=== PATIENT | female | born 1975 | race Caucasian/White ===

== ENCOUNTER → 2017-11-18 16:54 | Outpatient (CLI) | payer OTHER, SELFPAY | PROVIDERS: Family Provider Student in an Organized Health Care Education/Training Program; PCP Student in an Organized Health Care Education/Training Program; Visit Provider Otolaryngology | DX: J01.90 Acute sinusitis, unspecified (principal) | CPT/HCPCS: 87070; 87205 ==

== ENCOUNTER → 2018-05-23 11:23 | Outpatient (CLI) | payer OTHER, SELFPAY ==
[2018-05-23 13:05] LABS: Vitamin D,25 Hydroxy 46.4 ng/mL (29.95-100.01)
[2018-05-23 13:12] LABS: ALB/GLOB Ratio 0.9 RATIO (0.9-2.4); AST(SGOT) 30 U/L (15-37); Alanine Aminotransfer ALT/SGPT 43 U/L (13-56); Albumin, Serum 3.9 g/dL (3.2-5.0); Alkaline Phosphatase 69 U/L (45-117); Anion Gap 11 (5-15); BUN 13 mg/dL (7-18); Chloride 104 mmol/L (98-107); Creatinine, Serum 0.72 mg/dL (0.55-1.02); EST Glomerular Filtration Rate 93 mL/min (>60); Est Glom Filt Rate - Afr Amer 113 mL/min (>60); Globulin 4.3 g/dL (2.2-4.2); Glucose 85 mg/dL (74-106); Potassium 3.9 mmol/L (3.5-5.1); Protein, Total 8.2 g/dL (6.4-8.2); Sodium Level 140 mmol/L (136-145); Thyroid Stim Hormone (TSH) 1.05 uIU/mL (0.358-3.74)
== END ==
PROVIDERS: Family Provider Student in an Organized Health Care Education/Training Program; PCP Student in an Organized Health Care Education/Training Program; Visit Provider Internal Medicine Endocrinology, Diabetes & Metabolism
DX: E04.0 Nontoxic diffuse goiter (principal); E55.9 Vitamin D deficiency, unspecified
CPT/HCPCS: 36415; 80053; 82306; 84443

== ENCOUNTER → 2018-12-27 11:23 | Outpatient (CLI) | payer OTHER, SELFPAY ==
--- NOTE | 2018-12-27 11:28 | VDLE_ITS ---
Reason For Study: LEG PAIN RIGHT LEFT CFV is compressible, spontaneous, phasic, GSV is normal. competent and demonstrates normal CFV is compressible, spontaneous, phasic, augmentation. competent, and demonstrates normal Procedure augmentation. Exam performed in department. FV is compressible, spontaneous, phasic, A preliminary report was called and/or faxed competent and demonstrates normal to Carmen Moya. augmentation. POP V is compressible, spontaneous, phasic, competent and demonstrates normal augmentation. T/P Trunk is compressible. PTV is compressible. LT PerV is compressible. Interpretation Summary Deep veins of the left lower extremity are patent and compressible segmentally. There is no evidence of left lower extremity deep vein thrombosis. Valvular competence appears intact within the proximal deep venous system on the left . The left greater saphenous vein appears patent and compressible segmentally. Ordering Physician: Michelle Moya Referring Physician: Michelle Moya Performed By: Tomasa Patel RVT
== END ==
PROVIDERS: Family Provider Internal Medicine; PCP Internal Medicine; Referring Provider Nurse Practitioner Adult Health; Visit Provider Nurse Practitioner Adult Health
DX: M79.605 Pain in left leg (principal)
CPT/HCPCS: 93971

== ENCOUNTER → 2019-01-26 09:53 | Outpatient (CLI) | payer OTHER, SELFPAY ==
[2019-01-26 10:44] LABS: Erythrocyte Sedimentation Rate 10 mm/hr (0-20)
[2019-01-26 10:45] LABS: Hemoglobin 12.7 g/dl (12.0-15.0); Mean Corp Hgb Conc 33.4 g/gl (32-36); Mean Corpuscular Hgb 28.7 pg (27.0-32.0); Mean Corpuscular Volume 85.8 fL (81-99); Platelet Count 321 K/mm3 (150-450); RBC Distribution Width CV 13.2 % (11.6-14.6); RBC Distribution Width SD 41.8 fl (35.1-43.9); Red Blood Count 4.43 M/mm3 (4.2-5.4); White Blood Count 8.2 K/mm3 (4.4-11.0)
[2019-01-26 10:47] LABS: Scan Indicated on CBC? Y/N NO
[2019-01-26 11:11] LABS: Vitamin D,25 Hydroxy 38.6 ng/mL (29.95-100.01)
[2019-01-26 11:17] LABS: ALB/GLOB Ratio 0.9 RATIO (0.9-2.4); AST(SGOT) 23 U/L (15-37); Alanine Aminotransfer ALT/SGPT 39 U/L (13-56); Albumin, Serum 3.7 g/dL (3.2-5.0); Alkaline Phosphatase 67 U/L (45-117); Anion Gap 8 (5-15); BUN 14 mg/dL (7-18); BUN/Creat Ratio 19.3 RATIO (10-20); CRP < 2.90 mg/L (0.0-3.0); Calcium,Total 8.5 mg/dL (8.5-10.1); Chloride 106 mmol/L (98-107); Cholesterol 247 mg/dL (200); Creatinine, Serum 0.73 mg/dL (0.55-1.02); EST Glomerular Filtration Rate 92 mL/min (>60); Est Glom Filt Rate - Afr Amer 112 mL/min (>60); Globulin 3.9 g/dL (2.2-4.2); Glucose 96 mg/dL (74-106); High Density Lipoprotein 41 mg/dL; Potassium 4.3 mmol/L (3.5-5.1); Protein, Total 7.6 g/dL (6.4-8.2); Sodium Level 138 mmol/L (136-145); Triglycerides 261 mg/dL; Very Low Density Lipoprotein 52 mg/dL (5-40)
== END ==
PROVIDERS: Family Provider Student in an Organized Health Care Education/Training Program; PCP Student in an Organized Health Care Education/Training Program; Referring Provider Internal Medicine Endocrinology, Diabetes & Metabolism; Visit Provider Internal Medicine Endocrinology, Diabetes & Metabolism
DX: Z00.00 Encounter for general adult medical examination without abnormal findings (principal); E04.0 Nontoxic diffuse goiter; E55.9 Vitamin D deficiency, unspecified; Z79.899 Other long term (current) drug therapy
CPT/HCPCS: 36415; 80053; 80061; 82306; 84443; 85027; 85652; 86140

== ENCOUNTER → 2019-08-22 07:20 | Outpatient (CLI) | payer OTHER, SELFPAY ==
[2019-08-22 09:08] LABS: Vitamin D,25 Hydroxy 68.7 ng/mL (29.95-100.01)
[2019-08-22 09:12] LABS: ALB/GLOB Ratio 0.9 RATIO (0.9-2.4); AST(SGOT) 19 U/L (15-37); Alanine Aminotransfer ALT/SGPT 34 U/L (13-56); Albumin, Serum 3.5 g/dL (3.2-5.0); Alkaline Phosphatase 65 U/L (45-117); Anion Gap 6 (5-15); BUN 19 mg/dL (7-18); BUN/Creat Ratio 28.6 RATIO (10-20); Calcium,Total 8.5 mg/dL (8.5-10.1); Chloride 108 mmol/L (98-107); Cholesterol 242 mg/dL (200); Creatinine, Serum 0.66 mg/dL (0.55-1.02); EST Glomerular Filtration Rate 102 mL/min (>60); Est Glom Filt Rate - Afr Amer 123 mL/min (>60); Globulin 3.8 g/dL (2.2-4.2); Glucose 95 mg/dL (74-106); High Density Lipoprotein 36 mg/dL; Potassium 4.1 mmol/L (3.5-5.1); Protein, Total 7.3 g/dL (6.4-8.2); Sodium Level 141 mmol/L (136-145); Thyroid Stim Hormone (TSH) 1.89 uIU/mL (0.358-3.74); Triglycerides 222 mg/dL; Very Low Density Lipoprotein 44 mg/dL (5-40)
== END ==
PROVIDERS: Family Provider Student in an Organized Health Care Education/Training Program; PCP Student in an Organized Health Care Education/Training Program; Referring Provider Internal Medicine Endocrinology, Diabetes & Metabolism; Visit Provider Internal Medicine Endocrinology, Diabetes & Metabolism
DX: E04.0 Nontoxic diffuse goiter (principal); E78.2 Mixed hyperlipidemia; E55.9 Vitamin D deficiency, unspecified
CPT/HCPCS: 36415; 80053; 80061; 82306; 84443

== ENCOUNTER → 2020-05-21 07:59 | Outpatient (CLI) | payer OTHER, SELFPAY ==
[2020-05-21 10:15] LABS: ALB/GLOB Ratio 0.9 RATIO (0.9-2.4); AST(SGOT) 29 U/L (15-37); Alanine Aminotransfer ALT/SGPT 52 U/L (13-56); Albumin, Serum 3.6 g/dL (3.2-5.0); Alkaline Phosphatase 64 U/L (45-117); Anion Gap 7 (5-15); BUN 12 mg/dL (7-18); BUN/Creat Ratio 17.6 RATIO (10-20); Calcium,Total 8.4 mg/dL (8.5-10.1); Chloride 104 mmol/L (98-107); Cholesterol 240 mg/dL (200); Creatinine, Serum 0.68 mg/dL (0.55-1.02); EST Glomerular Filtration Rate 99 mL/min (>60); Est Glom Filt Rate - Afr Amer 119 mL/min (>60); Globulin 3.9 g/dL (2.2-4.2); Glucose 90 mg/dL (74-106); High Density Lipoprotein 34 mg/dL; Potassium 3.6 mmol/L (3.5-5.1); Protein, Total 7.5 g/dL (6.4-8.2); Sodium Level 138 mmol/L (136-145); Thyroid Stim Hormone (TSH) 2.09 uIU/mL (0.358-3.74); Triglycerides 313 mg/dL; Very Low Density Lipoprotein 63 mg/dL (5-40)
[2020-05-21 11:10] LABS: Vitamin D,25 Hydroxy 75.1 ng/mL
== END ==
PROVIDERS: PCP Student in an Organized Health Care Education/Training Program; Referring Provider Internal Medicine Endocrinology, Diabetes & Metabolism; Visit Provider Internal Medicine Endocrinology, Diabetes & Metabolism
DX: E04.0 Nontoxic diffuse goiter (principal); E55.9 Vitamin D deficiency, unspecified; E78.2 Mixed hyperlipidemia
CPT/HCPCS: 36415; 80053; 80061; 82306; 84443

== ENCOUNTER → 2020-08-17 08:59 | Outpatient (CLI) | payer OTHER, SELFPAY ==
[2020-08-17 10:12] LABS: ALB/GLOB Ratio 0.9 RATIO (0.9-2.4); AST(SGOT) 24 U/L (15-37); Alanine Aminotransfer ALT/SGPT 42 U/L (13-56); Albumin, Serum 3.6 g/dL (3.2-5.0); Alkaline Phosphatase 73 U/L (45-117); Anion Gap 4 (5-15); BUN 12 mg/dL (7-18); CPK Total, Creatine Kinase 123 U/L (26-192); Chloride 110 mmol/L (98-107); Cholesterol 189 mg/dL (200); Creatinine, Serum 0.75 mg/dL (0.55-1.02); EST Glomerular Filtration Rate 88 mL/min (>60); Est Glom Filt Rate - Afr Amer 107 mL/min (>60); Globulin 3.9 g/dL (2.2-4.2); Glucose 97 mg/dL (74-106); High Density Lipoprotein 47 mg/dL; Protein, Total 7.5 g/dL (6.4-8.2); Sodium Level 144 mmol/L (136-145); Triglycerides 154 mg/dL; Very Low Density Lipoprotein 31 mg/dL (5-40)
== END ==
PROVIDERS: PCP Student in an Organized Health Care Education/Training Program; Referring Provider Internal Medicine Endocrinology, Diabetes & Metabolism; Visit Provider Internal Medicine Endocrinology, Diabetes & Metabolism
DX: E04.0 Nontoxic diffuse goiter (principal); E78.2 Mixed hyperlipidemia
CPT/HCPCS: 36415; 80053; 80061; 82550

== ENCOUNTER → 2021-04-02 09:23 | Outpatient (CLI) | payer OTHER, SELFPAY ==
[2021-04-02 11:07] LABS: Vitamin D,25 Hydroxy 73.4 ng/mL
[2021-04-02 11:11] LABS: AST(SGOT) 25 U/L (15-37); Alanine Aminotransfer ALT/SGPT 43 U/L (13-56); Albumin, Serum 3.8 g/dL (3.2-5.0); Alkaline Phosphatase 73 U/L (45-117); Anion Gap 5 (5-15); BUN 9 mg/dL (7-18); BUN/Creat Ratio 14.5 RATIO (10-20); Chloride 106 mmol/L (98-107); Cholesterol 194 mg/dL (200); Creatinine, Serum 0.62 mg/dL (0.55-1.02); EST Glomerular Filtration Rate 110 mL/min (>60); Est Glom Filt Rate - Afr Amer 133 mL/min (>60); Glucose 91 mg/dL (74-106); High Density Lipoprotein 40 mg/dL; Potassium 4.1 mmol/L (3.5-5.1); Protein, Total 7.8 g/dL (6.4-8.2); Sodium Level 139 mmol/L (136-145); Thyroid Stim Hormone (TSH) 1.05 uIU/mL (0.358-3.74); Triglycerides 188 mg/dL; Very Low Density Lipoprotein 38 mg/dL (5-40)
== END ==
PROVIDERS: PCP Student in an Organized Health Care Education/Training Program; Referring Provider Internal Medicine Endocrinology, Diabetes & Metabolism; Visit Provider Internal Medicine Endocrinology, Diabetes & Metabolism
DX: E78.2 Mixed hyperlipidemia (principal); E04.0 Nontoxic diffuse goiter; E55.9 Vitamin D deficiency, unspecified
CPT/HCPCS: 36415; 80053; 80061; 82306; 84443

== ENCOUNTER → 2022-03-12 | Outpatient (CLI) | payer OTHER, SELFPAY ==
[2022-03-12 10:56] LABS: ALB/GLOB Ratio 0.9 RATIO (0.9-2.4); AST(SGOT) 17 U/L (15-37); Alanine Aminotransfer ALT/SGPT 34 U/L (13-56); Albumin, Serum 3.5 g/dL (3.2-5.0); Alkaline Phosphatase 70 U/L (45-117); Anion Gap 7 (5-15); BUN 10 mg/dL (7-18); BUN/Creat Ratio 16.8 RATIO (10-20); Calcium,Total 8.5 mg/dL (8.5-10.1); Chloride 106 mmol/L (98-107); Cholesterol 169 mg/dL (200); EST Glomerular Filtration Rate 114 mL/min (>60); Est Glom Filt Rate - Afr Amer 138 mL/min (>60); Globulin 3.8 g/dL (2.2-4.2); Glucose 98 mg/dL (74-106); High Density Lipoprotein 39 mg/dL; Potassium 3.8 mmol/L (3.5-5.1); Protein, Total 7.3 g/dL (6.4-8.2); Sodium Level 137 mmol/L (136-145); Thyroid Stim Hormone (TSH) 1.41 uIU/mL (0.358-3.74); Triglycerides 196 mg/dL; Very Low Density Lipoprotein 39 mg/dL (5-40)
== END | disposition home or self-care (01) ==
LOC: LAB 08:09
PROVIDERS: PCP Student in an Organized Health Care Education/Training Program; Referring Provider Internal Medicine Endocrinology, Diabetes & Metabolism; Visit Provider Internal Medicine Endocrinology, Diabetes & Metabolism
DX: E78.2 Mixed hyperlipidemia (principal)
CPT/HCPCS: 36415; 80053; 80061; 84443

== ENCOUNTER → 2022-09-21 | Outpatient (CLI) | payer OTHER, SELFPAY | END | disposition home or self-care (01) | LOC: LABSPEC 16:27 | PROVIDERS: PCP Student in an Organized Health Care Education/Training Program; Visit Provider Otolaryngology | DX: J02.9 Acute pharyngitis, unspecified (principal) | CPT/HCPCS: 87070 ==

== ENCOUNTER → 2022-11-02 | Outpatient (CLI) | payer OTHER, SELFPAY ==
[2022-11-02 07:41] LABS: AST(SGOT) 16 U/L (15-37); Alanine Aminotransfer ALT/SGPT 31 U/L (13-56); Albumin, Serum 3.7 g/dL (3.2-5.0); Alkaline Phosphatase 64 U/L (45-117); Anion Gap 6 (5-15); BUN 10 mg/dL (7-18); BUN/Creat Ratio 14.8 RATIO (10-20); Calcium,Total 8.6 mg/dL (8.5-10.1); Chloride 108 mmol/L (98-107); Cholesterol 159 mg/dL (200); Creatinine, Serum 0.68 mg/dL (0.55-1.02); EST Glomerular Filtration Rate 99 mL/min (>60); Est Glom Filt Rate - Afr Amer 119 mL/min (>60); Globulin 3.7 g/dL (2.2-4.2); Glucose 108 mg/dL (74-106); High Density Lipoprotein 39 mg/dL; Potassium 4.1 mmol/L (3.5-5.1); Protein, Total 7.4 g/dL (6.4-8.2); Sodium Level 140 mmol/L (136-145); Thyroid Stim Hormone (TSH) 1.51 uIU/mL (0.358-3.74); Triglycerides 162 mg/dL; Very Low Density Lipoprotein 32 mg/dL (5-40)
[2022-11-02 08:38] LABS: Vitamin D,25 Hydroxy 35.3 ng/mL
== END | disposition home or self-care (01) ==
PROVIDERS: PCP Student in an Organized Health Care Education/Training Program; Referring Provider Internal Medicine Endocrinology, Diabetes & Metabolism; Visit Provider Internal Medicine Endocrinology, Diabetes & Metabolism
DX: E04.0 Nontoxic diffuse goiter (principal); E78.2 Mixed hyperlipidemia; E55.9 Vitamin D deficiency, unspecified
CPT/HCPCS: 36415; 80053; 80061; 82306; 84443

== ENCOUNTER → 2022-12-22 | Outpatient (CLI) | payer OTHER, SELFPAY ==
[2022-12-22 07:25] LABS: Hematocrit 40.4 % (37-47); Hemoglobin 13.3 g/dL (12.0-15.0); Mean Corp Hgb Conc 32.9 g/dL (32-36); Mean Corpuscular Hgb 29.2 pg (27.0-32.0); Mean Corpuscular Volume 88.6 fL (81-99); Mean Platelet Vol. 10.2 fl (6.2-12.0); Platelet Count 315 K/mm3 (150-450); RBC Distribution Width CV 12.8 % (11.6-14.6); RBC Distribution Width SD 41.3 fl (35.1-43.9); Red Blood Count 4.56 M/mm3 (4.2-5.4)
[2022-12-22 08:02] LABS: AST(SGOT) 17 U/L (15-37); Alanine Aminotransfer ALT/SGPT 28 U/L (13-56); Albumin, Serum 3.7 g/dL (3.2-5.0); Alkaline Phosphatase 58 U/L (45-117); Anion Gap 7 (5-15); BUN 15 mg/dL (7-18); BUN/Creat Ratio 23.3 RATIO (10-20); Calcium,Total 8.9 mg/dL (8.5-10.1); Chloride 106 mmol/L (98-107); Cholesterol 183 mg/dL (200); Creatinine, Serum 0.64 mg/dL (0.55-1.02); EST Glomerular Filtration Rate 105 mL/min (>60); Est Glom Filt Rate - Afr Amer 126 mL/min (>60); Globulin 3.7 g/dL (2.2-4.2); Glucose 103 mg/dL (74-106); High Density Lipoprotein 37 mg/dL; Protein, Total 7.4 g/dL (6.4-8.2); Sodium Level 140 mmol/L (136-145); Triglycerides 144 mg/dL; Very Low Density Lipoprotein 29 mg/dL (5-40)
[2022-12-22 08:30] LABS: Hemoglobin A1c 5.5 % (3.8-5.6)
== END | disposition home or self-care (01) ==
PROVIDERS: PCP Student in an Organized Health Care Education/Training Program; Referring Provider Nurse Practitioner Family; Visit Provider Nurse Practitioner Family
DX: I10 Essential (primary) hypertension (principal); E78.2 Mixed hyperlipidemia; R73.01 Impaired fasting glucose
CPT/HCPCS: 36415; 80053; 80061; 83036; 85027

== ENCOUNTER → 2023-02-11 | Outpatient (CLI) | payer OTHER, SELFPAY | END | disposition home or self-care (01) | LOC: LAB 06:40 → LABSPEC 06:41 | PROVIDERS: PCP Student in an Organized Health Care Education/Training Program; Referring Provider Internal Medicine Endocrinology, Diabetes & Metabolism; Visit Provider Internal Medicine Endocrinology, Diabetes & Metabolism | DX: E78.2 Mixed hyperlipidemia (principal); N95.1 Menopausal and female climacteric states; M85.89 Other specified disorders of bone density and structure, multiple sites; N20.0 Calculus of kidney | CPT/HCPCS: 81050 ==

== ENCOUNTER → 2023-02-18 | Outpatient (CLI) | payer OTHER, SELFPAY ==
[2023-02-18 07:36] LABS: ALB/GLOB Ratio 0.9 RATIO (0.9-2.4); AST(SGOT) 24 U/L (15-37); Alanine Aminotransfer ALT/SGPT 33 U/L (13-56); Albumin, Serum 3.7 g/dL (3.2-5.0); Alkaline Phosphatase 77 U/L (45-117); Anion Gap 6 (5-15); BUN 15 mg/dL (7-18); BUN/Creat Ratio 21.7 RATIO (10-20); Calcium,Total 8.7 mg/dL (8.5-10.1); Chloride 105 mmol/L (98-107); Cholesterol 197 mg/dL (200); Creatinine, Serum 0.69 mg/dL (0.55-1.02); EST Glomerular Filtration Rate 96 mL/min (>60); Est Glom Filt Rate - Afr Amer 116 mL/min (>60); Follicle Stimulating Hormone 10.3 mIU/mL; Globulin 4.1 g/dL (2.2-4.2); Glucose 109 mg/dL (74-106); High Density Lipoprotein 42 mg/dL; Potassium 4.2 mmol/L (3.5-5.1); Protein, Total 7.8 g/dL (6.4-8.2); Sodium Level 139 mmol/L (136-145); Thyroid Stim Hormone (TSH) 2.06 uIU/mL (0.358-3.74); Triglycerides 179 mg/dL; Very Low Density Lipoprotein 36 mg/dL (5-40)
[2023-02-18 08:51] LABS: PTHIN 49.7 pg/mL (18.4-80.1)
[2023-02-18 08:53] LABS: Vitamin D,25 Hydroxy 71.1 ng/mL
== END | disposition home or self-care (01) ==
LOC: LAB 06:20
PROVIDERS: PCP Student in an Organized Health Care Education/Training Program; Referring Provider Internal Medicine Endocrinology, Diabetes & Metabolism; Visit Provider Internal Medicine Endocrinology, Diabetes & Metabolism
DX: E78.2 Mixed hyperlipidemia (principal); N95.1 Menopausal and female climacteric states; N20.0 Calculus of kidney; M85.89 Other specified disorders of bone density and structure, multiple sites
CPT/HCPCS: 36415; 80053; 80061; 82306; 83001; 83970; 84443

== ENCOUNTER → 2023-06-28 | Outpatient (CLI) | payer OTHER, SELFPAY ==
[2023-06-28 08:01] LABS: ALB/GLOB Ratio 0.9 RATIO (0.9-2.4); AST(SGOT) 16 U/L (15-37); Alanine Aminotransfer ALT/SGPT 28 U/L (13-56); Albumin, Serum 3.7 g/dL (3.2-5.0); Alkaline Phosphatase 60 U/L (45-117); Anion Gap 4 (5-15); BUN 15 mg/dL (7-18); BUN/Creat Ratio 23.2 RATIO (10-20); Chloride 109 mmol/L (98-107); Cholesterol 173 mg/dL (200); Creatinine, Serum 0.65 mg/dL (0.55-1.02); EST Glomerular Filtration Rate 104 mL/min (>60); Est Glom Filt Rate - Afr Amer 126 mL/min (>60); Globulin 3.9 g/dL (2.2-4.2); Glucose 101 mg/dL (74-106); High Density Lipoprotein 37 mg/dL; Potassium 3.9 mmol/L (3.5-5.1); Protein, Total 7.6 g/dL (6.4-8.2); Sodium Level 140 mmol/L (136-145); Triglycerides 176 mg/dL; Very Low Density Lipoprotein 35 mg/dL (5-40)
== END | disposition home or self-care (01) ==
PROVIDERS: PCP Student in an Organized Health Care Education/Training Program; Referring Provider Internal Medicine Endocrinology, Diabetes & Metabolism; Visit Provider Internal Medicine Endocrinology, Diabetes & Metabolism
DX: E78.2 Mixed hyperlipidemia (principal)
CPT/HCPCS: 36415; 80053; 80061

== ENCOUNTER 2023-11-26 19:09 | Emergency (ER) | payer OTHER, SELFPAY ==
[2023-11-26 19:09] VITALS: BP 196/109; PULSE 118; RESP 20; TEMP 36.4; O2SAT 97; BMI 29.2
--- NOTE | 2023-11-26 20:03 | EDS_ITS ---
HPI History of Present Illness Chief Complaint: Hypertension Informant: patient Onset/Context/Timing Onset: Weeks (1) Context: Gradual Onset Timing: Waxes and wanes Quality: Aching, sharp at times Location: Left flank Worsened by: Nothing Relieved by: Nothing Narrative Narrative: Patient presents with elevated blood pressure that was noticed last week. Patient states she went to urgent care for pain in her left flank and back. Patient states that they did a urinalysis which showed some mild hematuria. Patient states that they noted her blood pressure to be elevated at that time. Patient states that she was still having some intermittent pain in her back. Patient checked her blood pressure again tonight and it was elevated. Patient denies any fevers or chills. Patient denies any shortness of breath. Patient admits to some slight pain in her left upper chest. [facility] Medical History (Updated 11/27/23 @ 00:[address] Lakhwinder Headley, ) Hypercholesterolemia Hypertension Home Medications indomethacin 25 mg capsule 50 mg (2 x 25 mg) PO TIDCM ##30 07/01/14 [Rx Last Taken Unknown] oxycodone-acetaminophen 5 mg-325 mg tablet 1 tab PO Q4H PRN PRN Pain ##14 07/01/14 [Rx Last Taken Unknown] pitavastatin calcium 4 mg tablet (Livalo) 4 mg PO DAILY 07/01/14 [History Last Taken Unknown] tamsulosin 0.4 mg capsule 0.4 mg PO DAILY ##7 07/01/14 [Rx Last Taken Unknown] valsartan 160 mg-hydrochlorothiazide 12.5 mg tablet (Diovan HCT) 1 tab PO DAILY 07/01/14 [History Last Taken Unknown] hydrocodone-acetaminophen 5-325mg 5mg-325mg 1 tab PO Q6H PRN PRN Pain 3 days #10 TABLETS 11/27/23 [Rx Last Taken Unknown] Allergy/AdvReac Type Severity Reaction Status Date / Time Sulfa (Sulfonamide Allergy Rash Verified 07/01/14 13:11 Antibiotics) amoxicillin trihydrate AdvReac Vomiting Verified 07/01/14 13:11 [From Augmentin] potassium clavulanate AdvReac Vomiting Verified 07/01/14 13:11 [From Augmentin] Surgical History H/O section Social History Smoking Status: Never smoker ROS ROS ED Constitutional Constitutional ED: Denies chills or fever(s) Eyes Eyes: Denies blurry vision or change in vision ENT ENT ED: Denies rhinorrhea or sore throat Cardiovascular Cardiovascular: Reports chest pain; Denies palpitations Respiratory/Chest Respiratory/Chest: Denies cough or dyspnea Gastrointestinal Gastrointestinal: Denies nausea or vomiting Genitourinary Genitourinary ED: Reports urinary frequency; Denies dysuria or hematuria Musculoskeletal Musculoskeletal: Reports back pain; Denies neck pain Integumentary Denies abscess or rash Neurologic Neurologic: Denies headache(s) or weakness Allergic/Immunologic Allergic/Immunologic ED: Denies mouth swelling or urticaria EXAM Physical Exam Const Vital Signs: 11/26/23 19:09 11/26/23 20:33 11/26/23 20:33 Temperature 97.6 F L Temperature Source Temporal Pulse Rate 118 H 120 H Respiratory Rate 20 H 28 H Respiratory Effort Normal Non-Labored Respiratory Pattern Normal Blood Pressure 196/109 H 215/129 H Blood Pressure Mean 138 157 Pulse Ox 97 98 Oxygen Delivery Method Room Air Room Air 11/26/23 21:30 11/26/23 22:26 Temperature Temperature Source Pulse Rate 83 Respiratory Rate Respiratory Effort Respiratory Pattern Blood Pressure 199/110 H 196/101 H Blood Pressure Mean 139 132 Pulse Ox Oxygen Delivery Method Positive well nourished and well developed General Appearance ED: well developed and NAD HEENT Reports moist mucous membranes Neck supple and no JVD Resp normal respiratory effort and clear to auscultation bilaterally Cardio regular rate and regular rhythm GI non-tender and non-distended Palpation: soft Back/Spine no CVA tenderness Extremity normal to inspection Neuro oriented x3, CN's II-XII intact bilaterally and no sensory deficits noted Sensorium / Orientation: alert Motor Exam: strength 5/5 throughout Psych mental status grossly normal MDM MDM MDM Narrative Medical decision making narrative: Differential diagnosis includes hypertensive urgency, hypertensive emergency, uncontrolled hypertension, cardiac dysrhythmia, cardiac ischemia, electrolyte abnormality, ureteral calculus, pyelonephritis, and urinary tract infection. EKG will be obtained to assess for cardiac dysrhythmia and cardiac ischemia. Chest x-ray will be obtained to assess for cardiomegaly, congestive heart failure, and pneumonia. CT scan of the abdomen and pelvis will be obtained to assess for ureteral calculus. CBC will be obtained to assess for leukocytosis and anemia. Basic metabolic profile will be obtained to assess for electrolyte abnormality and renal function. High-sensitivity troponin will be obtained to assess for cardiac ischemia. D-dimer will be obtained to assess for pulmonary embolism. Urinalysis will be obtained to assess for urinary tract infection. Lab Data Attestation: I reviewed the patient's lab results. Lab results narrative: CBC was reviewed and was within normal limits. Basic metabolic profile was reviewed and was within normal limits. D-dimer was reviewed and was normal at 0.41. High-sensitivity troponin was reviewed and was normal at 6. Urinalysis was reviewed. There is no evidence of urinary tract infection or hematuria. Labs: Laboratory Results - last 24 hr 11/26/23 11/26/23 20:30 20:50 WBC 10.7 RBC 4.64 Hgb 13.4 Hct 39.8 MCV 85.8 MCH 28.9 MCHC 33.7 RDW Std Deviation 39.1 RDW Coeff of [place] 12.8 Plt Count 344 MPV 10.4 Immature Gran % (Auto) 0.500 Neut % (Auto) 66.1 Lymph % (Auto) 24.5 [place] % (Auto) 7.9 Eos % (Auto) 0.3 Baso % (Auto) 0.7 Absolute Neuts (auto) 7.1 Absolute Lymphs (auto) 2.62 Nucleated RBC % 0 D-Dimer Quant (PE/DVT) 0.41 Sodium 140 Potassium 3.5 Chloride 106 Carbon Dioxide 27.0 Anion Gap 7 BUN 12 Creatinine 0.72 Estim Creat Clear Calc 98.65 Est GFR (MDRD) Af Amer 111 Est GFR (MDRD) Non-Af 92 BUN/Creatinine Ratio 16.7 Glucose 150 H Calcium 9.8 Troponin I High Sens 6 Urine Color Yellow Urine Clarity Clear Urine pH 7.0 Ur Specific [place] 1.010 Urine Protein Negative Urine Glucose (UA) Normal Urine Ketones Negative Urine Occult Blood 50 H Urine Nitrite Negative Urine Bilirubin Negative Urine Urobilinogen Normal Ur Leukocyte Esterase Negative Urine RBC 0-5 SEEN Urine WBC 0-5 SEEN Ur Squamous Epith Cells 0-5 SEEN Urine Bacteria RARE Urine Mucus 0 SEEN Radiography Chest X-Ray - ED: 2 View, Read by ED Physician and No Acute Disease Diagnostic Testing: Clinical Impression(s) from Imaging Studies Abdomen/Pelvis CT 11/26/23 20:16 IMPRESSION: Mild left renal obstruction secondary to proximal ureteral calculus measuring approximately 4 mm. Nonobstructing right renal calculus. Electronically Signed: Leon Butterfield MD at 21:41 EST , CT scan of the abdomen pelvis was obtained. There is a 4 mm proximal ureteral calculus on the left. There is mild hydronephrosis. There is a nonobstructing right renal calculus. This was interpreted by the radiologist was also independently reviewed by myself. PA and lateral chest x-ray was obtained. There are 2 views. On my independent interpretation, lung chase are clear. There is normal cardiac silhouette. Bony thorax is normal. There is no acute process noted. EKG Initial EKG: Attestation: I personally reviewed and interpreted this EKG as follows: Interpretation: Sinus Rhythm (93) and No Acute Injury Pattern Comments: EKG was obtained. On my independent interpretation, shows a sinus rhythm with first-degree AV block with rate of 93. SC interval is slightly prolonged at 206 ms. QRS interval was normal at 86 ms. QTc interval is normal at 467 ms. [place] was normal. There are no acute ST or T wave changes noted. Prior EKG tracings: not available for review Prior: No Prior Treatment and Re-Evaluation :: Patient was given a dose of labetalol initially. Patient had minimal improvement with this. Patient was given a dose of clonidine. Patient's blood pressure improved to 179/80 after this. Patient was advised of her findings. Patient was advised that the flank pain may be causing her blood pressure to go up. Patient was given a dose of morphine here. Patient was given a prescription for a short course of [place]. Patient was instructed to continue her Diovan hydrochlorothiazide as previously prescribed. Patient was instructed to follow-up with her primary care physician in 3 to 5 days. Patient was also given referral for urology. Patient was instructed return if worse in any way. Patient understood and was agreeable with the plan. All questions were answered. Discharge Plan Triage Chief Complaint: Hypertension ED Provider: Lakhwinder Headley Dx/Rx/DC Orders Clinical Impression: Calculus of proximal left ureter, Hypertension Instructions: ED Hypertension, Established, ED Kidney Stone with Pain Prescriptions: New hydrocodone-acetaminophen [hydrocodone-acetaminophen] 5-325 mg tablet 1 tab PO Q6H PRN PRN (Reason: Pain) 3 Days Qty: 10 0RF No Action valsartan-hydrochlorothiazide [Diovan HCT] 160-12.5 mg tablet 1 tab PO DAILY Patient Comments: by mouth pitavastatin calcium [Livalo] 4 MG tablet 4 mg PO DAILY Patient Comments: oxycodone-acetaminophen 1 TABLET tablet 1 tab PO Q4H PRN PRN (Reason: Pain) Qty: 14 0RF tamsulosin 0.4 MG capsule 0.4 mg PO DAILY Qty: 7 0RF indomethacin 25 MG capsule 50 mg PO TIDCM Qty: 30 0RF Primary Care Provider: Shon Ronquillo Referrals: Shon Ronquillo DO [Primary Care Provider] - 3-5 Days Bruce Soto MD [Med Staff - Active Staff] - 3-5 Days Disposition Disposition: Home, Self Care
--- NOTE | 2023-11-26 20:16 | CT_ITS ---
STUDY: CT ABDOMEN AND PELVIS WITHOUT CONTRAST REASON FOR EXAM: Female, 48 years old. Left flank pain RADIATION DOSAGE (If Supplied By Facility): CTDIvol = ( 10.56 ) mGy, DLP = ( 546.21 ) mGycm TECHNIQUE: Transaxial images were obtained from the dome of the diaphragm to the symphysis pubis without oral contrast, and without intravenous contrast. Sagittal and coronal images were reconstructed. Individualized dose optimization techniques were used for this CT. COMPARISON: CT of the abdomen and pelvis July 01, 2014 FINDINGS: The visualized lung bases are unremarkable. The visualized portions of the heart are within normal limits. Normal liver. Normal gallbladder and extrahepatic biliary system. Normal spleen. Normal pancreas. Normal bilateral adrenal glands. There is a small nonobstructing calculus in the right kidney. No evidence for renal obstruction or mass. There is mild left hydronephrosis secondary to calculus in the proximal ureter measuring approximately 4 mm no left renal mass. Mildly distended stomach with retained secretions of indeterminate significance. No evidence for small bowel obstruction. . Normal colon. No evidence for acute appendicitis. Minor atherosclerotic changes of the aorta without evidence for aneurysm.. Normal inferior vena cava. Normal retroperitoneum. Normal urinary bladder. IUD noted within the uterus in satisfactory position. Small right ovarian cyst measuring approximately 1.5 cm Incompletely distended mildly thick walled bladder likely of no significance.. Lumbar spine demonstrates mild spondylosis. CT/Abdomen/Pelvis without Cont IMPRESSION: Mild left renal obstruction secondary to proximal ureteral calculus measuring approximately 4 mm. Nonobstructing right renal calculus. Electronically Signed: Leon Butterfield MD at 21:41 EST ,
--- NOTE | 2023-11-26 20:16 | EKG12_ITS ---
Test Reason : DYSRHYTHMIA Blood Pressure : / mmHG Vent. Rate : 093 BPM Atrial Rate : 093 BPM P-R Int : 206 ms QRS Dur : 086 ms QT Int : 376 ms P-R-T Axes : 066 033 039 degrees QTc Int : 467 ms Normal sinus rhythm with sinus arrhythmia Possible Left atrial enlargement Borderline ECG Confirmed by DANISH BEAN, ELAN ([id number]), index editor JONI SEXTON ([id number]) on 11/30/2023 6:30:47 AM Referred By: Confirmed By:ELAN PENG MD
--- OUTSIDE RECORDS SUMMARY | 2023-11-26 20:31 | XMS RPT_ITS | CCD ---
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 Name Role Phone Shon Martinez DO Primary Care Provider [phone] SHON MARTINEZ Primary Care Unavailable JAQUELINE WOODARD Attending Unavail able SHON MARTINEZ Primary Care Unavailable SHON MARTINEZ Referring Unavailable SHON MARTINEZ Attending Unavailable SHON MARTINEZ Primary Care Unavailable SHON MARTINEZ Primary Care Unavailable LUDIVINA CANTU Attending Unavailable SHON MARTINEZ Primary Care Unavailable SHON MARTINEZ Primary Care Unavailable SHON MARTINEZ Primary Care Unavailable SHON MARTINEZ Referring Unavailable SHON MARTINEZ Primary Care Unavailable SHON MARTINEZ Referring Unavailable SHON MARTINEZ Primary Care Unavailable SHON MARTINEZ Referring Unavailable Shon Martinez DO Primary Care Provider [phone] Allergies Allergy Classification Reported Allergen(s) Allergy Type Date of Onset Reaction(s) Facility (15 sources) Amoxicillin / Clavulanate; Translations: [AMOXICILLIN-POT CLAVULANATE] Drug Allergy 2 Vomiting [facility] Work Phone: (15 sources) Sulfonamides (Antibiotic); Translations: [SULFA (SULFONAMIDE ANTIBIOTICS)] Propensity to adverse reactions 6 Rash [facility] Work Phone: Medications Current Medications Medication Drug Class(es) Dates Sig (Normalized) Sig (Original) levonorgestrel 0.042722 mg/hr intrauterine system (14 sources) Progestin, Progestin-containi ng Intrauterine Device Start: 02-12-2021 End: 02-11-2026 levonorgestrel (MIRENA) 20 mcg/24 hours (5-6 yrs) 52 mg IUD 1 Each by INTRAUTERINE route as directed. 1 Each 0 02/12/2021 02/11/2026 Active Completed/Discontinued Medications Medication Drug Class(es) Dates Sig (Normalized) Sig (Original) ERGOCALCIFEROL, VITAMIN D2, (VITAMIN D ORAL) (14 sources) take 2 capsules by mouth once daily ERGOCALCIFEROL, VITAMIN D2, (VITAMIN D ORAL) Take 2 capsules by mouth once daily. 0 Active Problems Active Problems Problem Classification Problem Date Documented Da te Episodic/Chronic Abdominal pain (1 source) Flank pain; Translations: [Unspecified abdominal pain] 11-26-2023 Episodic Disorders of lipid metabolism (17 sources) Mixed hyperlipidemia; Translations: [Mixed hyperlipidemia] Onset: 10-06-2021 10-06-2021 Chronic Essential hypertension (20 sources) Essential hypertension; Translations: [Essential (primary) hypertension] Onset: 10-06-2021 10-06-2021 Chronic Genitourinary symptoms and ill-defined conditions (2 sources) Increased frequency of urination; Translations: [Frequency of micturition] 11-26-2023 Episodic Headache; including migraine (15 sources) Refractory migraine without aura; Translations: [Migraine without aura, intractable, without status migrainosus] Onset: 01-13-2022 01-13-2022 Chronic Menstrual disorders (20 sources) Excessive and frequent menstruation; Translations: [Excessive and frequent menstruation with regular cycle] Onset: 03-23-2012 03-23-2012 Chronic Other endocrine disorders (14 sources) Disorder of parathyroid gland; Translations: [Disorder of parathyroid gland, unspecified] Onset: 03-25-2016 03-25-2016 Chronic Other eye disorders (1 source) Disorder of eye; Translations: [Other specified disorders of eye and adnexa] 09-16-2023 Episodic Other female genital disorders (14 sources) Premenstrual tension syndrome; Translations: [Premenstrual tension syndrome] Onset: 03-23-2012 03-23-2012 Chronic Other nutritional; endocrine; and metabolic disorders (14 sources) Obese class I; Translations: [Obesity, unspecified] Onset: 01-13-2022 01-13-2022 Chronic Other nutritional; endocrine; and metabolic disorders (5 sources) Hyperbilirubinemia; Translations: [Other disorders of bilirubin metabolism] Onset: 03-01-2023 03-01-2023 Chronic Other nutritional; endocrine; and metabolic disorders (1 source) Other disorders of bilirubin metabolism; Translations: [Hyperbilirubinemia ] Onset: 03-01-2023 Chronic Past or Other Problems Problem Classification Problem Date Documented Da te Episodic/Chronic Diabetes mellitus without complication (7 sources) Impaired fasting glycemia; Translations: [Impaired fasting glucose] Onset: 03-01-2023 Episodic Hemorrhoids (14 sources) External hemorrhoids; Translations: [Residual hemorrhoidal skin tags] Onset: 07-12-2020 07-12-2020 Episodic Malaise and fatigue (14 sources) Malaise and fatigue; Translations: [Other malaise] Onset: 03-23-2012 03-23-2012 Episodic Other connective tissue disease (14 sources) Muscle spasm of cervical muscle of neck; Translations: [Other muscle spasm] Onset: 07-12-2020 07-12-2020 Episodic Other lower respiratory disease (5 sources) Chest pain on breathing; Translations: [Chest pain on breathing] Onset: 03-01-2023 03-01-2023 Episodic Other lower respiratory disease (1 source) Chest pain on breathing; Translations: [Chest pain on breathing] Onset: 03-01-2023 Episodic Other screening for suspected conditions (not mental disorders or infectious disease) (4 sources) Patient encounter status; Translations: [Encounter for screening mammogram for malignant neoplasm of breast] Onset: 05-14-2023 05-11-2023 Episodic Results Test Name Value Interpretation Reference Range Facil ity Vital Signs Date Time Vital Sign Value Performing Clinician Carlos Eduardo berrios 11-26-2023 10:58-0500 Diastolic blood pressure 90 mm[Hg] Danish FLORES Work Phone: [facility] 11-26-2023 10:58-0500 Systolic blood pressure 172 mm[Hg] Danish FLORES Work Phone: [facility] 11-26-2023 10:42-0500 Body temperature 97.59 [degF] Danish FLORES Work Phone: [facility] 11-26-2023 10:42-0500 Body weight 78.93 kg Krislyn Aberegg PA Work Phone: [facility] 11-26-2023 10:42-0500 Heart rate 64 /min Krislyn Aberegg PA Work Phone: [facility] 11-26-2023 10:42-0500 Respiratory rate 18 /min Krislyn Aberegg PA Work Phone: [facility] 11-26-2023 10:42-0500 SaO2% (BldA) [Mass fraction] 100 % Krislyn Aberegg PA Work Phone: [facility] 09-16-2023 16:56-0500 Body temperature 98.01 [degF] Krislyn Aberegg PA Work Phone: [facility] 09-16-2023 16:56-0500 Body weight 81.19 kg Krislyn Aberegg PA Work Phone: [facility] 09-16-2023 16:56-0500 Diastolic blood pressure 92 mm[Hg] Krislyn Aberegg PA Work Phone: [facility] 09-16-2023 16:56-0500 Heart rate 91 /min Krislyn Aberegg PA Work Phone: [facility] 09-16-2023 16:56-0500 Respiratory rate 18 /min Krislyn Aberegg PA Work Phone: [facility] 09-16-2023 16:56-0500 SaO2% (BldA) [Mass fraction] 98 % Krislyn Aberegg PA Work Phone: [facility] 09-16-2023 16:56-0500 Systolic blood pressure 156 mm[Hg] Krislyn Aberegg PA Work Phone: [facility] Encounters Encounter Date Encounter Type Care Provider Facility Start: 11-26-2023 End: 11-26-2023 Patient encounter procedure Krbrittanin P Aberegg PA Work Phone: [facility] Procedures Date Procedure Procedure Detail Performing Clinician Start: 11-26-2023 Urnls dip stick/tabl et rgnt auto w/o microscopy Danish FLORES Work Phone: Start: 05-14-2023 Screening digital br [facility] bi Bulk Order Provider Start: 02-12-2022 Mammography Mammograph y Coordinator Start: 10-25-2021 Lipid 1996 panel - S nidia or Plasma Screen Wstr Start: 10-22-2021 Adult depression scr eening assessment Shon Martinez DO Work Phone: Start: 01-22-2021 Mammography Shon cho DO Work Phone: Plan of Treatment Date Care Activity Detail Author Start: 10-25-2026 Lipid 1996 panel - S nidia or Plasma Lipid Screening [facility] Start: 10-25-2026 Lipid panel Lipid Screening [facility] Start: 10-25-2026 LIPID SCREEN LIPID SCREEN [facility] Start: 03-01-2026 DIABETES SCREEN DIABETES SCREEN [facility] Start: 03-01-2026 Diabetes Screening Diabetes Screenin g [facility] Start: 01-08-2026 HPV TESTING HPV TESTING [facility] Start: 01-08-2026 PAP TESTING PAP TESTING [facility] Start: 01-08-2026 Screening for malign ant neoplasm of cervix [facility] Start: 10-25-2024 DIABETES SCREEN DIABETES SCREEN [facility] Start: 05-14-2024 Mammography Mammogram Screening [facility] Start: 05-14-2024 Screening for malign ant neoplasm of breast Mammogram Screening [facility] Start: 03-01-2024 ANNUAL PCP TEAM BENDING FRAME OPERATOR YUMIKO DISEASE VISIT ANNUAL PCP TEAM CHRONIC DISEASE VISIT [facility] Start: 03-01-2024 BP CONTROLLED (<130/80) BP CON TROLLED (<130/80) [facility] Start: 12-26-2023 ANNUAL PCP TEAM BENDING FRAME OPERATOR YUMIKO DISEASE VISIT ANNUAL PCP TEAM CHRONIC DISEASE VISIT [facility] Start: 10-11-2023 Depression Assessment Depression Ass essment [facility] Start: 06-11-2023 Covid-19 Vaccine () Covid-19 Vaccine () [facility] Start: 06-11-2023 Influenza vaccination [facility] Start: 02-12-2023 Mammography MAMMOGRAM [facility] Start: 01-13-2023 ANNUAL PCP TEAM BENDING FRAME OPERATOR YUMIKO DISEASE VISIT ANNUAL PCP TEAM CHRONIC DISEASE VISIT [facility] Start: 12-09-2022 End: 02-08-2023 CBC panel - Blood by Automated count CBC Lab Routine Hypertension, essential Expected: 12/09/2022, Expires: 02/08/2023 [facility] Work Phone: Immunizations Immunization Date Immunization Notes Care Provider Fa cility 08-11-2021 COVID-19 vaccine, ag e 12+ yr (Golimi-AutoAlert - PURPLE TOP) Shon Martinez DO Work Phone: [facility] Work Phone: 07-08-2018 influenza virus vaccine, unspecified formulation Screen Wstr [facility] Payers Date Payer Category Payer Unknown MMO MMO [employer] [id number] 2019-Present [phone] [address] [place] [address] PPO [id number] 2019 Unknown [id number] 2019 Unknown [id number] Social History Date Type Detail Facility Start: 03-23-2012 Tobacco smoking status NHIS Never smoked tobacco [facility] Work Phone: Start: 10-22-2021 End: 11-26-2023 Alcohol intake Current non-drinker of alcohol (finding) [facility] Start: 1975 Sex Assigned At Female [facility] Start: 02-02-2022 End: 02-12-2022 Exposure to SARS-CoV-2 (event) Not sure [facility] Start: 03-23-2012 Tobacco use and exposure Smokeless tobacco non-user [facility] Work Phone: Start: 12-21-2022 End: 12-25-2022 History SDOH Alcohol Frequency 1 [facility] Start: 12-21-2022 End: 12-25-2022 History SDOH Alcohol Std Drinks 0 [facility] Start: 12-21-2022 End: 12-25-2022 History SDOH Social Connections Phone 5 [facility] Start: 12-21-2022 End: 12-25-2022 History SDOH Social Connections [facility] 3 [facility] Start: 12-21-2022 End: 12-25-2022 History SDOH Physical Activity MPS 2 [facility] Start: 12-21-2022 End: 12-25-2022 History SDOH Stress 4 [facility] Start: 12-25-2022 End: 03-01-2023 History of Social function [facility] Start: 12-25-2022 End: 03-01-2023 Social connection and isolation panel [facility] Do you belong to any clubs or organizations such as yazidi groups, unions, fraternal or athletic groups, or school groups? Yes [facility] Are you now , , , , never or living with a partner? [facility] How often to you hav e a drink containing alcohol? Never [facility] How many standard dr inks containing alcohol do you have on a typical day? Patient does not drink [facility] Do you feel stress - tense, restless, nervous, or anxious, or unable to sleep at night because your mind is troubled all the time - these days [OSQ] Rather much [facility] (I/We) worried wheth er (my/our) food would run out before (I/we) got money to buy more. Never true [facility] In the past 12 month s, was there a time when you were not able to pay the mortgage or rent on time? No [facility] Start: 02-11-2021 Gender identity Identifies as female gender (finding) [facility] Start: 02-11-2021 Sexual orientation Heterosexual (finding) [facility] Clinical Notes 01-13-2022 to 11-26-2023 Danish Osborne PA - 11/26/2023 10:51 AM Danish Shields PA - 11/26/2023 10:49 AM Danish Shields PA - 09/16/2023 5:04 PM Clotilde Tamayo RT(Ania) - 05/14/2023 10:10 AM EDT Note Date & Type Note Facility 11-26-2023 History of Present illness Narrative José Manuel This note was created using [employer]. Subjective Jose R Watt is a 48 year old female. HPI 48-year-old female presents for urinary frequency and left-sided flank pain. Patient states she has been having left-sided flank pain for about a week now. Pain comes and goes. She states taking Tylenol and laying on a heating pad helps. She did not fall or injure herself. She states movement does not make it worse. She states that she has history of kidney stones and this feels similar. She has not seen any blood in her urine. No pain with urination. She has had a little bit of urinary frequency. Denies any abdominal pain, nausea, vomiting. Patient also complaining of some left ear pain which she thinks may be from drainage. No other complaint. PAST MEDICAL HISTORY Diagnosis Date Dysmenorrhea Excessive or frequent menstruation Heavy periods Resolved Malaise and fatigue Mixed hyperlipidemia Parathyroid tumor 2014 benign, Dr. Hernandez [employer] Editor Sob[place]ki Premenstrual tension syndromes Thyroid nodule 2014 Dr. Hernandez [employer] Editor Donnie Unspecified essential hypertension 2007 Vitamin D deficiency secondary to parathyroidectomy PAST SURGICAL HISTORY Procedure Laterality Date DELIVERY ONLY X 2 PARATHYROID 01/2015 tumor removed ALLERGIES Augmentin [Amoxicillin-Pot Clavulanate] and Sulfa (Sulfonamide Antibiotics) MEDICATIONS fluticasone (FLONASE) 50 mcg/actuation nasal spray^Use 2 Sprays in each nostril once daily. Rinse mouth after use.^Disp: 11.1 mL^Rfl: 0 omega 6-vbb-gca-fish oil (FISH OIL) 100-160-1,000 mg cap^Take by mouth.^Disp: ^Rfl: valsartan (DIOVAN) 160 mg tablet^Take 1 tablet by mouth once daily.^Disp: 90 tablet^Rfl: 3 SUMAtriptan (IMITREX) 100 mg tablet^Take 1 tablet by mouth as needed for migraine headache (see administration instructions).^Disp: 12 tablet^Rfl: 5 levonorgestrel (MIRENA) 20 mcg/24 hours (5-6 yrs) 52 mg IUD^1 Each by INTRAUTERINE route as directed.^Disp: 1 Each^Rfl: 0 ERGOCALCIFEROL, VITAMIN D2, (VITAMIN D ORAL)^Take 2 capsules by mouth once daily. ^Disp: ^Rfl: rosuvastatin (CRESTOR) 10 mg tablet^Take 1 tablet by mouth once daily.^Disp: 90 tablet^Rfl: 3 FAMILY HISTORY Problem Relation Age of Onset Thyroid Mother Hypertension Father Diabetes Paternal Aunt Thyroid Other paternal side Social History Tobacco Use Smoking status: Never Smokeless tobacco: Never Vaping Use Vaping Use: Never used Substance Use Topics Alcohol use: No Drug use: No Review of Systems Constitutional: Negative for chills and fever. HENT: Positive for ear pain. Negative for congestion and sore throat. Respiratory: Negative for cough and shortness of breath. Cardiovascular: Negative for chest pain. Gastrointestinal: Negative for diarrhea and vomiting. Genitourinary: Positive for flank pain and frequency. Negative for dysuria, hematuria and urgency. Objective BP 186/101 Pulse 64 Temp 36.4 C (97.6 F) Resp 18 Wt 78.9 kg (174 lb) LMP 10/19/2023 (Approximate) SpO2 100% BMI 34.39 kg/m Physical Exam Vitals and nursing note reviewed. Constitutional: General: She is not in acute distress. Appearance: Normal appearance. She is not toxic-appearing. HENT: Right Ear: Tympanic membrane and ear canal normal. Left Ear: Tympanic membrane and ear canal normal. Nose: Nose normal. Mouth/Throat: Mouth: Mucous membranes are moist. Pharynx: No oropharyngeal exudate or posterior oropharyngeal erythema. Eyes: Conjunctiva/sclera: Conjunctivae normal. Cardiovascular: Rate and Rhythm: Normal rate and regular rhythm. Pulmonary: Effort: Pulmonary effort is normal. Breath sounds: Normal breath sounds. Abdominal: General: Abdomen is flat. Palpations: Abdomen is soft. Tenderness: There is no abdominal tenderness. There is no right CVA tenderness or left CVA tenderness. Neurological: Mental Status: She is alert. Assessment and Plan ASSESSMENT/PLAN: 1. Urination frequency - ICD9: 788.41, ICD10: R35.0 (primary diagnosis) acute - UA positive for hematuria - Send urine for culture - Patient education for prevention given - UA DIP, URINE (POC) - URINE CULTURE 2. Hypertension, essential - ICD9: 401.9, ICD10: I10 -Blood pressure elevated upon arrival. I did recheck it manually and it came down to 172/90. -Patient asymptomatic. No headache, dizziness, chest pain or shortness of breath. She is on blood pressure medication and took them today. -Patient states she drank coffee just prior to coming in and she does not typically drink caffeine. -Advised patient to keep a log of blood pressure at home and follow-up closely with PCP. If she develops any headache, dizziness, chest pain or shortness of breath, go to ER. - Uncontrolled - Continue current medications - Recommend home blood pressure monitoring, to bring results to next visit 3. Microscopic hematuria - ICD9: 599.72, ICD10: R31.29 -See above. Concern for possible kidney stone? -Recommended evaluation in the ER for flank pain and hematuria. 4. Flank pain - ICD9: 789.09, ICD10: R10.9 Differential Diagnosis includes Kidney stones/colic, musculoskeletal pain -Advised patient I am unable to rule out kidney stone with limited diagnostic capabilities of [facility]. Since she does have hematuria and left-sided flank pain, I did recommend evaluation in the emergency room. Urine does not appear infected. -Patient states she will try to get into her PCP and if unable, will go to ER. Diagnosis and treatment plan were discussed and questions were answered to the patient's satisfaction. Pt acknowledged understanding of concepts and follow up plan. Specific signs and symptoms that would indicate the need for higher level of care were discussed in detail warranting prompt ER evaluation. MARK Chapa documented in this encounter [facility] 11-04-2023 Note HNO ID: [id number] Author: SANDRA ANTHONY APRN.JONO Service: ? Author Type: Nurse Practitioner Type: Progress Notes Filed: 11/04/2023 17:15 Note Text: This note was created using [employer]. Subjective Jose R Watt is a 48 year old female. 48 year old female with PMH of hypertension and hyperlipidemia presents today with acute onset head congestion for 3 weeks. Pertinent positives include rhinorrhea with clear drainage, dry cough, sinus pain, and sinus congestion. Pertinent negatives include fever, fatigue, body aches, GI upset, and sore throat. Does have a history of sinus infection, no recent antibiotics. The history is provided by the patient. Sinus Problem This is a new problem. The current episode started 1 to 4 weeks ago. The problem occurs constantly. The problem has been gradually worsening. Associated symptoms include congestion, coughing and headaches. Pertinent negatives include no abdominal pain, anorexia, arthralgias, chills, diaphoresis, fatigue, fever, myalgias, nausea, sore throat or vomiting. Nothing aggravates the symptoms. She has tried NSAIDs and acetaminophen for the symptoms. The treatment provided mild relief. PAST MEDICAL HISTORY Diagnosis Date Dysmenorrhea Excessive or frequent menstruation Heavy periods Resolved Malaise and fatigue Mixed hyperlipidemia Parathyroid tumor 2014 benign, Dr. Hernandez [employer] Editor Donnie Premenstrual tension syndromes Thyroid nodule 2014 Dr. Hernandez [employer] Editor Donnie Unspecified essential hypertension 2007 Vitamin D deficiency secondary to parathyroidectomy PAST SURGICAL HISTORY Procedure Laterality Date DELIVERY ONLY X 2 PARATHYROID 01/2015 tumor removed ALLERGIES Augmentin [Amoxicillin-Pot Clavulanate] and Sulfa (Sulfonamide Antibiotics) MEDICATIONS omega 6-djt-mim-fish oil (FISH OIL) 100-160-1,000 mg capTake by mouth.Disp: Rfl: valsartan (DIOVAN) 160 mg tabletTake 1 tablet by mouth once daily.Disp: 90 tabletRfl: 3 rosuvastatin (CRESTOR) 10 mg tabletTake 1 tablet by mouth once daily.Disp: 90 tabletRfl: 3 SUMAtriptan (IMITREX) 100 mg tabletTake 1 tablet by mouth as needed for migraine headache (see administration instructions).Disp: 12 tabletRfl: 5 levonorgestrel (MIRENA) 20 mcg/24 hours (5-6 yrs) 52 mg IUD1 Each by INTRAUTERINE route as directed.Disp: 1 EachRfl: 0 ERGOCALCIFEROL, VITAMIN D2, (VITAMIN D ORAL)Take 2 capsules by mouth once daily. Disp: Rfl: doxycycline (VIBRA-TABS) 100 mg tabletTake 1 tablet by mouth two times a day for 7 days.Disp: 14 tabletRfl: 0 fluticasone (FLONASE) 50 mcg/actuation nasal sprayUse 2 Sprays in each nostril once daily. Rinse mouth after use.Disp: 11.1 mLRfl: 0 FAMILY HISTORY Problem Relation Age of Onset Thyroid Mother Hypertension Father Diabetes Paternal Aunt Thyroid Other paternal side Social History Tobacco Use Smoking status: Never Smokeless tobacco: Never Vaping Use Vaping Use: Never used Substance Use Topics Alcohol use: No Drug use: No Review of Systems Constitutional: Negative for appetite change, chills, diaphoresis, fatigue and fever. HENT: Positive for congestion, rhinorrhea, sinus pressure and sinus pain. Negative for ear discharge, ear pain and sore throat. Eyes: Negative for discharge and redness. Respiratory: Positive for cough. Negative for chest tightness, shortness of breath and wheezing. Gastrointestinal: Negative for abdominal pain, anorexia, diarrhea, nausea and vomiting. Musculoskeletal: Negative for arthralgias and myalgias. Neurological: Positive for headaches. Negative for dizziness. Objective BP 142/92 Pulse 75 Temp 37.6 ?C (99.6 ?F) Resp 20 Wt 81.6 kg (180 lb) LMP 10/19/2023 (Approximate) SpO2 98% BMI 35.57 kg/m? Physical Exam Constitutional: General: She is awake. She is not in acute distress. Appearance: Normal appearance. She is normal weight. She is not ill-appearing, toxic-appearing or diaphoretic. HENT: Head: Normocephalic. Right Ear: Hearing, ear canal and external ear normal. No decreased hearing noted. No laceration, drainage, swelling or tenderness. A middle ear effusion is present. There is no impacted cerumen. No foreign body. No mastoid tenderness. No PE tube. No hemotympanum. Tympanic membrane is not injected, scarred, perforated, erythematous, retracted or bulging. Tympanic membrane has normal mobility. Left Ear: Hearing, tympanic membrane, ear canal and external ear normal. No decreased hearing noted. No laceration, drainage, swelling or tenderness. No middle ear effusion. There is no impacted cerumen. No foreign body. No mastoid tenderness. No PE tube. No hemotympanum. Tympanic membrane is not injected, scarred, perforated, erythematous, retracted or bulging. Tympanic membrane has normal mobility. Nose: Congestion and rhinorrhea present. No nasal deformity, septal deviation or nasal tenderness. Rhinorrhea is clear. (more content not included)... [facility] 09-16-2023 Note HNO ID: [id number] Author: Danish Osborne PA Service: ? Author Type: Physician [employer] Superintendent Type: Progress Notes Filed: 09/16/2023 5:07 PM Note Text: This note was created using [employer]. Subjective Jose R Watt is a 48 year old female. HPI 48-year-old female presents for bilateral eye irritation and some crusting this morning. 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 She states that this morning she had a little bit of crusting/drainage from both eyes. She states that they are not pink, but do feel irritated and puffy . She denies any eye pain, vision changes, photophobia. She does wear glasses. No contacts. No cough, congestion or URI symptoms. PAST MEDICAL HISTORY Diagnosis Date Dysmenorrhea Excessive or frequent menstruation Heavy periods Resolved Malaise and fatigue Mixed hyperlipidemia Parathyroid tumor 2015 benign, Dr. Hernandez [employer] Editor Sobieski Premenstrual tension syndromes Thyroid nodule 2014 Dr. Hernandez Scientific Publications Editor Sobieski Unspecified essential hypertension 2007 Vitamin D deficiency secondary to parathyroidectomy PAST SURGICAL HISTORY Procedure Laterality Date DELIVERY ONLY X 2 PARATHYROID 01/2015 tumor removed ALLERGIES Augmentin [Amoxicillin-Pot Clavulanate] and Sulfa (Sulfonamide Antibiotics) MEDICATIONS omega 6-oqt-rpf-fish oil (FISH OIL) 100-160-1,000 mg capTake by mouth.Disp: Rfl: valsartan (DIOVAN) 160 mg tabletTake 1 tablet by mouth once daily.Disp: 90 tabletRfl: 3 rosuvastatin (CRESTOR) 10 mg tabletTake 1 tablet by mouth once daily.Disp: 90 tabletRfl: 3 SUMAtriptan (IMITREX) 100 mg tabletTake 1 tablet by mouth as needed for migraine headache (see administration instructions).Disp: 12 tabletRfl: 5 levonorgestrel (MIRENA) 20 mcg/24 hours (5-6 yrs) 52 mg IUD1 Each by INTRAUTERINE route as directed.Disp: 1 EachRfl: 0 ERGOCALCIFEROL, VITAMIN D2, (VITAMIN D ORAL)Take 2 capsules by mouth once daily. Disp: Rfl: trimethoprim-polymyxin (POLYTRIM) 10,000 unit- 1 mg/mL ophthalmic solutionUse 1 Drop in both eyes every 4 hours for 7 days.Disp: 10 mLRfl: 0 FAMILY HISTORY Problem Relation Age of Onset Thyroid Mother Hypertension Father Diabetes Paternal Aunt Thyroid Other paternal side Social History Tobacco Use Smoking status: Never Smokeless tobacco: Never Vaping Use Vaping Use: Never used Substance Use Topics Alcohol use: No Drug use: No Review of Systems Constitutional: Negative for chills and fever. HENT: Negative for congestion, ear pain and sore throat. Eyes: Positive for discharge, redness and itching. Negative for photophobia, pain and visual disturbance. Respiratory: Negative for cough and shortness of breath. Cardiovascular: Negative for chest pain. Gastrointestinal: Negative for diarrhea and vomiting. Objective BP 156/92 Pulse 91 Temp 36.7 ?C (98 ?F) Resp 18 Wt 81.2 kg (179 lb) LMP 08/24/2023 (Approximate) SpO2 98% BMI 35.37 kg/m? Physical Exam Vitals and nursing note reviewed. Constitutional: General: She is not in acute distress. Appearance: Normal appearance. She is not toxic-appearing. HENT: Right Ear: Tympanic membrane and ear canal normal. Left Ear: Tympanic membrane and ear canal normal. Nose: Nose normal. Mouth/Throat: Mouth: Mucous membranes are moist. Pharynx: No oropharyngeal exudate or posterior oropharyngeal erythema. Eyes: General: Vision grossly intact. Extraocular Movements: Extraocular movements intact. Conjunctiva/sclera: Conjunctivae normal. Comments: No pain with eye movement. No drainage seen from eyes on exam. No injection. Cardiovascular: Rate and Rhythm: Normal rate and regular rhythm. Pulmonary: Effort: Pulmonary effort is normal. Breath sounds: Normal breath sounds. Neurological: Mental Status: She is alert. Assessment and Plan ASSESSMENT/PLAN: 1. Eye irritation - ICD9: 379.99, ICD10: H57.89 -Patient reports exposure to pinkeye and had some crusting this morning. No redness or drainage seen on exam. -Rx for Polytrim given. Advised patient if her eyes do get red or continue to have drainage, she may start the drops. 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 Diagnosis and treatment plan were discussed and questions were answered to the patient's satisfaction. Pt acknowledged understanding of concepts and follow up plan. Specific signs and symptoms that would indicate the need for higher level of care were discussed in detail warranting prompt ER evaluation. MARK Chapa [facility] 09-16-2023 History of Present illness Narrative This note was created using [employer]. Subjective Jose R Watt is a 48 year old female. HPI 48-year-old female presents for bilateral eye irritation and some crusting this morning. 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 She states that this morning she had a little bit of crusting/drainage from both eyes. She states that they are not pink, but do feel irritated and puffy . She denies any eye pain, vision changes, photophobia. She does wear glasses. No contacts. No cough, congestion or URI symptoms. PAST MEDICAL HISTORY Diagnosis Date Dysmenorrhea Excessive or frequent menstruation Heavy periods Resolved Malaise and fatigue Mixed hyperlipidemia Parathyroid tumor 2015 benign, Dr. Hernandez [employer] Publications Editor Sobieski Premenstrual tension syndromes Thyroid nodule 2014 Dr. Hernandez [employer] Publications Editor Sobieski Unspecified essential hypertension 2007 Vitamin D deficiency secondary to parathyroidectomy PAST SURGICAL HISTORY Procedure Laterality Date DELIVERY ONLY X 2 PARATHYROID 01/2015 tumor removed ALLERGIES Augmentin [Amoxicillin-Pot Clavulanate] and Sulfa (Sulfonamide Antibiotics) MEDICATIONS omega 5-lwg-mdw-fish oil (FISH OIL) 100-160-1,000 mg cap^Take by mouth.^Disp: ^Rfl: valsartan (DIOVAN) 160 mg tablet^Take 1 tablet by mouth once daily.^Disp: 90 tablet^Rfl: 3 rosuvastatin (CRESTOR) 10 mg tablet^Take 1 tablet by mouth once daily.^Disp: 90 tablet^Rfl: 3 SUMAtriptan (IMITREX) 100 mg tablet^Take 1 tablet by mouth as needed for migraine headache (see administration instructions).^Disp: 12 tablet^Rfl: 5 levonorgestrel (MIRENA) 20 mcg/24 hours (5-6 yrs) 52 mg IUD^1 Each by INTRAUTERINE route as directed.^Disp: 1 Each^Rfl: 0 ERGOCALCIFEROL, VITAMIN D2, (VITAMIN D ORAL)^Take 2 capsules by mouth once daily. ^Disp: ^Rfl: trimethoprim-polymyxin (POLYTRIM) 10,000 unit- 1 mg/mL ophthalmic solution^Use 1 Drop in both eyes every 4 hours for 7 days.^Disp: 10 mL^Rfl: 0 FAMILY HISTORY Problem Relation Age of Onset Thyroid Mother Hypertension Father Diabetes Paternal Aunt Thyroid Other paternal side Social History Tobacco Use Smoking status: Never Smokeless tobacco: Never Vaping Use Vaping Use: Never used Substance Use Topics Alcohol use: No Drug use: No Review of Systems Constitutional: Negative for chills and fever. HENT: Negative for congestion, ear pain and sore throat. Eyes: Positive for discharge, redness and itching. Negative for photophobia, pain and visual disturbance. Respiratory: Negative for cough and shortness of breath. Cardiovascular: Negative for chest pain. Gastrointestinal: Negative for diarrhea and vomiting. Objective BP 156/92 Pulse 91 Temp 36.7 C (98 F) Resp 18 Wt 81.2 kg (179 lb) LMP 08/24/2023 (Approximate) SpO2 98% BMI 35.37 kg/m Physical Exam Vitals and nursing note reviewed. Constitutional: General: She is not in acute distress. Appearance: Normal appearance. She is not toxic-appearing. HENT: Right Ear: Tympanic membrane and ear canal normal. Left Ear: Tympanic membrane and ear canal normal. Nose: Nose normal. Mouth/Throat: Mouth: Mucous membranes are moist. Pharynx: No oropharyngeal exudate or posterior oropharyngeal erythema. Eyes: General: Vision grossly intact. Extraocular Movements: Extraocular movements intact. Conjunctiva/sclera: Conjunctivae normal. Comments: No pain with eye movement. No drainage seen from eyes on exam. No injection. Cardiovascular: Rate and Rhythm: Normal rate and regular rhythm. Pulmonary: Effort: Pulmonary effort is normal. Breath sounds: Normal breath sounds. Neurological: Mental Status: She is alert. Assessment and Plan ASSESSMENT/PLAN: 1. Eye irritation - ICD9: 379.99, ICD10: H57.89 -Patient reports exposure to pinkeye and had some crusting this morning. No redness or drainage seen on exam. -Rx for Polytrim given. Advised patient if her eyes do get red or continue to have drainage, she may start the drops. 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 Diagnosis and treatment plan were discussed and questions were answered to the patient's satisfaction. Pt acknowledged understanding of concepts and follow up plan. Specific signs and symptoms that would indicate the need for higher level of care were discussed in detail warranting prompt ER evaluation. MARK Chapa documented in this encounter [facility] 05-14-2023 Note HNO ID: [id number] Author: Clotilde Crenshaw RT(R) Service: Radiology Author Type: Spa Experience Coordinator Type: Progress Notes Filed: 05/14/2023 10:11 AM Note Text: Radiology Service Progress Note PATIENT NAME: Jose R Watt DATE OF SERVICE: May 14, 2023 TIME: 10:11 AM PATIENT IDENTITY VERIFICATION COMPLETED USING TWO (2) IDENTIFIERS: Name and Date of confirmed by patient verbally. FALL SCREENING: Has the patient had 2 falls in the last year or 1 fall with injury or currently using an Ambulatory Assistive Device (Walker, Cane, Wheelchair, Crutches, etc.)? No PATIENT GENDER DATA: Female. status: : No status: NO. PATIENT RELEVANT IMPLANT DATA REVIEWED: Yes RADIOLOGY DEPARTMENT: Mammography PERIPHERAL IV DATA: Not applicable SIGNED BY: RT Bhargavi(R) May 14, 2023 10:11 AM [facility] 05-14-2023 History of Present illness Narrative Radiology Service Progress Note PATIENT NAME: Jose R Watt DATE OF SERVICE: May 14, 2023 TIME: 10:11 AM PATIENT IDENTITY VERIFICATION COMPLETED USING TWO (2) IDENTIFIERS: Name and Date of confirmed by patient verbally. FALL SCREENING: Has the patient had 2 falls in the last year or 1 fall with injury or currently using an Ambulatory Assistive Device (Walker, Cane, Wheelchair, Crutches, etc.)? No PATIENT GENDER DATA: Female. status: : No status: NO. PATIENT RELEVANT IMPLANT DATA REVIEWED: Yes RADIOLOGY DEPARTMENT: Mammography PERIPHERAL IV DATA: Not applicable SIGNED BY: RT Bhargavi(R) May 14, 2023 10:11 AM documented in this encounter [facility] 05-14-2023 Miscellaneous Notes Patient notified via [employer] documented in this encounter [facility] 05-11-2023 Note HNO ID: [id number] Author: Jaqueline Woodard MD Service: ? Author Type: Physician Type: Progress Notes Filed: 05/11/2023 9:03 AM Note Text: Superintendent Circus offered: Patient declines. Resendiz is a 47 year old who presents for an annual gynecologic exam without complaints. Went to [facility] Menses: no menses - Mirena IUD. Occasional spotting Contraception: IUD and vasectomy HPV vaccine: No Last Pap: 01/13/2021 normal HPV: 01/10/2021 negative History of abnormal pap: No Last mammogram: 2021normal Sexually active: Yes History of STDS: None Patient concerns for STD exposure: No. Pain with intercourse: No Postcoital bleeding: No Hot flashes: No Night sweats: No Exercise: active Diet: balanced OB History T2 L2 SAB0 IAB0 Ectopic0 Multiple0 Live Births0 [employer] History LMP: 01/20/2021, IUD Age at Menarche: Age at First : Age at Menopause: [employer] History Comments: Sexual Activity: Yes; Male; vasectomy Contraception: Surgical PAST MEDICAL HISTORY Diagnosis Date Dysmenorrhea Excessive or frequent menstruation Heavy periods Resolved Malaise and fatigue Mixed hyperlipidemia Parathyroid tumor 2015 benign, Dr. Hernandez Scientific Publications Editor Donnie Premenstrual tension syndromes Thyroid nodule 2014 Dr. Hernandez [employer] Publications Editor Donnie Unspecified essential hypertension 2007 Vitamin D deficiency secondary to parathyroidectomy PAST SURGICAL HISTORY Procedure Laterality Date DELIVERY ONLY X 2 PARATHYROID 01/2015 tumor removed FAMILY HISTORY Problem Relation Age of Onset Thyroid Mother Hypertension Father Diabetes Paternal Aunt Thyroid Other paternal side SOCIAL HISTORY Social History Tobacco Use Smoking status: Never Smokeless tobacco: Never Vaping Use Vaping Use: Never used Substance Use Topics Alcohol use: No Drug use: No REVIEW OF SYSTEMS Abdomen: No abdominal pain, nausea, vomiting, diarrhea, or constipation. No bloating, early satiety, indigestion, or increased flatulence. Bladder: No dysuria, gross hematuria, urinary frequency, urinary urgency, or incontinence. Breast: No breast lumps, nipple d/c, overlying skin changes, redness or skin retraction. Allergies and current medication updated:Yes EXAM: LMP 01/20/2021 GENERAL: pleasant, female in no apparent distress HEENT: Normocephalic, atraumatic, mucus membranes moist, and no lesions NECK: Supple, full range of motion, no adenopathy, and thyroid normal DERMATOLOGY: Normal, without lesions, non-icteric, and non-hirsute BREAST: soft, non-tender, symmetric, no dominant mass, normal nipple-areolar complex, no lymphadenopathy, and no nipple discharge ABDOMEN: soft, non-tender, and no masses PELVIC: external genitalia normal, normal Bartholin's glands, urethra, Worland's glands, no vulvar lesions, no cervical lesions, good vaginal support, physiologic discharge present, normal appearing perineal body and perianal region. IUD strings seen BIMANUAL: uterus normal size, shape and consistency, no adnexal masses, and non-tender RECTOVAGINAL: deferred. NEURO: alert and oriented x3,exam grossly non-focal EXTREMITIES: normal ASSESSMENT/PLAN: 1) Health maintenance: Pap/HPV up to date. Mammogram ordered. Nutrition, exercise and routine health maintenance exams reviewed. 2) Contraception: IUD and vasectomy. Contraceptive options reviewed and information provided. 3) STD screening: Declined STD check. 4) Follow up one year or sooner as needed 5) colonoscopy Jaqueline Little MD [facility] 05-11-2023 Instructions Jaqueline Woodard MD - 05/11/2023 8:56 AM EDT Images from the original note were not included. Miralax/Dulcolax Bowel Prep For this bowel preparation, you will need to purchase the following medications at any pharmacy: Over the counter Miralax (generic name is polyethylene glycol) 8.3 oz or 238 grams Four (4) Dulcolax (generic name is Bisacodyl) tablets 3 days prior to your procedure, you need to be on a low fiber diet (Such as popcorn, beans, seeds, nuts, salad and raw vegetables, corn, fresh and dried fruit and multi-grain bread) YOU MUST BE ON CLEAR LIQUIDS FOR 2 FULL DAYS PRIOR TO YOUR COLONOSCOPY Day one which would be two days before your colonoscopy, you will need to be on clear liquids all day. You may have coffee or tea-black only (no cream), clear broths (beef, chicken or vegetable), apple juice, white grape juice, pop, Gatorade, Powerade, lemonade, Jello, popsicles, Arthur-aid, and water-But nothing red or dark purple in color and no dairy products, tomato or orange juices. Day two which would be the day before your colonoscopy continue clear liquids all day as above. And follow the instructions below: 8:00 AM - Mix the Miralax with 64 oz of Gatorade or another clear liquid of choice and place in refrigerator. Most people say the drink is better cold. 4:00 PM - Take 2 of the Dulcolax tablets with 8 oz of water. 6:00 PM - Start to drink the Miralax mixture. You must finish it by midnight. 8:00 PM - Take the other 2 Dulcolax tablets with 8 oz of water. You may continue to drink clear liquids while you are taking your prep and after you finish it as long as it is before midnight. Drink lots of fluids so you don t become dehydrated. Nothing to drink after midnight the night before the procedure unless you are instructed differently by the physician or nurses. Please remember to take your normal medications the morning of the procedure with a small sip of water especially your blood pressure medications. If you are diabetic, you need to contact your physician about how to take your diabetic medications and/or insulin during the prepping period and the day of your procedure. Any questions please call: Dr. Majano or Dr. Hernandez [phone] Zoila Ravi [phone] Dr. Gonzalez [phone] [facility] nurses [phone] documented in this encounter [facility] 05-11-2023 History of Present illness Narrative Superintendent Circus offered: Patient declinesAnnemarie Resendiz is a 47 year old who presents for an annual gynecologic exam without complaints. Went to [facility] Menses: no menses - Mirena IUD. Occasional spotting Contraception: IUD and vasectomy HPV vaccine: No Last Pap: 01/13/2021 normal HPV: 01/10/2021 negative History of abnormal pap: No Last mammogram: 2021normal Sexually active: Yes History of STDS: None Patient concerns for STD exposure: No. Pain with intercourse: No Postcoital bleeding: No Hot flashes: No Night sweats: No Exercise: active Diet: balanced OB History T2 L2 SAB0 IAB0 Ectopic0 Multiple0 Live Births0 [employer] History LMP: 01/20/2021, IUD Age at Menarche: Age at First : Age at Menopause: [employer] History Comments: Sexual Activity: Yes; Male; vasectomy Contraception: Surgical PAST MEDICAL HISTORY Diagnosis Date Dysmenorrhea Excessive or frequent menstruation Heavy periods Resolved Malaise and fatigue Mixed hyperlipidemia Parathyroid tumor 2015 benign, Dr. Hernandez [employer] Publications Editor Donnie Premenstrual tension syndromes Thyroid nodule 2015 Dr. Hernandez [employer] Editor Donnie Unspecified essential hypertension 2007 Vitamin D deficiency secondary to parathyroidectomy PAST SURGICAL HISTORY Procedure Laterality Date DELIVERY ONLY X 2 PARATHYROID 01/2015 tumor removed FAMILY HISTORY Problem Relation Age of Onset Thyroid Mother Hypertension Father Diabetes Paternal Aunt Thyroid Other paternal side SOCIAL HISTORY Social History Tobacco Use Smoking status: Never Smokeless tobacco: Never Vaping Use Vaping Use: Never used Substance Use Topics Alcohol use: No Drug use: No REVIEW OF SYSTEMS Abdomen: No abdominal pain, nausea, vomiting, diarrhea, or constipation. No bloating, early satiety, indigestion, or increased flatulence. Bladder: No dysuria, gross hematuria, urinary frequency, urinary urgency, or incontinence. Breast: No breast lumps, nipple d/c, overlying skin changes, redness or skin retraction. Allergies and current medication updated:Yes EXAM: LMP 01/20/2021 GENERAL: pleasant, female in no apparent distress HEENT: Normocephalic, atraumatic, mucus membranes moist, and no lesions NECK: Supple, full range of motion, no adenopathy, and thyroid normal DERMATOLOGY: Normal, without lesions, non-icteric, and non-hirsute BREAST: soft, non-tender, symmetric, no dominant mass, normal nipple-areolar complex, no lymphadenopathy, and no nipple discharge ABDOMEN: soft, non-tender, and no masses PELVIC: external genitalia normal, normal Bartholin's glands, urethra, Worland's glands, no vulvar lesions, no cervical lesions, good vaginal support, physiologic discharge present, normal appearing perineal body and perianal region. IUD strings seen BIMANUAL: uterus normal size, shape and consistency, no adnexal masses, and non-tender RECTOVAGINAL: deferred. NEURO: alert and oriented x3,exam grossly non-focal EXTREMITIES: normal ASSESSMENT/PLAN: 1) Health maintenance: Pap/HPV up to date. Mammogram ordered. Nutrition, exercise and routine health maintenance exams reviewed. 2) Contraception: IUD and vasectomy. Contraceptive options reviewed and information provided. 3) STD screening: Declined STD check. 4) Follow up one year or sooner as needed 5) colonoscopy Jaqueline Little MD documented in this encounter [facility] 04-28-2023 Note Patient Outreach (IN [facility]) JOSE R WATT ([id number]) 1975 F Date Time Provider Department 04/28/23 SHON MARTINEZ During your visit today, we recorded the following information about you: Allergies As of Date: 04/28/2023 Noted Allergy Reaction AUGMENTIN (AMOXICILLIN-POT CLAVUL*03/23/2012 11 - Vomiting SULFA (SULFONAMIDE ANTIBIOTICS) 11/27/2005 2 - Rash Date Reviewed: 03/01/2023 Reviewed by: Mckenna Dotson LPN - Fully Assessed Visit Diagnosis:Encounter for screening mammogram for breast cancer [Z12.31] Order(s):[facility] SCREENING Jose Martin CHAVEZ [[id number]] Order #: [id number] FUTURE Prescriptions as of 05/03/2023 - valsartan (DIOVAN) 160 mg tablet Take 1 tablet by mouth once daily. - rosuvastatin (CRESTOR) 10 mg tablet Take 1 tablet by mouth once daily. - SUMAtriptan (IMITREX) 100 mg tablet Take 1 tablet by mouth as needed for migraine headache (see administration instructions). - levonorgestrel (MIRENA) 20 mcg/24 hours (5-6 yrs) 52 mg IUD 1 Each by INTRAUTERINE route as directed. - ERGOCALCIFEROL, VITAMIN D2, (VITAMIN D ORAL) Take 2 capsules by mouth once daily. Facility-Administered Medications as of 05/03/2023 - perflutren lipid microspheres 1.3 mL in NaCl (PF) 0.9% 10 mL injection (DEFINITY) - sodium chloride 0.9 % (flush) 10 mL (BD POSIFLUSH) Meds Comments as of 09/23/2016: Calcium supplement- Citrical Methimazole 5 - 1/2 tablet every other day (4 days a week)- Dr. Hernandez Scientific Publications Editor Problem List As Of Date 04/28/2023 Noted Resolved Excessive or frequent menstruation [N92.0] 03/23/2012 Dysmenorrhea [N94.6] 03/23/2012 Other malaise and fatigue [R53.81, R53.83] 03/23/2012 Premenstrual tension syndromes [N94.3] 03/23/2012 Mixed hyperlipidemia [E78.2] Hypertension, essential [I10] Disorder of parathyroid gland (HCC) [E21.5] 03/25/2016 External hemorrhoid [K64.4] 07/12/2020 Trapezius muscle spasm [M62.838] 07/12/2020 Obesity, Class I, BMI 30-34.9 [E66.9] 01/13/2022 Migraine without aura, intractable, without sta*01/13/2022 Hyperglycemia [R73.9] 03/01/2023 Well adult exam [Z00.00] 03/01/2023 Chest pain on breathing [R07.1] 03/01/2023 Hyperbilirubinemia [E80.6] 03/01/2023 Encounter Status:Closed by JOHNIE WOODARDUSEAnia on 05/03/23 [facility] 03-15-2023 Miscellaneous Notes Pt calling was seen on the 01 of March and Valsartan was refilled. Pt states went to incorrect pharmacy. Needs to go to [facility] in [place]. [place]--03/01/23 Nov--nothing scheduled Last refill--03/01/23 but went to incorrect pharmacy. Last labs--03/01/23 documented in this encounter [facility] 03-01-2023 Note HNO ID: [id number] Author: Shon Martinez, DO Service: ? Author Type: Physician Type: Progress Notes Filed: 03/01/2023 5:12 PM Note Text: Depression screening tool completed and reviewed. Based on score and interview, patient is not at risk for depression. Screening tool discussed with patient, and I recommended no further intervention at this time. CC: Jose R Watt is a 47 year old female who presents to the office for physical HPI: HTN, taking Diovan as prescribed. Does get some shortness of breath and chest pain at times. Is concerned since her mother just recently had a heart attack, no syncope symptoms. Hasn't had recent cardiac testing. Hx of parathyroid tumor, hx of thyroid nodule. Recently had thyroid labs and parathyroid labs which were normal with Dr. De La Fuente Scientific Publications Editor at [facility]. Did have elevated total bilirubin levels at 1.30. asymptomatic. No jaundice or abdominal pain HPL, taking Crestor medication, just had lipids checked and LDL at 116 and HDL 42. No SE with medication PAST MEDICAL HISTORY Diagnosis Date Dysmenorrhea Excessive or frequent menstruation Heavy periods Resolved Malaise and fatigue Mixed hyperlipidemia Parathyroid tumor 2014 benign, Dr. Hernandez [employer] Publications Editor Donnie Premenstrual tension syndromes Thyroid nodule 2014 Dr. Hernandez [employer] Editor Donnie Unspecified essential hypertension 2007 Vitamin D deficiency secondary to parathyroidectomy PAST SURGICAL HISTORY Procedure Laterality Date DELIVERY ONLY X 2 PARATHYROID 01/2015 tumor removed Social History: Social History Tobacco Use Smoking status: Never Smokeless tobacco: Never Vaping Use Vaping Use: Never used Substance Use Topics Alcohol use: No Drug use: No FAMILY HISTORY Problem Relation Age of Onset Thyroid Mother Hypertension Father Diabetes Paternal Aunt Thyroid Other paternal side Current Outpatient prescriptions: valsartan (DIOVAN) 160 mg tabletTake 1 tablet by mouth once daily.Disp: 90 tabletRfl: 3 rosuvastatin (CRESTOR) 10 mg tabletTake 1 tablet by mouth once daily.Disp: 90 tabletRfl: 3 SUMAtriptan (IMITREX) 100 mg tabletTake 1 tablet by mouth as needed for migraine headache (see administration instructions).Disp: 12 tabletRfl: 5 levonorgestrel (MIRENA) 20 mcg/24 hours (5-6 yrs) 52 mg IUD1 Each by INTRAUTERINE route as directed.Disp: 1 EachRfl: 0 ERGOCALCIFEROL, VITAMIN D2, (VITAMIN D ORAL)Take 2 capsules by mouth once daily. Disp: Rfl: Allergies: ALLERGIES Allergen Reactions Augmentin [Amoxicil* Vomiting Sulfa (Sulfonamide * Rash ROS: See HPI PE: 03/01/23 1430 BP: 134/88 Pulse: 80 Resp: 16 Temp: 36.1 ?C (97 ?F) TempSrc: Right Tympanic Weight: 80.3 kg (177 lb) Height: 151.5 cm (4' 11.65 ) Gen: AANDO, NAD, non-toxic appearing, Pleasant, cooperative HEENT: NT/AC, PERRLA, EOMs intact b/l, nares clear and patent b/l, pharynx without erythema, exudate or lesions. MMM, Uvula midline. EACs without erythema or debris. TMs pearly lopez with intact landmarks b/l. Neck: supple, No cervical LAD, no thyromegaly, no carotid bruits CV: RRR, normal S1 and S2, no murmurs, no gallops, no rubs, Pulses 2+ and symmetric in UE and LE b/l Lungs: normal respiratory effort, CTA b/l, no wheezing or rhonchi or rales Abd: soft, NT, ND, +BS, no hepatosplenomegaly MS: FROM all 4 extremities Neuro: CN II-XII intact b/l, strength 5/5 b/l UE and LE, DTRs 2/4 UE and LE, sensation intact. Skin: warm, dry, intact, No rashes or lesions on exposed skin. No edema, normal pulses ASSESSMENT/PLAN: 1. Well adult exam - ICD9: V70.0, ICD10: Z00.00 (primary diagnosis) - Counseled on healthy diet and regular exercise - Calcium intake with supplements or by diet of 1000 mg/day for under 50, 7065-8206 mg/day for 50+ - Discussed need and benefit for weight loss. BMI 34.98 kg/(m2) - HGB A1C - INSULIN ASSAY BLOOD - COMP METABOLIC PANEL 2. Hypertension, essential - ICD9: 401.9, ICD10: I10 - suboptimal control - Continue current medication(s) - Encouraged dietary sodium restriction/DASH diet - Recommended regular aerobic exercise. - Recommend home blood pressure monitoring, to bring results in on next visit - Discussed need and benefit for weight loss. - Reviewed risks of HTN and principles of treatment - Goal of BP <130/80 - VALSARTAN 160 MG TABLET - COMP METABOLIC PANEL - ECHO - PERFLUTREN LIPID MICROSPHERES 1.1 MG/ML INJECTION IN NS 10 ML - SODIUM CHLORIDE 0.9 % (FLUSH) INJECTION SYRINGE - EXERCISE STRESS ECG (WITHOUT IMAGING) 3. Mixed hyperlipidemia - ICD9: 272.2, ICD10: E78.2 - good control - Continue current medication. - Encouraged following a low fat, low cholesterol diet. - Discussed the benefits of regular aerobic exercise and weight loss. - Check fasting lipid panel and ALT in 12 months. - ROSUVASTATIN 10 MG TABLET - COMP METABOLIC PANEL - ECHO - PERFLUTREN LIPID MICROSPHERES (more content not included)... [facility] 12-25-2022 Note HNO ID: [id number] Author: Ludivina Cantu APRN.WELLNESS CONSULTANT Service: ? Author Type: Nurse Practitioner Type: Progress Notes Filed: 12/25/2022 8:36 AM Note Text: VIRTUAL VISIT PROGRESS NOTE This is a virtual visit using [employer] video visit. It required patient-provider interaction for the medical decision making as documented below. I have communicated my name and active licensure. The patient's identity and physical location were verified at the time of this visit. Either the patient or their legal insurance claim representative has been informed of the risks and benefits of -- and alternatives to -- treatment through a remote evaluation and consents to proceed with the evaluation remotely. Jose R Watt is a 47 year old female seen for medication follow up. Today: Would like to review her recent lab results that were completed at [facility]. Has strong family hx of elevated cholesterol and some heart problems. She was off her Crestor for about a month and has been very concerned about these levels. Also requesting refills on her valsartan and Imitrex. Does have in office appointment with Dr. Martinez in February for further follow up. HISTORY REVIEWED (electronic chart updated): PAST MEDICAL HISTORY Diagnosis Date Dysmenorrhea Excessive or frequent menstruation Heavy periods Resolved Malaise and fatigue Mixed hyperlipidemia Parathyroid tumor 2014 benign, Dr. Hernandez [employer] Editor Donnie Premenstrual tension syndromes Thyroid nodule 2014 Dr. Hernandez [employer] Editor Donnie Unspecified essential hypertension 2007 Vitamin D deficiency secondary to parathyroidectomy PAST SURGICAL HISTORY Procedure Laterality Date DELIVERY ONLY X 2 PARATHYROID 01/2015 tumor removed FAMILY HISTORY Problem Relation Age of Onset Thyroid Mother Hypertension Father Diabetes Paternal Aunt Thyroid Other paternal side Social History Tobacco Use Smoking status: Never Smokeless tobacco: Never Vaping Use Vaping Use: Never used Substance Use Topics Alcohol use: No Drug use: No Current Outpatient Medications Medication Sig rosuvastatin (CRESTOR) 10 mg tablet Take 1 tablet by mouth once daily. valsartan (DIOVAN) 160 mg tablet Take 1 tablet by mouth once daily. SUMAtriptan (IMITREX) 100 mg tablet Take 1 tablet by mouth as needed for migraine headache (see administration instructions). FLORAJEN ACIDOPHILUS 20 billion cell cap TAKE 1 CAPSULE BY MOUTH EVERY DAY levonorgestrel (MIRENA) 20 mcg/24 hours (5-6 yrs) 52 mg IUD 1 Each by INTRAUTERINE route as directed. miSOPROStol (CYTOTEC) 200 mcg tablet Take two tablets PO night before procedure and two tablets morning of procedure fluticasone (FLONASE) 50 mcg/actuation nasal spray Use 2 Sprays in each nostril once daily. Rinse mouth after use. ERGOCALCIFEROL, VITAMIN D2, (VITAMIN D ORAL) Take 2 capsules by mouth once daily. No current facility-administered medications for this visit. ALLERGIES Allergen Reactions Augmentin [Amoxicil* Vomiting Sulfa (Sulfonamide * Rash REVIEW OF SYSTEMS: All other ROS: negative As noted in HPI PHYSICAL EXAMINATION: VIDEO EXAM: (if completed, performed via video enabled technology) No exam performed ASSESSMENT: (E78.2) Mixed hyperlipidemia (primary encounter diagnosis) (I10) Hypertension, essential (G43.819) Other migraine without status migrainosus, intractable PLAN: 1. Mixed hyperlipidemia - ICD9: 272.2, ICD10: E78.2 (primary diagnosis) Will obtain recent lab results from [facility] to review, specifically lipid panel. Discussed with patient that will send her a [employer] message with more detail regarding her lipid levels. Refill of rosuvastatin sent. - ROSUVASTATIN 10 MG TABLET 2. Hypertension, essential - ICD9: 401.9, ICD10: I10 Refill given. Has in-office appointment scheduled with PCP Dr. Martinez in 2 months. Will evaluate BP at that time. Refill sent. - VALSARTAN 160 MG TABLET 3. Other migraine without status migrainosus, intractable - ICD9: 346.81, ICD10: G43.819 Works well for her migraines. Only takes if she absolutely needs. Refill sent. - SUMATRIPTAN 100 MG TABLET Ludivina Cantu APRN.CNP There are no Patient Instructions on file for this visit. Ludivina Cantu APRN.CNP [facility] 12-25-2022 Miscellaneous Notes Received and reviewed, thank you. Ludivina Cantu APRN.CNP Labs placed in RS inbox freshbag Please obtain patient's most recent lab results from [facility] for my review. Specifically her lipid panel, but also any others that are available. Ludivina Cantu APRN.CNP documented in this encounter [facility] 12-25-2022 History of Present illness Narrative VIRTUAL VISIT PROGRESS NOTE This is a virtual visit using [employer] video visit. It required patient-provider interaction for the medical decision making as documented below. I have communicated my name and active licensure. The patient's identity and physical location were verified at the time of this visit. Either the patient or their legal insurance claim representative has been informed of the risks and benefits of -- and alternatives to -- treatment through a remote evaluation and consents to proceed with the evaluation remotely. Jose R Watt is a 47 year old female seen for medication follow up. Today: Would like to review her recent lab results that were completed at [facility]. Has strong family hx of elevated cholesterol and some heart problems. She was off her Crestor for about a month and has been very concerned about these levels. Also requesting refills on her valsartan and Imitrex. Does have in office appointment with Dr. Martinez in February for further follow up. HISTORY REVIEWED (electronic chart updated): PAST MEDICAL HISTORY Diagnosis Date Dysmenorrhea Excessive or frequent menstruation Heavy periods Resolved Malaise and fatigue Mixed hyperlipidemia Parathyroid tumor 2015 benign, Dr. Hernandez [employer] Editor Donnie Premenstrual tension syndromes Thyroid nodule 2014 Dr. Hernandez [employer] Editor Donnie Unspecified essential hypertension 2007 Vitamin D deficiency secondary to parathyroidectomy PAST SURGICAL HISTORY Procedure Laterality Date DELIVERY ONLY X 2 PARATHYROID 01/2015 tumor removed FAMILY HISTORY Problem Relation Age of Onset Thyroid Mother Hypertension Father Diabetes Paternal Aunt Thyroid Other paternal side Social History Tobacco Use Smoking status: Never Smokeless tobacco: Never Vaping Use Vaping Use: Never used Substance Use Topics Alcohol use: No Drug use: No Current Outpatient Medications Medication Sig rosuvastatin (CRESTOR) 10 mg tablet Take 1 tablet by mouth once daily. valsartan (DIOVAN) 160 mg tablet Take 1 tablet by mouth once daily. SUMAtriptan (IMITREX) 100 mg tablet Take 1 tablet by mouth as needed for migraine headache (see administration instructions). FLORAJEN ACIDOPHILUS 20 billion cell cap TAKE 1 CAPSULE BY MOUTH EVERY DAY levonorgestrel (MIRENA) 20 mcg/24 hours (5-6 yrs) 52 mg IUD 1 Each by INTRAUTERINE route as directed. miSOPROStol (CYTOTEC) 200 mcg tablet Take two tablets PO night before procedure and two tablets morning of procedure fluticasone (FLONASE) 50 mcg/actuation nasal spray Use 2 Sprays in each nostril once daily. Rinse mouth after use. ERGOCALCIFEROL, VITAMIN D2, (VITAMIN D ORAL) Take 2 capsules by mouth once daily. No current facility-administered medications for this visit. ALLERGIES Allergen Reactions Augmentin [Amoxicil* Vomiting Sulfa (Sulfonamide * Rash REVIEW OF SYSTEMS: All other ROS: negative As noted in HPI PHYSICAL EXAMINATION: VIDEO EXAM: (if completed, performed via video enabled technology) No exam performed ASSESSMENT: (E78.2) Mixed hyperlipidemia (primary encounter diagnosis) (I10) Hypertension, essential (G43.819) Other migraine without status migrainosus, intractable PLAN: 1. Mixed hyperlipidemia - ICD9: 272.2, ICD10: E78.2 (primary diagnosis) Will obtain recent lab results from [facility] to review, specifically lipid panel. Discussed with patient that will send her a [employer] message with more detail regarding her lipid levels. Refill of rosuvastatin sent. - ROSUVASTATIN 10 MG TABLET 2. Hypertension, essential - ICD9: 401.9, ICD10: I10 Refill given. Has in-office appointment scheduled with PCP Dr. Martinez in 2 months. Will evaluate BP at that time. Refill sent. - VALSARTAN 160 MG TABLET 3. Other migraine without status migrainosus, intractable - ICD9: 346.81, ICD10: G43.819 Works well for her migraines. Only takes if she absolutely needs. Refill sent. - SUMATRIPTAN 100 MG TABLET Ludivina Cantu APRN.CNP There are no Patient Instructions on file for this visit. Ludivina Cantu APRN.JONO documented in this encounter [facility] 12-23-2022 Miscellaneous Notes Spoke with pt gave information provided. Pt voices understanding. Please call patient and let her know that the lab work she had done at [facility] looks great! No abnormalities or concerns at all. These can be discussed in greater detail at upcoming appointment on Wednesday with Ludivina. Thank you, Bere Dhaliwal APRN.CNP documented in this encounter [facility] 12-15-2022 Miscellaneous Notes See Telephone encounter 12/15/22 Attempted to contact pt with no answer and no VM setup [facility] work placed to have done a few days prior to upcoming appt. Refilled crestor enough to get pt through to appointment date. Thank you, Bere Dhaliwal APRN.CNP The following approved medication requests have been transmitted electronically. Requested Prescriptions Signed Prescriptions Disp Refills rosuvastatin (CRESTOR) 10 mg tablet 30 tablet 0 Sig: Take 1 tablet by mouth once daily. Authorizing Provider: BERE DHALIWAL APRN.CNP Pt called to schedule her physical. She is scheduled on 12/25/22. She wonders about labs. States she is out of her cholesterol medication but thinks she is due for labs. Please let her know. documented in this encounter [facility] 07-29-2022 Miscellaneous Notes Agree with below. Letter sent via [employer]. Thank you, Bere Perdomo APRN.CNP Review pended letter. Please load letter needed for me to sign Shon Martinez DO Patient calling needs a letter to give to her insurance saying she was seen in office this year. Her insurance is through her . Her appt was with PCP on 10/22/2021 for her physical. The letter has to be made out to [facility], she would like letter sent to her my chart. Please advise documented in this encounter [facility] 07-02-2022 Miscellaneous Notes Pt called back and she does want the prescription to be switched to [facility]. Patient has been identified by name and date of : Yes Patient phones for refill(s): Requested Prescriptions Pending Prescriptions Disp Refills valsartan (DIOVAN) 160 mg tablet 90 tablet 1 Sig: Take 1 tablet by mouth once daily. Date of last office visit in primary care: 01/13/22 Labs-10/25/21 NOV-none Last 2 Encounter Wt Readings: Date: Wt: 04/27/2022 83.5 kg (184 lb) 01/13/2022 83 kg (183 lb) Previous labs/tests for medication: Blood Pressure: BUN (mg/dL) Date Value 10/25/2021 13 10/25/2021 12 Sodium (mmol/L) Date Value 10/25/2021 142 10/25/2021 141 Last 1 Encounter BP Readings: Date: BP: 04/27/2022 136/78 Thank you. Susan Trevino LPN Received a call from Mary with [facility] [phone] to have prescription below sent to them. Pt has a current prescription with [facility]. Left a message for pt to call the office to verify she is switching pharmacy. Susan Trevino LPN documented in this encounter [facility] 02-12-2022 Miscellaneous Notes February 12, 2022 PID: [id number] Jose R Watt [address] [place] [address] Dear Annemarie Watt, We are pleased to inform you that the results of your recent breast imaging exam on 02/12/2022 are normal. Your mammogram demonstrates that you have dense breast tissue, which could hide abnormalities. Dense breast tissue, in and of itself, is a relatively common condition. Therefore, this information is not provided to cause undue concern; rather, it is to raise your awareness and promote discussion with your health care provider regarding the presence of dense breast tissue in addition to other risk factors. Early detection of cancer is very important. We also understand recommendations regarding breast cancer screening are controversial. Please discuss with your primary care provider which strategy is best for you and whether a mammogram is right for you. Your imaging studies and report will be kept on file at [facility] as part of your permanent medical record and are available for your continuing care. Thank you for allowing us to help in meeting your health care needs. Sincerely, Dr. Plata Interpreting Radiologist [facility] (Normal over 40) documented in this encounter [facility] 01-13-2022 Miscellaneous Notes Noted. Pepito Pelaez APRN.DARLEEN DE LA CRUZ Pt states she has had a migraine x 1 week. Pt has tried ibuprofen, tylenol, migraine medication, muscle relaxant, ice, cream and cream on neck. She saw her chiropractor for acupuncture and just not getting any relief. Pt requested to be seen today. Apt booked. Susan Trevino LPN documented in this encounter [facility] Diagnosis Hypertension, essential- Primary Unspecified essential hypertension Well adult exam Routine general medical examination at a health care facility Mixed hyperlipidemia Impaired fasting glucose [facility] Diagnosis Mixed hyperlipidemia- Primary Hypertension, essential Unspecified essential hypertension Other migraine without status migrainosus, intractable documented in this encounter [facility] note* Diagnosis Hypertension, essential Unspecified essential hypertension documented in this encounter [facility] note* Diagnosis Encounter for gynecological examination (general) (routine) without abnormal findings- Primary Encounter for screening mammogram for breast cancer Special screening for malignant neoplasms, colon documented in this encounter [facility] note* Diagnosis Encounter for screening mammogram for breast cancer documented in this encounter [facility] note* Diagnosis Eye irritation- Primary Other ill-defined disorder of eye documented in this encounter [facility] note* Diagnosis Urination frequency- Primary Urinary frequency Hypertension, essential Unspecified essential hypertension Microscopic hematuria Flank pain Abdominal pain, unspecified site documented in this encounter [facility] for referral (narrative)* Outpatient Procedure (Routine) - Pending Review Specialty Diagnoses / Procedures Referred By Kumar bhat Referred To Contact [facility] Diagnoses Special screening for malignant neoplasms, colon Procedures COLONOSCOPY SCREENING COLONOSCOPY FLX DX W/COLLJ SPEC WHEN PFRMD Jaqueline Woodard MD [address] [place] [address] [facility] [address] [place], [place] [address] [address] Referral ID Status Reason Start Date Expiration Date Visits Requested Visits Authorized [id number] Pending Review Auto-Generat ed Referral 05/11/2023 05/11/2024 1 1 * Diagnostic Procedure Only (Routine) - Pending Review Specialty Diagnoses / Procedures Referred By Kumar bhat Referred To Contact [facility] Diagnoses Encounter for screening mammogram for breast cancer Procedures YI SCREENING W SCOTT SCREENING DIGITAL BREAST TOMOSYNTHESIS BI SCREENING MAMMOGRAPHY BI 2-VIEW BREAST INC CAD Jaqueline Woodard MD [address] [place] [address] [facility] [address] [place] [address] Referral ID Status Reason Start Date Expiration Date Visits Requested Visits Authorized [id number] Pending Review Auto-Generat ed Referral 05/11/2023 06/09/2024 1 1 [facility] for referral (narrative)* Diagnostic Procedure Only (Routine) - Closed Specialty Diagnoses / Procedures Referred By Contac t Referred To Contact [facility] Diagnoses Encounter for screening mammogram for breast cancer Procedures YI SCREENING W SCOTT SCREENING DIGITAL BREAST TOMOSYNTHESIS BI SCREENING MAMMOGRAPHY BI 2-VIEW BREAST INC CAD Shon Martinez, DO [address] [place] [address] [facility] [address] [place] [id number] Referral ID Status Reason Start Date Expiration Date V isits Requested Visits Authorized [id number] Closed Auto-Generate d Referral 04/28/2023 05/27/2024 1 1 [facility] for visit Narrative* Diagnostic Procedure Only (Routine) - Closed Specialty Diagnoses / Procedures Referred By Kumar bhat Referred To Contact [facility] Diagnoses Encounter for screening mammogram for breast cancer Procedures YI SCREENING W SCOTT SCREENING DIGITAL BREAST TOMOSYNTHESIS BI SCREENING MAMMOGRAPHY BI 2-VIEW BREAST INC CAD Shon Martinez, DO [address] [place] [address] [facility] [address] [place] [address] Referral ID Status Reason Start Date Expiration Date V isits Requested Visits Authorized [id number] Closed Auto-Generate d Referral 04/28/2023 05/27/2024 1 1 [facility] Summary Purpose Family History No Family History Records Found Advance Directives No Advanced Directives Records Found Additional Source Comments Source Comments (unrecognize d section and content) In the event this informatio n is protected by the Federal Confidentiality of Alcohol and Drug Abuse Patient Records regulations: The Federal rules restrict any use of the information to criminally investigate or prosecute any alcohol or drug abuse patient.[facility] the event this information is protected by the Federal Confidentiality of Alcohol and Drug Abuse Patient Records regulations: The Federal rules restrict any use of the information to criminally investigate or prosecute any alcohol or drug abuse patient.[facility] the event this information is protected by the Federal Confidentiality of Alcohol and Drug Abuse Patient Records regulations: The Federal rules restrict any use of the information to criminally investigate or prosecute any alcohol or drug abuse patient.[facility] the event this information is protected by the Federal Confidentiality of Alcohol and Drug Abuse Patient Records regulations: The Federal rules restrict any use of the information to criminally investigate or prosecute any alcohol or drug abuse patient.[facility] the event this information is protected by the Federal Confidentiality of Alcohol and Drug Abuse Patient Records regulations: The Federal rules restrict any use of the information to criminally investigate or prosecute any alcohol or drug abuse patient.[facility] the event this information is protected by the Federal Confidentiality of Alcohol and Drug Abuse Patient Records regulations: The Federal rules restrict any use of the information to criminally investigate or prosecute any alcohol or drug abuse patient.[facility] the event this information is protected by the Federal Confidentiality of Alcohol and Drug Abuse Patient Records regulations: The Federal rules restrict any use of the information to criminally investigate or prosecute any alcohol or drug abuse patient.[facility] the event this information is protected by the Federal Confidentiality of Alcohol and Drug Abuse Patient Records regulations: The Federal rules restrict any use of the information to criminally investigate or prosecute any alcohol or drug abuse patient.[facility] the event this information is protected by the Federal Confidentiality of Alcohol and Drug Abuse Patient Records regulations: The Federal rules restrict any use of the information to criminally investigate or prosecute any alcohol or drug abuse patient.[facility] the event this information is protected by the Federal Confidentiality of Alcohol and Drug Abuse Patient Records regulations: The Federal rules restrict any use of the information to criminally investigate or prosecute any alcohol or drug abuse patient.[facility] the event this information is protected by the Federal Confidentiality of Alcohol and Drug Abuse Patient Records regulations: The Federal rules restrict any use of the information to criminally investigate or prosecute any alcohol or drug abuse patient.[facility] the event this information is protected by the Federal Confidentiality of Alcohol and Drug Abuse Patient Records regulations: The Federal rules restrict any use of the information to criminally investigate or prosecute any alcohol or drug abuse patient.[facility] the event this information is protected by the Federal Confidentiality of Alcohol and Drug Abuse Patient Records regulations: The Federal rules restrict any use of the information to criminally investigate or prosecute any alcohol or drug abuse patient.[facility] the event this information is protected by the Federal Confidentiality of Alcohol and Drug Abuse Patient Records regulations: The Federal rules restrict any use of the information to criminally investigate or prosecute any alcohol or drug abuse patient.[facility] Reason for Visit (unrecogniz ed section and content) Reason Onset Date Comments Refill Request 07/02/2022 Reason Comments Letter Reason Comments Orders Reason Comments Results Reason Comments Medication Follow-up Reason Comments Request Outside Medical Records Reason Onset Date Comments Refill Request 03/15/2023 Reason Comments Yearly Exam Reason Comments Eye Problem Bilt eye swelling, i tchy, drainage, exposed, x 1 day Reason Comments Back Pain Left side back pain x 1 week Urinary Problem Frequency with urina tion x1 week Ear Pain Left ear pain x 1 da y Care Teams (unrecognized sec tion and content) 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 Relationship Specialty Start Date End Date Shon Martinez DO [address] [place], [place] [id number] PCP - General Family Practice 03/24/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 Relationship Specialty Start Date End Date Shon Martinez DO [address] [place], [place] [id number] PCP - General Family Medicine 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/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 Relationship Specialty Start Date End Date Shon Martinez, DO [address] [place] [address] PCP - General Family Medicine 03/24/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 Relationship Specialty Start Date End Date Shon Martinez, DO [address] [place] [address] PCP - General Family Medicine 03/24/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 Relationship Specialty Start Date End Date Shon Martinez, DO [address] [place] [address] PCP - General Family Medicine 03/24/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 Relationship Specialty Start Date End Date Shon Martinez, DO [address] [place] [address] PCP - General Family Medicine 03/24/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 Relationship Specialty Start Date End Date Shon Martinez, DO [address] [place] [address] PCP - General Family Medicine 03/24/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 Relationship Specialty Start Date End Date Shon Martinez DO [address] [place] [address] PCP - General Family Medicine 03/24/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 Relationship Specialty Start Date End Date Shon Martinez DO [address] [place] [address] PCP - General Family Medicine 03/24/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 This clinical summary was aggregated from multiple sources. Caution should be exercised in using it in the provision of clinical care. This summary normalizes information from multiple sources, and as a consequence, information in this document may materially change the coding, format and clinical context of patient data. In addition, data may be omitted in some cases. CLINICAL DECISIONS SHOULD BE BASED ON THE PRIMARY CLINICAL RECORDS. [employer] [facility]. provides no warranty or guarantee of the accuracy or completeness of information in this document.
[2023-11-26 20:33] VITALS: BP 215/129; PULSE 120; RESP 28; O2SAT 98
[2023-11-26] MEDS: Labetalol (Prefilled) 20 MG/4 ML IV (20:42)
[2023-11-26 20:57] LABS: Absolute Lymphocyte Count 2.62 X10^3/uL (0.83-4.51); Absolute Neutrophil Count 7.1 X10^3/uL (2.0-7.7); Basophil# 0.07 X10^3/uL; Basophil% 0.7 % (0-1); Eosinophil# 0.03 X10^3/uL; Eosinophils% 0.3 % (0-5); Hematocrit 39.8 % (37-47); Hemoglobin 13.4 g/dL (12.0-15.0); Lymphocyte # 2.62 X10^3/ul (0.83-4.51); Lymphocyte % 24.5 % (19-41); Mean Corp Hgb Conc 33.7 g/dL (32-36); Mean Corpuscular Hgb 28.9 pg (27.0-32.0); Mean Corpuscular Volume 85.8 fL (81-99); Mean Platelet Vol. 10.4 fl (6.2-12.0); Monocyte# 0.84 X10^3/uL; Monocyte% 7.9 % (0-10); NRBC Flagged by Analyzer 0 % (0-5); Neutrophil # 7.08 X10^3/uL (2.7-7.7); Neutrophil % 66.1 % (47-70); Platelet Count 344 K/mm3 (150-450); RBC Distribution Width CV 12.8 % (11.6-14.6); RBC Distribution Width SD 39.1 fl (35.1-43.9); Red Blood Count 4.64 M/mm3 (4.2-5.4); White Blood Count 10.7 K/mm3 (4.4-11.0)
[2023-11-26 21:00] LABS: Mucous, Urine 0 SEEN /hpf (<or=2+)
[2023-11-26 21:05] LABS: Color, Urine Yellow (Yellow); Glucose, Dipstick Normal (Normal); Ketone-Dipstick Negative (Negative); Leukocyte Esterase-Dipstick Negative /ul (Negative); Nitrite-Dipstick Negative (Negative); Occult Blood-Urine 50 /ul (Negative); Protein-Dipstick Negative (Negative); Urine Bilirubin Dipstick Negative (Negative); Urine Clarity Clear (Clear); Urine Urobilinogen Normal (Normal)
--- NOTE | 2023-11-26 21:05 | RAD_ITS ---
INDICATION: Hypertension EXAMINATION: Frontal and lateral views of the chest. COMPARISON: Chest x-ray February 09, 2012. FINDINGS: Frontal and lateral views of the chest were obtained. The cardiac silhouette is not enlarged. No confluent airspace disease. No pleural effusion or pneumothorax. RAD/Chest PA and Lateral IMPRESSION: No acute pulmonary disease. Electronically Signed: Triston Paniagua MD at 0:42 EST ,
[2023-11-26 21:08] LABS: D-Dimer Quantitative (DVT/PE) 0.41 FEU/ug/m (0.27-0.49)
[2023-11-26 21:15] LABS: Bacteria RARE /hpf (None Seen); Red Blood Cells-Urine 0-5 SEEN /hpf (0-5); Squamous Epithelial Cells - UA 0-5 SEEN /hpf (5-10); White Blood Cells 0-5 SEEN /hpf (0-5)
[2023-11-26 21:15] LABS: Anion Gap 7 (5-15); BUN 12 mg/dL (7-18); BUN/Creat Ratio 16.7 RATIO (10-20); Calcium,Total 9.8 mg/dL (8.5-10.1); Chloride 106 mmol/L (98-107); Creatinine, Serum 0.72 mg/dL (0.55-1.02); EST Glomerular Filtration Rate 92 mL/min (>60); Est Glom Filt Rate - Afr Amer 111 mL/min (>60); Estimated Creatinine Clearance 98.65 ml/min; Glucose 150 mg/dL (74-106); Potassium 3.5 mmol/L (3.5-5.1); Sodium Level 140 mmol/L (136-145); Troponin-I HS 6 pg/mL (3.0-54.0)
[2023-11-26 21:30] VITALS: BP 199/110
[2023-11-26 22:26] VITALS: BP 196/101; PULSE 83
[2023-11-26] MEDS: cloNIDine HCl 0.2 MG Tablet 0.200000000000000011 MG PO (22:44)
[2023-11-26 23:55] VITALS: BP 179/80; PULSE 80; RESP 18; TEMP 36.7; O2SAT 95
== END 2023-11-27 00:18 | disposition home or self-care (01) ==
PROVIDERS: Emergency Provider Emergency Medicine; PCP Student in an Organized Health Care Education/Training Program; Visit Provider Emergency Medicine
DX: N20.1 Calculus of ureter (principal); I10 Essential (primary) hypertension; E78.00 Pure hypercholesterolemia, unspecified
CPT/HCPCS: 71046; 74176; 80048; 81001; 84484; 85025; 85379; 93005; 99284

== ENCOUNTER → 2023-12-18 | Outpatient (CLI) | payer OTHER, SELFPAY ==
--- OUTSIDE RECORDS SUMMARY | 2023-12-18 08:14 | XMS RPT_ITS | CCD ---
Author Name Unknown Address [address] [facility] [address] [place] [address] Organization [facility] Care Team Providers Care Bus Trolley And Taxi Instructor Name Role Phone Shon Martinez DO Primary Care Provider SHON MARTINEZ Primary Care Unavailable SHON MARTINEZ Primary Care Unavailable SHON MARTINEZ Primary Care Unavailable SHON MARTINEZ Primary Care Unavailable SHON MARTINEZ Referring Unavailable SHON MARTINEZ Primary Care Unavailable SHON MARTINEZ Referring Unavailable SHON MARTINEZ Primary Care Unavailable SHON MARTINEZ Referring Unavailable SHON MARTINEZ Primary Care Unavailable JAQUELINE WOODARD Attending Unavail able SHON MARTINEZ Primary Care Unavailable SHON MARTINEZ Referring Unavailable SHON MARTINEZ Primary Care Unavailable SHON MARTINEZ Attending Unavailable LUDIVINA CANTU Attending Unavailable SHON MARTINEZ Primary Care Unavailable BERE DHALIWAL Attending Unavailable SHON MARTINEZ Primary Care Unavailable Allergies Allergy Classification Reported Allergen(s) Allergy Type Date of Onset Reaction(s) Facility (16 sources) Amoxicillin / Clavulanate; Translations: [AMOXICILLIN-POT CLAVULANATE] Drug Allergy 2 Vomiting [facility] Work Phone: (16 sources) Sulfonamides (Antibiotic); Translations: [SULFA (SULFONAMIDE ANTIBIOTICS)] Propensity to adverse reactions 6 Rash [facility] Work Phone: Medications Current Medications Medication Drug Class(es) Dates Sig (Normalized) Sig (Original) levonorgestrel 0.190643 mg/hr intrauterine system (15 sources) Progestin, Progestin-containi ng Intrauterine Device Start: 02-12-2021 End: 02-11-2026 levonorgestrel (MIRENA) 20 mcg/24 hours (5-6 yrs) 52 mg IUD 1 Each by INTRAUTERINE route as directed. 1 Each 0 02/12/2021 02/11/2026 Active Completed/Discontinued Medications Medication Drug Class(es) Dates Sig (Normalized) Sig (Original) ERGOCALCIFEROL, VITAMIN D2, (VITAMIN D ORAL) (15 sources) take 2 capsules by mouth once daily ERGOCALCIFEROL, VITAMIN D2, (VITAMIN D ORAL) Take 2 capsules by mouth once daily. 0 Active Problems Active Problems Problem Classification Problem Date Documented Da te Episodic/Chronic Abdominal pain (1 source) Flank pain; Translations: [Unspecified abdominal pain] 11-26-2023 Episodic Calculus of urinary tract (1 source) Kidney stone; Translations: [Calculus of kidney] 12-01-2023 Episodic Disorders of lipid metabolism (18 sources) Mixed hyperlipidemia; Translations: [Mixed hyperlipidemia] Onset: 10-06-2021 10-06-2021 Chronic Essential hypertension (20 sources) Essential hypertension; Translations: [Essential (primary) hypertension] Onset: 10-06-2021 10-06-2021 Chronic Genitourinary symptoms and ill-defined conditions (2 sources) Increased frequency of urination; Translations: [Frequency of micturition] 11-26-2023 Episodic Headache; including migraine (16 sources) Refractory migraine without aura; Translations: [Migraine without aura, intractable, without status migrainosus] Onset: 01-13-2022 01-13-2022 Chronic Menstrual disorders (20 sources) Excessive and frequent menstruation; Translations: [Excessive and frequent menstruation with regular cycle] Onset: 03-23-2012 03-23-2012 Chronic Other endocrine disorders (15 sources) Disorder of parathyroid gland; Translations: [Disorder of parathyroid gland, unspecified] Onset: 03-25-2016 03-25-2016 Chronic Other eye disorders (1 source) Disorder of eye; Translations: [Other specified disorders of eye and adnexa] 09-16-2023 Episodic Other female genital disorders (15 sources) Premenstrual tension syndrome; Translations: [Premenstrual tension syndrome] Onset: 03-23-2012 03-23-2012 Chronic Other nutritional; endocrine; and metabolic disorders (15 sources) Obese class I; Translations: [Obesity, unspecified] Onset: 01-13-2022 01-13-2022 Chronic Other nutritional; endocrine; and metabolic disorders (6 sources) Hyperbilirubinemia; Translations: [Other disorders of bilirubin metabolism] Onset: 03-01-2023 03-01-2023 Chronic Other nutritional; endocrine; and metabolic disorders (1 source) Other disorders of bilirubin metabolism; Translations: [Hyperbilirubinemia ] Onset: 03-01-2023 Chronic Past or Other Problems Problem Classification Problem Date Documented Da te Episodic/Chronic Diabetes mellitus without complication (8 sources) Impaired fasting glycemia; Translations: [Impaired fasting glucose] Onset: 03-01-2023 Episodic Hemorrhoids (15 sources) External hemorrhoids; Translations: [Residual hemorrhoidal skin tags] Onset: 07-12-2020 07-12-2020 Episodic Malaise and fatigue (15 sources) Malaise and fatigue; Translations: [Other malaise] Onset: 03-23-2012 03-23-2012 Episodic Other connective tissue disease (15 sources) Muscle spasm of cervical muscle of neck; Translations: [Other muscle spasm] Onset: 07-12-2020 07-12-2020 Episodic Other lower respiratory disease (6 sources) Chest pain on breathing; Translations: [Chest [...] Sign Value Performing Clinician Carlos Eduardo berrios 12-01-2023 12:29-0500 Body weight 80.02 kg Bere Dhaliwal APRN.CNP Work Phone: [facility] 12-01-2023 12:29-0500 Diastolic blood pressure 80 mm[Hg] Bere Dhaliwal APRN.CNP Work Phone: [facility] 12-01-2023 12:29-0500 Heart rate 72 /min Bere Dhaliwal TIPPLE WORKER.HAND TUBE BENDER Work Phone: [facility] 12-01-2023 12:29-0500 Respiratory rate 12 /min Bere Dhaliwal TIPPLE WORKER.HAND TUBE BENDER Work Phone: [facility] 12-01-2023 12:29-0500 Systolic blood pressure 140 mm[Hg] Bere Dhaliwal TIPPLE WORKER.HAND TUBE BENDER Work Phone: [facility] 11-26-2023 10:58-0500 Diastolic blood pressure 90 mm[Hg] Krislyn Aberegg PA Work Phone: [facility] 11-26-2023 10:58-0500 Systolic blood pressure 172 mm[Hg] Krislyn Aberegg PA Work Phone: [facility] 11-26-2023 10:42-0500 Body temperature 97.59 [degF] Krislyn Aberegg PA Work Phone: [facility] 11-26-2023 10:42-0500 Body weight 78.93 kg Krislyn Aberegg PA Work Phone: [facility] 11-26-2023 10:42-0500 Heart rate 64 /min Krislyn Aberegg PA Work Phone: [facility] 11-26-2023 10:42-0500 Respiratory rate 18 /min Krislyn Aberegg PA Work Phone: [facility] 11-26-2023 10:42-0500 SaO2% (BldA) [Mass fraction] 100 % Krislyn Aberegg PA Work Phone: [facility] 09-16-2023 16:56-0500 Body temperature 98.01 [degF] Krislyn Aberegg PA Work Phone: [facility] 09-16-2023 16:56-0500 Body weight 81.19 kg Krislyn Aberegg PA Work Phone: [facility] 09-16-2023 16:56-0500 Diastolic blood pressure 92 mm[Hg] Krislysarah Aberegg PA Work Phone: [facility] 09-16-2023 16:56-0500 Heart rate 91 /min Krislysarah Abprashanthgg PA Work Phone: [facility] 09-16-2023 16:56-0500 Respiratory rate 18 /min Krislyn Aberegg PA Work Phone: [facility] 09-16-2023 16:56-0500 SaO2% (BldA) [Mass fraction] 98 % Danish Delgadillogg PA Work Phone: [facility] 09-16-2023 16:56-0500 Systolic blood pressure 156 mm[Hg] Jdislysarah Aberegg PA Work Phone: [facility] Encounters Encounter Date Encounter Type Care Provider Facility Start: 12-01-2023 End: 12-01-2023 ambulatory BERE DHALIWAL Facility:[facility] Start: 12-01-2023 End: 12-01-2023 Patient encounter procedure Bere Isra MCGRATH.HAND TUBE BENDER Work Phone: [facility] Procedures Date Procedure Procedure Detail Performing Clinician Start: 11-26-2023 Urnls dip stick/tabl et rgnt auto w/o microscopy Danish Osborne PA Work Phone: Start: 05-14-2023 Screening digital br [...] - S nidia or Plasma Lipid Screening [facility] Start: 10-25-2026 Lipid panel [facility] Start: 10-25-2026 LIPID SCREEN LIPID SCREEN [facility] Start: 03-01-2026 DIABETES SCREEN DIABETES SCREEN [facility] Start: 03-01-2026 Diabetes Screening Diabetes Screenin g [facility] Start: 01-08-2026 HPV TESTING HPV TESTING [facility] Start: 01-08-2026 PAP TESTING PAP TESTING [facility] Start: 01-08-2026 Screening for malign ant neoplasm of cervix [facility] Start: 12-01-2024 Annual PCP Team Plater Apprentice pete Disease Visit Annual PCP Team Chronic Disease Visit [facility] Start: 12-01-2024 Covid-19 Vaccine ( season) Covid-19 Vaccine () [facility] Immunizations Immunization Date Immunization Notes Care Provider Fa cility 08-11-2021 COVID-19 vaccine, ag e 12+ yr ([employer] - PURPLE TOP) Shon Martinez DO Work Phone: [facility] Work Phone: 07-08-2018 influenza virus vaccine, unspecified formulation Screen Wstr [facility] Payers Date Payer Category Payer Unknown MMO MMO [employer] [id number] 2019-Present [phone] [address] [place] [address] PPO [id number] 2019 Unknown [id number] 2019 Unknown [id number] Social History Date Type Detail Facility Start: 03-23-2012 Tobacco smoking status NHIS Never smoked tobacco [facility] Work Phone: Start: 10-22-2021 End: 12-01-2023 Alcohol intake Current non-drinker of alcohol (finding) [facility] Start: 1975 Sex Assigned At Female [facility] Start: 02-02-2022 End: 02-12-2022 Exposure to SARS-CoV-2 (event) Not sure [facility] Start: 03-23-2012 Tobacco use and exposure Smokeless tobacco non-user [facility] Work Phone: Start: 12-21-2022 End: 12-25-2022 History SDOH Alcohol Frequency 1 [facility] Start: 12-21-2022 End: 12-25-2022 History SDOH Alcohol Std Drinks 0 [facility] Start: 12-21-2022 End: 12-25-2022 History SDOH Social Connections Phone 5 [facility] Start: 12-21-2022 End: 12-25-2022 History SDOH Social Connections [employer] 3 [facility] Start: 12-21-2022 End: 12-25-2022 History SDOH Physical Activity MPS 2 [facility] Start: 12-21-2022 End: 12-25-2022 History SDOH Stress 4 [facility] Start: 12-25-2022 End: 03-01-2023 History of Social function [facility] Start: 12-25-2022 End: 03-01-2023 Social connection and isolation panel [facility] Do you belong to any clubs or organizations such as protestant groups, unions, fraternal or athletic groups, or school groups? Yes [facility] Are you now , , , , never or living with a partner? [facility] How often to you hav e a drink containing alcohol? Never [facility] How many standard dr inks containing alcohol do you have on a typical day? Patient does not drink [facility] Do you feel stress - tense, restless, nervous, or anxious, or unable to sleep at night because your mind is troubled all the time - these days [OSQ] Rather much [facility] (I/We) worried whesolis er (my/our) food would run out before (I/we) got money to buy more. Never true [facility] In the past 12 month s, was there a time when you were not able to pay the mortgage or rent on time? No [facility] Start: 02-11-2021 Gender identity Identifies as female gender (finding) [facility] Start: 02-11-2021 Sexual orientation Heterosexual (finding) [facility] Clinical Notes 01-13-2022 to 12-01-2023 Bere Dhaliwal APRN.JONO - 12/01/2023 12:33 PM Danish Shields PA - 11/26/2023 10:51 AM Danish Shields PA - 11/26/2023 10:49 AM Danish Shields PA - 09/16/2023 5:04 PM EST Note Date & Type Note Facility 12-01-2023 Note HNO ID: [id number] Author: BERE DHALIWAL APRN.HAND TUBE BENDER Service: ? Author Type: Nurse Practitioner Type: Progress Notes Filed: 12/01/2023 13:19 Note Text: Chief Complaint Patient presents with: er follow up: Was seen in urgent care and sent to er . [facility] found kidney stoe and surgery scheduled for Wednesday morning. But b/p still up. HPI Jose R Watt is a 48 year old female who presents here today for Above Complaints. Jose R is an established patient of Dr. Yg DO. She is a new patient to me today. Concerns today.. Express care visit on 11/26 d/t urinary frequency and L sided flank pain x 1 week. Known hx of kidney stones. UA was positive for hematuria, negative for infection. concern was for kidney stone so sent pt to ER. BP was significatly elevated in express care as well, taken 4x with lowest reading of 172/90. Pt was asymptomatic. ER at [facility] -- Was found to have kidney stone bilaterally on CT scan, L side obstructing 4 mm stone with hydronephrosis, R side was very small and nonobstructive. Saw urologist yesterday, scheduled for urethroscopy with stent placement on this Wednesday. Pt denies any current pain since ER discharge. Has not taken at [facility] as prescribed by ER. BP -- BP elevated in ER, as high as 215/129. Minimally reduced with labetalol and then significant improved with clonidine. EKG in ER was normal. Complete cardiac work-up in ER (trop, d-dimer, CXR, CBC, CMP) was all normal. Pt concerned due to both parents having significant cardiac disease / PA history. ECHO and stress test completed in July outpatient and were normal. Pt denies any symptoms with elevation in BP. She states compliant with current blood pressure medication(s): valsartan 160 mg daily. She does not check BP at home but she did get a cuff recently. She denies chest pain, shortness of breath, palpitations, dizziness, leg edema, headaches, or vision changes. Last 14 Encounter BP Readings: Date: BP: 12/01/2023 140/80 11/26/2023 172/90 11/04/2023 142/92 09/16/2023 156/92 03/01/2023 134/88 04/27/2022 136/78 01/13/2022 130/84 10/22/2021 134/80 03/26/2021 122/76 02/12/2021 124/70 01/22/2021 152/90 01/08/2021 122/78 12/30/2020 130/82 09/16/2020 110/70 Past medical history, appointments, medications, allergies reviewed. Previous Medical History PAST MEDICAL HISTORY Diagnosis Date Dysmenorrhea Excessive or frequent menstruation Heavy periods Resolved Malaise and fatigue Mixed hyperlipidemia Parathyroid tumor 2014 benign, Dr. Hernandez Color Printer Operator Donnie Premenstrual tension syndromes Thyroid nodule 2014 Dr. Hernandez Color Printer Operator Donnie Unspecified essential hypertension 2006 Vitamin D deficiency secondary to parathyroidectomy Previous Surgical History PAST SURGICAL HISTORY Procedure Laterality Date DELIVERY ONLY X 2 PARATHYROID 01/2015 tumor removed Family History FAMILY HISTORY Problem Relation Age of Onset Thyroid Mother Hypertension Father Diabetes Paternal Aunt Thyroid Other paternal side Patient Allergies ALLERGIES Allergen Reactions Augmentin [Amoxicil* Vomiting Sulfa (Sulfonamide * Rash Current Medications Current Outpatient Medications on File Prior to Visit Medication Sig omega 3-mlt-cxc-fish oil (FISH OIL) 100-160-1,000 mg cap Take by mouth. valsartan (DIOVAN) 160 mg tablet Take 1 tablet by mouth once daily. SUMAtriptan (IMITREX) 100 mg tablet Take 1 tablet by mouth as needed for migraine headache (see administration instructions). levonorgestrel (MIRENA) 20 mcg/24 hours (5-6 yrs) 52 mg IUD 1 Each by INTRAUTERINE route as directed. ERGOCALCIFEROL, VITAMIN D2, (VITAMIN D ORAL) Take 2 capsules by mouth once daily. fluticasone (FLONASE) 50 mcg/actuation nasal spray Use 2 Sprays in each nostril once daily. Rinse mouth after use. (Patient not taking: Reported on 12/01/2023) rosuvastatin (CRESTOR) 10 mg tablet Take 1 tablet by mouth once daily. Current Facility-Administered Medications on File Prior to Visit Medication perflutren lipid microspheres 1.3 mL in NaCl (PF) 0.9% 10 mL injection (DEFINITY) sodium chloride 0.9 % (flush) 10 mL (BD POSIFLUSH) Social History Social History Tobacco Use Smoking status: Never Smokeless tobacco: Never Vaping Use Vaping Use: Never used Substance Use Topics Alcohol use: No Drug use: No REVIEW OF SYSTEMS: as above Reviewed relevant PMHx, PSHx, Social Hx, current medications and allergies. Review of Symptoms REVIEW OF SYSTEMS See HPI. EXAM: BP 140/80 (BP Site: Left Arm, BP Position: Sitting, BP Cuff Size: Regular Adult) Pulse 72 Resp 12 Wt 80 kg (176 lb 6.4 oz) LMP 10/19/2023 (Approximate) BMI 34.86 kg/m? General Appearance: Well appearing, alert, in no acute distress, well-hydrated, well nourished.. Skin: Skin color, texture, turgor normal, no suspicious rashes or lesions. Head: Normocephalic, no masses, lesio (more content not included)... [facility] 12-01-2023 History of Present illness Narrative Chief Complaint Patient presents with: er follow up: Was seen in urgent care and sent to er . [facility] found kidney stoe and surgery scheduled for Wednesday morning. But b/p still up. HPI Jose R Watt is a 48 year old female who presents here today for Above Complaints. Jose R is an established patient of Dr. Yg DO. She is a new patient to me today. Concerns today.. Express care visit on 11/26 d/t urinary frequency and L sided flank pain x 1 week. Known hx of kidney stones. UA was positive for hematuria, negative for infection. concern was for kidney stone so sent pt to ER. BP was significatly elevated in express care as well, taken 4x with lowest reading of 172/90. Pt was asymptomatic. ER at [facility] -- Was found to have kidney stone bilaterally on CT scan, L side obstructing 4 mm stone with hydronephrosis, R side was very small and nonobstructive. Saw urologist yesterday, scheduled for urethroscopy with stent placement on this Wednesday. Pt denies any current pain since ER discharge. Has not taken at [facility] as prescribed by ER. BP -- BP elevated in ER, as high as 215/129. Minimally reduced with labetalol and then significant improved with clonidine. EKG in ER was normal. Complete cardiac work-up in ER (trop, d-dimer, CXR, CBC, CMP) was all normal. Pt concerned due to both parents having significant cardiac disease / PA history. ECHO and stress test completed in July outpatient and were normal. Pt denies any symptoms with elevation in BP. She states compliant with current blood pressure medication(s): valsartan 160 mg daily. She does not check BP at home but she did get a cuff recently. She denies chest pain, shortness of breath, palpitations, dizziness, leg edema, headaches, or vision changes. Last 14 Encounter BP Readings: Date: BP: 12/01/2023 140/80 11/26/2023 172/90 11/04/2023 142/92 09/16/2023 156/92 03/01/2023 134/88 04/27/2022 136/78 01/13/2022 130/84 10/22/2021 134/80 03/26/2021 122/76 02/12/2021 124/70 01/22/2021 152/90 01/08/2021 122/78 12/30/2020 130/82 09/16/2020 110/70 Past medical history, appointments, medications, allergies reviewed. Previous Medical History PAST MEDICAL HISTORY Diagnosis Date Dysmenorrhea Excessive or frequent menstruation Heavy periods Resolved Malaise and fatigue Mixed hyperlipidemia Parathyroid tumor 2015 benign, Dr. Hernandez Color Printer Operator [place] Premenstrual tension syndromes Thyroid nodule 2014 Dr. Hernandez Color Printer Operator Donnie Unspecified essential hypertension 2007 Vitamin D deficiency secondary to parathyroidectomy Previous Surgical History PAST SURGICAL HISTORY Procedure Laterality Date DELIVERY ONLY X 2 PARATHYROID 01/2015 tumor removed Family History FAMILY HISTORY Problem Relation Age of Onset Thyroid Mother Hypertension Father Diabetes Paternal Aunt Thyroid Other paternal side Patient Allergies ALLERGIES Allergen Reactions Augmentin [Amoxicil* Vomiting Sulfa (Sulfonamide * Rash Current Medications Current Outpatient Medications on File Prior to Visit Medication Sig omega 9-dkd-bax-fish oil (FISH OIL) 100-160-1,000 mg cap Take by mouth. valsartan (DIOVAN) 160 mg tablet Take 1 tablet by mouth once daily. SUMAtriptan (IMITREX) 100 mg tablet Take 1 tablet by mouth as needed for migraine headache (see administration instructions). levonorgestrel (MIRENA) 20 mcg/24 hours (5-6 yrs) 52 mg IUD 1 Each by INTRAUTERINE route as directed. ERGOCALCIFEROL, VITAMIN D2, (VITAMIN D ORAL) Take 2 capsules by mouth once daily. fluticasone (FLONASE) 50 mcg/actuation nasal spray Use 2 Sprays in each nostril once daily. Rinse mouth after use. (Patient not taking: Reported on 12/01/2023) rosuvastatin (CRESTOR) 10 mg tablet Take 1 tablet by mouth once daily. Current Facility-Administered Medications on File Prior to Visit Medication perflutren lipid microspheres 1.3 mL in NaCl (PF) 0.9% 10 mL injection (DEFINITY) sodium chloride 0.9 % (flush) 10 mL (BD POSIFLUSH) Social History Social History Tobacco Use Smoking status: Never Smokeless tobacco: Never Vaping Use Vaping Use: Never used Substance Use Topics Alcohol use: No Drug use: No REVIEW OF SYSTEMS: as above Reviewed relevant PMHx, PSHx, Social Hx, current medications and allergies. Review of Symptoms REVIEW OF SYSTEMS See HPI. EXAM: BP 140/80 (BP Site: Left Arm, BP Position: Sitting, BP Cuff Size: Regular Adult) Pulse 72 Resp 12 Wt 80 kg (176 lb 6.4 oz) LMP 10/19/2023 (Approximate) BMI 34.86 kg/m General Appearance: Well appearing, alert, in no acute distress, well-hydrated, well nourished.. Skin: Skin color, texture, turgor normal, no suspicious rashes or lesions. Head: Normocephalic, no masses, lesions, tenderness or abnormalities. Lungs: Lungs clear to auscultation. No wheezing, rhonchi, rales.. Heart: RRR without murmur, gallop, or rubs. No ectopy. Health Maintenance List Hepatitis B Vaccine(1 of 3 - 3-dose series) Never done Hepatitis C Screening Never done HIV Screening Never done Colorectal Cancer Screening Never done Influenza Vaccine(1) due on 04/09/2024 Depression Assessment due on 10/10/2024 DTaP,Tdap,Td Vaccine(1 - Tdap) due on 12/01/2024 Covid-19 Vaccine( season) due on 12/01/2024 Annual PCP Team Chronic Disease Visit due on 03/01/2024 BP Controlled (<130/80) due on 03/01/2024 Mammogram Screening due on 05/14/2024 Pap Testing due on 01/08/2026 HPV Testing due on 01/08/2026 Diabetes Screening due on 03/01/2026 Lipid Screening due on 10/25/2026 ASSESSMENT/PLAN: 1. Hypertension, essential - ICD9: 401.9, ICD10: I10 (primary diagnosis) - Worsening control - BP WNL today, okay to continue with procedure on Wednesday. RTO in 4 weeks to reassess after anxiety of upcoming procedure and pain of kidney stone is removed. - Continue current medications - Recommend home blood pressure monitoring 1-2 x per day, to bring results to next visit - Encouraged sodium restriction, DASH or Mediterranean diet - Recommend regular aerobic exercise - Follow up in 4 weeks for hypertension visit 2. Kidney stone - ICD9: 592.0, ICD10: N20.0 Continue with urologist plan for stent placement on Wednesday. RTO in 4 weeks, sooner if needed. Prescription instructions reviewed with patient as applicable. Potential red flag symptoms discussed with the patient. Reviewed appropriate action plan to take if red flag symptoms occur. Patient agreeable to treatment plan. Bere Perdomo APRN.JONO [address] [place] [address] documented in this encounter [facility] 11-26-2023 Note HNO ID: [id number] Author: DANISH OSBORNE PA Service: ? Author Type: Physician Frame Tender Type: Progress Notes Filed: 11/26/2023 11:03 Note Text: José Manuel This note was created using NoteWriter. Subjective Jose R Watt is a 48 [...] hyperlipidemia Parathyroid tumor 2015 benign, Dr. Hernandez Color Printer Operator Donnie Premenstrual tension syndromes Thyroid nodule 2014 Dr. Hernandez Color Printer Operator Donnie Unspecified essential hypertension 2007 Vitamin D deficiency secondary to parathyroidectomy PAST SURGICAL HISTORY Procedure Laterality Date DELIVERY ONLY X 2 PARATHYROID 01/2015 tumor removed ALLERGIES Augmentin [Amoxicillin-Pot Clavulanate] and Sulfa (Sulfonamide Antibiotics) MEDICATIONS fluticasone (FLONASE) 50 mcg/actuation nasal sprayUse 2 Sprays in each nostril once daily. Rinse mouth after use.Disp: 11.1 mLRfl: 0 omega 2-zuj-kcg-fish oil (FISH OIL) 100-160-1,000 mg capTake by [...] capsules by mouth once daily. Disp: Rfl: rosuvastatin (CRESTOR) 10 mg tabletTake 1 tablet by mouth once daily.Disp: 90 tabletRfl: 3 FAMILY HISTORY Problem Relation Age of [...] Objective BP 186/101 Pulse 64 Temp 36.4 ?C (97.6 ?F) Resp 18 Wt 78.9 kg (174 lb) LMP 10/19/2023 (Approximate) SpO2 100% BMI 34.39 kg/m? Physical Exam Vitals and nursing note [...] to ER. - Uncontrolled - Continue current me (more content not included)... [facility] 11-26-2023 Note HNO ID: [id number] Author: DANISH OSBORNE PA Service: ? Author Type: Physician Frame Tender Type: Progress Notes Filed: 11/26/2023 11:03 Note Text: [facility] 11-26-2023 History of Present illness Narrative José Manuel This note was created using Quizrrter. Subjective Jose R Watt is a 48 [...] hyperlipidemia Parathyroid tumor 2015 benign, Dr. Hernandez Color Printer Operator [place] Premenstrual tension syndromes Thyroid nodule 2014 Dr. Hernandez Color Printer Operator Donnie Unspecified essential hypertension 2007 Vitamin D deficiency secondary to parathyroidectomy PAST SURGICAL HISTORY Procedure Laterality Date DELIVERY ONLY X 2 PARATHYROID 01/2015 tumor removed ALLERGIES Augmentin [Amoxicillin-Pot Clavulanate] and Sulfa (Sulfonamide Antibiotics) MEDICATIONS fluticasone (FLONASE) 50 mcg/actuation nasal spray^Use 2 Sprays in each nostril once daily. Rinse mouth after use.^Disp: 11.1 mL^Rfl: 0 omega 6-nbk-zjd-fish oil (FISH OIL) 100-160-1,000 mg cap^Take by [...] kidney stone with limited diagnostic capabilities of [facility] care. Since she does have hematuria and [...] evaluation. MARK Chapa documented in this encounter [facility] 11-04-2023 Note HNO ID: [id number] Author: SANDRA ANTHONY APRN.JONO Service: ? Author Type: Nurse Practitioner Type: Progress Notes Filed: 11/04/2023 17:15 Note Text: This note was created using NoteWriter. Subjective Jose R Watt is a 48 [...] hyperlipidemia Parathyroid tumor 2014 benign, Dr. Hernandez Color Printer Operator [place] Premenstrual tension syndromes Thyroid nodule 2014 Dr. Hernandez Color Printer Operator [place] Unspecified essential hypertension 2007 Vitamin D deficiency secondary to parathyroidectomy PAST SURGICAL HISTORY Procedure Laterality Date DELIVERY ONLY X 2 PARATHYROID 01/2015 tumor removed ALLERGIES Augmentin [Amoxicillin-Pot Clavulanate] and Sulfa (Sulfonamide Antibiotics) MEDICATIONS omega 3-qab-bjy-fish oil (FISH OIL) 100-160-1,000 mg capTake by [...] Rhinorrhea is clear. (more content not included)... [facility] 09-16-2023 Note HNO ID: [id number] Author: Danish Osborne PA Service: ? Author Type: Physician Frame Tender Type: Progress Notes Filed: 09/16/2023 5:07 PM Note Text: This note was created using Orderlordriter. Subjective Jose R Watt is a 48 year old female. HPI 48-year-old female presents for bilateral eye irritation and some crusting this morning. 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 Hernandez Color Printer Operator [place] Premenstrual tension syndromes Thyroid nodule 2014 Dr. Hernandez Color Printer Operator [place] Unspecified essential hypertension 2007 Vitamin D deficiency secondary to parathyroidectomy PAST SURGICAL HISTORY Procedure Laterality Date DELIVERY ONLY X 2 PARATHYROID 01/2015 tumor removed ALLERGIES Augmentin [Amoxicillin-Pot Clavulanate] and Sulfa (Sulfonamide Antibiotics) MEDICATIONS omega 2-ocb-lwi-fish oil (FISH OIL) 100-160-1,000 mg capTake by [...] the drops. -Follow-up with ophthalmology or her park guide if symptoms do not improve. Diagnosis and treatment plan were discussed and questions were answered to the patient's satisfaction. Pt acknowledged understanding of concepts and follow up plan. Specific signs and symptoms that would indicate the need for higher level of care were discussed in detail warranting prompt ER evaluation. MARK Chapa [facility] 09-16-2023 History of Present illness Narrative This note was created using Orderlordriter. Subjective Jose R Watt is a 48 year old female. HPI 48-year-old female presents for bilateral eye irritation and some crusting this morning. 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 Hernandez Color Printer Operator [place] Premenstrual tension syndromes Thyroid nodule 2014 Dr. Hernandez Color Printer Operator [place] Unspecified essential hypertension 2007 Vitamin D deficiency secondary to parathyroidectomy PAST SURGICAL HISTORY Procedure Laterality Date DELIVERY ONLY X 2 PARATHYROID 01/2015 tumor removed ALLERGIES Augmentin [Amoxicillin-Pot Clavulanate] and Sulfa (Sulfonamide Antibiotics) MEDICATIONS omega 6-jbv-epx-fish oil (FISH OIL) 100-160-1,000 mg cap^Take by [...] the drops. -Follow-up with ophthalmology or her park guide if symptoms do not improve. Diagnosis and treatment plan were discussed and questions were answered to the patient's satisfaction. Pt acknowledged understanding of concepts and follow up plan. Specific signs and symptoms that would indicate the need for higher level of care were discussed in detail warranting prompt ER evaluation. MARK Chapa documented in this encounter [facility] 05-14-2023 Note HNO ID: [id number] Author: Clotilde Cresnhaw RT(R) Service: Radiology Author Type: Senior Network Administrator Type: Progress Notes Filed: 05/14/2023 10:11 AM [...] RT Bhargavi(R) May 14, 2023 10:11 AM [facility] 05-14-2023 History of Present illness Narrative Radiology [...] 2023 10:11 AM documented in this encounter [facility] 05-14-2023 Miscellaneous Notes Patient notified via [employer] documented in this encounter [facility] 05-11-2023 Note HNO ID: [id number] Author: Jaqueline Woodard MD Service: ? Author Type: Physician Type: Progress Notes Filed: 05/11/2023 9:03 AM Note Text: Plaster Machine Tender offered: Patient declinesAnnemarie Resendiz is a 47 year old who presents for an annual gynecologic exam without complaints. Went to [facility] Menses: no menses - Mirena IUD. [...] L2 SAB0 IAB0 Ectopic0 Multiple0 Live Births0 Plugman History LMP: 01/20/2021, IUD Age at Menarche: Age at First : Age at Menopause: Plug[place] History Comments: Sexual Activity: Yes; Male; vasectomy Contraception: Surgical PAST MEDICAL HISTORY Diagnosis Date Dysmenorrhea Excessive or frequent menstruation Heavy periods Resolved Malaise and fatigue Mixed hyperlipidemia Parathyroid tumor 2015 benign, Dr. Hernandez Color Printer Operator [place] Premenstrual tension syndromes Thyroid nodule 2014 Dr. Hernandez Color Printer Operator [place] Unspecified essential hypertension 2007 Vitamin D [...] external genitalia normal, normal Bartholin's glands, urethra, Wyndham's glands, no vulvar lesions, no cervical lesions, [...] as needed 5) colonoscopy Jaqueline Little MD [facility] 05-11-2023 Instructions Jaqueline Woodard MD - 05/11/2023 [...] please call: Dr. Majano or Dr. Hernandez [phone] Zoila Ravi [phone] Dr. Gonzalez [phone] [facility] nurses [phone] documented in this encounter [facility] 05-11-2023 History of Present illness Narrative Plaster Machine Tender offered: Patient declinesAnnemarie Resendiz is a 47 year old who presents for an annual gynecologic exam without complaints. Went to [facility] Menses: no menses - Mirena IUD. [...] L2 SAB0 IAB0 Ectopic0 Multiple0 Live Births0 Plugman History LMP: 01/20/2021, IUD Age at Menarche: Age at First : Age at Menopause: Plug[place] History Comments: Sexual Activity: Yes; Male; vasectomy Contraception: Surgical PAST MEDICAL HISTORY Diagnosis Date Dysmenorrhea Excessive or frequent menstruation Heavy periods Resolved Malaise and fatigue Mixed hyperlipidemia Parathyroid tumor 2015 benign, Dr. Hernandez Color Printer Operator [place] Premenstrual tension syndromes Thyroid nodule 2015 Dr. Hernandez Color Printer Operator [place] Unspecified essential hypertension 2007 Vitamin D [...] external genitalia normal, normal Bartholin's glands, urethra, Wyndham's glands, no vulvar lesions, no cervical lesions, [...] Jaqueline Little MD documented in this encounter [facility] 04-28-2023 Note Patient Outreach (IN [facility]) JOSE R WATT ([id number]) 1975 F Date Time Provider Department 04/28/23 SHON MARTINEZ During your visit today, we recorded the following information about you: Allergies As of Date: 04/28/2023 Noted Allergy Reaction AUGMENTIN (AMOXICILLIN-POT CLAVUL*03/23/2012 11 - Vomiting SULFA (SULFONAMIDE ANTIBIOTICS) 11/27/2005 2 - Rash Date Reviewed: 03/01/2023 Reviewed by: Mckenna Dotson LPN - Fully Assessed Visit Diagnosis:Encounter for screening mammogram for breast cancer [Z12.31] Order(s):[facility] SCREENING [facility] SCOTT [[id number]] Order #: [id number] FUTURE Prescriptions as of 05/03/2023 - valsartan [...] day (4 days a week)- Dr. Hernandez Color Printer Operator Problem List As Of Date 04/28/2023 Noted [...] 03/01/2023 Hyperbilirubinemia [E80.6] 03/01/2023 Encounter Status:Closed by HANY WOODARD on 05/03/23 [facility] 03-15-2023 Miscellaneous Notes Pt calling was seen on the 01 of March and Valsartan was refilled. Pt states went to incorrect pharmacy. Needs to go to [facility] in [place]. Audelia--03/01/23 Nov--nothing scheduled Last refill--03/01/23 but went to incorrect pharmacy. Last labs--03/01/23 documented in this encounter [facility] 03-01-2023 Note HNO ID: [id number] Author: Shon Martinez, DO Service: ? Author [...] were normal with Dr. De La Fuente Color Printer Operator at [facility]. Did have elevated total bilirubin levels at 1.30. asymptomatic. No jaundice or abdominal pain HPL, taking Crestor medication, just had lipids checked and LDL at 116 and HDL 42. No SE with medication PAST MEDICAL HISTORY Diagnosis Date Dysmenorrhea Excessive or frequent menstruation Heavy periods Resolved Malaise and fatigue Mixed hyperlipidemia Parathyroid tumor 2014 benign, Dr. Hernandez Color Printer Operator [place] Premenstrual tension syndromes Thyroid nodule 2014 Dr. Hernandez Color Printer Operator [place] Unspecified essential hypertension 2007 Vitamin D [...] diet of 1000 mg/day for under 50, 3058-0646 mg/day for 50+ - Discussed need and [...] PERFLUTREN LIPID MICROSPHERES (more content not included)... [facility] 12-25-2022 Note HNO ID: [id number] Author: Ludivina Cantu APRN.HAND TUBE BENDER Service: ? Author Type: Nurse Practitioner Type: Progress Notes Filed: 12/25/2022 8:36 AM Note Text: VIRTUAL VISIT PROGRESS NOTE This is a virtual visit using [employer] video visit. It required patient-provider interaction for the medical decision making as documented below. I have communicated my name and active licensure. The patient's identity and physical location were verified at the time of this visit. Either the patient or their legal sales representative printing supplies has been informed of the risks and benefits of -- and alternatives to -- treatment through a remote evaluation and consents to proceed with the evaluation remotely. Jose R Watt is a 47 year old female seen for medication follow up. Today: Would like to review her recent lab results that were completed at [facility]. Has strong family hx of elevated [...] hyperlipidemia Parathyroid tumor 2014 benign, Dr. Hernandez Color Printer Operator [place] Premenstrual tension syndromes Thyroid nodule 2014 Dr. Hernandez Color Printer Operator [place] Unspecified essential hypertension 2007 Vitamin D [...] diagnosis) Will obtain recent lab results from [facility] to review, specifically lipid panel. Discussed with patient that will send her a [employer] message with more detail regarding her lipid [...] file for this visit. Ludivina Cantu APRN.CNP [facility] 12-25-2022 Miscellaneous Notes Received and reviewed, thank you. Ludivina Cantu APRN.CNP Labs placed in RS inbox [employer] Please obtain patient's most recent lab results from [facility] for my review. Specifically her lipid panel, but also any others that are available. Ludivina Cantu APRN.CNP documented in this encounter [facility] 12-25-2022 History of Present illness Narrative VIRTUAL VISIT PROGRESS NOTE This is a virtual visit using [employer] video visit. It required patient-provider interaction for the medical decision making as documented below. I have communicated my name and active licensure. The patient's identity and physical location were verified at the time of this visit. Either the patient or their legal sales representative printing supplies has been informed of the risks and benefits of -- and alternatives to -- treatment through a remote evaluation and consents to proceed with the evaluation remotely. Jose R Watt is a 47 year old female seen for medication follow up. Today: Would like to review her recent lab results that were completed at [facility]. Has strong family hx of elevated [...] hyperlipidemia Parathyroid tumor 2015 benign, Dr. Hernandez Color Printer Operator [place] Premenstrual tension syndromes Thyroid nodule 2014 Dr. Hernandez Color Printer Operator [place] Unspecified essential hypertension 2007 Vitamin D [...] diagnosis) Will obtain recent lab results from [facility] to review, specifically lipid panel. Discussed with patient that will send her a [employer] message with more detail regarding her lipid [...] - SUMATRIPTAN 100 MG TABLET Ludivina Cantu APRN.JONO There are no Patient Instructions on file for this visit. Ludivina Cantu APRN.JONO documented in this encounter [facility] 12-23-2022 Miscellaneous Notes Spoke with pt gave information provided. Pt voices understanding. Please call patient and let her know that the lab work she had done at [facility] looks great! No abnormalities or concerns at all. These can be discussed in greater detail at upcoming appointment on Wednesday with Ludivina. Thank you, Bere Dhaliwal APRN.CNP documented in this encounter [facility] 12-15-2022 Miscellaneous Notes See Telephone encounter [...] let her know. documented in this encounter [facility] 07-29-2022 Miscellaneous Notes Agree with below. Letter sent via [employer]. Thank you, Bere Perdomo APRN.CNP Review pended letter. Please load letter needed for me to sign Shon Martinez DO Patient calling needs a letter to give to her insurance saying she was seen in office this year. Her insurance is through her . Her appt was with PCP on 10/22/2021 for her physical. The letter has to be made out to [employer], she would like letter sent to her my chart. Please advise documented in this encounter [facility] 07-02-2022 Miscellaneous Notes Pt called back and she does want the prescription to be switched to [facility]. Patient has been identified by name [...] LPN Received a call from Mary with [facility] [phone] to have prescription below sent to them. Pt has a current prescription with [facility]. Left a message for pt to call the office to verify she is switching pharmacy. Susan Trevino LPN documented in this encounter [facility] 02-12-2022 Miscellaneous Notes February 12, 2022 PID: [id number] Jose R Watt [address] [place] [address] Dear Ms. Watt, We are pleased to inform you [...] report will be kept on file at [facility] as part of your permanent medical record and are available for your continuing care. Thank you for allowing us to help in meeting your health care needs. Sincerely, Dr. Plata Interpreting Radiologist [facility] (Normal over 40) documented in this encounter [facility] 01-13-2022 Miscellaneous Notes Noted. Pepito Pelaez APRN.DARLEEN DE LA CRUZ Pt states she has had a migraine x 1 week. Pt has tried ibuprofen, tylenol, migraine medication, muscle relaxant, ice, cream and cream on neck. She saw her chiropractor for acupuncture and just not getting any relief. Pt requested to be seen today. Apt booked. Susan Trevino LPN documented in this encounter [facility] Diagnosis Hypertension, essential- Primary Unspecified essential hypertension Well adult exam Routine general medical examination at a health care facility Mixed hyperlipidemia Impaired fasting glucose [facility] Diagnosis Mixed hyperlipidemia- Primary Hypertension, essential Unspecified essential hypertension Other migraine without status migrainosus, intractable [facility]* Diagnosis Hypertension, essential Unspecified essential hypertension [facility]* Diagnosis Encounter for gynecological examination (general) (routine) without abnormal findings- Primary Encounter for screening mammogram for breast cancer Special screening for malignant neoplasms, colon [facility]* Diagnosis Encounter for screening mammogram for breast cancer [facility]* Diagnosis Eye irritation- Primary Other ill-defined disorder of eye [facility]* Diagnosis Urination frequency- Primary Urinary frequency Hypertension, essential Unspecified essential hypertension Microscopic hematuria Flank pain Abdominal pain, unspecified site documented in this encounter [facility] note* Diagnosis Hypertension, essential- Primary Unspecified essential hypertension Kidney stone Calculus of kidney documented in this encounter [facility] for referral (narrative)* Outpatient Procedure (Routine) - Pending Review Specialty Diagnoses / Procedures Referred By Kumar bhat Referred To Contact [facility] Diagnoses Special screening for malignant neoplasms, colon Procedures COLONOSCOPY SCREENING COLONOSCOPY FLX DX W/COLLJ SPEC WHEN PFRMD Jaqueline Woodard MD [facility] [place] [address] [facility] [address] [place] [address] Referral ID Status Reason Start Date Expiration Date Visits Requested Visits Authorized [id number] Pending Review Auto-Generat ed Referral 05/11/2023 05/11/2024 1 1 * Diagnostic Procedure Only (Routine) - Pending Review Specialty Diagnoses / Procedures Referred By Kumar bhat Referred To Contact [facility] Diagnoses Encounter for screening mammogram for breast cancer Procedures YI SCREENING W SCOTT SCREENING DIGITAL BREAST TOMOSYNTHESIS BI SCREENING MAMMOGRAPHY BI 2-VIEW BREAST INC CAD Jaqueline Woodard MD [address] [place] [address] [facility] [address] [employer] [place] [address] Referral ID Status Reason Start Date Expiration Date Visits Requested Visits Authorized [id number] Pending Review Auto-Generat ed Referral 05/11/2023 06/09/2024 1 1 [facility] for referral (narrative)* Diagnostic Procedure Only (Routine) - Closed Specialty Diagnoses / Procedures Referred By Contac t Referred To Contact [facility] Diagnoses Encounter for screening mammogram for breast cancer Procedures YI SCREENING W SCOTT SCREENING DIGITAL BREAST TOMOSYNTHESIS BI SCREENING MAMMOGRAPHY BI 2-VIEW BREAST INC CAD Shon Martinez, DO [address] [place] [address] [facility] [address] [place] [address] Referral ID Status Reason Start Date Expiration Date V isits Requested Visits Authorized [id number] Closed Auto-Generate d Referral 04/28/2023 05/27/2024 1 1 [facility] for visit Narrative* Diagnostic Procedure Only (Routine) - Closed Specialty Diagnoses / Procedures Referred By Contac home Referred To Contact [facility] Diagnoses Encounter for screening mammogram for breast cancer Procedures YI SCREENING W SCOTT SCREENING DIGITAL BREAST TOMOSYNTHESIS BI SCREENING MAMMOGRAPHY BI 2-VIEW BREAST INC CAD Shon Martinez, DO [address] [place] [address] [facility] [address] [place] [address] Referral ID Status Reason Start Date Expiration Date V isits Requested Visits Authorized [id number] Closed Auto-Generate d Referral 04/28/2023 05/27/2024 1 1 [facility] Summary Purpose Family History No Family [...] or prosecute any alcohol or drug abuse patient.[facility] the event this information is protected by the Federal Confidentiality of Alcohol and Drug Abuse Patient Records regulations: The Federal rules restrict any use of the information to criminally investigate or prosecute any alcohol or drug abuse patient.[facility] the event this information is protected by the Federal Confidentiality of Alcohol and Drug Abuse Patient Records regulations: The Federal rules restrict any use of the information to criminally investigate or prosecute any alcohol or drug abuse patient.[facility] the event this information is protected by the Federal Confidentiality of Alcohol and Drug Abuse Patient Records regulations: The Federal rules restrict any use of the information to criminally investigate or prosecute any alcohol or drug abuse patient.[facility] the event this information is protected by the Federal Confidentiality of Alcohol and Drug Abuse Patient Records regulations: The Federal rules restrict any use of the information to criminally investigate or prosecute any alcohol or drug abuse patient.[facility] the event this information is protected by the Federal Confidentiality of Alcohol and Drug Abuse Patient Records regulations: The Federal rules restrict any use of the information to criminally investigate or prosecute any alcohol or drug abuse patient.[facility] the event this information is protected by the Federal Confidentiality of Alcohol and Drug Abuse Patient Records regulations: The Federal rules restrict any use of the information to criminally investigate or prosecute any alcohol or drug abuse patient.[facility] the event this information is protected by the Federal Confidentiality of Alcohol and Drug Abuse Patient Records regulations: The Federal rules restrict any use of the information to criminally investigate or prosecute any alcohol or drug abuse patient.[facility] the event this information is protected by the Federal Confidentiality of Alcohol and Drug Abuse Patient Records regulations: The Federal rules restrict any use of the information to criminally investigate or prosecute any alcohol or drug abuse patient.[facility] the event this information is protected by the Federal Confidentiality of Alcohol and Drug Abuse Patient Records regulations: The Federal rules restrict any use of the information to criminally investigate or prosecute any alcohol or drug abuse patient.[facility] the event this information is protected by the Federal Confidentiality of Alcohol and Drug Abuse Patient Records regulations: The Federal rules restrict any use of the information to criminally investigate or prosecute any alcohol or drug abuse patient.[facility] the event this information is protected by the Federal Confidentiality of Alcohol and Drug Abuse Patient Records regulations: The Federal rules restrict any use of the information to criminally investigate or prosecute any alcohol or drug abuse patient.[facility] the event this information is protected by the Federal Confidentiality of Alcohol and Drug Abuse Patient Records regulations: The Federal rules restrict any use of the information to criminally investigate or prosecute any alcohol or drug abuse patient.[facility] the event this information is protected by the Federal Confidentiality of Alcohol and Drug Abuse Patient Records regulations: The Federal rules restrict any use of the information to criminally investigate or prosecute any alcohol or drug abuse patient.[facility] the event this information is protected by the Federal Confidentiality of Alcohol and Drug Abuse Patient Records regulations: The Federal rules restrict any use of the information to criminally investigate or prosecute any alcohol or drug abuse patient.[facility] Reason for Visit (unrecogniz ed section [...] Left ear pain x 1 da y Reason Comments er follow up Was seen in urgent c are and sent to er . [facility] found kidney stoe and surgery scheduled for Wednesday morning. But b/p still up. Care Teams (unrecognized sec tion and content) Bus Trolley And Taxi Instructor Relationship Specialty Start Date End Date Shon Martinez, DO [address] [facility] [place] [address] PCP - General Family Practice 03/24/16 Bus Trolley And Taxi Instructor Relationship Specialty Start Date End Date Shon Martinez, DO [address] [place] [address] PCP - General Family Medicine 03/24/16 Bus Trolley And Taxi Instructor Relationship Specialty Start Date End Date Shon Martinez, DO [address] [place] [address] PCP - General Family Medicine 03/24/16 Bus Trolley And Taxi Instructor Relationship Specialty Start Date End Date Shon Martinez, DO [address] [place] [address] PCP - General Family Medicine 03/24/16 Bus Trolley And Taxi Instructor Relationship Specialty Start Date End Date Shon Martinez, DO [address] [place] [address] PCP - General Family Medicine 03/24/16 Bus Trolley And Taxi Instructor Relationship Specialty Start Date End Date Shon Martinez, DO [address] [place] [address] PCP - General Family Medicine 03/24/16 Bus Trolley And Taxi Instructor Relationship Specialty Start Date End Date Shon Martinez, DO [address] [place] [address] PCP - General Family Medicine 03/24/16 Bus Trolley And Taxi Instructor Relationship Specialty Start Date End Date Shon Martinez, DO [address] [place] [address] PCP - General Family Medicine 03/24/16 Bus Trolley And Taxi Instructor Relationship Specialty Start Date End Date Shon Martinez, DO [address] [place] [address] PCP - General Family Medicine 03/24/16 Bus Trolley And Taxi Instructor Relationship Specialty Start Date End Date Shon Martinez, DO [address] [place] [address] PCP - General Family Medicine 03/24/16 Bus Trolley And Taxi Instructor Relationship Specialty Start Date End Date Shon Martinez, DO [address] [place] [address] PCP - General Family Medicine 03/24/16 Bus Trolley And Taxi Instructor Relationship Specialty Start Date End Date Shon Martinez, DO [address] [place] [address] PCP - General Family Medicine 03/24/16 INFORMATION [...] BE BASED ON THE PRIMARY CLINICAL RECORDS. [employer] [facility]. provides no warranty or guarantee of the accuracy or completeness of information in this document.
[2023-12-18 08:59] LABS: Vitamin D,25 Hydroxy 30.2 ng/mL
[2023-12-18 09:00] LABS: AST(SGOT) 17 U/L (15-37); Alanine Aminotransfer ALT/SGPT 28 U/L (13-56); Albumin, Serum 3.6 g/dL (3.2-5.0); Alkaline Phosphatase 61 U/L (45-117); Anion Gap 2 (5-15); BUN 14 mg/dL (7-18); BUN/Creat Ratio 20.2 RATIO (10-20); Calcium,Total 8.8 mg/dL (8.5-10.1); Chloride 110 mmol/L (98-107); Cholesterol 189 mg/dL (200); Creatinine, Serum 0.69 mg/dL (0.55-1.02); EST Glomerular Filtration Rate 96 mL/min (>60); Est Glom Filt Rate - Afr Amer 116 mL/min (>60); Globulin 3.7 g/dL (2.2-4.2); Glucose 106 mg/dL (74-106); High Density Lipoprotein 43 mg/dL; Potassium 4.1 mmol/L (3.5-5.1); Protein, Total 7.3 g/dL (6.4-8.2); Sodium Level 139 mmol/L (136-145); Triglycerides 88 mg/dL; Very Low Density Lipoprotein 18 mg/dL (5-40)
== END | disposition home or self-care (01) ==
LOC: LAB 08:07
PROVIDERS: PCP Student in an Organized Health Care Education/Training Program; Referring Provider Internal Medicine Endocrinology, Diabetes & Metabolism; Visit Provider Internal Medicine Endocrinology, Diabetes & Metabolism
DX: E04.0 Nontoxic diffuse goiter (principal); E78.2 Mixed hyperlipidemia; E55.9 Vitamin D deficiency, unspecified
CPT/HCPCS: 36415; 80053; 80061; 82306

== ENCOUNTER → 2024-01-12 | Outpatient (CLI) | payer OTHER, SELFPAY | END | disposition home or self-care (01) | LOC: LABSPEC 07:30 | PROVIDERS: PCP Student in an Organized Health Care Education/Training Program; Referring Provider Nurse Practitioner Adult Health; Visit Provider Nurse Practitioner Adult Health | DX: N20.0 Calculus of kidney (principal); M85.89 Other specified disorders of bone density and structure, multiple sites ==

== ENCOUNTER → 2024-01-18 | Outpatient (CLI) | payer OTHER, SELFPAY | END | disposition home or self-care (01) | LOC: LABSPEC 01-28 08:57 | PROVIDERS: PCP Student in an Organized Health Care Education/Training Program; Visit Provider Nurse Practitioner Adult Health | DX: Z00.00 Encounter for general adult medical examination without abnormal findings (principal) ==

== ENCOUNTER → 2024-02-11 | Outpatient (CLI) | payer OTHER, SELFPAY ==
--- NOTE | 2024-02-11 08:27 | RAD_ITS ---
HISTORY: CALCULUS OF KIDNEY. TECHNIQUE: XR Abdomen 1 View. COMPARISON: CT 11/26/2023. FINDINGS: BOWEL GAS PATTERN: No dilated bowel loops identified. Moderate stool throughout the colon. FREE AIR: Not assessed on supine view. CALCIFICATIONS: 3 mm right upper and left lower pole calculi. BONES: Unremarkable. SOFT TISSUES: Intrauterine device in the pelvis. RAD/Abdomen Single View IMPRESSION: Bilateral nephrolithiasis. Electronically Signed: Yelena Maloney MD at 9:30 EDT ,
[2024-02-11 09:31] LABS: Anion Gap 6 (5-15); BUN 14 mg/dL (7-18); BUN/Creat Ratio 19.8 RATIO (10-20); Calcium,Total 9.4 mg/dL (8.5-10.1); Chloride 104 mmol/L (98-107); Creatinine, Serum 0.71 mg/dL (0.55-1.02); EST Glomerular Filtration Rate 93 mL/min (>60); Est Glom Filt Rate - Afr Amer 113 mL/min (>60); Glucose 101 mg/dL (74-106); Sodium Level 137 mmol/L (136-145)
== END | disposition home or self-care (01) ==
PROVIDERS: PCP Student in an Organized Health Care Education/Training Program; Referring Provider Nurse Practitioner Adult Health; Visit Provider Nurse Practitioner Adult Health
DX: E04.0 Nontoxic diffuse goiter (principal); M85.89 Other specified disorders of bone density and structure, multiple sites; N20.0 Calculus of kidney
CPT/HCPCS: 36415; 74018; 80048

== ENCOUNTER → 2024-04-10 | Outpatient (CLI) | payer OTHER, SELFPAY ==
[2024-04-10 07:59] LABS: Anion Gap 5 (5-15); BUN 18 mg/dL (7-18); BUN/Creat Ratio 26.2 RATIO (10-20); Calcium,Total 8.8 mg/dL (8.5-10.1); Chloride 108 mmol/L (98-107); Creatinine, Serum 0.69 mg/dL (0.55-1.02); EST Glomerular Filtration Rate 96 mL/min (>60); Est Glom Filt Rate - Afr Amer 117 mL/min (>60); Glucose 106 mg/dL (74-106); Potassium 3.8 mmol/L (3.5-5.1); Sodium Level 139 mmol/L (136-145)
== END | disposition home or self-care (01) ==
PROVIDERS: PCP Student in an Organized Health Care Education/Training Program; Referring Provider Nurse Practitioner Adult Health; Visit Provider Nurse Practitioner Adult Health
DX: E04.0 Nontoxic diffuse goiter (principal); E83.42 Hypomagnesemia
CPT/HCPCS: 36415; 80048; 83735

== ENCOUNTER → 2024-06-24 | Outpatient (CLI) | payer OTHER, SELFPAY ==
[2024-06-24 10:28] LABS: AST(SGOT) 19 U/L (15-37); Alanine Aminotransfer ALT/SGPT 26 U/L (13-56); Albumin, Serum 3.7 g/dL (3.2-5.0); Alkaline Phosphatase 60 U/L (45-117); Anion Gap 6 (5-15); BUN 11 mg/dL (7-18); BUN/Creat Ratio 17.2 RATIO (10-20); Calcium,Total 9.1 mg/dL (8.5-10.1); Chloride 108 mmol/L (98-107); Cholesterol 188 mg/dL (200); Creatinine, Serum 0.64 mg/dL (0.55-1.02); EST Glomerular Filtration Rate 105 mL/min (>60); Est Glom Filt Rate - Afr Amer 127 mL/min (>60); Globulin 3.7 g/dL (2.2-4.2); Glucose 103 mg/dL (74-106); High Density Lipoprotein 53 mg/dL; Potassium 3.9 mmol/L (3.5-5.1); Protein, Total 7.4 g/dL (6.4-8.2); Sodium Level 138 mmol/L (136-145); Triglycerides 98 mg/dL; Very Low Density Lipoprotein 20 mg/dL (5-40)
[2024-06-26 07:57] LABS: Vitamin D,25 Hydroxy 74.7 ng/mL
== END | disposition home or self-care (01) ==
LOC: LAB 09:29
PROVIDERS: PCP Student in an Organized Health Care Education/Training Program; Referring Provider Internal Medicine Endocrinology, Diabetes & Metabolism; Visit Provider Internal Medicine Endocrinology, Diabetes & Metabolism
DX: M85.89 Other specified disorders of bone density and structure, multiple sites (principal); E55.9 Vitamin D deficiency, unspecified; E78.2 Mixed hyperlipidemia
CPT/HCPCS: 36415; 80053; 80061; 82306

== ENCOUNTER → 2024-08-01 | Outpatient (CLI) | payer OTHER, SELFPAY ==
--- NOTE | 2024-08-01 13:49 | RAD_ITS ---
STUDY: X-RAY - ABDOMEN/PELVIS REASON FOR EXAM: Female, 49 years old. CALCULUS OF KIDNEY TECHNIQUE: Single AP view of the abdomen / pelvis. COMPARISON: 02/11/2024 FINDINGS: Normal visualized lung bases. There is an unremarkable bowel gas pattern. Multiple small calcific opacity projecting over the lower pole left kidney consistent with left renal stones. 8 mm calcific opacity projecting near the medial aspect lower pole right kidney may represent a right ureteral stone. Intrauterine device. Normal visualized osseous structures. RAD/Abdomen Single View IMPRESSION: Suspect left renal stones. Possible proximal right ureteral stone. Electronically Signed: Helio Casanova MD at 10:52 EDT ,
== END | disposition home or self-care (01) ==
LOC: RAD 13:30
PROVIDERS: PCP Student in an Organized Health Care Education/Training Program; Referring Provider Urology; Visit Provider Urology
DX: N20.0 Calculus of kidney (principal)
CPT/HCPCS: 74018

== ENCOUNTER → 2024-08-04 | Outpatient (CLI) | payer OTHER, SELFPAY ==
--- NOTE | 2024-08-04 17:16 | CT_ITS ---
INDICATION: KS EXAMINATION: CT Abdomen And Pelvis W/O Contrast Injection TECHNIQUE: Helically acquired images were obtained of the abdomen and pelvis without the use of IV contrast. A radiation dose optimization technique was used for this scan. Oral contrast: None. COMPARISON: None FINDINGS: Evaluation of the solid organs and vascular structures is limited without intravenous contrast. Visualized lung bases: Unremarkable Liver: Unremarkable Gallbladder: Unremarkable Spleen: Unremarkable Pancreas: Unremarkable Adrenal Glands: Unremarkable Kidneys: 5 mm obstructing stone in the right ureteropelvic junction with associated mild right hydronephrosis. Other nonobstructing stones seen in the left lower renal pole measuring up to 4 mm. Vasculature: Unremarkable GI Tract: Unremarkable Lymphadenopathy: None Peritoneum: No ascites. Bladder: Unremarkable Reproductive organs: IUD in place. Bones/Soft tissues: No suspicious osseous or soft tissue lesions CT/Abdomen/Pelvis without Cont IMPRESSION: 5 mm obstructing stone in the right ureteropelvic junction with associated mild right hydronephrosis. Other nonobstructing stones seen in the left lower renal pole measuring up to 4 mm. Electronically Signed: Tyler Aquino MD at 18:22 EDT ,
== END | disposition home or self-care (01) ==
LOC: CT 17:14
PROVIDERS: PCP Student in an Organized Health Care Education/Training Program; Referring Provider Urology; Visit Provider Urology
DX: N20.0 Calculus of kidney (principal)
CPT/HCPCS: 74176

== ENCOUNTER 2024-08-23 12:18 | Day surgery (SDC) | payer OTHER, SELFPAY ==
[2024-08-23] VITALS (10 sets, daily range): BP systolic 126–151; BP diastolic 81–97; PULSE 73–83; RESP 16–18; TEMP 36–36.7; O2SAT 92–98; BMI 29.0
[2024-08-23] MEDS: Lactated Ringers 1,000 ML 15 ML IV (13:05)
[2024-08-23 13:09] LABS: Internal QC Validated? YES +Cl - CLEAR BKGD; Pregnancy, Urine Negative Negative
--- NOTE | 2024-08-23 13:19 | PCM.PRE.AN2 ---
ASA Classification* ASA Classification ASA Classification: 2 Assessment & Plan Anesthesia* Anesthesia Assessment Anesthesia Assessment: Discussed sedation and/or anesthesia options, risks, benefits, and alternatives with patient/parents/legal guardian/POA. Questions invited. The patient/parents/legal guardian/POA seems to understand and agrees to proceed with anesthesia plan. Reviewed the physical assessment, medical history, allergy history and patient home medications list prior to surgery/procedure/anesthetic and documented any changes. Performed airway and anesthesia risk assessments. Anesthesia Type Anesthesia Type: General Anesthesia Focused Assessment* Temperature: 98.0 F Pulse Rate: 80 Blood Pressure: 151/81 Respiratory Rate: 18 Pulse Ox: 98 Airway Assessment Mouth opens: >3 cm Mallampati Score: II Focused Labs Anesthesia Preop lab: CBC WBC 10.7 K/mm3 (4.4-11.0) 11/26/23 20:30 RBC 4.64 M/mm3 (4.2-5.4) 11/26/23 20:30 Hgb 13.4 g/dL (12.0-15.0) 11/26/23 20:30 Hct 39.8 % (37-47) 11/26/23 20:30 Plt Count 344 K/mm3 (150-450) 11/26/23 20:30 CHEMISTRY Potassium 3.9 mmol/L (3.5-5.1) 06/24/24 09:32 Sodium 138 mmol/L (136-145) 06/24/24 09:32 Magnesium 2.0 mg/dL (1.6-2.6) 04/10/24 06:18 BUN 11 mg/dL (7-18) 06/24/24 09:32 Creatinine 0.64 mg/dL (0.55-1.02) 06/24/24 09:32 Glucose 103 mg/dL (74-106) 06/24/24 09:32 TSH 2.06 uIU/mL (0.358-3.74) 02/18/23 06:33 COAG Urine Test Negative Negative 08/23/24 12:40 Pre-Assessment Diagnosis/Proposed Procedure Planned Operative Procedure(s): (B) ESWL,Cystocopy Possible Insertion Stent Anesthesia History 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 When Was Last Pacemaker Check QUESTION #4 FULL TEXT: You/Your Family Experience fever (hyperthermia) with Anesthesia Last Oral Intake Last Oral intake: Last Oral Intake NPO since 23:30 08/23/24 12:52 Meds taken in AM with sips of Yes 08/23/24 12:52 water? Meds patient instructed to take am of surgery PONV PONV - ordnance keeper: PONV - ordnance keeper Female Yes 08/15/24 13:14 HX of Motion Sickness No 08/15/24 13:14 HX of N/V After Surgery No 08/15/24 13:14 Non-Smoker Yes 08/15/24 13:14 Duration of Surgery greater No 08/15/24 13:14 than 60 minutes Number of Risk Factors 2 08/15/24 13:14 PONV Score Moderate Risk 08/15/24 13:14 Height & Weight Height & Weight: Anesthesia: Height & Weight Height 5 ft 5 in 08/23/24 12:52 Weight: 79 kg 08/23/24 12:52 Body Mass Index (BMI) 29.0 08/23/24 12:52 Respiratory Assessment Respiratory Assessment - ordnance keeper: Respiratory Tract Infection Hx - ordnance keeper Hx Respiratory Tract Infection No 08/15/24 13:14 STOP Sleep Apnea STOP Sleep Apnea - ordnance keeper: STOP Sleep Apnea - ordnance keeper Hx Hypertension No 08/15/24 13:14 Hx Sleep Apnea No 08/15/24 13:14 CPAP BIPAP Do you snore loudly (louder No 08/15/24 13:14 than talking or can be heard Do you often feel tired/ No 08/15/24 13:14 fatigued/ sleepy during daytime? Has anyone observed you stop No 08/15/24 13:14 breathing during sleep? STOP Results Negative 08/15/24 13:14 QUESTION #5 FULL TEXT : Do you snore loudly (louder than talking or can be heard through closed doors)? 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 Specify any problems Hx of Preganancy in last 3 No 08/15/24 13:14 Months Nurse Filling Out Transfusion VCHRISTIN 08/15/24 13:14 & Questions: Date: 08/15/24 08/15/24 13:14 Time: 13:15 08/15/24 13:14 Patient unable to answer at this time (ie. confused, unrespo /Reproduction History /Reproductive History - ordnance keeper: /Reproductive Hx- ordnance keeper Hx Now No 08/15/24 13:14 Gestational Age (in weeks): EDC: Hx Hx Para Hx Section SAB No 08/15/24 13:14 Active Medications Active Medications: Current Medications Generic Name Dose Route Start Last Admin Trade Name Freq PRN Reason Stop Dose Admin Cefazolin Sodium 2 gm/ N/A 20 mls @ 400 mls/hr 08/23/24 14:15 IV 08/23/24 14:17 PREOP ONE Lactated Ringer's 1,000 mls @ 15 mls/hr 08/23/24 12:30 08/23/24 13:05 IV 08/29/24 01:49 15 mls/hr .Q48H JASS Administration Protocol PFSH Medical History Arthritis Kidney stones Migraine headache History of echocardiogram History of stress test Hypercholesterolemia Hypertension Home Medications ?Medication ?Instructions ?Recorded ?Last Taken ?Type cholecalciferol (vitamin D3) 50 50 mcg PO DAILY 08/15/24 08/22/24 History mcg (2,000 unit) capsule (Vitamin D3) indapamide 1.25 mg tablet 1.25 mg PO DAILY 08/15/24 08/22/24 History omega 4-xmn-rzw-fish oil 1,200 mg 2 cap PO DAILY 08/15/24 08/22/24 History (144 mg-216 mg) capsule (Fish Oil) rosuvastatin 10 mg tablet 10 mg PO DAILY 08/15/24 08/22/24 History valsartan 160 mg tablet 160 mg PO DAILY 08/15/24 08/23/24 History acetaminophen 500 mg capsule 1,000 mg PO Q6H PRN pain 08/23/24 08/20/24 History Allergy/AdvReac Type Severity Reaction Status Date / Time Sulfa (Sulfonamide Allergy Rash Verified 08/23/24 12:50 Antibiotics) amoxicillin trihydrate (From AdvReac Vomiting Verified 08/23/24 12:50 Augmentin) potassium clavulanate (From AdvReac Vomiting Verified 08/23/24 12:50 Augmentin) Surgical History Hx of parathyroidectomy Hx of cystoscopy H/O section Social History Smoking Status: Never smoker Review of Systems (Anesthesia) ROS Narrative System reviewed and no additional complaints, except as documented.
--- NOTE | 2024-08-23 15:13 | PCM.HP.STD ---
HPI - General General Date of Service: 08/23/24 Chief Complaint: Right kidney stone HPI Narrative JOSE R MATUTE, is a 49 F who presents to laser stone in the right kidney she also has of stones in the left lower pole of the kidney possible we may not treat these today depending on situation but we will definitely treat laser the stone on the right kidney that is causing her problems. REPLACED BY [facility] Medical History Arthritis Kidney stones Migraine headache History of echocardiogram History of stress test Hypercholesterolemia Hypertension Home Medications ?Medication ?Instructions ?Recorded ?Last Taken ?Type cholecalciferol (vitamin D3) 50 50 mcg PO DAILY 08/15/24 08/22/24 History mcg (2,000 unit) capsule (Vitamin D3) indapamide 1.25 mg tablet 1.25 mg PO DAILY 08/15/24 08/22/24 History omega 1-rto-uws-fish oil 1,200 mg 2 cap PO DAILY 08/15/24 08/22/24 History (144 mg-216 mg) capsule (Fish Oil) rosuvastatin 10 mg tablet 10 mg PO DAILY 08/15/24 08/22/24 History valsartan 160 mg tablet 160 mg PO DAILY 08/15/24 08/23/24 History acetaminophen 500 mg capsule 1,000 mg PO Q6H PRN pain 08/23/24 08/20/24 History Allergy/AdvReac Type Severity Reaction Status Date / Time Sulfa (Sulfonamide Allergy Rash Verified 08/23/24 12:50 Antibiotics) amoxicillin trihydrate (From AdvReac Vomiting Verified 08/23/24 12:50 Augmentin) potassium clavulanate (From AdvReac Vomiting Verified 08/23/24 12:50 Augmentin) Surgical History Hx of parathyroidectomy Hx of cystoscopy H/O section Social History Smoking Status: Never smoker Vital Signs Vital Signs Vital Signs: 08/23/24 12:52 08/23/24 12:52 08/23/24 13:19 Temperature 98.0 F 98.0 F Temperature Source Temporal Pulse Rate 80 80 Respiratory Rate 18 18 Respiratory Pattern Normal Blood Pressure 151/81 H 151/81 H Blood Pressure Mean 104 Blood Pressure Source Monitor Blood Pressure Position Semi-Fowlers Blood Pressure Location Left Arm Pulse Ox 98 98 Oxygen Delivery Method Room Air Weight Weight: 79 kg Body Mass Index (BMI) 29.0 Results Lab / Micro Data Labs: Laboratory Results - last 24 hr 08/23/24 12:40: Urine Test Negative
--- NOTE | 2024-08-23 15:26 | DCINST_ITS ---
Discharge Instructions Diet Discharge Diet: No restrictions Activity Discharge Activity: Return to Normal Activity and May Not Drive (while taking narcotic pain medications.) Dressing / Incision Call your doctor if you observe: Fever of 101 or Higher Follow Up Care Please Follow Up With: Bruce Soto MD When: Call [phone] for an appointment Test Results: Test results from this visit will be discussed in further detail at your follow- up appointment, if applicable. Discharge Plan Admission Primary Reason for Your Visit: laser of right kidney stones Attending Provider: Bruce Soto Primary Care Provider: Shon Ronquillo Instructions Patient Instructions: Kidney Stone Ureteroscopy Print Language: Kiswahili Discharge Orders/Prescriptions Prescriptions: New oxycodone 5 mg tablet 5 mg PO Q6H PRN (Reason: pain) 7 Days Qty: 14 0RF tamsulosin [Flomax] 0.4 mg capsule 0.4 mg PO DAILY Qty: 10 0RF docusate sodium [Colace] 100 mg capsule 100 mg PO BID Qty: 20 0RF phenazopyridine [Pyridium] 100 mg tablet 100 mg PO TID Qty: 15 0RF Continued valsartan 160 mg tablet 160 mg PO DAILY rosuvastatin 10 mg tablet 10 mg PO DAILY cholecalciferol (vitamin D3) [Vitamin D3] 50 mcg (2,000 unit) capsule 50 mcg PO DAILY indapamide 1.25 mg tablet 1.25 mg PO DAILY omega 8-jxq-knx-fish oil [Fish Oil] 1,200 (144-216) mg capsule 2 cap PO DAILY acetaminophen 500 mg capsule 1,000 mg PO Q6H PRN (Reason: pain) Referrals / Follow Up: Shon Ronquillo DO [Primary Care Provider] - Bruce Soto MD [Med Staff - Active Staff] - Disposition Disposition (needs filled in before D/C Order can be placed): Home, Self Care
[2024-08-23] MEDS: Cefazolin 2 GM in Syringe IV (15:40)
--- NOTE | 2024-08-23 16:06 | PCM.OPRPT ---
Operative Report (Standard) Operative Information Surgery/Procedure Performed: Cystoscopy balloon dilation of right ureter right ureteroscopy laser lithotripsy of stones and stent Surgeon: Bruce Soto Date of Procedure: 08/23/24 Procedure Start Time: 15:51 Procedure Stop Time: 16:07 Pre-Operative Diagnosis: Right UPJ stone Post-Operative Diagnosis: The same Select all DRAINS/GRAFTS/IMPLANTS that apply: Drains Drain details: Right stent Type of Anesthesia: General Estimated Blood Loss: None Specimen collected: No Description of surgery: This is a patient who presents to the hospital for treatment for an obstructing ureter calculi. I discussed with the patient how the surgery would be performed and we reviewed the risks and benefits of the surgery. The risk and benefits include the risk of failure to remove the stone completely and that the patient may need multiple procedures. We discussed the risk of an infection, the risk of bleeding. We discussed the very rare risk of serious complicated injury to the ureter. The patient understands that if the stone is not able to be removed safely that we may abort the procedure and place a stent. After full discussion and all questions address with the patient the consent form was signed the side was marked appropriately and the patient was taken back to the operating room for the procedure. The patient was taken back to the operating room. After induction of anesthesia by the anesthesiology team the patient was placed in dorsolithotomy position. The genitals were prepped and draped in usual sterile fashion. I went into the bladder with a 21 Portuguese rigid cystourethroscope through the urethra. Upon entering the bladder I inspected the trigone the left and right ureteral orifice and the bladder itself. I then cannulated the Right ureteral orifice and advanced a 0.038 Glidewire up into the kidney. Then over the Glidewire I advanced a 5 Fr Ureteral catheter and performed a retrograde pyelogram with about 10cc of contrast, to delineate the anatomy and identify the stone location. Then a ureteral balloon dilator was advanced over the wire and the distal ureter was balloon dilated with a 12 Fr x 5cm balloon dilator. After 3 minutes of dilating the ureter the balloon was backloaded off the 0.038 glidewire over the 0.038 guidewire I went in with the flexible 7.5fr ureteroscope. I was able to go inside with the 7.5Fr utereroscope and I pulled out the guidewire and then through the ureteroscope I engage the stone with laser lithotripsy using a 270miron laser fiber with energy setting of 6 Hertz and 0.6 J until the stone was lasered into tiny little pieces that should pass on their own. A retrograde pyelogram was performed with 10cc of contrast and no extravasation of contrast or perforation was identified in the ureter there was some mild irritation of the ureter where the stone was located. I then backed out of the ureter left the wire in place and then over the 0.038 guidewire I placed a double coiled pigtail ureteral stent. The ureteral stent was advanced over the 0.038 guidewire under direct fluoroscopic guidance and direct cystoscopic visual guidance, once the stent was in good position I pulled the wire and the stent coiled in the kidney and bladder in good position. I then drained the patient's bladder and the cystoscope was removed and the patient was taken back to the recovery room in good position. The patient was given discharge instructions to call the office for instructions on when to come to the office to have the stent removed. Surgical Findings: Stone in the right UPJ was lasered completely into tiny little dust fragments and stent placed on the right side. Wellness Specialist tenant relations coordinator: No Complications Complications: No Admit VTE Documentation VTE Present on Admission: No VTE Mechan Device Prophylaxis: SCD's VTE Pharm Prophylaxis ordered?: No
[2024-08-23] MEDS: Ketorolac 15 MG/ML Vial IV (16:19)
--- NOTE | 2024-08-23 16:41 | PCM.POST.ANE ---
Anesthesia: Postop Eval I Current Vital Signs Temperature: 96.8 F Pulse Rate: 79 Blood Pressure: 126/84 Respiratory Rate: 16 Pulse Ox: 93 Oxygen Delivery Method: Room Air Assessment Airway patent: Yes Spontaneous unlabored respirations: Yes Mental status: Awake and Calm nausea: No Vomiting: No Anesthesia Complication: No Fluid Hydration Crystalloid volume administer (ml): 1,000 Total IV fluid infused: 1,000 Progress Note Anesthesia document: Postop Eval 1 completed: Yes
[2024-08-23] MEDS: Ondansetron 4 MG/2 ML Vial IV (16:44)
--- NOTE | 2024-08-23 17:15 | POSTOPAN2_ITS ---
Anesthesia Postop Eval I Sum Postop Eval Completion status Anesthesia document: Postop Eval 1 completed: Yes Anesthesia Postop Eval I Summary Anesthesia Postop Eval I Summary: Anesthesia Postop Eval I: Assessment Summary Airway patent Yes 08/23/24 16:42 WEAVER [email or web address] [email or web address] Spontaneous unlabored Yes 08/23/24 16:42 WEAVER [email or web address] respirations Mental status Awake,Calm 08/23/24 16:42 WEAVER [email or web address] [email or web address] nausea No 08/23/24 16:42 WEAVER NARROW [email or web address] Vomiting No 08/23/24 16:42 WEAVER [email or web address] [email or web address] Anesthesia Postop Eval I: Fluid Summary Crystalloid volume administer 1,000 08/23/24 16:42 WEAVER [email or web address] [email or web address] (ml) Colloids volume administered ( ml) Blood Product volume administered (ml) Total IV fluid infused 1,000 08/23/24 16:42 WEAVER [email or web address] [email or web address] Anesthesia Postop Eval I: Summary Notes Anesthesia Complication No 08/23/24 16:42 WEAVER [email or web address] [email or web address] Anesthesia Complication Comment: Post-operative progress note Anesthesia: Postop Eval II Evaluation Mental status: Awake and Calm Pain Level: 1 nausea: No Vomiting: No Complications Anesthesia Complication: No
--- NOTE | 2024-08-23 17:15 | PCM.POSTANE2 ---
Anesthesia Postop Eval I Sum Postop Eval Completion status Anesthesia document: Postop Eval 1 completed: Yes Anesthesia Postop Eval I Summary Anesthesia Postop Eval I Summary: Anesthesia Postop Eval I: Assessment Summary Airway patent Yes 08/23/24 16:42 [email or web address] Spontaneous unlabored Yes 08/23/24 16:42 [email or web address] [email or web address] respirations Mental status Awake,Calm 08/23/24 16:42 [email or web address] [email or web address] nausea No 08/23/24 16:42 [email or web address] Vomiting No 08/23/24 16:42 [email or web address] Anesthesia Postop Eval I: Fluid Summary Crystalloid volume administer 1,000 08/23/24 16:42 [email or web address] (ml) Colloids volume administered ( ml) Blood Product volume administered (ml) Total IV fluid infused 1,000 08/23/24 16:42 [email or web address] Anesthesia Postop Eval I: Summary Notes Anesthesia Complication No 08/23/24 16:42 [email or web address] Anesthesia Complication Comment: Post-operative progress note Anesthesia: Postop Eval II Evaluation Mental status: Awake and Calm Pain Level: 1 nausea: No Vomiting: No Complications Anesthesia Complication: No
[2024-08-23] MEDS: oxyCODONE 5 MG Tablet PO (17:31)
[2024-08-23] MEDS: Acetaminophen 325 MG Tablet 650 MG PO (17:31)
== END 2024-08-23 18:33 | disposition home or self-care (01) ==
LOC: SDC 12:18 → AC 12:24
PROVIDERS: Anesthesiology; PCP Student in an Organized Health Care Education/Training Program; Referring Provider Urology; Visit Provider Urology
PROC: 0TJ98ZZ Inspection of Ureter, Via Natural or Artificial Opening Endoscopic (ICD-10-PCS; CPT 52352; principal; 2024-08-23 14:05)
DX: N20.2 Calculus of kidney with calculus of ureter (principal); E78.00 Pure hypercholesterolemia, unspecified; I10 Essential (primary) hypertension; Z87.442 Personal history of urinary calculi
CPT/HCPCS: 52353; 00918; 81025; J7120; C1769; C2617; J2405

== ENCOUNTER 2024-08-29 20:35 | Inpatient (IN) | payer OTHER, SELFPAY ==
[2024-08-29 20:36] VITALS: BP 170/96; PULSE 122; RESP 18; TEMP 37.9; O2SAT 99; BMI 29.9
[2024-08-29 20:39] VITALS: BP 170/96; PULSE 122; RESP 18; TEMP 37.9; O2SAT 99
[2024-08-29 21:34] LABS: Absolute Lymphocyte Count 1.27 X10^3/uL (0.83-4.51); Basophil# 0.08 X10^3/uL; Basophil% 0.4 % (0-1); Eosinophil# 0.03 X10^3/uL; Eosinophils% 0.2 % (0-5); Hematocrit 35.5 % (37-47); Lymphocyte # 1.27 X10^3/ul (0.83-4.51); Lymphocyte % 6.4 % (19-41); Mean Corp Hgb Conc 33.8 g/dL (32-36); Mean Corpuscular Hgb 29.4 pg (27.0-32.0); Mean Platelet Vol. 9.5 fl (6.2-12.0); Monocyte# 1.22 X10^3/uL; Monocyte% 6.2 % (0-10); NRBC Flagged by Analyzer 0 % (0-5); Neutrophil # 17.04 X10^3/uL (2.7-7.7); Neutrophil % 86.2 % (47-70); Platelet Count 332 K/mm3 (150-450); RBC Distribution Width SD 40.9 fl (35.1-43.9); Red Blood Count 4.08 M/mm3 (4.2-5.4); White Blood Count 19.8 K/mm3 (4.4-11.0)
[2024-08-29 21:39] VITALS: BP 160/87; PULSE 129; RESP 19; TEMP 37.9; O2SAT 96
--- NOTE | 2024-08-29 21:44 | RAD_ITS ---
EXAM: XR CHEST, 2 VIEWS CLINICAL INDICATION: Neutropenic Fever TECHNIQUE: Frontal and lateral views of the chest. COMPARISON: Previous chest radiographs of 11/26/2023 and 02/08/well-healed. FINDINGS: LUNGS AND PLEURAL SPACES: Discoid atelectasis or scarring has developed within the right midlung. Projecting between the anterior right fourth and fifth ribs on the frontal view is a subtle rounded focus of asymmetric density, worrisome for minimal pneumonia. Left lung is clear. No pneumothorax. No effusion. HEART: Unremarkable. Cardiac silhouette not enlarged. Normal pulmonary vasculature. MEDIASTINUM: Central airways and mediastinal contour are unremarkable. BONES/JOINTS: Mild degenerative spurring noted about the thoracic disc spaces. No endplate destruction or paraspinal soft tissue swelling. No acute fracture. SOFT TISSUES: Unremarkable. RAD/Chest PA and Lateral IMPRESSION: Findings suspicious for minimal pneumonia within the right midlung. Discoid atelectasis or scarring has also developed within the right midlung. Electronically Signed: Farzad Walden MD at 23:31 EST ,
[2024-08-29 21:50] LABS: International Normalized Ratio 1.1; Prothrombin Time (Protime)PT. 13.8 SECONDS (11.7-14.9)
[2024-08-29 21:52] LABS: Color, Urine Yellow (Yellow); Glucose, Dipstick 100 mg/dl (Normal); Ketone-Dipstick Negative (Negative); Leukocyte Esterase-Dipstick 100 /ul (Negative); Nitrite-Dipstick Positive (Negative); Occult Blood-Urine 50 /ul (Negative); Protein-Dipstick 30 mg/dl (Negative); Urine Bilirubin Dipstick Negative (Negative); Urine Clarity Sl. Cloudy (Clear); Urine Urobilinogen 1 mg/dl (Normal)
[2024-08-29 21:58] LABS: ALB/GLOB Ratio 0.9 RATIO (0.9-2.4); AST(SGOT) 9 U/L (15-37); Alanine Aminotransfer ALT/SGPT 15 U/L (13-56); Albumin, Serum 3.4 g/dL (3.2-5.0); Alkaline Phosphatase 77 U/L (45-117); Anion Gap 5 (5-15); BUN 12 mg/dL (7-18); BUN/Creat Ratio 15.6 RATIO (10-20); Chloride 105 mmol/L (98-107); Creatinine, Serum 0.77 mg/dL (0.55-1.02); EST Glomerular Filtration Rate 84 mL/min (>60); Est Glom Filt Rate - Afr Amer 102 mL/min (>60); Estimated Creatinine Clearance 92.21 ml/min; Globulin 3.8 g/dL (2.2-4.2); Glucose 148 mg/dL (74-106); Lactic Acid 1.6 mmol/L (0.4-1.9); Potassium 3.8 mmol/L (3.5-5.1); Protein, Total 7.2 g/dL (6.4-8.2); Sodium Level 136 mmol/L (136-145)
[2024-08-29 22:00] VITALS: BP 152/69; PULSE 133; RESP 22; TEMP 37.9; O2SAT 97
[2024-08-29 22:07] LABS: Red Blood Cells-Urine 0-5 SEEN /hpf (0-5); Squamous Epithelial Cells - UA 5-10 SEEN /hpf (5-10); White Blood Cells 25-50 SEEN /hpf (0-5)
[2024-08-29 22:08] LABS: Bacteria RARE /hpf (None Seen); Mucous, Urine 1+ /hpf (<or=2+)
--- NOTE | 2024-08-29 22:09 | CT_ITS ---
EXAM: CT ABDOMEN AND PELVIS WITH INTRAVENOUS CONTRAST CLINICAL INDICATION: ? Pyelonephritis TECHNIQUE: Helically acquired images were obtained of the abdomen and pelvis with intravenous contrast. This CT exam was performed using one or more of the following dose reduction techniques: automated exposure control, adjustment of the mA and/or kV according to patient size, and/or use of iterative reconstruction technique. CONTRAST: IV 75mL Isovue-370 RADIATION DOSE: Total DLP: 1150.96 mGy-cm. COMPARISON: Abdomen pelvis CT of 08/04/2024. FINDINGS: LOWER THORAX: Discoid atelectasis has developed within the lower lobes. No pleural effusion. No significant pericardial effusion. ABDOMEN: LIVER: Right hepatic lobe is mildly elongated measuring 17.9 cm in cephalocaudal dimension. Portal and hepatic veins enhance normally. No focal intrahepatic abnormality. GALLBLADDER AND BILE DUCTS: Unremarkable. No calcified gallstones. No gallbladder distention or wall edema. No intra- or extrahepatic biliary ductal dilation. PANCREAS: Unremarkable. No focal cystic or solid mass. SPLEEN: Unremarkable. Normal size without focal cystic or solid mass. ADRENALS: Unremarkable. No nodules. KIDNEYS AND URETERS: There is asymmetric enlargement and edema of the right kidney, with associated perirenal stranding on the right. Ill-defined areas of slightly diminished cortical enhancement noted on the right, primarily within the upper and lower pole cortex, consistent with pyelonephritis. Uroepithelial enhancement noted within the renal pelvis and right ureter indicating associated ureteritis and pyelitis. No renal abscess. No hydronephrosis or obstructing ureteral stone. A punctate nonobstructing stone and a 3 mm nonobstructing stone is seen within the left renal lower pole collecting system. No findings of left-sided pyelonephritis or left ureteral stone. STOMACH AND BOWEL: Unremarkable. No stomach or bowel distention. No focal inflammatory change. PELVIS: APPENDIX: Retrocecal appendix. No findings of acute appendicitis. BLADDER: Air bubble noted within the urinary bladder, typically due to recent instrumentation. The bladder wall does not appear significantly thickened allowing for the limited degree of bladder distention. REPRODUCTIVE: Normal size uterus with a centrally positioned IUD. Small anterior subserosal fibroids. 2.1 cm dominant follicle in the left ovary, which requires no follow-up. 1.2 cm follicle in the right ovary, which requires no follow-up. ABDOMEN and PELVIS: INTRAPERITONEAL SPACE: Unremarkable. No ascites or other fluid collection. No free air. BONES/JOINTS: Mild degenerative spurring about the lower thoracic disc spaces. No acute osseous abnormality. No suspicious lytic or blastic abnormality. SOFT TISSUES: Unremarkable. No discrete abdominal or pelvic wall hernia. VASCULATURE: Normal caliber abdominal aorta. LYMPH NODES: Unremarkable. No enlarged lymph nodes. CT/Abdomen/Pelvis W IV Cont ONLY IMPRESSION: 1. Findings of mild right-sided pyelonephritis. No renal abscess or obstructing ureteral stone. 2. 2 small nonobstructing left renal calculi. 3. Ovarian follicles, which require no follow-up. Electronically Signed: Farzad Walden MD at 0:00 EST ,
[2024-08-29 22:10] LABS: Amorphous Sediment RARE
[2024-08-29] MEDS: Acetaminophen 500 MG Tablet 1000 MG PO (22:14)
[2024-08-29] MEDS: Ceftriaxone 1 GM/50 ML BAG IV (22:42)
[2024-08-29] MEDS: 0.9% Normal Saline (1000mL) 1,000 ML 999 ML IV (22:42)
[2024-08-29 23:00] VITALS: BP 124/71; PULSE 120; RESP 29; TEMP 37.9; O2SAT 95
[2024-08-30] VITALS (22 sets, daily range): BP systolic 89–129; BP diastolic 59–86; PULSE 81–115; RESP 16–28; TEMP 36.8–37.9; O2SAT 92–98; BMI 29.5
[2024-08-30] MEDS: Ibuprofen 600 MG Tablet PO ×3 (00:08→17:57)
[2024-08-30] MEDS: Ondansetron 4 MG/2 ML Vial IV (00:08)
[2024-08-30] MEDS: Morphine 4 MG/ML Syringe IV (00:08)
--- NOTE | 2024-08-30 00:32 | HP.PCM.HOS_ITS ---
[facility] - General General Date of Admission: 08/30/24 Date of Service: 08/30/24 Chief Complaint: Fever and Right Flank Pain. HPI Narrative JOSE R MATUTE, is a 49 F with a past medical history of essential hypertension; on valsartan and indapamide, hyperlipidemia; on rosuvastatin, history of parathyroidectomy, overweight; with BMI of 29.9 this admission, history of migraine headaches, history of , listed allergy to sulfonamide antibiotics (rash), listed allergy to augmentin (vomiting), osteoarthritis, history of cystoscopy with lithotripsy (2022) and recently diagnosed renal calculus; s/p cystoscopy and stent placement by Dr. Soto of urology on August 23, 2024 with patient still on oral ciprofloxacin, tamsulosin and pyridium who presents to [facility] ER complaining of fever and Right flank pain. Ms. Matute reports her symptoms never fully improved feeling unwell for the past 2-3 days and then when she recently had her stent removed earlier on August 29, 2024 her condition worsened so she finally decided to come back in for further evaluation and treatment. She admits to fever up to ~100.2 degrees Fahrenheit with chills and increasing Right flank pain, myalgias, severe malaise and nausea. She denies related abdominal pain, vomiting, SOB or headache. In the ER she was noted to have CT evidence of Right Pyelonephritis with a UA grossly positive for infection in the setting of recent Right renal calculus; s/p cystoscopy with subsequent stent placement and removal and she was then admitted to the ICU for treatment under the Sepsis protocol for a stay that is expected to extend beyond 2 midnights. [facility] Medical History Arthritis Kidney stones Migraine headache History of echocardiogram History of stress test Hypercholesterolemia Hypertension Home Medications ?Medication ?Instructions ?Recorded ?Last Taken ?Type cholecalciferol (vitamin D3) 50 50 mcg PO DAILY 08/15/24 08/22/24 History mcg (2,000 unit) capsule (Vitamin D3) indapamide 1.25 mg tablet 1.25 mg PO DAILY HTN 08/15/24 08/22/24 History omega 1-svd-xgw-fish oil 1,200 mg 2 cap PO DAILY 08/15/24 08/22/24 History (144 mg-216 mg) capsule (Fish Oil) rosuvastatin 10 mg tablet 10 mg PO DAILY 08/15/24 08/22/24 History valsartan 160 mg tablet 160 mg PO DAILY 08/15/24 08/23/24 History acetaminophen 500 mg capsule 1,000 mg PO Q6H PRN pain 08/23/24 08/20/24 History docusate sodium 100 mg capsule 100 mg PO BID constipation #20 caps 08/23/24 Unknown Rx (Colace) phenazopyridine 100 mg tablet 100 mg PO TID #15 tabs 08/23/24 Unknown Rx (Pyridium) tamsulosin 0.4 mg capsule (Flomax) 0.4 mg PO DAILY #10 caps 08/23/24 Unknown Rx ciprofloxacin HCl 500 mg tablet 500 mg PO BID 08/29/24 Unknown History Allergy/AdvReac Type Severity Reaction Status Date / Time Sulfa (Sulfonamide Allergy Rash Verified 08/29/24 20:36 Antibiotics) amoxicillin trihydrate (From AdvReac Vomiting Verified 08/29/24 20:36 Augmentin) potassium clavulanate (From AdvReac Vomiting Verified 08/29/24 20:36 Augmentin) Surgical History Hx of parathyroidectomy Hx of cystoscopy H/O section Social History Smoking Status: Never smoker ROS ROS Narrative Review of Systems: Constitutional: Patient admits to fever and chills as noted in HPI. Eyes: Patient denies changes in vision or discharge from eyes. ENT: Patient denies runny nose, sore throat or ear pain. Resp: Patient denies SOB or cough. CV: Patient denies chest pain, palpitations or heart racing. GI: Patient admits to nausea but she denies vomiting, abdominal pain, diarrhea or constipation. : Patient admits to Right flank pain and dysuria. She denies hematuria. MSK: Patient admits to myalgias but she denies arthralgias. Skin: Patient denies rash, abscess or jaundice. Psych: Patient denies symptoms of uncontrolled depression or anxiety. Neuro: Patient denies headache, paresthesias or focal neurologic deficits. Allergy: Patient denies lip swelling, tongue swelling or urticaria. Hematology: Patient denies easy bleeding or easy bruisability. Endocrinology: Patient denies polyuria, polydipsia and polyphagia. 14 point ROS otherwise negative except for positives noted above in HPI. Vital Signs Vital Signs Vital Signs: 08/29/24 20:36 08/29/24 20:39 08/29/24 21:39 Temperature 100.2 F H 100.2 F H 100.2 F H Temperature Source Oral Oral Oral Pulse Rate 122 H 122 H 129 H Respiratory Rate 18 18 19 H Respiratory Effort Respiratory Pattern Blood Pressure 170/96 H 170/96 H 160/87 H Blood Pressure Mean 120 120 111 Pulse Ox 99 99 96 Oxygen Delivery Method Room Air Room Air Room Air 08/29/24 21:40 08/29/24 21:40 08/29/24 22:00 Temperature 100.2 F H Temperature Source Oral Pulse Rate 133 H Respiratory Rate 22 H Respiratory Effort Normal Respiratory Pattern Normal Blood Pressure 152/69 H Blood Pressure Mean 96 Pulse Ox 97 Oxygen Delivery Method Room Air Room Air 08/29/24 23:00 08/30/24 00:00 Temperature 100.2 F H 100.2 F H Temperature Source Oral Oral Pulse Rate 120 H 115 H Respiratory Rate 29 H 24 H Respiratory Effort Respiratory Pattern Blood Pressure 124/71 H 123/77 H Blood Pressure Mean 88 92 Pulse Ox 95 97 Oxygen Delivery Method Room Air Room Air Weight Weight: 179 lb 12.8 oz Body Mass Index (BMI) 29.9 Physical Exam Const alert, oriented x3, no apparent distress and average body habitus Constitutional Narrative: Patient appears acutely ill. General Appearance: cooperative HEENT normocephalic, head/scalp atraumatic, hearing grossly normal bilaterally and moist oral mucous membranes Eyes PERRL and EOMs intact bilaterally Neck no lymphadenopathy and supple Resp normal respiratory effort, no retractions, no use of accessory muscles and clear to auscultation bilaterally Cardio regular rate and regular rhythm Cardio Narrative: Tachycardia @ ~120 bpm noted. GI normal to inspection, nondistended, normoactive bowel sounds, soft to palpation, non-tender and non-distended Extremity normal to inspection, full ROM and no clubbing, cyanosis or edema Skin Skin Narrative: Patient has no evidence of rash, abscess or jaundice. Neuro oriented x3, CN's II-XII intact bilaterally, moves all extremities and no focal motor deficits Sensorium / Orientation: awake, alert, oriented to person, oriented to place and oriented to time Speech: speech normal Psych affect normal Results Medical Records Data Attestation: I reviewed the patient's medical records Lab / Micro Data Attestation: I reviewed the patient's lab results. 08/29/24 21:25 08/29/24 21:25 Labs: Laboratory Results - last 24 hr 08/29/24 21:25: WBC 19.8 H, RBC 4.08 L, Hgb 12.0, Hct 35.5 L, MCV 87.0, MCH 29.4, MCHC 33.8, RDW Std Deviation 40.9, RDW Coeff of [place] 13.0, Plt Count 332, MPV 9.5, Immature Gran % (Auto) 0.600, Neut % (Auto) 86.2 H, Lymph % (Auto) 6.4 L, [place] % (Auto) 6.2, Eos % (Auto) 0.2, Baso % (Auto) 0.4, Absolute Neuts (auto) 17.0 H, Absolute Lymphs (auto) 1.27, Nucleated RBC % 0, PT 13.8, INR 1.1, APTT 32.0, Sodium 136, Potassium 3.8, Chloride 105, Carbon Dioxide 26.0, Anion Gap 5, BUN 12, Creatinine 0.77, Estim Creat Clear Calc 92.21, Est GFR (MDRD) Af Amer 102, Est GFR (MDRD) Non-Af 84, BUN/Creatinine Ratio 15.6, Glucose 148 H, Lactic Acid 1.6, Calcium 9.0, Total Bilirubin 1.20 H, AST 9 L, ALT 15, Alkaline Phosphatase 77, Total Protein 7.2, Albumin 3.4, Globulin 3.8, Albumin/Globulin Ratio 0.9 08/29/24 21:35: Urine Color Yellow, Urine Clarity Sl. Cloudy, Urine pH 8.0, Ur Specific [place] 1.010, Urine Protein 30 H, Urine Glucose (UA) 100 H, Urine Ketones Negative, Urine Occult Blood 50 H, Urine Nitrite Positive H, Urine Bilirubin Negative, Urine Urobilinogen 1 H, Ur Leukocyte Esterase 100 H, Urine RBC 0-5 SEEN, Urine WBC 25-50 SEEN, Ur Squamous Epith Cells 5-10 SEEN, Amorphous Sediment RARE, Urine Bacteria RARE, Urine Mucus 1+ Imaging Radiology Impression Chest X-Ray 08/29/24 21:44 IMPRESSION: Findings suspicious for minimal pneumonia within the right midlung. Discoid atelectasis or scarring has also developed within the right midlung. Electronically Signed: Farzad Walden MD at 23:31 EST , Abdomen/Pelvis CT 08/29/24 22:09 IMPRESSION: 1. Findings of mild right-sided pyelonephritis. No renal abscess or obstructing ureteral stone. 2. 2 small nonobstructing left renal calculi. 3. Ovarian follicles, which require no follow-up. Electronically Signed: Farzad Walden MD at 0:00 EST , Assessment & Plan Assessment/Plan (1) Sepsis: QUALIFIERS: Sepsis acute organ dysfunction status: without acute organ dysfunction Sepsis type: sepsis due to unspecified organism Qualified Code(s): A41.9 - Sepsis, unspecified organism (2) Pyelonephritis of right kidney: (3) Kidney stones: (4) Hx of cystoscopy: (5) Overweight (BMI 25.0-29.9): (6) Hypertension: QUALIFIERS: Hypertension type: unspecified Qualified Code(s): I10 - Essential (primary) hypertension (7) Hypercholesterolemia: PLAN: Plan 1. Suspected Sepsis with CT evidence of Right pyelonephritis with Leukocytosis of 19.8K present on admission with Fever of 100.2 degrees Fahrenheit and Sinus Tachycardia of 122 bpm present on admission - Admit to ICU for treatment under the sepsis protocol. Stop empiric IV Rocephin begun in the ER and start IV Merrem with hypotension and increasingly toxic appearance and await culture and sensitivity data. Give Tylenol for [id number] (level 1-5/10) pain or fever. Give IV morphine as needed for severe (level 6-10/10) pain. 2. Recently diagnosed Right renal calculus; s/p cystoscopy and stent placement by Dr. Soto of urology with patient still on oral ciprofloxacin, tamsulosin and pyridium complicating #1 in the setting of known previous cystoscopy with lithotripsy (2022) - Noted with patient having apparently failed outpatient treatment with oral Cipro. Finally, we will consult Dr. Soto to see his patient on rounds in the a.m. with help appreciated in advance. 3. Overweight; with BMI of 29.9 this admission compounding #1 & #2 - Weight loss will be recommended. Check TSH. This complicates her case and may hamper recovery. 4. Essential hypertension; on valsartan and indapamide - Hold scheduled antihypertensives until infection outlined #1 has been neutralized. 5. Hyperlipidemia; on rosuvastatin - Resume statin as previous. 6. History of parathyroidectomy - Noted. 7. History of migraine headaches - Noted with no complaints of headaches at this time. 8. History of - Noted for the sake of completeness. 9. Listed allergy to sulfonamide antibiotics (rash) - Noted. 10. Listed allergy to augmentin (vomiting) - Noted. 11. Osteoarthritis - Stable. Give Tylenol prn. 12. DVT prophylaxis - Lovenox 40 mg subcu daily plus SCDs. Total time: Approximately (but not less than) 75 minutes. Sepsis Attestation Sepsis Alert: Yes Sepsis Attestation: Agree w/Sepsis Date exam was performed: 08/30/24 Time exam was performed: 01:30 Possible Source of Sepsis: Genitourinary Sepsis Organ Dysfunction Criteria Present: SBP decrease of more than 40 mmHg Supportive Findings: Patient has fever, tachycardia, leukocytosis of 19.8 K present on admission and recent cystoscopy with lithotripsy via laser approximately 1 week ago with failure of oral antibiotics with Cipro. Fluid Resuscitation Fluid resuscitation indicated?: Yes Fluid Resuscitation ordered: 30 ml/kg fluid bolus ordered Amount of fluid ordered: 2 Sepsis Note Date exam was performed: 08/30/24 Time exam was performed: 05:30 Sepsis Attestation: Sepsis re-evaluation was performed Response to fluids: Fluid responsive hypotension Charges/Coding Visit Charges Inpatient E&M: 95649 Init Hosp L3
[2024-08-30] MEDS: 0.9% Normal Saline (1000mL) 1,000 ML 999 ML IV ×3 (00:47→03:50)
--- NOTE | 2024-08-30 00:47 | EX.ED.DYSGE1 ---
HPI History of Present Illness Chief Complaint: General Illness Informant: patient Narrative Narrative: Patient is a 49-year-old female with past medical history of hypertension and hyperlipidemia. She recently had kidney stones and had to have a stent placed. She states that the stent was removed earlier today. She reports that over the last 2 or 3 days however she has felt unwell. She states symptoms worsened this evening when she developed a fever and increasing right sided back pain. Therefore with the worsening symptoms and concern for developing infection she presents for evaluation [facility] Medical History (Updated 08/30/24 @ 03:[address] Scar Cha, DO) Arthritis Kidney stones Migraine headache History of echocardiogram History of stress test Hypercholesterolemia Hypertension Home Medications ?Medication ?Instructions ?Recorded ?Last Taken ?Type cholecalciferol (vitamin D3) 50 50 mcg PO DAILY 08/15/24 08/22/24 History mcg (2,000 unit) capsule (Vitamin D3) indapamide 1.25 mg tablet 1.25 mg PO DAILY HTN 08/15/24 08/22/24 History omega 1-vay-ihc-fish oil 1,200 mg 2 cap PO DAILY 08/15/24 08/22/24 History (144 mg-216 mg) capsule (Fish Oil) rosuvastatin 10 mg tablet 10 mg PO DAILY 08/15/24 08/22/24 History valsartan 160 mg tablet 160 mg PO DAILY 08/15/24 08/23/24 History acetaminophen 500 mg capsule 1,000 mg PO Q6H PRN pain 08/23/24 08/20/24 History docusate sodium 100 mg capsule 100 mg PO BID constipation #20 caps 08/23/24 Unknown Rx (Colace) phenazopyridine 100 mg tablet 100 mg PO TID #15 tabs 08/23/24 Unknown Rx (Pyridium) tamsulosin 0.4 mg capsule (Flomax) 0.4 mg PO DAILY #10 caps 08/23/24 Unknown Rx ciprofloxacin HCl 500 mg tablet 500 mg PO BID 08/29/24 Unknown History Allergy/AdvReac Type Severity Reaction Status Date / Time Sulfa (Sulfonamide Allergy Rash Verified 08/29/24 20:36 Antibiotics) amoxicillin trihydrate (From AdvReac Vomiting Verified 08/29/24 20:36 Augmentin) potassium clavulanate (From AdvReac Vomiting Verified 08/29/24 20:36 Augmentin) Surgical History (Updated 08/30/24 @ 01:[address] Daren Cortes DO) Hx of parathyroidectomy Hx of cystoscopy H/O section Social History Smoking Status: Never smoker ROS ROS ED Constitutional Constitutional ED: Reports chills and fever(s) Eyes Eyes: Denies change in vision ENT ENT ED: Reports rhinorrhea; Denies sore throat Cardiovascular Cardiovascular: Denies chest pain Respiratory/Chest Respiratory/Chest: Denies cough or dyspnea Gastrointestinal Gastrointestinal: Reports nausea; Denies abdominal pain, diarrhea or vomiting Genitourinary Genitourinary ED: Denies dysuria or hematuria Musculoskeletal Musculoskeletal: Reports back pain and myalgias Integumentary Denies rash Neurologic Neurologic: Denies headache(s) Hematologic/Lymphatic Hematologic/Lymphatic: Denies easy bleeding or easy bruising EXAM Physical Exam Const Vital Signs: 08/29/24 20:36 08/29/24 20:39 08/29/24 21:39 Temperature 100.2 F H 100.2 F H 100.2 F H Temperature Source Oral Oral Oral Pulse Rate 122 H 122 H 129 H Respiratory Rate 18 18 19 H Respiratory Effort Respiratory Pattern Blood Pressure 170/96 H 170/96 H 160/87 H Blood Pressure Mean 120 120 111 Pulse Ox 99 99 96 Oxygen Delivery Method Room Air Room Air Room Air 08/29/24 21:40 08/29/24 21:40 08/29/24 22:00 Temperature 100.2 F H Temperature Source Oral Pulse Rate 133 H Respiratory Rate 22 H Respiratory Effort Normal Respiratory Pattern Normal Blood Pressure 152/69 H Blood Pressure Mean 96 Pulse Ox 97 Oxygen Delivery Method Room Air Room Air 08/29/24 23:00 08/30/24 00:00 Temperature 100.2 F H 100.2 F H Temperature Source Oral Oral Pulse Rate 120 H 115 H Respiratory Rate 29 H 24 H Respiratory Effort Respiratory Pattern Blood Pressure 124/71 H 123/77 H Blood Pressure Mean 88 92 Pulse Ox 95 97 Oxygen Delivery Method Room Air Room Air Positive well nourished and well developed General Appearance ED: well developed; Negative for pallor HEENT HEENT Narrative: Normocephalic atraumatic Eyes PERRL and EOMs intact bilaterally General Eye ED: Negative for scleral icterus Neck supple Neck Narrative: No nuchal rigidity or meningeal signs Resp normal respiratory effort and clear to auscultation bilaterally Resp Narrative: No nasal flaring retractions tachypnea or accessory muscle use Cardio regular rhythm Rate: tachycardic and other Other Details: Tachycardic rate with regular rhythm No murmurs rubs or gallops noted Radial and carotid pulses are equal and symmetric GI normal to inspection, nondistended, normoactive bowel sounds, non-tender, non-distended and no masses GI Narrative: No voluntary guarding or rigidity or pulsatile mass Auscultation: normoactive bowel sounds Palpation: soft Back/Spine Back/Spine Narrative: Positive right CVA pain noted Extremity normal to inspection Extremity Narrative: No asymmetric edema no pitting edema negative Homans' sign bilaterally Neuro oriented x3, CN's II-XII intact bilaterally and no sensory deficits noted Sensorium / Orientation: alert Motor Exam: strength 5/5 throughout Psych mental status grossly normal Skin no rashes or lesions noted and no wounds General Skin Exam: Negative for jaundice or pallor MDM MDM MDM Narrative Medical decision making narrative: Patient arrived to the ER febrile tachycardic and hypertensive. With her recent history of kidney stone and stent placement and back pain there is concern for secondary UTI versus pyelonephritis versus renal abscess. As she is also had mild congestion there is concern for viral upper respiratory tract infection such as COVID flu or influenza or potential pneumonia. Secondary to this a chest x-ray basic labs with viral swab and a CT abdomen and pelvis were obtained. Patient's white count is elevated at 19.8 and she does have a left shift with elevation to her absolute neutrophil count. Secondary to this blood cultures were obtained and she was started on Rocephin as urine is most likely culprit for the nidus of infection. Patient was given 3 L of IV fluid based on the septic protocol. Based on her fever tachycardia and leukocytosis she does qualify for mild sepsis. The CT scan confirmed inflammatory changes around the right kidney consistent with pyelonephritis. However there is no obvious abscess formation. Chest x-ray question developing pneumonia but it was not seen on the CT scan and the patient has not had cough or hypoxia and therefore this does not clinically correlate. The case was discussed with her urologist Dr. Soto who states based on her workup showing changes of sepsis that admission to the medical service is most prudent at this time. Therefore the hospitalist was contacted and does agree to set the patient for further care. History & Record Review Discussion w/independent historian: Patient Lab Data Attestation: I reviewed the patient's lab results. Labs: Laboratory Results - last 24 hr 08/29/24 08/29/24 21:25 21:35 WBC 19.8 H RBC 4.08 L Hgb 12.0 Hct 35.5 L MCV 87.0 MCH 29.4 MCHC 33.8 RDW Std Deviation 40.9 RDW Coeff of Dante 13.0 Plt Count 332 MPV 9.5 Immature Gran % (Auto) 0.600 Neut % (Auto) 86.2 H Lymph % (Auto) 6.4 L [place] % (Auto) 6.2 Eos % (Auto) 0.2 Baso % (Auto) 0.4 Absolute Neuts (auto) 17.0 H Absolute Lymphs (auto) 1.27 Nucleated RBC % 0 PT 13.8 INR 1.1 APTT 32.0 Sodium 136 Potassium 3.8 Chloride 105 Carbon Dioxide 26.0 Anion Gap 5 BUN 12 Creatinine 0.77 Estim Creat Clear Calc 92.21 Est GFR (MDRD) Af Amer 102 Est GFR (MDRD) Non-Af 84 BUN/Creatinine Ratio 15.6 Glucose 148 H Lactic Acid 1.6 Calcium 9.0 Total Bilirubin 1.20 H AST 9 L ALT 15 Alkaline Phosphatase 77 Total Protein 7.2 Albumin 3.4 Globulin 3.8 Albumin/Globulin Ratio 0.9 Urine Color Yellow Urine Clarity Sl. Cloudy Urine pH 8.0 Ur Specific [place] 1.010 Urine Protein 30 H Urine Glucose (UA) 100 H Urine Ketones Negative Urine Occult Blood 50 H Urine Nitrite Positive H Urine Bilirubin Negative Urine Urobilinogen 1 H Ur Leukocyte Esterase 100 H Urine RBC 0-5 SEEN Urine WBC 25-50 SEEN Ur Squamous Epith Cells 5-10 SEEN Amorphous Sediment RARE Urine Bacteria RARE Urine Mucus 1+ Radiography Diagnostic Testing: Clinical Impression(s) from Imaging Studies Chest X-Ray 08/29/24 21:44 IMPRESSION: Findings suspicious for minimal pneumonia within the right midlung. Discoid atelectasis or scarring has also developed within the right midlung. Electronically Signed: Farzad Walden MD at 23:31 EST , Abdomen/Pelvis CT 08/29/24 22:09 IMPRESSION: 1. Findings of mild right-sided pyelonephritis. No renal abscess or obstructing ureteral stone. 2. 2 small nonobstructing left renal calculi. 3. Ovarian follicles, which require no follow-up. Electronically Signed: Farzad Walden MD at 0:00 EST , 1 view chest x-ray as interpreted by the emergency medicine physician reveals mild haziness within the right lung consistent with atelectasis without acute infiltrate pneumothorax or pleural effusion Critical Care Time Critical Care Time: Yes Critical care time (excluding procedures): Discussing w/Patient &/or Family/Collection Administrator, Discussing w/Consultants and - (Please note critical care time of 31 minutes) Discharge Plan Dx/Rx/DC Orders Clinical Impression: Sepsis, Hypertension, Pyelonephritis of right kidney, Hypercholesterolemia Disposition Disposition: Acute Care Hospital [facility] Discharge Date/Time: 08/30/24 01:15
[2024-08-30 01:19] LABS: Lactic Acid 1.1 mmol/L (0.4-1.9)
[2024-08-30] MEDS: Acetaminophen 325 MG Tablet 650 MG PO ×2 (02:00→15:02)
[2024-08-30] MEDS: Morphine 2 MG/ML Syringe IV (03:54)
[2024-08-30] MEDS: Enoxaparin 40 MG/0.4 ML Syringe SC (05:02)
[2024-08-30] MEDS: Meropenem 2 GM in 0.9% Normal Saline (100mL Bag) 100 ML IV ×3 (05:02→21:20)
[2024-08-30 05:13] LABS: Absolute Lymphocyte Count 1.31 X10^3/uL (0.83-4.51); Absolute Neutrophil Count 17.5 X10^3/uL (2.0-7.7); Basophil# 0.05 X10^3/uL; Basophil% 0.2 % (0-1); Hematocrit 29.5 % (37-47); Hemoglobin 9.7 g/dL (12.0-15.0); Lymphocyte # 1.31 X10^3/ul (0.83-4.51); Lymphocyte % 6.3 % (19-41); Mean Corp Hgb Conc 32.9 g/dL (32-36); Mean Corpuscular Hgb 29.1 pg (27.0-32.0); Mean Corpuscular Volume 88.6 fL (81-99); Mean Platelet Vol. 9.3 fl (6.2-12.0); Monocyte# 1.99 X10^3/uL; Monocyte% 9.5 % (0-10); NRBC Flagged by Analyzer 0 % (0-5); Neutrophil # 17.48 X10^3/uL (2.7-7.7); Neutrophil % 83.4 % (47-70); POSITIVE DIFFERENTIAL YES; Platelet Count 261 K/mm3 (150-450); RBC Distribution Width SD 42.1 fl (35.1-43.9); Red Blood Count 3.33 M/mm3 (4.2-5.4)
[2024-08-30 05:16] LABS: Differential Indicated SCAN CRITERIA MET
[2024-08-30 05:35] LABS: ALB/GLOB Ratio 0.8 RATIO (0.9-2.4); AST(SGOT) 9 U/L (15-37); Alanine Aminotransfer ALT/SGPT 16 U/L (13-56); Albumin, Serum 2.4 g/dL (3.2-5.0); Alkaline Phosphatase 56 U/L (45-117); Anion Gap 4 (5-15); BUN 8 mg/dL (7-18); BUN/Creat Ratio 12.3 RATIO (10-20); Calcium,Total 7.2 mg/dL (8.5-10.1); Chloride 112 mmol/L (98-107); Creatinine, Serum 0.65 mg/dL (0.55-1.02); EST Glomerular Filtration Rate 103 mL/min (>60); Est Glom Filt Rate - Afr Amer 124 mL/min (>60); Estimated Creatinine Clearance 108.47 ml/min; Globulin 3.2 g/dL (2.2-4.2); Glucose 148 mg/dL (74-106); Magnesium 1.7 mg/dL (1.6-2.6); Phosphorus 2.4 mg/dL (2.5-4.9); Potassium 3.5 mmol/L (3.5-5.1); Protein, Total 5.6 g/dL (6.4-8.2); Sodium Level 138 mmol/L (136-145)
[2024-08-30 05:39] LABS: Procalcitonin 0.39 ng/mL (0.00-0.09)
[2024-08-30 06:38] LABS: Differential Comment SCANNED
[2024-08-30] MEDS: Docusate Sodium 100 MG Capsule PO ×2 (07:35→21:02)
[2024-08-30] MEDS: Cholecalciferol (VIT D3) 25 MCG TABLET (1,000 UNITS) 50 MCG PO (07:35)
[2024-08-30] MEDS: Phenazopyridine 95 MG Tablet PO ×3 (07:36→16:21)
[2024-08-30] MEDS: Lactobacillis Acidophilus 1 CAP PO ×4 (07:36→21:01)
[2024-08-30] MEDS: Zinc Sulfate 50 mg zinc (220 mg) ORAL capsule PO (07:36)
[2024-08-30] MEDS: Ascorbic Acid 500 MG Tablet 1000 MG PO ×2 (07:36→16:21)
[2024-08-30] MEDS: Tamsulosin HCl 0.4 MG Capsule PO (07:36)
[2024-08-30 08:02] LABS: Hemoglobin A1c 5.8 % (3.8-5.6)
[2024-08-30] MEDS: Lactated Ringers 1,000 ML 150 ML IV (09:32)
[2024-08-30] MEDS: Pantoprazole Sodium 40 MG Tablet PO (09:33)
[2024-08-30] MEDS: Potassium Chloride Oral Tablet 20 MEQ 40 MEQ PO (09:33)
--- NOTE | 2024-08-30 10:00 | CASEMGMT ---
RN?CM?[employer]ETING?CM?to room to meet with patient for initial transition planning/care coordination?assessment.?RN?CM?introduced self and role at [facility].? Pt voices understanding and consents to?assessment?at this time.? Pt resting in bed in no distress at this time.? Pt is A/O at this time and answers all questions appropriately.?? Care providers, pharmacy, and demographics verified/updated at this time. PCP: Dr Ronquillo Specialists: Dr Soto-urology, Dr Hernandez-hand model in [place], Dr Magaña-podiatry Preferred Pharmacy: [facility] @ [address] Insurance: [employer] [facility] Prescription Benefit:?yes LNOK: , Ryan Living Arrangements: Lives w/. Independent. 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 Transportation:?Pt and both drive. DME: ? Denies using any DME and denies needs.? HHC/SNF: No hx of either. No needs identified. Pt wishes to return home and states has no concerns with going home at time of discharge.??CM?to follow for any discharge planning/needs.? Pt voices no concerns/needs at this time.? Advised pt to ask for?CM?if any further questions/concerns/needs arise.? Voices understanding. PLAN:??Home Sharlene JETTN?RN?CM
--- NOTE | 2024-08-30 13:44 | PN.HOSP_ITS ---
Reason for Visit Reason for Visit: Diagnoses Sepsis, unspecified organism (08/30/24) Overweight (08/30/24) Pure hypercholesterolemia, unspecified (08/30/24) Essential (primary) hypertension (08/30/24) Tubulo-interstitial nephritis, not specified as acute or chronic (08/30/24) Calculus of kidney (08/30/24) Other specified postprocedural states (08/30/24) Objective Data Objective Data Vital Signs: Vital Signs Temp Pulse Resp BP Pulse Ox O2 Del Method 98.4 F 85 18 105/69 98 Room Air 08/30/24 08:00 08/30/24 08:00 08/30/24 08:00 08/30/24 08:00 08/30/24 08:00 08/30/24 08:00 Oxygen Delivery Method Room Air Weight: 177 lb 4.026 oz Body Mass Index (BMI) 29.5 Intake & Output: Intake and Output for Last 24 Hours 08/28/24 08/29/24 08/30/24 23:59 23:59 23:59 Intake Total 3989.5 / 3989.5 Balance 3989.5 / 3989.5 Lab / Micro Data 08/30/24 05:05 08/30/24 05:05 Labs: Laboratory Results - last 24 hr 08/29/24 21:25: WBC 19.8 H, RBC 4.08 L, Hgb 12.0, Hct 35.5 L, MCV 87.0, MCH 29.4, MCHC 33.8, RDW Std Deviation 40.9, RDW Coeff of Dante 13.0, Plt Count 332, MPV 9.5, Immature Gran % (Auto) 0.600, Neut % (Auto) 86.2 H, Lymph % (Auto) 6.4 L, [place] % (Auto) 6.2, Eos % (Auto) 0.2, Baso % (Auto) 0.4, Absolute Neuts (auto) 17.0 H, Absolute Lymphs (auto) 1.27, Nucleated RBC % 0, PT 13.8, INR 1.1, APTT 32.0, Sodium 136, Potassium 3.8, Chloride 105, Carbon Dioxide 26.0, Anion Gap 5, BUN 12, Creatinine 0.77, Estim Creat Clear Calc 92.21, Est GFR (MDRD) Af Amer 102, Est GFR (MDRD) Non-Af 84, BUN/Creatinine Ratio 15.6, Glucose 148 H, Lactic Acid 1.6, Calcium 9.0, Total Bilirubin 1.20 H, AST 9 L, ALT 15, Alkaline Phosphatase 77, Total Protein 7.2, Albumin 3.4, Globulin 3.8, Albumin/Globulin Ratio 0.9 08/29/24 21:35: Urine Color Yellow, Urine Clarity Sl. Cloudy, Urine pH 8.0, Ur Specific [place] 1.010, Urine Protein 30 H, Urine Glucose (UA) 100 H, Urine Ketones Negative, Urine Occult Blood 50 H, Urine Nitrite Positive H, Urine Bilirubin Negative, Urine Urobilinogen 1 H, Ur Leukocyte Esterase 100 H, Urine RBC 0-5 SEEN, Urine WBC 25-50 SEEN, Ur Squamous Epith Cells 5-10 SEEN, Amorphous Sediment RARE, Urine Bacteria RARE, Urine Mucus 1+ 08/30/24 00:46: Lactic Acid 1.1 08/30/24 05:05: WBC 21.0 H, RBC 3.33 L, Hgb 9.7 L, Hct 29.5 L, MCV 88.6, MCH 29.1, MCHC 32.9, RDW Std Deviation 42.1, RDW Coeff of Dante 13.0, Plt Count 261, MPV 9.3, Immature Gran % (Auto) 0.600, Neut % (Auto) 83.4 H, Lymph % (Auto) 6.3 L, [place] % (Auto) 9.5, Eos % (Auto) 0.0, Baso % (Auto) 0.2, Absolute Neuts (auto) 17.5 H, Absolute Lymphs (auto) 1.31, Nucleated RBC % 0, Differential Comment SCANNED, Diff Path Review February, Sodium 138, Potassium 3.5, Chloride 112 H, Carbon Dioxide 22.0, Anion Gap 4 L, BUN 8, Creatinine 0.65, Estim Creat Clear Calc 108.47, Est GFR (MDRD) Af Amer 124, Est GFR (MDRD) Non-Af 103, BUN/Creatinine Ratio 12.3, Glucose 148 H, Hemoglobin A1c 5.8 H, Calcium 7.2 L, P hosphorus 2.4 L, Magnesium 1.7, Total Bilirubin 0.80, AST 9 L, ALT 16, Alkaline Phosphatase 56, Total Protein 5.6 L, Albumin 2.4 L, Globulin 3.2, A lbumin/Globulin Ratio 0.8 L, Procalcitonin 0.39 H Micro: Microbiology 08/30/24 00:07 Mucosa - Nose SARS-CoV-2, Influenza & RSV (PCR) - Final Radiography Diagnostic Testing: Radiology Impression Chest X-Ray 08/29/24 21:44 IMPRESSION: Findings suspicious for minimal pneumonia within the right midlung. Discoid atelectasis or scarring has also developed within the right midlung. Electronically Signed: Farzad Walden MD at 23:31 EST , Abdomen/Pelvis CT 08/29/24 22:09 IMPRESSION: 1. Findings of mild right-sided pyelonephritis. No renal abscess or obstructing ureteral stone. 2. 2 small nonobstructing left renal calculi. 3. Ovarian follicles, which require no follow-up. Electronically Signed: Farzad Walden MD at 0:00 EST , Physical Exam Narrative Seen and examined. Patient was admitted with right-sided flank pain, low-grade fever and pyelonephritis. Her BP was LOW and drop in his SBP was more than 40 mmHg therefore suggestive of sepsis. Denies dysuria but had laser lithotripsy of right ureteral stone and stent placement on 08/23 and [facility] Physical exam General: Alert, Oriented x3, Cooperative HEENT: Atraumatic, PERRLA, EOMI, Normocephalic Oral: No Gingival or Mucosal Lesions/ Ulcerations Neck: Supple, No JVD, Negative Carotid Bruits Chest wall/Lungs: Air entry diminished in bilateral lung bases. No crepitation/rhonchi Cardiovascular: Regular rate, Regular Rhythm, Normal S1, Normal S2, No M/G/R Abdomen: Bowel Sounds Present, Soft, Non Tender, Non-Distended :. Denies dysuria. No Right renal angle tenderness. No suprapubic tenderness. Extremities: No edema, Capillary Refill Less than 3 Seconds Skin: No rashes, No breakdown Musculoskeletal: No Tenderness to Palpation of Joints or Extremities Neurological: Cranial nerves II-XII grossly intact, DTR 2+/4. No acute focal neurological deficit. Psych/Mental Status: Normal Affect, Appropriate. Assessment & Plan Assessment/Plan (1) Sepsis: QUALIFIERS: Sepsis acute organ dysfunction status: without acute organ dysfunction Sepsis type: sepsis due to unspecified organism Qualified Code(s): A41.9 - Sepsis, unspecified organism (2) Pyelonephritis of right kidney: (3) Kidney stones: (4) Hx of cystoscopy: (5) Overweight (BMI 25.0-29.9): (6) Hypertension: QUALIFIERS: Hypertension type: unspecified Qualified Code(s): I10 - Essential (primary) hypertension (7) Hypercholesterolemia: PLAN: Plan This 49-year-old female was admitted with fever right-sided flank/upper back pain. 1. Suspected Sepsis with CT evidence of Right pyelonephritis with Leukocytosis of 19.8K present on admission with Fever of 100.2 degrees Fahrenheit and Sinus Tachycardia of 122 bpm present on admission -patient is admitted in ICU as per sepsis protocol. The patient presented with suspected sepsis with clinical indicators of fever, tachycardia, tachypnea and leukocytosis due to right-sided pyelonephritis with acute sepsis-related organ dysfunction as evidenced by drop in SBP more than 40 mmHg, responsive to IV fluid blood and urine culture pending. On IV meropenem. In afternoon about 1:45 PM her BP is 105/60, MAP 74. Okay for transfer to PCU. Transfer ordered 2. Recently diagnosed right ureteric calculus status post cystoscopy, laser lithotripsy and stent placement on 08/23 and then removal on 08/29. Patient was on oral Cipro probably resistant along with tamsulosin and Pyridium. Dr. Soto is consulted. Patient had parathyroidectomy in the past. 3. Overweight; with BMI of 29.9 this admission compoundin Weight loss recommended. 4. Essential hypertension; on valsartan and indapamide - Hold scheduled antihypertensives until infection outlined #1 has been neutralized. 5. Hyperlipidemia; on rosuvastatin - Resume statin as previous. 6. Chronic migraine: No headache this time. 7. Mild osteoarthritis: No acute issues. Tylenol as needed. 8. DVT prophylaxis - Lovenox 40 mg subcu daily plus SCDs. Sepsis Attestation Sepsis Alert: Yes Sepsis Attestation: Agree w/Sepsis Date exam was performed: 08/30/24 Time exam was performed: 08:46 Possible Source of Sepsis: Genitourinary Sepsis Organ Dysfunction Criteria Present: SBP decrease of more than 40 mmHg Fluid Resuscitation Fluid resuscitation indicated?: Yes Fluid Resuscitation ordered: 30 ml/kg fluid bolus ordered Amount of fluid ordered: 2,500 Sepsis Note Date exam was performed: 08/30/24 Time exam was performed: 08:49 Sepsis Attestation: Sepsis re-evaluation was performed Response to fluids: Fluid responsive hypotension Charges/Coding Visit Charges Inpatient E&M: 43262 [facility] Hosp L3
[2024-08-30 14:21] LABS: Pathologist Review Reviewed
[2024-08-30] MEDS: Magnesium Chloride 64 MG Delay Rel.Tablet 128 MG PO ×2 (16:20→21:01)
[2024-08-30] MEDS: proMETHazine 25 MG Tablet 12.5 MG PO (19:33)
[2024-08-30] MEDS: Acetaminophen 500 MG Tablet 1000 MG PO (19:34)
[2024-08-30] MEDS: Atorvastatin Calcium 20 MG Tablet PO (21:02)
[2024-08-31 03:00] VITALS: BP 115/68; PULSE 90; RESP 18; TEMP 36.4; O2SAT 95
[2024-08-31] MEDS: Meropenem 2 GM in 0.9% Normal Saline (100mL Bag) 100 ML IV ×3 (05:02→22:03)
[2024-08-31] MEDS: Ibuprofen 600 MG Tablet PO ×2 (05:02→11:55)
[2024-08-31] MEDS: Enoxaparin 40 MG/0.4 ML Syringe SC (05:21)
[2024-08-31] MEDS: Acetaminophen 325 MG Tablet 650 MG PO ×2 (05:21→11:55)
[2024-08-31 06:15] LABS: Absolute Lymphocyte Count 2.09 X10^3/uL (0.83-4.51); Absolute Neutrophil Count 16.2 X10^3/uL (2.0-7.7); Basophil# 0.08 X10^3/uL; Basophil% 0.4 % (0-1); Eosinophil# 0.17 X10^3/uL; Eosinophils% 0.8 % (0-5); Hematocrit 32.1 % (37-47); Hemoglobin 10.7 g/dL (12.0-15.0); Lymphocyte # 2.09 X10^3/ul (0.83-4.51); Lymphocyte % 10.3 % (19-41); Mean Corp Hgb Conc 33.3 g/dL (32-36); Mean Corpuscular Hgb 29.5 pg (27.0-32.0); Mean Corpuscular Volume 88.4 fL (81-99); Mean Platelet Vol. 9.8 fl (6.2-12.0); Monocyte# 1.52 X10^3/uL; Monocyte% 7.5 % (0-10); NRBC Flagged by Analyzer 0 % (0-5); Neutrophil # 16.22 X10^3/uL (2.7-7.7); Neutrophil % 79.9 % (47-70); POSITIVE DIFFERENTIAL YES; Platelet Count 292 K/mm3 (150-450); RBC Distribution Width CV 13.5 % (11.6-14.6); RBC Distribution Width SD 43.8 fl (35.1-43.9); Red Blood Count 3.63 M/mm3 (4.2-5.4); White Blood Count 20.3 K/mm3 (4.4-11.0)
--- NOTE | 2024-08-31 06:20 | RAD_ITS ---
STUDY: X-RAY - RIGHT FOOT CLINICAL: Female, 49 years old. Possible foot injury prior to admit. Right foot pain when standing. TECHNIQUE: 3 views of the right foot. COMPARISON: None. FINDINGS: Normal talus, calcaneus, and tarsal bones. Normal visualized subtalar, talonavicular, calcaneocuboid, tarsal and tarsometatarsal articulations. Normal metatarsi. Normal metatarsophalangeal joint of the great toe. Normal tibial and fibular sesamoid bones. Normal interphalangeal joint of the great toe. Normal phalanges of the great toe. Normal second through fifth metatarsophalangeal joints. Normal interphalangeal joints and phalanges of the lesser toes. The soft tissue structures are unremarkable. There is no demonstrated fracture. RAD/Foot 2 Views IMPRESSION: Normal x-ray examination of the right foot. Electronically Signed: Valeriano Sanders MD at 8:27 EST ,
[2024-08-31 06:55] LABS: Anion Gap 7 (5-15); BUN 8 mg/dL (7-18); BUN/Creat Ratio 15.2 RATIO (10-20); Calcium,Total 8.5 mg/dL (8.5-10.1); Chloride 111 mmol/L (98-107); Creatinine, Serum 0.53 mg/dL (0.55-1.02); EST Glomerular Filtration Rate 131 mL/min (>60); Est Glom Filt Rate - Afr Amer 158 mL/min (>60); Estimated Creatinine Clearance 133.03 ml/min; Glucose 101 mg/dL (74-106); Magnesium 2.2 mg/dL (1.6-2.6); Phosphorus 2.1 mg/dL (2.5-4.9); Potassium 3.6 mmol/L (3.5-5.1); Sodium Level 141 mmol/L (136-145)
[2024-08-31 07:22] LABS: Differential Indicated SCAN CRITERIA MET
--- NOTE | 2024-08-31 07:32 | CON.PCM.UR_ITS ---
HPI Consult Data Date of Consult: 08/31/24 HPI Narrative Reason for Consultation: Follow-up for sepsis HPI Narrative: JOSE R MATUTE, is a 49 F who presents to the hospital with high fevers she had surgery in her kidney stones a week ago she presented the office not feeling well we did take out the stent but then she presented to the emergency room with high fevers white count of 20,000 urine cultures are pending but suspect she has pyelonephritis no intervention necessary from my standpoint but continue with antibiotics white count still high but she is clinically stable. I will follow her for now but I do not think I need any intervention from urology just treat her infection and she is getting better. [facility] Medical History Arthritis Kidney stones Migraine headache History of echocardiogram History of stress test Hypercholesterolemia Hypertension Home Medications ?Medication ?Instructions ?Recorded ?Last Taken ?Type cholecalciferol (vitamin D3) 50 50 mcg PO DAILY 08/15/24 08/22/24 History mcg (2,000 unit) capsule (Vitamin D3) indapamide 1.25 mg tablet 1.25 mg PO DAILY HTN 08/15/24 08/22/24 History omega 2-lqp-twi-fish oil 1,200 mg 2 cap PO DAILY 08/15/24 08/22/24 History (144 mg-216 mg) capsule (Fish Oil) rosuvastatin 10 mg tablet 10 mg PO DAILY 08/15/24 08/22/24 History valsartan 160 mg tablet 160 mg PO DAILY 08/15/24 08/23/24 History acetaminophen 500 mg capsule 1,000 mg PO Q6H PRN pain 08/23/24 08/20/24 History docusate sodium 100 mg capsule 100 mg PO BID constipation #20 caps 08/23/24 Unknown Rx (Colace) phenazopyridine 100 mg tablet 100 mg PO TID #15 tabs 08/23/24 Unknown Rx (Pyridium) tamsulosin 0.4 mg capsule (Flomax) 0.4 mg PO DAILY #10 caps 08/23/24 Unknown Rx ciprofloxacin HCl 500 mg tablet 500 mg PO BID 08/29/24 Unknown History Allergy/AdvReac Type Severity Reaction Status Date / Time Sulfa (Sulfonamide Allergy Rash Verified 08/29/24 20:36 Antibiotics) amoxicillin trihydrate (From AdvReac Vomiting Verified 08/29/24 20:36 Augmentin) potassium clavulanate (From AdvReac Vomiting Verified 08/29/24 20:36 Augmentin) Surgical History Hx of parathyroidectomy Hx of cystoscopy H/O section Social History Smoking Status: Never smoker Lab / Micro Data 08/31/24 05:40 08/31/24 05:40 Labs: Laboratory Results - last 24 hr 08/30/24 05:05: Diff Path Review Reviewed, Hemoglobin A1c 5.8 H 08/31/24 05:40: WBC 20.3 H, RBC 3.63 L, Hgb 10.7 L, Hct 32.1 L, MCV 88.4, MCH 29.5, MCHC 33.3, RDW Std Deviation 43.8, RDW Coeff of Dante 13.5, Plt Count 292, MPV 9.8, Immature Gran % (Auto) 1.100 H, Neut % (Auto) 79.9 H, Lymph % (Auto) 10.3 L, [place] % (Auto) 7.5, Eos % (Auto) 0.8, Baso % (Auto) 0.4, Absolute Neuts (auto) 16.2 H, Absolute Lymphs (auto) 2.09, Nucleated RBC % 0, Sodium 141, Potassium 3.6, Chloride 111 H, Carbon Dioxide 23.0, Anion Gap 7, BUN 8, C reatinine 0.53 L, Estim Creat Clear Calc 133.03, Est GFR (MDRD) Af Amer 158, Est GFR (MDRD) Non-Af 131, BUN/Creatinine Ratio 15.2, Glucose 101, Calcium 8.5, P hosphorus 2.1 L, Magnesium 2.2
[2024-08-31 07:48] VITALS: O2SAT 94
[2024-08-31 09:21] VITALS: BP 124/69; PULSE 86; RESP 18; TEMP 36.7; O2SAT 99
[2024-08-31] MEDS: Pantoprazole Sodium 40 MG Tablet PO (09:24)
[2024-08-31] MEDS: Lactobacillis Acidophilus 1 CAP PO ×4 (09:24→22:04)
[2024-08-31] MEDS: Docusate Sodium 100 MG Capsule PO (09:24)
[2024-08-31] MEDS: Magnesium Chloride 64 MG Delay Rel.Tablet 128 MG PO ×2 (09:24→22:04)
[2024-08-31] MEDS: Tamsulosin HCl 0.4 MG Capsule PO (09:24)
[2024-08-31] MEDS: Phenazopyridine 95 MG Tablet PO ×3 (09:24→17:32)
[2024-08-31] MEDS: Cholecalciferol (VIT D3) 25 MCG TABLET (1,000 UNITS) 50 MCG PO (09:24)
[2024-08-31] MEDS: Ascorbic Acid 500 MG Tablet 1000 MG PO ×2 (09:25→17:32)
[2024-08-31] MEDS: Senna/Docusate Sodium 1 Tablet 2 TABLET PO ×2 (11:51→22:04)
[2024-08-31 15:15] VITALS: BP 116/77; PULSE 79; RESP 18; TEMP 36.9; O2SAT 95
--- NOTE | 2024-08-31 17:18 | PCM.PN.HOSP ---
Reason for Visit Reason for Visit: Diagnoses Sepsis, unspecified organism (08/30/24) Overweight (08/30/24) Pure hypercholesterolemia, unspecified (08/30/24) Essential (primary) hypertension (08/30/24) Tubulo-interstitial nephritis, not specified as acute or chronic (08/30/24) Calculus of kidney (08/30/24) Other specified postprocedural states (08/30/24) Objective Data Objective Data Vital Signs: Vital Signs Temp Pulse Resp BP Pulse Ox O2 Del Method 98.4 F 79 18 116/77 95 Room Air 08/31/24 15:15 08/31/24 15:15 08/31/24 15:15 08/31/24 15:15 08/31/24 15:15 08/31/24 15:15 Oxygen Delivery Method Room Air Weight: 180 lb 12.465 oz Body Mass Index (BMI) 30.0 Intake & Output: Intake and Output for Last 24 Hours 08/29/24 08/30/24 08/31/24 23:59 23:59 23:59 Intake Total 5519.5 / 5519.5 280 / 280 Balance 5519.5 / 5519.5 280 / 280 Lab / Micro Data 08/31/24 05:40 08/31/24 05:40 Labs: Laboratory Results - last 24 hr 08/31/24 05:40: WBC 20.3 H, RBC 3.63 L, Hgb 10.7 L, Hct 32.1 L, MCV 88.4, MCH 29.5, MCHC 33.3, RDW Std Deviation 43.8, RDW Coeff of Dante 13.5, Plt Count 292, MPV 9.8, Immature Gran % (Auto) 1.100 H, Neut % (Auto) 79.9 H, Lymph % (Auto) 10.3 L, [place] % (Auto) 7.5, Eos % (Auto) 0.8, Baso % (Auto) 0.4, Absolute Neuts (auto) 16.2 H, Absolute Lymphs (auto) 2.09, Nucleated RBC % 0, Diff Path Review February, Sodium 141, Potassium 3.6, Chloride 111 H, Carbon Dioxide 23.0, Anion Gap 7, BUN 8, Creatinine 0.53 L, Estim Creat Clear Calc 133.03, Est GFR (MDRD) Af Amer 158, Est GFR (MDRD) Non-Af 131, BUN/Creatinine Ratio 15.2, Glucose 101, Calcium 8.5, Phosphorus 2.1 L, Magnesium 2.2 Micro: Microbiology 08/30/24 00:07 Mucosa - Nose SARS-CoV-2, Influenza & RSV (PCR) - Final Radiography Diagnostic Testing: Radiology Impression Foot X-Ray 08/31/24 06:20 IMPRESSION: Normal x-ray examination of the right foot. Electronically Signed: Valeriano Sanders MD at 8:27 EST , Physical Exam Narrative Seen and examined. Right flank pain has improved and resolved. Patient has chronic migraine headache. Yesterday she had moderate headache 4-6/10 intensity today in the morning 2-3/10 intensity. She states this is not her migraine headache but more light, boring headache Physical exam General: Alert, Oriented x3, Cooperative HEENT: Atraumatic, PERRLA, EOMI, Normocephalic Oral: No Gingival or Mucosal Lesions/ Ulcerations Neck: Supple, No JVD, Negative Carotid Bruits Chest wall/Lungs: Air entry diminished in bilateral lung bases. No crepitation/rhonchi Cardiovascular: Regular rate, Regular Rhythm, Normal S1, Normal S2, No M/G/R Abdomen: Bowel Sounds Present, Soft, Non Tender, Non-Distended :. Denies dysuria. No renal angle tenderness. No suprapubic tenderness. Extremities: No edema, Capillary Refill Less than 3 Seconds Skin: No rashes, No breakdown Musculoskeletal: No Tenderness to Palpation of Joints or Extremities Neurological: Cranial nerves II-XII grossly intact, DTR 2+/4. No acute focal neurological deficit. Psych/Mental Status: Normal Affect, Appropriate. Assessment & Plan Assessment/Plan (1) Sepsis: QUALIFIERS: Sepsis type: sepsis due to unspecified organism Sepsis acute organ dysfunction status: without acute organ dysfunction Qualified Code(s): A41.9 - Sepsis, unspecified organism (2) Pyelonephritis of right kidney: (3) Kidney stones: (4) Hx of cystoscopy: (5) Overweight (BMI 25.0-29.9): (6) Hypertension: QUALIFIERS: Hypertension type: unspecified Qualified Code(s): I10 - Essential (primary) hypertension (7) Hypercholesterolemia: PLAN: Plan This 49-year-old female was admitted with right-sided flank pain, low-grade fever and pyelonephritis. Her BP was LOW and drop in his SBP was more than 40 mmHg therefore suggestive of sepsis. Denies dysuria but had laser lithotripsy of right ureteral stone and stent placement on 08/23 and was sent home on Cipro. 1. Suspected Sepsis with CT evidence of Right pyelonephritis with Leukocytosis of 19.8K present on admission with Fever of 100.2 degrees Fahrenheit and Sinus Tachycardia of 122 bpm present on admission -patient is admitted in ICU as per sepsis protocol. The patient presented with suspected sepsis with clinical indicators of fever, tachycardia, tachypnea and leukocytosis due to right-sided pyelonephritis with acute sepsis-related organ dysfunction as evidenced by drop in SBP more than 40 mmHg, responsive to IV fluid blood and urine culture pending. On IV meropenem. In afternoon about 1:45 PM her BP is 105/60, MAP 74. Okay for transfer to PCU. Transfer ordered 08/31: No fever but patient has high leukocytosis 20.3 thousand. Urine and blood cultures are pending. Patient also had mild morning headache but not migraine headache. On Motrin. 2. Recently diagnosed right ureteric calculus status post cystoscopy, laser lithotripsy and stent placement on 08/23 and then removal on 08/29. Patient was on oral Cipro probably resistant along with tamsulosin and Pyridium. Dr. Soto is consulted. Patient had parathyroidectomy in the past. 08/31 patient was evaluated by Dr. Soto. [place], 5/325 mg 1 tablet for moderate pain and 2 tablets for severe pain respectively. Neurologic intervention planned. 3. Overweight; with BMI of 29.9 this admission compoundin Weight loss recommended. 4. Essential hypertension; on valsartan and indapamide - Hold scheduled antihypertensives until infection outlined #1 has been neutralized. 5. Hyperlipidemia; on rosuvastatin - Resume statin as previous. 6. Chronic migraine: 08/31: Patient had headache yesterday afternoon. Mild headache in the morning but not like migraine headache. On Motrin and Tylenol 7. Mild osteoarthritis: No acute issues. Tylenol as needed. 8. DVT prophylaxis - Lovenox 40 mg subcu daily plus SCDs. Charges/Coding Visit Charges Inpatient E&M: 95801 Subs Hosp L2
[2024-08-31 21:55] VITALS: BP 147/82; PULSE 89; RESP 16; TEMP 36.8; O2SAT 96
[2024-08-31] MEDS: Atorvastatin Calcium 20 MG Tablet PO (22:04)
[2024-08-31] MEDS: 0.9% Saline Lock 10 ML Syringe IV (22:04)
[2024-09-01] MEDS: Ibuprofen 400 MG Tablet PO (02:07)
[2024-09-01 03:00] VITALS: BP 148/78; PULSE 90; RESP 16; TEMP 36.7; O2SAT 95
[2024-09-01 03:12] VITALS: BP 148/78; PULSE 90; RESP 16; TEMP 37.2; O2SAT 95
[2024-09-01] MEDS: Acetaminophen 325 MG Tablet 650 MG PO (03:18)
[2024-09-01 04:06] VITALS: BMI 32.7
[2024-09-01] MEDS: Meropenem 2 GM in 0.9% Normal Saline (100mL Bag) 100 ML IV (06:09)
[2024-09-01] MEDS: Enoxaparin 40 MG/0.4 ML Syringe SC (06:10)
[2024-09-01 08:25] LABS: Absolute Lymphocyte Count 2.72 X10^3/uL (0.83-4.51); Basophil# 0.06 X10^3/uL; Basophil% 0.5 % (0-1); Eosinophil# 0.26 X10^3/uL; Eosinophils% 2.4 % (0-5); Hemoglobin 10.2 g/dL (12.0-15.0); Lymphocyte # 2.72 X10^3/ul (0.83-4.51); Lymphocyte % 24.6 % (19-41); Mean Corpuscular Hgb 29.4 pg (27.0-32.0); Mean Corpuscular Volume 86.5 fL (81-99); Mean Platelet Vol. 10.5 fl (6.2-12.0); Monocyte% 8.1 % (0-10); NRBC Flagged by Analyzer 0 % (0-5); Neutrophil # 7.02 X10^3/uL (2.7-7.7); Neutrophil % 63.6 % (47-70); Platelet Count 270 K/mm3 (150-450); RBC Distribution Width CV 13.2 % (11.6-14.6); RBC Distribution Width SD 41.8 fl (35.1-43.9); Red Blood Count 3.47 M/mm3 (4.2-5.4); White Blood Count 11.1 K/mm3 (4.4-11.0)
[2024-09-01 08:41] LABS: Pathologist Review Reviewed
[2024-09-01 08:58] LABS: Anion Gap 5 (5-15); BUN 6 mg/dL (7-18); BUN/Creat Ratio 12.6 RATIO (10-20); Calcium,Total 8.2 mg/dL (8.5-10.1); Chloride 110 mmol/L (98-107); Creatinine, Serum 0.48 mg/dL (0.55-1.02); EST Glomerular Filtration Rate 146 mL/min (>60); Est Glom Filt Rate - Afr Amer 177 mL/min (>60); Estimated Creatinine Clearance 154.77 ml/min; Glucose 94 mg/dL (74-106); Potassium 3.6 mmol/L (3.5-5.1); Sodium Level 139 mmol/L (136-145)
[2024-09-01 09:48] VITALS: BP 142/91; PULSE 81; RESP 16; TEMP 36.7; O2SAT 92
[2024-09-01] MEDS: Ascorbic Acid 500 MG Tablet 1000 MG PO (09:53)
[2024-09-01] MEDS: Cholecalciferol (VIT D3) 25 MCG TABLET (1,000 UNITS) 50 MCG PO (09:54)
[2024-09-01] MEDS: Lactobacillis Acidophilus 1 CAP PO (09:54)
[2024-09-01] MEDS: Pantoprazole Sodium 40 MG Tablet PO (09:54)
[2024-09-01] MEDS: Tamsulosin HCl 0.4 MG Capsule PO (09:54)
[2024-09-01] MEDS: Magnesium Chloride 64 MG Delay Rel.Tablet 128 MG PO (09:54)
[2024-09-01] MEDS: Phenazopyridine 95 MG Tablet PO ×2 (09:57→11:50)
--- NOTE | 2024-09-01 09:59 | PCM.DC ---
Discharge Instructions Diet Discharge Diet: No restrictions Activity Discharge Activity: Return to Normal Activity Weight Bearing Status: Weight bearing as tolerated Dressing / Incision Call your doctor if you observe: Fever of 101 or Higher, Coldness, Increased Pain, Numbness or Tingling, Change in Color, Inability to urinate, Inability to have a bowel movement, Shortness of breath, Dizziness, Fainting spells, Swelling in the ankles, Chest pain, Prolonged hiccupping, Increased palpitations (irregular heartbeat) and Calf discomfort Follow Up Care When: IN 2 WEEKS Test Results: Test results from this visit will be discussed in further detail at your follow-up appointment, if applicable. Discharge Plan Admission Admit Date/Time: 08/30/24 00:33 Primary Reason for Your Visit: Sepsis due to right-sided pyelonephritis Attending Provider: [place] Luque Primary Care Provider: Shon Ronquillo Consulting Providers: Daren Cortes; Bruce Soto Discharge Orders/Prescriptions Prescriptions: New cefdinir 300 mg capsule 300 mg PO BID 5 Days Qty: 10 0RF L.acidoph,saliva-B.bif-S.therm 175 mg Capsule 1 cap PO BID 7 Days Qty: 0 0RF Rx Instructions: Probiotic kjjw-jwt-cykchyq for 1 week Continued valsartan 160 mg tablet 160 mg PO DAILY rosuvastatin 10 mg tablet 10 mg PO DAILY cholecalciferol (vitamin D3) [Vitamin D3] 50 mcg (2,000 unit) capsule 50 mcg PO DAILY indapamide 1.25 mg tablet 1.25 mg PO DAILY omega 9-hxl-pgq-fish oil [Fish Oil] 1,200 (144-216) mg capsule 2 cap PO DAILY acetaminophen 500 mg capsule 1,000 mg PO Q6H PRN (Reason: pain) tamsulosin [Flomax] 0.4 mg capsule 0.4 mg PO DAILY Qty: 10 0RF docusate sodium [Colace] 100 mg capsule 100 mg PO BID Qty: 20 0RF phenazopyridine [Pyridium] 100 mg tablet 100 mg PO TID Qty: 15 0RF Discontinued ciprofloxacin HCl 500 mg tablet 500 mg PO BID Referrals / Follow Up: Shon Ronquillo DO [Primary Care Provider] - Bruce Soto MD [Med Staff - Active Staff] - Within 1 Week Disposition Disposition (needs filled in before D/C Order can be placed): Home, Self Care
--- NOTE | 2024-09-01 10:29 | DS.PCM_ITS ---
Providers Date of Admission: 08/30/24 Date of Discharge: 09/01/24 Primary Care Physician: Dr. Shon Ronquillo, Consultations 08/30/24 01:17 Consult: Urology Routine Consulting Provider: Bruce Soto Reason for Consult: Sepsis with Right Pyelonephritis. EMERGENT Consult: No MD Notified: Yes Date Notified: 08/30/24 Time Notified: 00:37 Method of Notification: ED Physician Initiated Reason For Visit: SEPSIS WITH RIGHT PYELONEPHRITIS Diagnosis Discharge Diagnosis (1) Sepsis: Status: Acute Code(s): A41.9 - Sepsis, unspecified organism Qualifiers: Sepsis acute organ dysfunction status: without acute organ dysfunction Sepsis type: sepsis due to unspecified organism Qualified Code(s): A41.9 - Sepsis, unspecified organism (2) Pyelonephritis of right kidney: Status: Acute Code(s): N12 - Tubulo-interstitial nephritis, not specified as acute or chronic (3) Kidney stones: Status: Acute Code(s): N20.0 - Calculus of kidney (4) Hx of cystoscopy: Status: Acute Code(s): Z98.890 - Other specified postprocedural states (5) Overweight (BMI 25.0-29.9): Status: Acute Code(s): E66.3 - Overweight (6) Hypertension: Status: Chronic Code(s): I10 - Essential (primary) hypertension Qualifiers: Hypertension type: unspecified Qualified Code(s): I10 - Essential (primary) hypertension (7) Hypercholesterolemia: Status: Acute Code(s): E78.00 - Pure hypercholesterolemia, unspecified Plan This 49-year-old female was admitted with right-sided flank pain, low-grade fever and pyelonephritis. Her BP was LOW and drop in his SBP was more than 40 mmHg therefore suggestive of sepsis. Denies dysuria but had laser lithotripsy of right ureteral stone and stent placement on 08/23 and was sent home on Cipro. 1. Sepsis due to or associated with recent stent placement/ removal post cystoscopy and laser lithotripsy: Patient was admitted in ICU with sepsis. CT evidence of Right pyelonephritis with Leukocytosis of 19.8K present on admission with Fever of 100.2 degrees Fahrenheit and Sinus Tachycardia of 122 bpm present on admission -patient is admitted in ICU as per sepsis protocol. The patient presented with suspected sepsis with clinical indicators of fever, tachycardia, tachypnea and leukocytosis due to right-sided pyelonephritis with acute sepsis- related organ dysfunction as evidenced by drop in SBP more than 40 mmHg, responsive to IV fluid blood and urine culture pending. On IV meropenem. In afternoon about 1:45 PM her BP is 105/60, MAP 74. Okay for transfer to PCU. Transfer ordered 08/31: No fever but patient has high leukocytosis 20.3 thousand. Urine and blood cultures are pending. Patient also had mild morning headache but not migraine headache. On Motrin. 09/01: Patient had ureteric stone required lithotripsy and stent placement and then stent removal with consequent sepsis. Sepsis is already resolved 2 days ago. Patient had 3 days of IV meropenem and discharged on 5 more days of cefdinir follow-up with urologist Dr. Soto in 1 week. 2. Recently diagnosed right ureteric calculus status post cystoscopy, laser lithotripsy and stent placement on 08/23 and then removal on 08/29. Patient was on oral Cipro probably resistant along with tamsulosin and Pyridium. Dr. Stoo is consulted. Patient had parathyroidectomy in the past. 08/31 patient was evaluated by Dr. Soto. [place], 5/325 mg 1 tablet for moderate pain and 2 tablets for severe pain respectively. Neurologic intervention planned. 3. Overweight; with BMI of 29.9 this admission compoundin Weight loss recommended. 4. Essential hypertension; on valsartan and indapamide - Hold scheduled antihypertensives until infection outlined #1 has been neutralized. 5. Hyperlipidemia; on rosuvastatin - Resume statin as previous. 6. Chronic migraine: 08/31: Patient had headache yesterday afternoon. Mild headache in the morning but not like migraine headache. On Motrin and Tylenol 7. Mild osteoarthritis: No acute issues. Tylenol as needed. 8. DVT prophylaxis - Lovenox 40 mg subcu daily plus SCDs. Medications at Discharge Home Medications cholecalciferol (vitamin D3) 50 mcg (2,000 unit) capsule (Vitamin D3) 50 mcg PO DAILY 08/15/24 indapamide 1.25 mg tablet 1.25 mg PO DAILY HTN 08/15/24 omega 5-ogf-sjy-fish oil 1,200 mg (144 mg-216 mg) capsule (Fish Oil) 2 cap PO DAILY 08/15/24 rosuvastatin 10 mg tablet 10 mg PO DAILY 08/15/24 valsartan 160 mg tablet 160 mg PO DAILY 08/15/24 acetaminophen 500 mg capsule 1,000 mg PO Q6H PRN pain 08/23/24 docusate sodium 100 mg capsule (Colace) 100 mg PO BID constipation #20 caps 08/23/24 phenazopyridine 100 mg tablet (Pyridium) 100 mg PO TID #15 tabs 08/23/24 tamsulosin 0.4 mg capsule (Flomax) 0.4 mg PO DAILY #10 caps 08/23/24 L.acidophil,salivari-Bifido bifidum-Strep thermoph 175 mg capsule 1 cap PO BID 7 days #0 caps 09/01/24 cefdinir 300 mg capsule 300 mg PO BID 5 days #10 caps 09/01/24 Physical Exam Narrative Seen and examined. Right flank pain has improved and resolved. Patient has chronic migraine headache. Today, she complained of mild headache and neck pain, 2/10 intensity today in the morning possible positional/postural headache. She states this is not her migraine headache but more light, boring headache Physical exam General: Alert, Oriented x3, Cooperative HEENT: Atraumatic, PERRLA, EOMI, Normocephalic Oral: No Gingival or Mucosal Lesions/ Ulcerations Neck: Supple, No JVD, Negative Carotid Bruits Chest wall/Lungs: Air entry diminished in bilateral lung bases. No crepitation/rhonchi Cardiovascular: Regular rate, Regular Rhythm, Normal S1, Normal S2, No M/G/R Abdomen: Bowel Sounds Present, Soft, Non Tender, Non-Distended :. Denies dysuria. No renal angle tenderness. No suprapubic tenderness. Extremities: No edema, Capillary Refill Less than 3 Seconds Skin: No rashes, No breakdown Musculoskeletal: No Tenderness to Palpation of Joints or Extremities Neurological: Cranial nerves II-XII grossly intact, DTR 2+/4. No acute focal neurological deficit. Psych/Mental Status: Normal Affect, Appropriate. Weight / BMI Weight Weight: 196 lb 13.965 oz Body Mass Index (BMI) 32.7 ABG / Lab / Microbiology Data 09/01/24 07:22 09/01/24 07:22 Laboratory: Laboratory Results - last 24 hr 08/31/24 05:40: Diff Path Review Reviewed 09/01/24 07:22: WBC 11.1 H, RBC 3.47 L, Hgb 10.2 L, Hct 30.0 L, MCV 86.5, MCH 29.4, MCHC 34.0, RDW Std Deviation 41.8, RDW Coeff of Dante 13.2, Plt Count 270, MPV 10.5, Immature Gran % (Auto) 0.800, Neut % (Auto) 63.6, Lymph % (Auto) 24.6, [place] % (Auto) 8.1, Eos % (Auto) 2.4, Baso % (Auto) 0.5, Absolute Neuts (auto) 7.0, Absolute Lymphs (auto) 2.72, Nucleated RBC % 0, Sodium 139, Potassium 3.6, Chloride 110 H, Carbon Dioxide 24.0, Anion Gap 5, BUN 6 L, Creatinine 0.48 L, Estim Creat Clear Calc 154.77, Est GFR (MDRD) Af Amer 177, Est GFR (MDRD) Non-Af 146, BUN/Creatinine Ratio 12.6, Glucose 94, Calcium 8.2 L Microbiology: Microbiology 08/30/24 00:46 Blood Culture (Wb) - Anticubital Left Blood Culture - Preliminary No growth in 48 hours. 08/29/24 21:25 Blood Culture (Wb) - Other Blood Culture - Preliminary No growth in 48 hours. 08/30/24 00:07 Mucosa - Nose SARS-CoV-2, Influenza & RSV (PCR) - Final D/C Instructions DC O2, CPAP, BIPAP Needs Additional Home O2 Discharge instructions: No DC home with Oxygen: No Meaningful Use Info Meaningful Use Meaningful Use Diagnoses (Choose all that apply): None applicable Ischemic Stroke Statin Dosing Therapy Reference: STATIN DOSE THERAPY REFERENCE: * Patients > 75 years receive moderate or high dose statin therapy. * Patients 75 years or YOUNGER should receive HIGH intensity statin dose unless contraindicated. You will be required to document reason for non-treatment if statin daily dose does not meet guidelines. HIGH DOSE STATIN THERAPY DAILY Atorvastatin > than or = to 40 mg Rosuvastatin > than or = to 20 mg Amlodipine + Atorvastatin > than or = to 2.5/40 mg Ezetimibe + Simvastatin 10/80 mg Simvastatin 80mg Discharge Plan Admission Admit Date/Time: 08/30/24 00:33 Primary Reason for Your Visit: Sepsis due to right-sided pyelonephritis Attending Provider: [place] Primary Care Provider: Shon Ronquillo Consulting Providers: Daren Cortes; Bruce Soto Discharge Orders/Prescriptions Prescriptions: New cefdinir 300 mg capsule 300 mg PO BID 5 Days Qty: 10 0RF L.acidoph,saliva-B.bif-S.therm 175 mg Capsule 1 cap PO BID 7 Days Qty: 0 0RF Rx Instructions: Probiotic njyp-hxa-amnuywq for 1 week Continued valsartan 160 mg tablet 160 mg PO DAILY rosuvastatin 10 mg tablet 10 mg PO DAILY cholecalciferol (vitamin D3) [Vitamin D3] 50 mcg (2,000 unit) capsule 50 mcg PO DAILY indapamide 1.25 mg tablet 1.25 mg PO DAILY omega 3-lak-leh-fish oil [Fish Oil] 1,200 (144-216) mg capsule 2 cap PO DAILY acetaminophen 500 mg capsule 1,000 mg PO Q6H PRN (Reason: pain) tamsulosin [Flomax] 0.4 mg capsule 0.4 mg PO DAILY Qty: 10 0RF docusate sodium [Colace] 100 mg capsule 100 mg PO BID Qty: 20 0RF phenazopyridine [Pyridium] 100 mg tablet 100 mg PO TID Qty: 15 0RF Discontinued ciprofloxacin HCl 500 mg tablet 500 mg PO BID Referrals / Follow Up: Shon Ronquillo DO [Primary Care Provider] - Bruce Soto MD [Med Staff - Active Staff] - Within 1 Week Disposition Disposition (needs filled in before D/C Order can be placed): Home, Self Care Charges/Coding Visit Charges Inpatient E&M: 41481 Disch Hosp >30min
[2024-09-01 12:45] VITALS: BP 153/91; PULSE 79; RESP 16; TEMP 36.7; O2SAT 100
--- NOTE | 2024-09-01 13:08 | CASEMGMT ---
Patient has order for discharge. RN CM in to discuss needs at discharge. Patient is independent in room. Patient denies needs or help at discharge. Patient had no further questions or concerns.
--- NOTE | 2024-09-01 14:11 | PHA.DC.MC.R ---
Pharmacy [facility] has performed discharge medication reconciliation and counseling for this patient. The patient's discharge medication list was reviewed for discrepancies and discrepancies were resolved. The patient was counseled on the following discharge medications and changes in medications for homegoing were reviewed. The Reason for Use, instructions for use, and potential side effects were reviewed for all new medications. The patient's questions regarding all of their medications were answered. 1. Cefdinir 300mg PO BID x 5 days 2. Pro-biotic twice daily for 7 days The patient was able to verbally demonstrate an understanding of their discharge medications. The patient was counselled on new medications by pharmacy operations manager Jaskaran. Medications at Discharge Home Medications cholecalciferol (vitamin D3) 50 mcg (2,000 unit) capsule (Vitamin D3) 50 mcg PO DAILY vitamin 08/15/24 indapamide 1.25 mg tablet 1.25 mg PO DAILY HTN 08/15/24 omega 3-wbe-nfm-fish oil 1,200 mg (144 mg-216 mg) capsule (Fish Oil) 2 cap PO DAILY supplement 08/15/24 rosuvastatin 10 mg tablet 10 mg PO DAILY cholesterol 08/15/24 valsartan 160 mg tablet 160 mg PO DAILY blood pressure 08/15/24 acetaminophen 500 mg capsule 1,000 mg PO Q6H PRN pain 08/23/24 docusate sodium 100 mg capsule (Colace) 100 mg PO BID constipation #20 caps 08/23/24 phenazopyridine 100 mg tablet (Pyridium) 100 mg PO TID urine #15 tabs 08/23/24 tamsulosin 0.4 mg capsule (Flomax) 0.4 mg PO DAILY urine #10 caps 08/23/24 L.acidophil,salivari-Bifido bifidum-Strep thermoph 175 mg capsule 1 cap PO BID 7 days #0 caps 09/01/24 cefdinir 300 mg capsule 300 mg PO BID 5 days #10 caps 09/01/24
== END 2024-09-01 14:29 | disposition home or self-care (01) | DRG 698 ==
LOC: ED 08-30 00:47 → ICU 08-30 00:53 → PCU 08-30 17:20
PROVIDERS: Admitting Provider Internal Medicine; Emergency Provider Emergency Medicine; PCP Student in an Organized Health Care Education/Training Program; Visit Provider Internal Medicine
DX: T83.593A Infection and inflammatory reaction due to other urinary stents, initial encounter (principal); A41.9 Sepsis, unspecified organism; N12 Tubulo-interstitial nephritis, not specified as acute or chronic; N20.2 Calculus of kidney with calculus of ureter; I10 Essential (primary) hypertension; M19.90 Unspecified osteoarthritis, unspecified site; G43.709 Chronic migraine without aura, not intractable, without status migrainosus; E78.00 Pure hypercholesterolemia, unspecified; E66.3 Overweight; Z68.29 Body mass index [BMI] 29.0-29.9, adult; Y83.8 Other surgical procedures as the cause of abnormal reaction of the patient, or of later complication, without mention of misadventure at the time of the procedure; Z87.442 Personal history of urinary calculi
CPT/HCPCS: 36415; 71046; 73620; 74177; 80048; 80053; 81001; 83036; 83605; 83735; 84100; 84145; 85025; 85610; 85730; 87040; 87086; 87631; 94762; 99285; J2185; J7030; J7120; Q9967; A4216; J2405

== ENCOUNTER → 2024-08-29 | Outpatient (CLI) | payer OTHER, SELFPAY | END | disposition home or self-care (01) | LOC: LABSPEC 15:43 | PROVIDERS: PCP Student in an Organized Health Care Education/Training Program; Referring Provider Urology; Visit Provider Urology | DX: R30.0 Dysuria (principal) ==

== ENCOUNTER → 2024-10-16 | Outpatient (CLI) | payer OTHER, SELFPAY ==
[2024-10-16 12:26] LABS: ALB/GLOB Ratio 0.9 RATIO (0.9-2.4); AST(SGOT) 17 U/L (15-37); Alanine Aminotransfer ALT/SGPT 27 U/L (13-56); Albumin, Serum 3.8 g/dL (3.2-5.0); Alkaline Phosphatase 67 U/L (45-117); Anion Gap 5 (5-15); BUN 11 mg/dL (7-18); BUN/Creat Ratio 15.8 RATIO (10-20); Calcium,Total 9.2 mg/dL (8.5-10.1); Chloride 107 mmol/L (98-107); EST Glomerular Filtration Rate 94 mL/min (>60); Est Glom Filt Rate - Afr Amer 114 mL/min (>60); Globulin 4.1 g/dL (2.2-4.2); Glucose 106 mg/dL (74-106); Magnesium 2.2 mg/dL (1.6-2.6); Potassium 4.2 mmol/L (3.5-5.1); Protein, Total 7.9 g/dL (6.4-8.2); Sodium Level 138 mmol/L (136-145)
== END | disposition home or self-care (01) ==
LOC: LAB 11:11
PROVIDERS: PCP Student in an Organized Health Care Education/Training Program; Referring Provider Internal Medicine Endocrinology, Diabetes & Metabolism; Visit Provider Internal Medicine Endocrinology, Diabetes & Metabolism
DX: E04.0 Nontoxic diffuse goiter (principal); E83.42 Hypomagnesemia
CPT/HCPCS: 36415; 80053; 83735; 84443

== ENCOUNTER → 2025-02-12 | Outpatient (CLI) | payer OTHER, SELFPAY ==
--- NOTE | 2025-02-12 07:45 | MRI_ITS ---
PROCEDURE: LOWER EXT/NO JT/W/O 02/12/2025 REASON FOR EXAM: RT FOOT FX TECHNIQUE: MRI of the right lower Extremity. Multiplanar and multisequence images were obtained without IV contrast administration. COMPARISON: None FINDINGS: Bone marrow signal is within normal limits without evidence of fracture, contusion or marrow replacement. Alignment is intact. Mild 1st MTP joint osteoarthritis. Otherwise, no significant degenerative changes. No significant joint effusion. Visualized tendons and ligaments are intact. Small ganglion along the dorsal aspect of the talonavicular joint measuring 10 x 10 x 5 mm. Possible additional ganglion along the dorsal aspect of the 3rd and 4th metatarsal bases measuring 6 x 4 x 4 mm. Visualized musculature and subcutaneous tissues are otherwise within normal limits. MRI/Lower Ext/No Jt/w/o IMPRESSION: 1. Mild 1st MTP joint osteoarthritis. 2. Small ganglia as detailed above. Recommend further assessment of the gangli on between the 3rd and 4th metatarsal bases to ensure no pathologic enhancement and exclude a solid lesion. 3. No fracture or marrow edema. Reading Location: [id number]
== END | disposition home or self-care (01) ==
LOC: MRI 07:50
PROVIDERS: PCP Student in an Organized Health Care Education/Training Program; Referring Provider Podiatrist; Visit Provider Podiatrist
DX: M84.374A Stress fracture, right foot, initial encounter for fracture (principal); M19.071 Primary osteoarthritis, right ankle and foot; M79.671 Pain in right foot
CPT/HCPCS: 73718

== ENCOUNTER → 2025-06-30 | Outpatient (CLI) | payer OTHER, SELFPAY ==
--- OUTSIDE RECORDS SUMMARY | 2025-06-30 07:31 | XMS RPT_ITS | CCD ---
Author Organization [facility] Care Team Providers Care Computer Graphics Illustrator Name Role Phone Shon Ronquillo DO Primary Care Provider Shon Ronquillo DO Primary Care Provider Isra WIRE BASKET MAKER.Toña DE LA CRUZ Unavailable Pepe WIRE BASKET MAKER.Ludivina DE LA CRUZ Unavailable Dr. Shon Ronquillo DO Primary Care Provider [phone] Gómez DPM, Dr. Quintero Attending Provider Gómez DPM, Dr. Quintero Referring Provider Shon Ronquillo Primary Care Unavailable Rajendra Hernandez Referring Unavailable Rajendra Hernandez Attending Unavailable Ronquillo, Shon Primary Care Unavailable Daren Cortes Consulting Unavailable [place] Attending Unavailable Daren Cortes Admitting Unavailable Bruce Soto Consulting Unavailable RonquilloShon Primary Care Unavailable Bruce Soto Referring Unavailable Bruce Soto Attending Unavailable Ronquillo, Shon Primary Care Unavailable Leon Magaña Referring Unavailable Leon Magaña Attending Unavailable Ronquillo, Shon Primary Care Unavailable AMERICA PATEL Referring Unavailable AMERICA PATEL Attending Unavailable Ronquillo, Shon Primary Care Unavailable Rajendra Hernandez Referring Unavailable Rajendra Hernandez Attending Unavailable Bruce Soto Consulting Unavailable Daren Cortes Attending Unavailable Daren Cortes Admitting Unavailable Ronquillo, Shon Primary Care Unavailable Daren Cortes Consulting Unavailable [place] Attending Unavailable [place] Consulting Unavailable Ronquillo, Shon Primary Care Unavailable Shirley SotoAlcides Referring Unavailable Bruce Soto Attending Unavailable Ronquillo, Shon Primary Care Unavailable Brittany, Alcides Referring Unavailable Brittany Alcides Attending Unavailable Ronquillo, Shon Primary Care Unavailable Brittany, Alcides Attending Unavailable Brittany, Alcides Referring Unavailable Cony Lopez APRN.CNP Unavailable RONQUILLO, SHON Primary Care Unavailable RONQUILLO, SHON Primary Care Unavailable EBONY HARRIS Referring Unavail able RONQUILLO, SHON Primary Care Unavailable АЛЕКСАНДР OSHEA Attending Unavailable ENMANUEL VARGAS Referring Unavailable RONQUILLO, SHON Referring Unavailable ANDREA NICOLE Attending Unavailable RONQUILLO, SHON Primary Care Unavailable RONQUILLO, SHON Primary Care Unavailable RONQUILLO, SHON Referring Unavailable RONQUILLO, SHON Primary Care Unavailable RONQUILLO, SHON Attending Unavailable RONQUILLO, SHON Primary Care Unavailable TOÑA DHALIWAL Referring Unavailabl e RONQUILLO, SHON Primary Care Unavailable ENMANUEL VARGAS Attending Unavailable AMERICA PATEL Referring Unavailable RONQUILLO, SHON Primary Care Unavailable RONQUILLO, SHON Primary Care Unavailable TOÑA DHALIWAL Referring Unavailabl e RONQUILLO, SHON Primary Care Unavailable TOÑA DHALIWAL Attending Unavailabl e RONQUILLO, SHON Primary Care Unavailable АЛЕКСАНДР OSHEA Attending Unavailable RONQUILLO, SHON Primary Care Unavailable RONQUILLO, SHON Primary Care Unavailable RONQUILLO, SHON Primary Care Unavailable АЛЕКСАНДР OSHEA Referring Unavailable RONQUILLO, SHON Primary Care Unavailable Allergies Allergy Classification Reported Allergen(s) Allergy Type Date of Onset Reaction(s) Facility Amoxicillin / Clavulanate (1 source) Amoxicillin / Clavulanate Drug Allergy 2 Vomiting [facility] Work Phone: Sulfonamides (antibiotic) (1 source) Sulfonamides (Antibiotic) Drug Allergy 6 Rash [facility] Work Phone: (20 sources) Amoxicillin / Clavulanate; Translations: [AMOXICILLIN-POT CLAVULANATE] Drug Allergy 2 Vomiting [facility] Work Phone: (20 sources) Sulfonamides (Antibiotic); Translations: [SULFA (SULFONAMIDE ANTIBIOTICS)] Propensity to adverse reactions 6 Rash [facility] Work Phone: (11 sources) Amoxicillin; Translations: [amoxicillin trihydrate] Drug Allergy 4 Vomiting [facility] (11 sources) potassium clavulanate; Translations: [potassium clavulanate] Propensity to adverse reactions 4 Vomiting [facility] (9 sources) Sulfonamides (Antibiotic) Allergy to substance 4 Rash [facility] (1 source) Sulfonamides (Antibiotic) Drug allergy (disorder) 4 [facility] Repository Medications Current Medications Medication Drug Class(es) Dates Sig (Normalized) Sig (Original) acetaminophen 500 mg oral capsule (1 source) Start: 08-23-2024 take 2 capsules by mouth every six hours as needed for pain Acetaminophen 500 mg capsule Active 1000 mg PO EVERY 6 HOURS as needed for pain August 23, 2024 1:00am acetaminophen 325 mg / oxyCODONE hydrochloride 5 mg oral tablet (14 sources) Opioid Agonist Start: 09-05-2024 End: 09-12-2024 take 1 tablet by mouth every six hours as needed for pain oxyCODONE-acetaminop hen (PERCOCET) 5-325 mg tablet Indications: Pyelonephritis of right kidney Take 1 tablet by mouth every 6 hours as needed for pain for up to 7 days. 28 tablet 09/05/2024 09/12/2024 Active Start: 07-01-2014 End: 08-23-2024 Oxycodone-Acetaminophen 1 TA BLET tablet Discontinued 1 {tbl} PO EVERY 4 HOURS NEEDED as needed for Pain July 01, 2014 12:00am August 23, 2024 1:51pm Start: 07-01-2014 take 1 tablet by jefferson th every four hours as needed Oxycodone-Acetaminophen Active 1 TABLET PO EVERY 4 HOURS NEEDED July 01, 2014 12:00am calcium carbonate 1500 mg / cholecalciferol 0.01 mg oral tablet (20 sources) Vitamin D take 1 tablet by mouth once daily calcium carbonate 600 mg-cholecalciferol 400 units (CALCIUM WITH VITAMIN D) 600 mg-10 mcg (400 unit) tab Take 1 tablet by mouth once daily. Active Comment on above: Take 1 tablet by jefferson th once daily. cefdinir 300 mg oral capsule (7 sources) Cephalosporin Antibacterial Start: 2023 End: 2023 take 1 capsule by mouth twice daily Cefdinir 300 mg capsule Active 300 mg PO TWICE A DAY 10 September 01, 2024 1:00am cephalexin 500 mg oral capsule (1 source) Cephalosporin Antibacterial Start: 2023 End: 2023 take 1 capsule by mouth twice daily cephALEXin (KEFLEX) 500 mg capsule Indications: Strep throat Take 1 capsule by mouth two times a day for 10 days. 20 capsule 08/06/2024 08/16/2024 Active cholecalciferol 0.05 mg oral capsule (1 source) Vitamin D Start: 2023 take 1 capsule by mouth once daily Cholecalciferol (Vitamin D3) (Vitamin D3) 50 mcg (2,000 unit) capsule Active 50 ug PO DAILY August 15, 2024 1:00am ciprofloxacin 500 mg oral tablet (2 sources) Quinolone Antimicrobial Start: 2024 End: 2024 take 1 tablet by mouth twice daily ciprofloxacin HCl (CIPRO) 500 mg tablet Take 1 tablet by mouth two times a day for 7 days. 14 tablet 10/20/2024 10/27/2024 Active Start: 08-29-2024 End: 09-01-2024 take 1 tablet by mouth twice daily Ciprofloxacin Hcl 500 mg tablet Discontinued 500 mg PO TWICE A DAY August 29, 2024 1:00am September 01, 2024 12:55pm docusate sodium 100 mg oral capsule (1 source) Start: 08-23-2024 take 1 capsule by mouth twice daily Docusate Sodium (Colace) 100 mg capsule Active 100 mg PO TWICE A DAY August 23, 2024 1:00am doxycycline hyclate 100 mg oral tablet (2 sources) Tetracycline- class Drug Start: 09-11-2024 End: 09-21-2024 take 1 tablet by mouth twice daily doxycycline (VIBRA-TABS) 100 mg tablet Take 1 tablet by mouth two times a day for 10 days. 20 tablet 09/11/2024 09/21/2024 Active Start: 12-29-2023 End: 01-08-2024 take 1 tablet by mouth twice daily doxycycline (VIBRA-TABS) 100 mg tablet Indications: Bacterial sinusitis Take 1 tablet by mouth two times a day for 10 days. 20 tablet 0 12/29/2023 01/08/2024 Active Comment on above: Take 1 tablet by jefferson th two times a day for 10 days. ERGOCALCIFEROL, VITAMIN D2, (VITAMIN D ORAL) (20 sources) take 2 capsules by mouth once daily ERGOCALCIFEROL, VITAMIN D2, (VITAMIN D ORAL) Take 2 capsules by mouth once daily. Active take 2 capsules by mouth once da vee ERGOCALCIFEROL, VITAMIN D2, (VITAMIN D ORAL) Take 2 capsules by mouth once daily. 0 Active Comment on above: Take 2 capsules by m outh once daily. fluconazole 150 mg oral tablet (1 source) Azole Antifungal Start: 2023 End: 2023 fluconazole (DIFLUCAN) 150 mg tablet Take 1 tablet by mouth one time only for 1 dose. Repeat in 3 days as needed. 2 tablet 09/11/2024 09/11/2024 Active indapamide 1.25 mg oral tablet (20 sources) Thiazide-like Diuretic Start: 2023 End: 2024 take 1 tablet by mouth once daily Indapamide 1.25 mg tablet Active 1.25 mg PO DAILY August 15, 2024 1:00am L.Acidoph,Saliva-B.Bif-S .Therm 175 mg Capsule (1 source) Start: 2023 take 1 capsule by mouth twice daily L.Acidoph,Saliva-B.Bif- S.Therm 175 mg Capsule Active 1 NMA PO TWICE A DAY 0 September 01, 2024 1:00am Probiotic [id number] for 1 week Lactobac no.41/Bifidobact no.7 (PROBIOTIC-10 ORAL) (20 sources) Lactobac no.41/Bifidobact no.7 (PROBIOTIC-10 ORAL) Take by mouth. Active levonorgestrel 0.509738 mg/hr intrauterine system (20 sources) Progestin, Progestin-containing Intrauterine Device Start: 2020 End: 2025 levonorgestrel (MIRENA) 20 mcg/24 hours (5-6 yrs) 52 mg IUD 1 Each by INTRAUTERINE route as directed. 1 Each 02/12/2021 02/11/2026 Active Comment on above: 1 Each by INTRAUTERI NE route as directed. methylPREDNISolone (1 source) Corticosteroid Start: 2021 End: 2021 methylPREDNISolone (MEDROL, SHASHI,) 4 mg Dose-Pack Indications: Migraine without aura, intractable, without status migrainosus Follow dosing instructions, take with food. 1 Package 0 01/13/2022 01/19/2022 Active Comment on above: Follow dosing instru ctions, take with food. Casper 7-Dvn-Edx-Fish Oil (Fish Oil) 1,200 (144-216) mg capsule (1 source) Start: 2023 Casper 1-Vxv-Hxj-Fish Oil (Fish Oil) 1,200 (144-216) mg capsule Active 2 NMA PO DAILY August 15, 2024 1:00am omega 6-xxy-ufm-fish oil (FISH OIL) 100-160-1,000 mg cap (20 sources) omega 3-dha-epa- fish oil (FISH OIL) 100-160-1,000 mg cap Take by mouth. Active omega 3-dha-epa- fish oil (FISH OIL) 100-160-1,000 mg cap Take by mouth. 0 Active Comment on above: Take by mouth. perflutren lipid microspheres 1.3 mL in NaCl (PF) 0.9% 10 mL injection (DEFINITY) (15 sources) Start: End: perflutren lipid microspheres 1.3 mL in NaCl (PF) 0.9% 10 mL injection (DEFINITY) phenazopyridine hydrochloride 100 mg oral tablet (1 source) Start: take 1 tablet by mouth three times daily Phenazopyridine (Pyridium) 100 mg tablet Active 100 mg PO THREE TIMES A DAY August 23, 2024 1:00am polymyxin b [id number] unt/ml / trimethoprim 1 mg/ml ophthalmic solution (1 source) Dihydrofolate Reductase Inhibitor Antibacterial, Polymyxin-class Antibacterial Start: End: take 1 drop(s) into the eye(s) every four hours trimethoprim-polymyxin (POLYTRIM) 10,000 unit- 1 mg/mL ophthalmic solution Use 1 Drop in both eyes every 4 hours for 7 days. 10 mL 0 09/16/2023 09/23/2023 Active Comment on above: Use 1 Drop in both e yes every 4 hours for 7 days. potassium citrate 10 meq extended release oral tablet (15 sources) Start: take 10 mEq by mouth twice daily potassium citrate ER (UROCIT-K) 10 mEq (1,080 mg) Take 1,080 mg by mouth two times a day. 08/29/2024 Active rosuvastatin calcium 10 mg oral tablet (20 sources) HMG-CoA Reductase Inhibitor Start: End: take 1 tablet by mouth once daily rosuvastatin (CRESTOR) 10 mg tablet Indications: Mixed hyperlipidemia Take 1 tablet by mouth once daily. 90 tablet 3 03/06/2025 Active Comment on above: Take 10 mg by mouth once daily. Take 1 tablet by jefferson th once daily. 125 ml sodium chloride 9 mg/ml prefilled syringe (15 sources) Start: End: sodium chloride 0.9 % (flush) 10 mL (BD POSIFLUSH) SUMAtriptan 100 mg oral tablet (20 sources) Serotonin-1b and Serotonin-1d Receptor Agonist Start: End: SUMAtriptan (IMITREX) 100 mg tablet Indications: Other migraine without status migrainosus, intractable Take 1 tablet by mouth as needed for migraine headache (see administration instructions). 9 tablet 3 03/06/2025 Active Comment on above: Take 1 tablet by jefferson th as needed for migraine headache (see administration instructions). tamsulosin hydrochloride 0.4 mg oral capsule (20 sources) alpha-Adrenergic Edgar Start: End: take 1 capsule by mouth once daily at bedtime tamsulosin (FLOMAX) 0.4 mg Indications: Ureterolithiasis , Pyelonephritis of right kidney Take 1 capsule by mouth daily at bedtime. 90 capsule 10/17/2024 Active Start: 07-01-2014 End: 08-15-2024 take 1 capsule by mouth once daily Tamsulosin 0.4 MG capsule Discontinued 0.4 mg PO DAILY July 01, 2014 12:00am August 15, 2024 2:06pm valsartan 160 mg oral tablet (20 sources) Angiotensin 2 Receptor Edgar Start: 03-01-2023 End: 03-06-2025 take 1 tablet by mouth once daily valsartan (DIOVAN) 160 mg tablet Indications: Hypertension, essential TAKE 1 TABLET BY MOUTH EVERY DAY 30 tablet 11 03/06/2025 Active Start: 03-11-2022 End: 12-25-2022 take 1 tablet by mouth once daily valsartan (DIOVAN) 160 mg tablet Indications: Hypertension, essential Take 1 tablet by mouth once daily. 90 tablet 1 12/25/2022 Active Start: 10-22-2021 take 1 tablet by jefferson th once daily valsartan (DIOVAN) 160 mg tablet Indications: Hypertension, essential Take 1 tablet by mouth once daily. 90 tablet 1 10/22/2021 Active Comment on above: Take 1 tablet by jefferson once daily. Completed/Discontinued Medications Medication Drug Class(es) Dates Sig (Normalized) Sig (Original) acetaminophen 325 mg / HYDROcodone bitartrate 5 mg oral tablet (6 sources) Opioid Agonist Start: 11-27-2023 End: 08-15-2024 Hydrocodone-Acetami nophen 5-325 mg tablet Discontinued 1 {tbl} PO EVERY 6 HOURS NEEDED as needed for Pain 10 November 27, 2023 August 15, 2024 2:05pm Start: 11-27-2023 take 1 tablet by jefferson every six hours as needed Hydrocodone-Acetaminophen Active 1 TABLE T PO EVERY 6 HOURS NEEDED 10 November 27, 2023 fluticasone propionate 0.05 mg/actuat metered dose nasal spray (20 sources) Corticosteroid Start: 11-04-2023 End: 03-06-2025 take 2 spray(s) by mouth once daily fluticasone (FLONASE) 50 mcg/actuation nasal spray Use 2 Sprays in each nostril once daily. Rinse mouth after use. 11.1 mL 11/04/2023 03/06/2025 Discontinued Start: 07-12-2017 take 2 spray(s) by m out once daily fluticasone (FLONASE) 50 mcg/actuation nasal spray Indications: URI, acute Use 2 Sprays in each nostril once daily. Rinse mouth after use. 1 Bottle 1 07/12/2017 Active Comment on above: Use 2 Sprays in each nostril once daily. Rinse mouth after use. hydroCHLOROthiazide 12.5 mg / valsartan 160 mg oral tablet (10 sources) Thiazide Diuretic, Angiotensin 2 Receptor Edgar Start: 07-01-2014 End: 08-15-2024 Valsartan-Hydrochlorot hiazide (Diovan Hct 160-12.5 Mg Tab) 160-12.5 mg tablet Discontinued 1 {tbl} PO DAILY July 01, 2014 12:00am August 15, 2024 2:03pm ibuprofen 600 mg oral tablet (2 sources) Nonsteroidal Anti-inflammatory Drug Start: 08-06-2024 End: 08-06-2024 ibuprofen 600 mg tab(s) (MOTRIN) Start: 08-06-2024 End: 08-06-2024 take 1 dose by mouth once 600 mg, ORAL, ONCE, 1 dose, On 08/06/24 at 1300 indomethacin 25 mg oral capsule (10 sources) Nonsteroidal Anti-inflammatory Drug Start: 07-01-2014 End: 08-15-2024 take 2 capsules by mouth three times daily at mealtime Indomethacin 25 MG capsule Discontinued 50 mg PO 3 TIMES DAILY WITH MEALS July 01, 2014 12:00am August 15, 2024 2:06pm Start: 07-01-2014 take 50 mg by mouth three times daily at mealtime Indomethacin Active 50 MG PO 3 TIMES DAILY WITH MEALS July 01, 2014 12:00am lactobacillus acidophilus 460 mg oral capsule (9 sources) Start: 02-21-2021 take 1 capsule by mouth once daily FLORAJEN ACIDOPHILUS 20 billion cell cap Indications: Bacterial sinusitis TAKE 1 CAPSULE BY MOUTH EVERY DAY 30 capsule 1 02/21/2021 Active Comment on above: TAKE 1 CAPSULE BY [facility] EVERY DAY miSOPROStol 0.2 mg oral tablet (9 sources) Prostaglandin E1 Analog Start: 01-22-2021 miSOPROStol (CYTOTEC) 200 mcg tablet Take two tablets PO night before procedure and two tablets morning of procedure 4 tablet 0 01/22/2021 Active Comment on above: Take two tablets PO night before procedure and two tablets morning of procedure oxyCODONE hydrochloride 5 mg oral tablet (1 source) Opioid Agonist Start: 08-23-2024 End: 08-29-2024 take 1 tablet by mouth every six hours as needed for pain Oxycodone 5 mg tablet Discontinued 5 mg PO EVERY 6 HOURS as needed for pain 14 7 November 13th, 2024 November 19th, 2024 11:48pm pitavastatin calcium 4 mg oral tablet (10 sources) HMG-CoA Reductase Inhibitor Start: 07-01-2014 End: 08-15-2024 take 1 tablet by mouth once daily Pitavastatin Calcium (Livalo) 4 MG tablet Discontinued 4 mg PO DAILY July 01, 2014 12:00am August 15, 2024 2:06pm Problems Active Problems Problem Classification Problem Date Documented Date Episodic/Chronic Abdominal pain (1 source) Flank pain; Translations: [Unspecified abdominal pain] 11-26-2023 Episodic Calculus of urinary tract (20 sources) Ureteric stone; Translations: [Calculus of ureter] Onset: 08-25-2024 11-27-2023 Episodic Disorders of lipid metabolism (20 sources) Mixed hyperlipidemia; Translations: [Mixed hyperlipidemia] Onset: 09-01-2024 10-06-2021 Chronic Essential hypertension (20 sources) Essential hypertension; Translations: [Essential (primary) hypertension] Onset: 09-01-2024 10-06-2021 Chronic Comment on above: CONTROLLED ON MED Fluid and electrolyte disorders (2 sources) Sodium disorder; Translations: [Hyperosmolality and hypernatremia] 12-18-2024 Episodic Fracture of lower limb (1 source) Stress fracture, right foot, initial encounter for fracture; Translations: [Stress fracture, right foot, initial encounter for fracture] Onset: 02-16-2025 Episodic Headache; including migraine (20 sources) Refractory migraine without aura; Translations: [Migraine without aura, intractable, without status migrainosus] Onset: 01-13-2022 01-13-2022 Chronic Headache; including migraine (1 source) Acute headache; Translations: [Acute intractable headache, unspecified headache type] 09-05-2024 Episodic Menstrual disorders (20 sources) Excessive and frequent menstruation; Translations: [Excessive and frequent menstruation with regular cycle] Onset: 03-23-2012 03-23-2012 Chronic Other connective tissue disease (1 source) Plantar fasciitis; Translations: [Plantar fascial fibromatosis] 03-15-2024 Episodic Other endocrine disorders (20 sources) Disorder of parathyroid gland; Translations: [Disorder of parathyroid gland, unspecified] Onset: 03-25-2016 03-25-2016 Chronic Other eye disorders (1 source) Disorder of eye; Translations: [Other specified disorders of eye and adnexa] 09-16-2023 Episodic Other female genital disorders (20 sources) Premenstrual tension syndrome; Translations: [Premenstrual tension syndrome] Onset: 03-23-2012 03-23-2012 Chronic Other hematologic conditions (1 source) ESR raised; Translations: [Elevated erythrocyte sedimentation rate] 09-11-2024 Episodic Other liver diseases (1 source) Elevated liver enzymes level; Translations: [Abnormal levels of other serum enzymes] 09-11-2024 Episodic Other nutritional; endocrine; and metabolic disorders (20 sources) Obese class I; Translations: [Obesity, unspecified] Onset: 01-13-2022 01-13-2022 Chronic Other nutritional; endocrine; and metabolic disorders (20 sources) Hyperbilirubinemia; Translations: [Other disorders of bilirubin metabolism] Onset: 03-01-2023 03-01-2023 Chronic Other nutritional; endocrine; and metabolic disorders (1 source) Body mass index 25-29 - overweight; Translations: [Overweight] 08-30-2024 Episodic Other screening for suspected conditions (not mental disorders or infectious disease) (9 sources) Patient encounter status; Translations: [Encounter for screening mammogram for malignant neoplasm of breast] Onset: 05-16-2025 05-11-2023 Episodic Other upper respiratory infections (3 sources) Bacterial sinusitis; Translations: [Chronic sinusitis, unspecified] Onset: 09-26-2024 12-29-2023 Chronic Other upper respiratory infections (4 sources) Acute maxillary sinusitis; Translations: [Acute maxillary sinusitis, unspecified] 03-15-2024 Episodic Residual codes; unclassified (1 source) Past history of procedure; Translations: [Other specified postprocedural states] 08-30-2024 Episodic Comment on above: 11/2022, CYTO W/ LITH OTRIPSY Thyroid disorders (1 source) Nontoxic diffuse goiter; Translations: [Nontoxic diffuse goiter] Onset: 11-09-2024 Chronic Past or Other Problems Problem Classification Problem Date Documented Da te Episodic/Chronic Bacterial infection; unspecified site (1 source) Other specified bacterial agents as the cause of diseases classified elsewhere; Translations: [Bacterial sinusitis] Onset: 09-26-2024 Episodic Diabetes mellitus without complication (20 sources) Impaired fasting glycemia; Translations: [Impaired fasting glucose] Onset: 03-01-2023 Episodic Genitourinary symptoms and ill-defined conditions (7 sources) Increased frequency of urination; Translations: [Frequency of micturition] Onset: 09-28-2024 11-26-2023 Episodic Hemorrhoids (20 sources) External hemorrhoids; Translations: [Residual hemorrhoidal skin tags] Onset: 07-12-2020 07-12-2020 Episodic Malaise and fatigue (20 sources) Malaise and fatigue; Translations: [Other malaise] Onset: 03-23-2012 03-23-2012 Episodic Other bone disease and musculoskeletal deformities (1 source) Other specified disorders of bone density and structure, multiple sites; Translations: [Other specified disorders of bone density and structure, multiple sites] Onset: 07-17-2024 Episodic Other connective tissue disease (20 sources) Muscle spasm of cervical muscle of neck; Translations: [Other muscle spasm] Onset: 07-12-2020 07-12-2020 Episodic Other hematologic conditions (1 source) Elevated erythrocyte sedimentation rate; Translations: [Elevated sed rate] Onset: 09-26-2024 Episodic Other liver diseases (1 source) Abnormal levels of other serum enzymes; Translations: [Elevated liver enzymes] Onset: 09-26-2024 Episodic Other lower respiratory disease (20 sources) Chest pain on breathing; Translations: [Chest pain on breathing] Onset: 03-01-2023 03-01-2023 Episodic Other nutritional; endocrine; and metabolic disorders (1 source) Overweight; Translations: [Overweight] Onset: 09-01-2024 Episodic Residual codes; unclassified (2 sources) Other specified postprocedural states; Translations: [Other specified postprocedural states] Onset: 09-01-2024 Episodic Septicemia (except in labor) (3 sources) Sepsis; Translations: [Sepsis, unspecified organism] Onset: 09-01-2024 09-09-2024 Episodic Urinary tract infections (17 sources) Pyelonephritis; Translations: [Tubulo-interstitial nephritis, not specified as acute or chronic] Onset: 09-01-2024 09-05-2024 Episodic Results Test Name Value Interpretation Reference Range [facility] ([facility] ) JOSE R WATT ([id number]) 1975 F T Date Time Provider Department 06/25/25 3:45 PM АЛЕКСАНДР OSHEA During your visit today, we recorded the following information about you: Weight Height 78 kg 1.626 m Александр Oshea MD 06/25/2025 4:30 PM Signed [facility] NOTE Patient: Jose R Watt Provider: Александр Oshea MD : 1975 Date of Service: 06/25/2025 PCP: Shon Ronquillo DO Chief complaint/Identificati on: Jose R Watt is a 49 year old female patient who presents for evaluation of nephrolithiasis. ASSESSMENT: 1. Recurrent nephrolithiasis - ICD9: 592.0, ICD10: N20.0 (primary diagnosis) 2. Left renal stone - ICD9: 592.0, ICD10: N20.0 3. 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 Hypernatriuria - ICD9: 276.0, ICD10: E87.0 Hx of CaOxD / UA stones Hypercalciuria Hypernatriuria Stone burden: - On CT (08/03) L renal stones, non-obs, 4 mm or smaller - On US (06/2025) 8 mm left lower pole, 4 mm R upper pole PLAN: Continue Indapamide, K Cit (10 mEq daily) Get KUB now Repeat 24h urine 6 mo follow up with [facility], with repeat KUB/RBUS prior Discussed that ultrasound and CT are not always comparable. For now she is asymptomatic, continue to observe stone(s). 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 Still on potassium citrate and Indapamide. Reviewed 24h urine, imaging. No longer following with Nephrology. 06/20/2025: RBUS - bilateral nephrolithiasis, 4 mm in the right upper pole, 8 mm in the left lower pole 01/09/25 24h urine: vol 1.43L, HCa 399 (498), HNa 261 (175) 12/18/2024 History of nephrolithiasis. Undergone lithotripsy twice by urologist in [place]. Most recently in August 2024. Had episode of sepsis requiring hospitalization after removing her stent. Has known left renal stones, reportedly 4 mm in the lower pole on CT scan from July 2024. Follows with endocrinology for history of hyperparathyroidism status post parathyroidectomy. PTH normalized postsurgery. Follows with nephrology (Dr. Nicole) as well. History of hypercalciuria on 24 urine test in October. Previously on indapamide and potassium citrate. Was off indapamide for the 24 urine test. Has since restarted. 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 Currently asymptomatic, wants to establish with urology here. Plan: Continue Indapamide, K Cit (10 mEq daily) Repeat 24h urine 6 mo follow up with KUB/RBUS Observe L renal stones for now given small size (4 mm) PAST STONE HISTORY: Date/year of first Episode: 2023 (knew about them for some time before) No. Of stones passed: 1 Prior 24hr urine: 10/30/2024: vol 1.7L, HCa 498, HNa 175, Cit 1200, Ox 32 Stone analysis: 70% CaOxM, 30% UA Prior stone related surgery: No. Of prior Shock Wave lithotripsy: x0 No. Of prior Ureteroscopy: 11/2023, 08/2024 ([place]) No. 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 RELEVANT IMAGING STUDIES (most recent): 08/04/2024: CT scan ([facility]) 5 mm right UPJ stone with hydronephrosis, nonobstructing left lower pole renal stones up to 4 mm LABS/INVESTIGATIONS: Urine Chemstrip: Lab Results Component Value Date GLUCOSE UA (POCT) Negative 11/08/2024 BILIRUBIN UA (POCT) Negative 11/08/2024 KETONE UA (POCT) Negative 11/08/2024 SPECIFIC GRAVITY UA (POCT) 1.020 11/08/2024 HEMOGLOBIN/BLOOD UA (POCT) Negative 11/08/2024 PH UA (POCT) 7.0 11/08/2024 PROTEIN UA (POCT) Negative 11/08/2024 UROBILINOGEN UA (POCT) 0.2 11/08/2024 NITRITE UA (POCT) Negative 11/08/2024 LEUKOCYTES UA (POCT) Negative 11/08/2024 COLOR UA (POCT) Yellow 11/08/2024 CLARITY UA (POCT) Clear 11/08/2024 Creatinine Date Value Ref Range Status 11/03/2024 0.65 0.58 - 0.96 mg/dL Final 09/26/ (more content not included)... Normal [facility] US KIDNEY/BLADDERon 06-20-20 US KIDNEY/BLADDER * * *Final Report* * * DATE OF EXAM: Jun 20 2025 7:41AM [id number] - US KIDNEY/BLADDER / PROCEDURE REASON: Recurrent nephrolithiasis * * * * Physician Interpretation * * * * EXAMINATION: RENAL ULTRASOUND CLINICAL HISTORY: Nephrolithiasis TECHNIQUE: Sonography of the kidneys and urinary bladder was performed. Images were obtained and stored in a permanent archive. MQ: UR_1 COMPARISON: CT 09/16/2020 RESULT: Right Kidney: -Renal length: 11.9 cm -Parenchyma: Normal parenchymal echogenicity. Normal parenchymal thickness. -Collecting system: No hydronephrosis. -Calculus: 4 mm upper pole calculus. -Lesion: None. Left Kidney: -Renal length: 12.0 cm -Parenchyma: Normal parenchymal echogenicity. Normal parenchymal thickness. -Collecting system: No hydronephrosis. -Calculus: 8 mm lower pole calculus. -Lesion: None. Bladder: Normal sonographic appearance. Prevoid Bladder Volume: 119 cc Postvoid Bladder Volume: 0 cc IMPRESSION: Bilateral nephrolithiasis. No hydronephrosis. Differential Tester: PSCB Transcribe Date/Time: Jun 23 2025 7:30A Dictated by : EM CRABTREE MD This examination was interpreted and the report reviewed and electronically signed by: EM CRABTREE MD on Jun 23 2025 7:32AM EST [id number] Normal [facility] LISA SCREENING W TOMOon 05-21 LISA SCREENING W SCOTT * * *Final Report* * * DATE OF EXAM: May 21 2025 12:54PM [id number] - LISA SCREENING W SCOTT / PROCEDURE REASON: tech repeat * * * * Physician Interpretation * * * * RESULT: [place] [address] #[id number] - LISA SCREENING W SCOTT HISTORY: 49 year-old patient presents for screening. Patient is asymptomatic in both breasts. Patient states no personal history of breast cancer. COMPARISON STUDIES: The present examination has been compared to prior imaging studies dated 01/22/2021 (mammogram), 02/12/2022 (mammogram), 05/14/2023 (mammogram), 05/15/2024 (mammogram) and 05/16/2025 (mammogram). MAMMOGRAM TECHNIQUE: The study was acquired using full field digital technology and interpreted from soft copy. Digital Breast Tomosynthesis (DBT) images were obtained and used to assist in the interpretation of this examination. MAMMOGRAM FINDINGS: The breasts are extremely dense, which lowers the sensitivity of mammography. Technical call back of right MLO view only. Normal appearance of the right breast. IMPRESSION: There is no mammographic evidence of malignancy. Technical call back of right MLO view only. Normal appearance of the right breast. Routine screening mammogram is recommended. Annual mammogram will be due in 1 year. BI-RADS Category 2: Benign RISK: Based on the Tyrer-Cuzick (TC) risk assessment model, this patient has a 15.6% lifetime risk of developing breast cancer, meaning they are at average risk for developing breast cancer. However, this is only an estimate based on available history provided on the patient's questionnaire. We encourage all patients to talk with their providers about these results, further recommendations for managing breast health, and appropriate supplemental screening options if the patient has dense breast tissue. Interpreting Radiologist: Yevgeniy Cheung M.D. Electronically signed on: 05/23/2025 Differential Tester: FANNIE Transcribe Date/Time: May 21 2025 12:45P Dictated by: YEVGENIY CHEUNG MD This examination was interpreted and the report reviewed and electronically signed by: YEVGENIY CHEUNG MD on May 23 2025 3:16PM EST [id number] Normal [facility] LISA SCREENING W TOMOon 05-16 LISA SCREENING W SCOTT * * *Final Report* * * DATE OF EXAM: May 16 2025 7:32AM [facility] 0582 - LISA SCREENING W SCOTT / PROCEDURE REASON: Encounter for screening mammogram for breast cancer * * * * Physician Interpretation * * * * RESULT: [place] [address] #[id number] - LISA SCREENING W SCOTT HISTORY: 49 year-old patient presents for screening. Patient is asymptomatic in both breasts. Patient states no personal history of breast cancer. COMPARISON STUDIES: The present examination has been compared to prior imaging studies dated 06/08/2018 (mammogram), 01/22/2021 (mammogram), 02/12/2022 (mammogram), 05/14/2023 (mammogram) and 05/15/2024 (mammogram). MAMMOGRAM TECHNIQUE: The study was acquired using full field digital technology and interpreted from soft copy. Digital Breast Tomosynthesis (DBT) images were obtained and used to assist in the interpretation of this examination. MAMMOGRAM FINDINGS: The breasts are heterogeneously dense, which may obscure small masses. Repeat imaging of the right breast is required due to motion. No suspicious masses, calcifications or other abnormalities are seen in the left breast. IMPRESSION: Repeat imaging of the right breast is required due to motion. Repeat (right MLO) is required for technical reasons. BI-RADS Category 0: Incomplete: Needs Additional Imaging Evaluation RISK: Based on the Tyrer-Cuzick (TC) risk assessment model, this patient has a 10.6% lifetime risk of developing breast cancer, meaning they are at average risk for developing breast cancer. However, this is only an estimate based on available history provided on the patient's questionnaire. We encourage all patients to talk with their providers about these results, further recommendations for managing breast health, and appropriate supplemental screening options if the patient has dense breast tissue. Interpreting Radiologist: Sandy Haq M.D. Resident/Fellow: Mario Cline MD Electronically signed on: 05/16/2025 Differential Tester: FANNIE Transcribe Date/Time: May 16 2025 7:24A Dictated by: MARIO CLINE MD This examination was interpreted and the report reviewed and electronically signed by: SANDY HAQ MD on May 16 2025 4:13PM EST [id number] Normal [facility] Lower Ext/No Jt/w/oon 2024 Lower Ext/No Jt/w/o [facility] Imaging Services [address] [place] [address] [id number] Lower Ext/No Jt/w/o MR#: [id number] Acct: [id number] Name: JOSE R WATT Rep #: [id number] : 1975 F 49 From: Edson Meraz PCP: Dr. Shon Ronquillo, DO Status: [facility] CLI Study: Lower Ext/No Jt/w/o Date of Exam: 02/12/25 Exam# [id number] Ordering Dr: Leon Magaña DPM PROCEDURE: LOWER EXT/NO JT/W/O 02/12/2025 REASON FOR EXAM: RT FOOT FX TECHNIQUE: MRI of the right lower Extremity. Multiplanar and multisequence images were obtained without IV contrast administration. COMPARISON: None FINDINGS: Bone marrow signal is within normal limits without evidence of fracture, contusion or marrow replacement. Alignment is intact. Mild 1st MTP joint osteoarthritis. Otherwise, no significant degenerative changes. No significant joint effusion. Visualized tendons and ligaments are intact. Small ganglion along the dorsal aspect of the talonavicular joint measuring 10 x 10 x 5 mm. Possible additional ganglion along the dorsal aspect of the 3rd and 4th metatarsal bases measuring 6 x 4 x 4 mm. Visualized musculature and subcutaneous tissues are otherwise within normal limits. MRI/Lower Ext/No Jt/w/o IMPRESSION: 1. Mild 1st MTP joint osteoarthritis. 2. Small ganglia as detailed above. Recommend further assessment of the ganglion between the 3rd and 4th metatarsal bases to ensure no pathologic enhancement and exclude a solid lesion. 3. No fracture or marrow edema. Reading Location: [id number] CC: KEEGAN Magaña; Dr. Shon Ronquillo DO Differential Tester: Signed [facility] CNOVon 12-18-2024 CNOV Office Visit (UROLSF ) JOSE R WATT ([id number]) 1975 F [facility] Date Time Provider Department 12/18/24 3:15 PM АЛЕКСАНДР OSHEA During your visit today, we recorded the following information about you: Pulse Respiration Weight Height 76/minute 16/minute 78.9 kg 1.626 m Александр Oshea MD 12/18/2024 4:52 PM Signed [facility] UR[facility]INIC NOTE Patient: Jose R Watt Provider: Александр Oshea MD : 1975 Date of Service: 12/18/2024 PCP: Shon Ronquillo DO Chief complaint/Identificati on: Jose R Watt is a 49 year old female patient who presents for evaluation of nephrolithiasis. ASSESSMENT: 1. Recurrent nephrolithiasis - ICD9: 592.0, ICD10: N20.0 (primary diagnosis) 2. Left renal stone - ICD9: 592.0, ICD10: N20.0 3. 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 Hypernatriuria - ICD9: 276.0, ICD10: E87.0 5. Calcium oxalate stones - ICD9: 592.0, ICD10: N20.0 6. Uric acid kidney stone - ICD9: 274.11, ICD10: N20.0 Hx of CaOxD / UA stones Hypercalciuria Hypernatriuria L renal stones, non-obs, 4 mm or smaller PLAN: Continue Indapamide, K Cit (10 mEq daily) Repeat 24h urine 6 mo follow up with KUB/RBUS Observe L renal stones for now given small size (4 mm) Discussed dietary interventions to preventing kidney stone formation - Increased fluid intake (at least 3L/day) - Dietary sodium restriction (<2300 mg/day) - Increased fruit/vegetable intake - Decrease oxalate levels, or eat calcium-rich foods with meals - Limit meat intake (especially cysteine stones or CaOx stones with high urine uric acid) - Take in the 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 Undergone lithotripsy twice by urologist in [place]. Most recently in August 2024. Had episode of sepsis requiring hospitalization after removing her stent. Has known left renal stones, reportedly 4 mm in the lower pole on CT scan from July 2024. Follows with endocrinology for history of hyperparathyroidism status post parathyroidectomy. PTH normalized postsurgery. Follows with nephrology (Dr. Nicole) as well. History of hypercalciuria on 24 urine test in October. Previously on indapamide and potassium citrate. Was off indapamide for the 24 urine test. Has since restarted. 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 Currently asymptomatic, wants to establish with urology here. PAST STONE HISTORY: Date/year of first Episode: 2023 (knew about them for some time before) No. Of stones passed: 1 Prior 24hr urine: 10/30/2024: vol 1.7L, HCa 498, HNa 175, Cit 1200, Ox 32 Stone analysis: 70% CaOxM, 30% UA Prior stone related surgery: No. Of prior Shock Wave lithotripsy: x0 No. Of prior Ureteroscopy: 11/2023, 08/2024 ([place]) No. 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 RELEVANT IMAGING STUDIES (most recent): 08/04/2024: CT scan ([facility]) 5 mm right UPJ stone with hydronephrosis, nonobstructing left lower pole renal stones up to 4 mm LABS/INVESTIGATIONS: Urine Chemstrip: Lab Results Component Value Date GLUCOSE UA (POCT) Negative 11/08/2024 BILIRUBIN UA (POCT) Negative 11/08/2024 KETONE UA (POCT) Negative 11/08/2024 SPECIFIC GRAVITY UA (POCT) 1.020 11/08/2024 HEMOGLOBIN/BLOOD UA (POCT) Negative 11/08/2024 PH UA (POCT) 7.0 11/08/2024 PROTEIN UA (POCT) Negative 11/08/2024 UROBILINOGEN UA (POCT) 0.2 11/08/2024 NITRITE UA (POCT) Negative 11/08/2024 LEUKOCYTES UA (POCT) Negative 11/08/2024 COLOR UA (POCT) Yellow 11/08/2024 CLARITY UA (POCT) Clear 11/08/2024 Creatinine Date Value Ref Range Status 11/03/2024 0.65 0.58 - 0.96 mg/dL Final 09/26/2024 0.59 0.58 - 0.96 mg/dL Final 09/05/2024 0.57 (L) 0.58 - 0.96 mg/dL Final 03/23/2024 0.65 0.58 - 0.96 mg/dL Final Hemoglobin (g/dL) Date Value 09/05/2024 12.8 10/25/2021 13.4 Hematocrit (%) Date Value 09/05/2024 39.6 10/25/2021 41.6 WBC (k/uL) Date Value 09/05/2024 10.65 10/25/2021 7.74 No results found for: PSA, PSAPER HISTORIES FAMILY HISTORY Problem Relation Age of Onset Thyroid Mother Heart Mother Diabetes Mother Hypertension Father Heart Father Diabet (more content not included)... Normal [facility] CNPNon 11-13-2024 CNPN Telephone (UROLWS) JOSE R WATT ([id number]) 1975 F T Date Time Provider Department 11/13/24 ENMANUEL VARGAS During your visit today, we recorded the following information about you: Arti Yepez LPN 11/13/2024 4:21 PM Signed ----- Message from Enmanuel Vargas PA-C sent at 11/13/2024 3:35 PM EST ----- No infection in the urine [facility]as [facility] SD[facility] Kimberly, LPN 11/13/2024 4:29 PM Signed Called patient. No answer- left message to call clinic for results and that [employer] message being sent. CALI [place], [place] 11/15/2024 8:23 AM Signed Patient calling and states she had received her results and was told no bacteria. Patient is asking why the results in my-chart are saying abnormal? She wants to know what that means? Arti Yepez LPN 11/15/2024 11:30 AM Signed Called patient. No answer- unable to leave message. Patients culture shows no urinary tract infection. It shows abnormal because there are different types of bacteria in the urine. Nothing grew abnormally but what was present could have been improper cleansing with vaginal mohamud, skin from surrounding area got into the urine. Arti Yepez LPN Allergies As of Date: 11/13/2024 Noted Allergy Reaction AUGMENTIN (AMOXICILLIN-POT CLAVUL*03/23/2012 11 - Vomiting SULFA (SULFONAMIDE ANTIBIOTICS) 11/27/2005 2 - Rash Date Reviewed: 11/08/2024 Reviewed by: Shireen Bravo MA - Fully Assessed Reason for Visit: Results [95] Prescriptions as of 11/21/2024 - potassium citrate ER (UROCIT-K) 10 mEq (1,080 mg) Take 1,080 mg by mouth two times a day. - tamsulosin (FLOMAX) 0.4 mg Take 1 capsule by mouth daily at bedtime. - Lactobac no.41/Bifidobact no.7 (PROBIOTIC-10 ORAL) Take by mouth. - SUMAtriptan (IMITREX) 100 mg tablet Take 1 tablet (100 mg) by mouth as needed for migraine headache (see administration instructions). - indapamide (LOZOL) 1.25 mg tablet Take 1.25 mg by mouth once daily. - rosuvastatin (CRESTOR) 10 mg tablet Take 1 tablet by mouth once daily. - valsartan (DIOVAN) 160 mg tablet Take 1 tablet by mouth once daily. - calcium carbonate 600 mg-cholecalciferol 400 units (CALCIUM WITH VITAMIN D) 600 mg-10 mcg (400 unit) tab Take 1 tablet by mouth once daily. - fluticasone (FLONASE) 50 mcg/actuation nasal spray Use 2 Sprays in each nostril once daily. Rinse mouth after use. - omega 7-rki-qeu-fish oil (FISH OIL) 100-160-1,000 mg cap Take by mouth. - levonorgestrel (MIRENA) 20 mcg/24 hours (5-6 yrs) 52 mg IUD 1 Each by INTRAUTERINE route as directed. - ERGOCALCIFEROL, VITAMIN D2, (VITAMIN D ORAL) Take 2 capsules by mouth once daily. 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 Problem List As Of Date 11/13/2024 Noted Resolved Excessive or frequent menstruation [N92.0] 03/23/2012 Dysmenorrhea [N94.6] 03/23/2012 Other malaise and fatigue [R53.81, R53.83] 03/23/2012 Premenstrual tension syndromes [N94.3] 03/23/2012 Mixed hyperlipidemia [E78.2] Essential hypertension [I10] Disorder of parathyroid gland (HCC) [E21.5] 03/25/2016 External hemorrhoid [K64.4] 07/12/2020 Trapezius muscle spasm [M62.838] 07/12/2020 Obesity, Class I, BMI 30-34.9 [E66.811] 01/13/2022 Migraine without aura, intractable, without sta*01/13/2022 Hyperglycemia [R73.9] 03/01/2023 Well adult exam [Z00.00] 03/01/2023 Chest pain on breathing [R07.1] 03/01/2023 Hyperbilirubinemia [E80.6] 03/01/2023 Impaired fasting glucose [R73.01] 03/15/2024 Renal stones [N20.0] 11/08/2024 Pyelonephritis of right kidney [N12] 11/08/2024 Ureterolithiasis [N20.1] 11/08/2024 Status post laser lithotripsy of ureteral calcu*11/08/2024 Encounter Status:Closed by ARTI YEPEZ on 11/21/24 Normal [facility] Bacteria Ur Culton 5 Bacteria identified Cx Nom (U) ORGANISM ID: 1 50,000-<100,000 CFU/ml Mixed microbiota including 4 different colony types, and no one type predominating. No further workup. [facility] Comment on above: Performed By: #### 6 30-4 #### [facility] CLIA [id number] [address] [place] [address] [place] CNOVon 11-08-2024 CNOV Office Visit (KIDMST ) JOSE R WATT ([id number]) 1975 F T Date Time Provider Department 11/08/24 2:20 PM ANDREA NICOLE During your visit today, we recorded the following information about you: Weight 81.2 kg Andrea Nicole MD 11/08/2024 5:47 PM Signed [facility] NEPHROLOGY AND HYPERTENSION [facility] SERVICE DATE: 11/08/2024 REASON FOR CONSULT: I am asked to see this patient in consultation for my opinion regarding renal stones. My recommendations will be communicated by way of shared medical record, fax, or mail. REQUESTING PHYSICIAN: Shon Ronquillo DO PRIMARY CARE PHYSICIAN: Shon Ronquillo DO CHIEF COMPLAINT: renal stones HPI: 49-year-old female with medical history current for significant for kidney stones, hypertension, h/o hyperparathyroidism s/p parathyroidectomy, thyroid nodule, dyslipidemia has been referred for history of pyelonephritis. She came to know that she had kidney stones years back but she ignored it. She started having pain last Nov and that was the first time she was diagnosed with kidney stone formally. She had lithotripsy in the right kidney done in Nov and then in Jul, 2024. Had stent removed in Jul and then she got admitted to [facility] in August, with right-sided pyelonephritis and was sick to the extent of needing ICU stay. She still complains of pain but it is on the left side though. She recently passed a stone which was analysed recently and was found to have calcium oxatate and uric acid stone (mixed). Her Father and brother both have kidney stones. Not aware if any of them had problems with parathyroid gland. She has been following up with an Endocrine physician at [place] for around 8 years. She also had one parathyroid gland removed and used to be calcium supplements which she stopped doing around a year ago. She was started on Indapamide around Nov, 2023 and she taking taking it in Jul, 2024 before re-starting two days. Fluid intake of around 64 oz a day. Does not smoke or drink alcohol. 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 Review of the labs show that patient's kidney function is normal. Patient had a 24-hour urine stone panel test done which shows high urinary calcium of 498 mg and oxalate of 32 mg. Stone composition analysis done on 10/29/2024 shows 70% calcium oxalate monohydrate and 30% uric acid stones. Patient is on valsartan 160 mg daily, tamsulosin 0.4 mg at bedtime, potassium citrate 10 mEq twice daily, rosuvastatin 10 mg daily, ergocalciferol 2 caps daily, calcium plus vitamin D, indapamide 1.25 mg daily. PAST MEDICAL HISTORY: PAST MEDICAL HISTORY Diagnosis Date Dysmenorrhea Excessive or frequent menstruation Heavy periods Resolved Kidney stones Malaise and fatigue Mixed hyperlipidemia Parathyroid tumor 10/11/2014 benign, Dr. Hernandez [employer] Delivery [employer] [place] Premenstrual tension syndromes Thyroid nodule 10/11/2014 Dr. [employer] [place] Unspecified essential hypertension 10/11/2006 Vitamin D deficiency secondary to parathyroidectomy PAST SURGICAL HISTORY: PAST SURGICAL HISTORY Procedure Laterality Date DELIVERY ONLY X 2 PARATHYROID 01/09/2015 tumor removed REMOVE KIDNEY STONE Left FAMILY HISTORY: FAMILY HISTORY Problem Relation Age of Onset Thyroid Mother Heart Mother Diabetes Mother Hypertension Father Heart Father Diabetes Father Diabetes Paternal Aunt Thyroid Other paternal side SOCIAL HISTORY: Social History Tobacco Use Smoking status: Never Smokeless tobacco: Never Vaping Use Vaping status: Never Used Substance Use Topics Alcohol use: No Drug use: No MEDICATIONS: potassium citrate ER (UROCIT-K) 10 mEq (1,080 mg) Take 1,080 mg by mouth two times a day. tamsulosin (FLOMAX) 0.4 mg Take 1 capsule by mouth daily at bedtime. Lactobac no.41/Bifidobact no.7 (PROBIOTIC-10 ORAL) Take by mouth. SUMAtriptan (IMITREX) 100 mg tablet Take 1 tablet (100 mg) by mouth as needed for migraine headache (see administration instructions). indapamide (LOZOL) 1.25 mg tablet Take 1.25 mg by mouth once daily. (Patient not taking: Reported on 09/11/2024) rosuvastatin (CRESTOR) 10 mg tablet Take 1 tablet by mouth once daily. valsartan (DIOVAN) 160 mg tablet Take 1 tablet by mouth once daily. calcium carbonate 600 mg-cholecalciferol 400 units (CALCIUM WITH VITAMIN D) 600 mg-10 mcg (400 unit) tab Take 1 tablet by mouth once daily. fluticasone (FLONASE) 50 mcg/actuation nasal spray Use 2 Sprays in each nostril once daily. Rinse mouth after use. (Patient not taking: Reported on 12/01/2023) omega 6-jpc-out-fish oil (FISH OIL) 100-160-1,000 mg cap Take by mouth. levonorgestrel (MIRENA) 20 mcg/24 hours (5-6 yrs) 52 mg IUD 1 Each by INTRAUTERINE route as directed. ERGOCALCIFEROL, VITAMIN D2, (VITAMIN D ORAL) Take 2 (more content not included)... Normal [facility] UA DIP, URINE (POC)on 2024 BILIRUBIN UA (POCT) Negative Negative [facility] CLARITY UA (POCT) Clear [facility] COLOR UA (POCT) Yellow [facility] GLUCOSE UA (POCT) Negative Negative mg/dL [facility] Hemoglobin Ql (U) Negative Negative [facility] KETONE UA (POCT) Negative Negative mg/dL [facility] LEUKOCYTES UA (POCT) Negative Negative [facility] NITRITE UA (POCT) Negative Negative [facility] PH UA (POCT) 7.0 4.5 - 8.0 [facility] Protein Ql (U) Negative Negative mg/dL [facility] SPECIFIC GRAVITY UA (POCT) 1.020 1.005 - 1.030 [facility] UROBILINOGEN UA (POCT) 0.2 Eunice l E.U./dL [facility] Location:[facility], [address] [place], [place], [address] [facility] POINT OF CARE [facility] Comprehensive metabolic 2000 panelon 11-03-2024 Albumin [Mass/Vol] 4.6 g/dL Normal 3.9-4.9 [facility] Comment on above: Order Comment: Speci men Type: BLOOD SPECIMEN Ordering Facility: [facility] Address: [address] [place] [address] Performed By: #### 5 7021-8, 4537-7 #### [facility] CLIA [id number] [address] [place] [address] [place] ALP [Catalytic activity/Vol] 66 U/L Normal 34-123 [facility] Comment on above: Order Comment: Speci men Type: BLOOD SPECIMEN Ordering Facility: [facility] Address: [address] [place] [address] Performed By: #### 5 7021-8, 4537-7 #### [facility] CLIA [id number] [address] [place] [address] [place] ALT [Catalytic activity/Vol] 28 U/L Normal 7-38 [facility] Comment on above: Order Comment: Speci men Type: BLOOD SPECIMEN Ordering Facility: [facility] Address: [address] [place] [address] Performed By: #### 5 7021-8, 4537-7 #### [facility] CLIA [id number] [address] [place] [address] [place] Anion gap [Moles/Vol] 10 mmol/L Normal 8-15 [facility] Comment on above: Order Comment: Speci men Type: BLOOD SPECIMEN Ordering Facility: [facility] Address: [address] [place] [address] Performed By: #### 5 7021-8, 4537-7 #### [facility] CLIA [id number] [address] [place] [address] [place] AST [Catalytic activity/Vol] 24 U/L Normal 13-35 [facility] Comment on above: Order Comment: Speci men Type: BLOOD SPECIMEN Ordering Facility: [facility] Address: [address] [place] [address] Performed By: #### 5 7021-8, 453-7 #### [facility] CLIA [id number] [address] [place] [address] [place] Bilirubin [Mass/Vol] 1.1 mg/dL Normal 0.2-1.3 [facility] [place] [facility] Comment on above: Order Comment: Speci men Type: BLOOD SPECIMEN Ordering Facility: [facility] Address: [address] [place] [address] Performed By: #### 5 7021-8, 453-7 #### [facility] CLIA [id number] [address] [place] [address] [place] Calcium [Mass/Vol] 9.9 mg/dL Normal 8.5-10.2 [facility] Comment on above: Order Comment: Speci men Type: BLOOD SPECIMEN Ordering Facility: [facility] Address: [address] [place] [address] Performed By: #### 5 7021-8, 4537-7 #### [facility] CLIA [id number] [address] [place] [address] [place] Chloride [Moles/Vol] 105 mmol/L Normal 98-107 [facility] [place] [facility] Comment on above: Order Comment: Speci men Type: BLOOD SPECIMEN Ordering Facility: [facility] Address: [address] [place] [address] Performed By: #### 5 7021-8, 4536-7 #### [facility] CLIA [id number] [address] [place] [address] [place] CO2 [Moles/Vol] 27 mmol/L Normal 22-30 [facility] Comment on above: Order Comment: Speci men Type: BLOOD SPECIMEN Ordering Facility: [facility] Address: [address] [place] [address] Performed By: #### 5 7021-8, 4537-7 #### [facility] CLIA [id number] [address] [place] [address] [place] Creatinine [Mass/Vol] 0.65 mg/dL Normal 0.58-0.96 [facility] Comment on above: Order Comment: Dilan arrington Type: BLOOD SPECIMEN Ordering Facility: [facility] Address: [address] [place] [address] Performed By: #### 5 7021-8, 4537-7 #### [facility] CLIA [id number] [address] [place] [address] [place] Creatinine and Glomerular filtration rate.predicted panel (S/P/Bld) 107 mL/min/1.73m??? Normal >=60 [facility] Comment on above: Order Comment: Dilan arrington Type: BLOOD SPECIMEN Ordering Facility: [facility] Address: [address] [place] [address] Result Comment: Zoie mated Glomerular Filtration Rate (eGFR) is calculated using the 2020 CKD-EPI creatinine equation. This equation utilizes serum creatinine, sex, and age as parameters. The creatinine assay has traceable calibration to isotope dilution-mass spectrometry. Refer to KDIGO guidelines for clinical interpretation. In patients with unstable renal function, e.g. those with acute kidney injury, the eGFR may not accurately reflect actual GFR. Performed By: #### 5 7021-8, 4537-7 #### [facility] CLIA [id number] [address] [place] [address] [place] Glucose [Mass/Vol] 86 mg/dL Normal 74-99 [facility] Comment on above: Order Comment: Dilan arrington Type: BLOOD SPECIMEN Ordering Facility: [facility] Address: [address] [place] [address] Result Comment: The [place] [employer] (ADA) provides guidance for cutoff values for fasting glucose and random glucose. The ADA defines fasting as no caloric intake for at least 8 hours. Fasting plasma glucose results between 100 to 125 mg/dL indicate increased risk for diabetes (prediabetes). Fasting plasma glucose results greater than or equal to 126 mg/dL meet the criteria for diagnosis of diabetes. In the absence of unequivocal hyperglycemia, results should be confirmed by repeat testing. In a patient with classic symptoms of hyperglycemia or hyperglycemic crisis, random plasma glucose results greater than or equal to 200 mg/dL meet the criteria for diagnosis of diabetes. Reference: Standards of Medical Care in Diabetes 2016, [place] [employer]. Diabetes Care. 2016.39(Suppl 1). Performed By: #### 5 7021-8, 4537-7 #### [facility] CLIA [id number] [address] [place] [address] [place] Potassium [Moles/Vol] 4.3 mmol/L Normal 3.7-5.1 [facility] Comment on above: Order Comment: Speci men Type: BLOOD SPECIMEN Ordering Facility: [facility] Address: [address] [place] [address] Performed By: #### 5 7021-8, 4537-7 #### [facility] CLIA [id number] [address] [place] [address] [place] Protein [Mass/Vol] 7.6 g/dL Normal 6.3-8.0 [facility] Comment on above: Order Comment: Speci men Type: BLOOD SPECIMEN Ordering Facility: [facility] Address: [address] [place] [address] Performed By: #### 5 7021-8, 4537-7 #### [facility] CLIA [id number] [address] [place] [address] [place] Sodium [Moles/Vol] 142 mmol/L Normal 136-144 [facility] Comment on above: Order Comment: Speci men Type: BLOOD SPECIMEN Ordering Facility: [facility] Address: [address] [place] [address] Performed By: #### 5 7021-8, 4537-7 #### [facility] CLIA [id number] [address] [place] [address] [place] Urea nitrogen [Mass/Vol] 19 mg/dL Normal 7-21 [facility] Comment on above: Order Comment: Speci men Type: BLOOD SPECIMEN Ordering Facility: [facility] Address: [address] [place] [address] Performed By: #### 5 7021-8, 4537-7 #### [facility] CLIA [id number] [address] [place] [address] [place] CNPNon 10-30-2024 CNPN Telephone (UROLWS) JOSE R WATT ([id number]) 1975 [facility] Date Time Provider Department 10/30/24 ENMANUEL VARGAS During your visit today, we recorded the following information about you: Arti Yepez LPN 10/30/2024 8:16 AM Signed Patient stopped by clinic. Verified name and date of . She feels as if she passed a stone and was informed to bring it to the clinic. Please place order and she will take it to the lab. CALI Little Kimberly, LPN 10/30/2024 8:51 AM Signed Called patient. Verified name and date of . Informed of order. Verbalizes understanding. Arti Yepez LPN Allergies As of Date: 10/30/2024 Noted Allergy Reaction AUGMENTIN (AMOXICILLIN-POT CLAVUL*03/23/2012 11 - Vomiting SULFA (SULFONAMIDE ANTIBIOTICS) 11/27/2005 2 - Rash Date Reviewed: 10/17/2024 Reviewed by: Shala Sears MA - Fully Assessed Reason for Visit: Orders [681] Primary Visit Diagnosis:Ureterolithi asis [N20.1] Order(s):CALCULI ANALYSIS [SQCSA] Order #: [id number]. #:[id number] Prescriptions as of 10/30/2024 - potassium citrate ER (UROCIT-K) 10 mEq (1,080 mg) Take 1,080 mg by mouth two times a day. - tamsulosin (FLOMAX) 0.4 mg Take 1 capsule by mouth daily at bedtime. - Lactobac no.41/Bifidobact no.7 (PROBIOTIC-10 ORAL) Take by mouth. - SUMAtriptan (IMITREX) 100 mg tablet Take 1 tablet (100 mg) by mouth as needed for migraine headache (see administration instructions). - indapamide (LOZOL) 1.25 mg tablet Take 1.25 mg by mouth once daily. - rosuvastatin (CRESTOR) 10 mg tablet Take 1 tablet by mouth once daily. - valsartan (DIOVAN) 160 mg tablet Take 1 tablet by mouth once daily. - calcium carbonate 600 mg-cholecalciferol 400 units (CALCIUM WITH VITAMIN D) 600 mg-10 mcg (400 unit) tab Take 1 tablet by mouth once daily. - fluticasone (FLONASE) 50 mcg/actuation nasal spray Use 2 Sprays in each nostril once daily. Rinse mouth after use. - omega 1-bmb-isb-fish oil (FISH OIL) 100-160-1,000 mg cap Take by mouth. - levonorgestrel (MIRENA) 20 mcg/24 hours (5-6 yrs) 52 mg IUD 1 Each by INTRAUTERINE route as directed. - ERGOCALCIFEROL, VITAMIN D2, (VITAMIN D ORAL) Take 2 capsules by mouth once daily. 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] 03/25/2016 External hemorrhoid [K64.4] 07/12/2020 Trapezius muscle spasm [M62.838] 07/12/2020 Obesity, Class I, BMI 30-34.9 [E66.811] 01/13/2022 Migraine without aura, intractable, without sta*01/13/2022 Hyperglycemia [R73.9] 03/01/2023 Well adult exam [Z00.00] 03/01/2023 Chest pain on breathing [R07.1] 03/01/2023 Hyperbilirubinemia [E80.6] 03/01/2023 Impaired fasting glucose [R73.01] 03/15/2024 Encounter Status:Closed by ARTI YEPEZ on 10/30/24 Normal [facility] CALCULI ANALYSISon Calculus analysis [Interp] Normal [facility] Comment on above: Order Comment: Speci men Type: BLOOD SPECIMEN Ordering Facility: [facility] Address: [address] [place] [address] Result Comment: This test was developed, and its performance characteristics determined by the [facility] Department of Pathology and Laboratory Medicine. It has not been cleared or approved by the FDA. The [facility] Department of Pathology and Laboratory Medicine is regulated under CLIA as qualified to perform high-complexity testing. This test is used for clinical purposes. It should not be regarded as investigational or for research. This test was developed, and its performance characteristics determined by the [facility] Department of Pathology and Laboratory Medicine. It has not been cleared or approved by the FDA. The [facility] Department of Pathology and Laboratory Medicine is regulated under CLIA as qualified to perform high-complexity testing. This test is used for clinical purposes. It should not be regarded as investigational or for research. Performed By: #### 5 7021-8, 4537-7 #### [facility] CLIA [id number] [address] [place], [place] [address] [address] [place] CALCULUS COLOR BROWN Normal [facility] Comment on above: Order Comment: Speci men Type: BLOOD SPECIMEN Ordering Facility: [facility] Address: [address] [place] [address] Performed By: #### 5 7021-8, 4537-7 #### [facility] CLIA [id number] [address] [place] [address] [place] CALCULUS COMPOSITION 1 70% Calcium Oxala te Monohydrate Normal [facility] Comment on above: Order Comment: Speci men Type: BLOOD SPECIMEN Ordering Facility: [facility] Address: [address] [place] [address] Performed By: #### 5 7021-8, 4536-7 #### [facility] CLIA [id number] [address] [place] [address] [place] CALCULUS COMPOSITION 2 30% Uric Acid Normal [facility] Comment on above: Order Comment: Speci men Type: BLOOD SPECIMEN Ordering Facility: [facility] Address: [address] [place] [address] Performed By: #### 5 7021-8, 4536-7 #### [facility] CLIA [id number] [address] [place] [address] [place] CALCULUS SIZE AND WT Multiple pieces. To o small to weigh. Normal [facility] Comment on above: Order Comment: Speci men Type: BLOOD SPECIMEN Ordering Facility: [facility] Address: [address] [place] [address] Performed By: #### 5 7021-8, 4536-7 #### [facility] CLIA [id number] [address] [place] [address] [place] CALCULUS TYPE Calculus, Calculi or Calculus Normal [facility] Comment on above: Order Comment: Speci men Type: BLOOD SPECIMEN Ordering Facility: [facility] Address: [address] [place] [address] Performed By: #### 5 7021-8, 7-7 #### [facility] CLIA [id number] [address] [place] [address] [place] CNPVale 10-20-2024 CNPN Telephone (UROLWS) JOSE R WATT ([id number]) 1975 F T Date Time Provider Department 10/20/24 ENMANUEL VARGAS During your visit today, we recorded the following information about you: Emanuel Purcell MA 10/20/2024 11:14 AM Signed Pt calling for results of urine culture. [facility] pharmacy Please review and advise. BRENNAN Dash Brandon, PA-C 10/20/2024 4:44 PM Signed Please, notify patient the urine culture was positive Treatment e-scripted: Cipro 500 mg Patient needs to hold Calcium while on RX while on antibiotic. And will need a 2 week post-treatment urine culture ( orders are in) Thank you, Enmanuel Vargas, [facility], [place], Emanuel Owens MA 10/20/2024 4:46 PM Signed Pt notified and verbalizes understanding. Emanuel Purcell MA Allergies As of Date: 10/20/2024 Noted Allergy Reaction AUGMENTIN (AMOXICILLIN-POT CLAVUL*03/23/2012 11 - Vomiting SULFA (SULFONAMIDE ANTIBIOTICS) 11/27/2005 2 - Rash Date Reviewed: 10/17/2024 Reviewed by: Shala Sears MA - Fully Assessed Reason for Visit: Results [95] Orders [681] Primary Visit Diagnosis:Dysuria [R30.0] Order(s):ciprofloxacin HCl (CIPRO) 500 mg tabletTake 1 tablet by mouth two times a day for 7 days.Disp: 14 tabletRfl: 0 BACTERIAL CULTURE, URINE [SQURCUL] Order #: [id number] FUTURE Prescriptions as of 10/20/2024 - ciprofloxacin HCl (CIPRO) 500 mg tablet Take 1 tablet by mouth two times a day for 7 days. - potassium citrate ER (UROCIT-K) 10 mEq (1,080 mg) Take 1,080 mg by mouth two times a day. - tamsulosin (FLOMAX) 0.4 mg Take 1 capsule by mouth daily at bedtime. - Lactobac no.41/Bifidobact no.7 (PROBIOTIC-10 ORAL) Take by mouth. - SUMAtriptan (IMITREX) 100 mg tablet Take 1 tablet (100 mg) by mouth as needed for migraine headache (see administration instructions). - indapamide (LOZOL) 1.25 mg tablet Take 1.25 mg by mouth once daily. - rosuvastatin (CRESTOR) 10 mg tablet Take 1 tablet by mouth once daily. - valsartan (DIOVAN) 160 mg tablet Take 1 tablet by mouth once daily. - calcium carbonate 600 mg-cholecalciferol 400 units (CALCIUM WITH VITAMIN D) 600 mg-10 mcg (400 unit) tab Take 1 tablet by mouth once daily. - fluticasone (FLONASE) 50 mcg/actuation nasal spray Use 2 Sprays in each nostril once daily. Rinse mouth after use. - omega 1-hcf-bbz-fish oil (FISH OIL) 100-160-1,000 mg cap Take by mouth. - levonorgestrel (MIRENA) 20 mcg/24 hours (5-6 yrs) 52 mg IUD 1 Each by INTRAUTERINE route as directed. - ERGOCALCIFEROL, VITAMIN D2, (VITAMIN D ORAL) Take 2 capsules by mouth once daily. 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 Encounter Status:Closed by EMANUEL PURCELL on 10/20/24 [facility] Bacteria Ur Culton Bacteria identified Cx Nom (U) ORGANISM ID: 1 >=100,000 CFU/ml Klebsiella pneumoniae ORGANISM ID: 1 (KLEBSIELLA PNEUMONIAE) -- ANTIBIOTIC INTERPRETATION WILSON STATUS REFERENCE RANGE -- Ampicillin R >=32 F Susceptible <=8 , Intermediate >8 , Resistant >16 Cefazolin S <=4 F Susceptible 0-16 , Intermediate <0 or >16 , Resistant >16 For uncomplicated urinary tract infections, cefazolin results can be used to predict susceptibility or resistance to cephalexin. Ceftriaxone S <=1 F Susceptible <=1 , Intermediate >1 , Resistant >=4 Cefepime S <=1 F Susceptible <=2 , Susceptible-Dose Dependent >2 , Resistant >=16 Ertapenem S <=0.5 F Susceptible <=0.5 , Intermediate >.5 , Resistant >1 Meropenem S <=0.25 F Susceptible <=1 , Intermediate >1 , Resistant >2 Ampicillin/Sulbact S 4 F Susceptible <=8 , Intermediate >8 , Resistant >16 Piperacillin/Tazobac S <=4 F Susceptible <16 , Susceptible-Dose Dependent >=16 , Resistant >=32 Gentamicin S <=1 F Susceptible <=2 , Intermediate >2 , Resistant >=8 Tobramycin S <=1 F Susceptible <4 , Intermediate >=4 , Resistant >=8 Trimeth sulfameth S <=20 F Susceptible <=40 , Resistant >40 Ciprofloxacin S <=0.25 F Susceptible <0.5 , Intermediate >=.5 , Resistant >=1 Nitrofurantoin I 64 F Susceptible <=32 , Intermediate >32 , Resistant >64 Abnormal [facility] Comment on above: Performed By: #### 6 30-4 ####[facility] [id number] [address] [facility] CNOVon 10-17-2024 CNOV Office Visit (UROLWS ) JOSE R WATT ([id number]) 1975 F CHT Date Time Provider Department 10/17/24 8:30 AM ENMANUEL VARGAS During your visit today, we recorded the following information about you: Pulse Respiration Blood pressure Weight 82/minute 16/minute 146/93 81.2 kg Enmanuel Vargas PA-C 10/17/2024 6:26 PM Signed [facility] NEW PATIENT CLINIC NOTE SERVICE DATE: October 17, 2024 NAME: Jose R Watt CHIEF COMPLAINT: Nephrolithiasis HISTORY OF PRESENT ILLNESS: Jose R Watt is a 49 year old female an new patient here for Nephrolithiasis The patient reports having kidney stone and stent placement with [facility] Urologist and when JJ Stent was removed she had fever And went to ER and found to have pyelonephritis and became septic and admitted to [facility] ICU had been given IV antibiotics an IV Fluids, Imaging showed bilateral kidney stones Right side treated left 4 mm non-obstructing stone, no treatment at that time And not sure if she passed it or not, she is frustrated that Urologist at [facility] did not sent any of the stone fragments for analysis So is not certain of what type of stones she had. Her family has history of [place] Oxylate stones, she was give strainer and sterile cup if she does find stone will bring it in for analysis > We discussed increasing daily water intake to 64-84 oz 7a -7p and try to reduce bladder irritants, caffeine, alcohol and acid foods and drink. Instructed the patient to CALL office to get a URINE CULTURE order placed if having UTI symptoms, instead of going to Urgent Care or ER As long as I have seen the patient within 1 year, understanding NO antibiotics will be given until the culture is final If patient has a FEVER > 100.1, we will send her to ER that is not common for uncomplicated UTI LUTS: DYSURIA: no URGENCY: Yes FREQUENCY:3 per day NOCTURIA: 0 per night STRAINING TO VOID: No EMPTIES COMPLETELY: Yes UTI: No GROSS HEMATURIA: no UA DIPSTICK POSITIVE ONLY: yes LABS: No results found for: PSA No results found for: TESTOST Hematocrit (%) Date Value 09/05/2024 39.6 10/25/2021 41.6 No results found for: PSA Creatinine Date Value Ref Range Status 09/26/2024 0.59 0.58 - 0.96 mg/dL Final 09/05/2024 0.57 (L) 0.58 - 0.96 mg/dL Final 03/23/2024 0.65 0.58 - 0.96 mg/dL Final MEDICATIONS: potassium citrate ER (UROCIT-K) 10 mEq (1,080 mg) Take 1,080 mg by mouth two times a day. Lactobac no.41/Bifidobact no.7 (PROBIOTIC-10 ORAL) Take by mouth. SUMAtriptan (IMITREX) 100 mg tablet Take 1 tablet (100 mg) by mouth as needed for migraine headache (see administration instructions). valsartan (DIOVAN) 160 mg tablet Take 1 tablet by mouth once daily. omega 7-siy-sbg-fish oil (FISH OIL) 100-160-1,000 mg cap Take by mouth. levonorgestrel (MIRENA) 20 mcg/24 hours (5-6 yrs) 52 mg IUD 1 Each by INTRAUTERINE route as directed. ERGOCALCIFEROL, VITAMIN D2, (VITAMIN D ORAL) Take 2 capsules by mouth once daily. tamsulosin (FLOMAX) 0.4 mg Take 1 capsule by mouth daily at bedtime. indapamide (LOZOL) 1.25 mg tablet Take 1.25 mg by mouth once daily. (Patient not taking: Reported on 09/11/2024) rosuvastatin (CRESTOR) 10 mg tablet Take 1 tablet by mouth once daily. calcium carbonate 600 mg-cholecalciferol 400 units (CALCIUM WITH VITAMIN D) 600 mg-10 mcg (400 unit) tab Take 1 tablet by mouth once daily. fluticasone (FLONASE) 50 mcg/actuation nasal spray Use 2 Sprays in each nostril once daily. Rinse mouth after use. (Patient not taking: Reported on 12/01/2023) PAST MEDICAL HISTORY: PAST MEDICAL HISTORY Diagnosis Date Dysmenorrhea Excessive or frequent menstruation Heavy periods Resolved Kidney stones Malaise and fatigue Mixed hyperlipidemia Parathyroid tumor 10/11/2014 benign, Dr. Hernandez [employer] [place] Premenstrual tension syndromes Thyroid nodule 10/11/2014 Dr. [employer] [place] Unspecified essential hypertension 10/11/2006 Vitamin D deficiency secondary to parathyroidectomy PAST SURGICAL HISTORY: PAST SURGICAL HISTORY Procedure Laterality Date DELIVERY ONLY X 2 PARATHYROID 01/09/2015 tumor removed REMOVE KIDNEY STONE Left FAMILY HISTORY: FAMILY HISTORY Problem Relation Age of Onset Thyroid Mother Heart Mother Diabetes Mother Hypertension Father Heart Father Diabetes Father Diabetes Paternal Aunt Thyroid Other paternal side SOCIAL HISTORY: Social Connections: Socially Integrated (12/25/2022) Social Connection and Isolation Panel [NHANES] Frequency of Communication with Friends and Family: More than three times a week Frequency of Social Gatherings with Friends and Family: More than three times a week Attends Orthodox Services: More than 4 times per year Active Member of Clubs or Organ (more content not included)... Normal [facility] Fazal 10-17-2024 [facility] Telephone (AKURFL) JOSE R WATT ([id number]) 1975 F T Date Time Provider Department 10/17/24 ENMANUEL VARGAS During your visit today, we recorded the following information about you: Rosa Maria Infante 10/17/2024 10:42 AM Signed Left pt vm re: needs an appt with Dr. Oshea. Ref by Devin Vargas. Tory Allergies As of Date: 10/17/2024 Noted Allergy Reaction AUGMENTIN (AMOXICILLIN-POT CLAVUL*03/23/2012 11 - Vomiting SULFA (SULFONAMIDE ANTIBIOTICS) 11/27/2005 2 - Rash Date Reviewed: 10/17/2024 Reviewed by: Shala Sears MA - Fully Assessed Reason for Visit: Appointment [186] Prescriptions as of 10/20/2024 - ciprofloxacin HCl (CIPRO) 500 mg tablet Take 1 tablet by mouth two times a day for 7 days. - potassium citrate ER (UROCIT-K) 10 mEq (1,080 mg) Take 1,080 mg by mouth two times a day. - tamsulosin (FLOMAX) 0.4 mg Take 1 capsule by mouth daily at bedtime. - Lactobac no.41/Bifidobact no.7 (PROBIOTIC-10 ORAL) Take by mouth. - SUMAtriptan (IMITREX) 100 mg tablet Take 1 tablet (100 mg) by mouth as needed for migraine headache (see administration instructions). - indapamide (LOZOL) 1.25 mg tablet Take 1.25 mg by mouth once daily. - rosuvastatin (CRESTOR) 10 mg tablet Take 1 tablet by mouth once daily. - valsartan (DIOVAN) 160 mg tablet Take 1 tablet by mouth once daily. - calcium carbonate 600 mg-cholecalciferol 400 units (CALCIUM WITH VITAMIN D) 600 mg-10 mcg (400 unit) tab Take 1 tablet by mouth once daily. - fluticasone (FLONASE) 50 mcg/actuation nasal spray Use 2 Sprays in each nostril once daily. Rinse mouth after use. - omega 8-nmu-rls-fish oil (FISH OIL) 100-160-1,000 mg cap Take by mouth. - levonorgestrel (MIRENA) 20 mcg/24 hours (5-6 yrs) 52 mg IUD 1 Each by INTRAUTERINE route as directed. - ERGOCALCIFEROL, VITAMIN D2, (VITAMIN D ORAL) Take 2 capsules by mouth once daily. 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] 03/25/2016 External hemorrhoid [K64.4] 07/12/2020 Trapezius muscle spasm [M62.838] 07/12/2020 Obesity, Class I, BMI 30-34.9 [E66.811] 01/13/2022 Migraine without aura, intractable, without sta*01/13/2022 Hyperglycemia [R73.9] 03/01/2023 Well adult exam [Z00.00] 03/01/2023 Chest pain on breathing [R07.1] 03/01/2023 Hyperbilirubinemia [E80.6] 03/01/2023 Impaired fasting glucose [R73.01] 03/15/2024 Encounter Status:Closed by ROSA MARIA INFANTE on 10/17/24 [facility] UA DIP, URINE (POC)on 2024 BILIRUBIN UA (POCT) Negative Negative [facility] CLARITY UA (POCT) Clear [facility] COLOR UA (POCT) Yellow [facility] GLUCOSE UA (POCT) Negative Negative mg/dL [facility] Hemoglobin Ql (U) Trace-intact Abnormal Negative [facility] Interpretation and review of laboratory results Abnormal [facility] KETONE UA (POCT) Negative Negative mg/dL [facility] LEUKOCYTES UA (POCT) Negative Negative [facility] NITRITE UA (POCT) Positive Abnormal Negative [facility] PH UA (POCT) 6.5 4.5 - 8.0 [facility] Protein Ql (U) Negative Negative mg/dL [facility] SPECIFIC GRAVITY UA (POCT) 1.025 1.005 - 1.030 [facility] UROBILINOGEN UA (POCT) 0.2 Eunice l E.U./dL [facility] Location:[facility], [address], [place], [address] [facility] POINT OF CARE [facility] Comprehensive Metabolic Prof ilon 10-16-2024 Albumin [Mass/Vol] 3.8 g/dL Normal 3.2-5.0 [facility] Comment on above: Performed By: #### L 501.2300, L501.5200, L500.4050, L509.7000 #### [facility] [address] [place], [address] Albumin/Globulin [Mass ratio] 0.9 {ratio} Normal 0.9-2.4 [facility] Comment on above: Performed By: #### L 501.2300, L501.5200, L500.4050, L509.7000 #### [facility] [address] [place], [address] ALK P 67 U/L Normal 45-117 [facility] Comment on above: Performed By: #### L 501.2300, L501.5200, L500.4050, L509.7000 #### [facility] [address] [place], [address] ALT [Catalytic activity/Vol] 27 U/L Normal 13-56 [facility] Comment on above: Performed By: #### L 501.2300, L501.5200, L500.4050, L509.7000 #### [facility] [address] [place], [address] AST [Catalytic activity/Vol] 17 U/L Normal 15-37 [facility] Comment on above: Performed By: #### L 501.2300, L501.5200, L500.4050, L509.7000 #### [facility] [address] [place], [address] Bilirubin [Mass/Vol] 1.10 mg/dL High 0.20-1.00 [facility] Comment on above: Result Comment: For patients on eltrombopag therapy, use of Dimension Gervais TBIL is not recommended. Performed By: #### L 501.2300, L501.5200, L500.4050, L509.7000 #### [facility] [address] [place], [address] BUN/CRE 15.8 RATIO Normal 10-20 [facility] Comment on above: Performed By: #### L 501.2300, L501.5200, L500.4050, L509.7000 #### [facility] [address] [place], [address] CA,Total 9.2 mg/dL Normal 8.5-10.1 [facility] Comment on above: Performed By: #### L 501.2300, L501.5200, L500.4050, L509.7000 #### [facility] [address] [place], [address] Chloride [Moles/Vol] 107 mmol/L Normal 98-107 [facility] Comment on above: Performed By: #### L 501.2300, L501.5200, L500.4050, L509.7000 #### [facility] [address] [place], [address] CO2 [Moles/Vol] 26.0 mmol/L Normal 21.0-32.0 [facility] Comment on above: Performed By: #### L 501.2300, L501.5200, L500.4050, L509.7000 #### [facility] [address] [place], [address] Creatinine [Mass/Vol] 0.70 mg/dL Normal 0.55-1.02 [facility] Comment on above: Result Comment: The validity of the calculated GFR GFRAA in patients over 70 years has not been determined. Clinical correlation is essential. Performed By: #### L 501.2300, L501.5200, L500.4050, L509.7000 #### [facility] [address] [place], [address] EST GFR - AA 114 mL/min Normal >60 [facility] Comment on above: Result Comment: Afri can [place] GFR Calc Performed By: #### L 501.2300, L501.5200, L500.4050, L509.7000 #### [facility] [address] [place], [address] GAP 5 Normal 5-15 [facility] Comment on above: Performed By: #### L 501.2300, L501.5200, L500.4050, L509.7000 #### [facility] [address] [place], [address] GFR/1.73 sq M.predicted among non-blacks MDRD (S/P/Bld) [Vol rate/Area] 94 mL/min/{1.73_m2} Normal >60 [facility] Comment on above: Result Comment: Non- GFR Calc Performed By: #### L 501.2300, L501.5200, L500.4050, L509.7000 #### [facility] [address] [place], [address] Globulin (S) [Mass/Vol] 4.1 g/dL Normal 2.2-4.2 [facility] Comment on above: Performed By: #### L 501.2300, L501.5200, L500.4050, L509.7000 #### [facility] [address] [place], [address] Glucose [Mass/Vol] 106 mg/dL Normal 74-106 [facility] Comment on above: Result Comment: Fast ing Glucose result from 100 to 125 mg/dL suggests IMPAIRED HOMEOSTASIS per A.D.A. criteria. Performed By: #### L 501.2300, L501.5200, L500.4050, L509.7000 #### [facility] [address] [place], [address] Potassium [Moles/Vol] 4.2 mmol/L Normal 3.5-5.1 [facility] Comment on above: Performed By: #### L 501.2300, L501.5200, L500.4050, L509.7000 #### [facility] [address] [place], [address] Sodium [Moles/Vol] 138 mmol/L Normal 136-145 [facility] Comment on above: Performed By: #### L 501.2300, L501.5200, L500.4050, L509.7000 #### [facility] [address] [place], [address] T PROT 7.9 g/dL Normal 6.4-8.2 [facility] Comment on above: Performed By: #### L 501.2300, L501.5200, L500.4050, L509.7000 #### [facility] [address] [place], [address] Urea nitrogen [Mass/Vol] 11 mg/dL Normal 7-18 [facility] Comment on above: Performed By: #### L 501.2300, L501.5200, L500.4050, L509.7000 #### [facility] [address] [place], [place], [address] Magnesiumon 10-16-2024 Magnesium [Mass/Vol] 2.2 mg/dL Normal 1.6-2.6 [facility] Comment on above: Performed By: #### L 501.2300, L501.5200, L500.4050, L509.7000 #### [facility] [address] [place], [address] Thyroid Stim Hormone (TSH)on 10-16-2024 TSH 1.440 uIU/mL Normal 0.358-3.740 [facility] Comment on above: Performed By: #### L 501.2300, L501.5200, L500.4050, L509.7000 #### [facility] [address] [place], [address] CNPVale 09-27-2024 CNPMason Telephone (FAMPWS) JOSE R WATT ([id number]) 1975 F [facility] Date Time Provider Department 09/27/24 [facility] During your visit today, we recorded the following information about you: Toña Dhaliwal APRN.STEM MOUNTER 09/27/2024 7:37 AM Signed Please call patient and let her know that lab work results look fantastic! Inflammatory markers are back to normal. Liver enzymes have also recovered back to normal. No concerns. Take care, Toña Dhaliwal APRN.STEM MOUNTER Priyanka Quevedo LPN 09/27/2024 9:15 AM Signed Phoned patient went over results, notes from Toña Dhaliwal [employer] with understanding. Allergies As of Date: 09/27/2024 Noted Allergy Reaction AUGMENTIN (AMOXICILLIN-POT CLAVUL*03/23/2012 11 - Vomiting SULFA (SULFONAMIDE ANTIBIOTICS) 11/27/2005 2 - Rash Date Reviewed: 09/11/2024 Reviewed by: Toña Dhaliwal APRN.STEM MOUNTER - Fully Assessed Reason for Visit: Results [95] Prescriptions as of 09/27/2024 - Lactobac no.41/Bifidobact no.7 (PROBIOTIC-10 ORAL) Take by mouth. - tamsulosin (FLOMAX) 0.4 mg Take 1 capsule by mouth daily at bedtime. - SUMAtriptan (IMITREX) 100 mg tablet Take 1 tablet (100 mg) by mouth as needed for migraine headache (see administration instructions). - indapamide (LOZOL) 1.25 mg tablet Take 1.25 mg by mouth once daily. - rosuvastatin (CRESTOR) 10 mg tablet Take 1 tablet by mouth once daily. - valsartan (DIOVAN) 160 mg tablet Take 1 tablet by mouth once daily. - calcium carbonate 600 mg-cholecalciferol 400 units (CALCIUM WITH VITAMIN D) 600 mg-10 mcg (400 unit) tab Take 1 tablet by mouth once daily. - fluticasone (FLONASE) 50 mcg/actuation nasal spray Use 2 Sprays in each nostril once daily. Rinse mouth after use. - omega 4-jat-dxp-fish oil (FISH OIL) 100-160-1,000 mg cap Take by mouth. - levonorgestrel (MIRENA) 20 mcg/24 hours (5-6 yrs) 52 mg IUD 1 Each by INTRAUTERINE route as directed. - ERGOCALCIFEROL, VITAMIN D2, (VITAMIN D ORAL) Take 2 capsules by mouth once daily. 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] 03/25/2016 External hemorrhoid [K64.4] 07/12/2020 Trapezius muscle spasm [M62.838] 07/12/2020 Obesity, Class I, BMI 30-34.9 [E66.811] 01/13/2022 Migraine without aura, intractable, without sta*01/13/2022 Hyperglycemia [R73.9] 03/01/2023 Well adult exam [Z00.00] 03/01/2023 Chest pain on breathing [R07.1] 03/01/2023 Hyperbilirubinemia [E80.6] 03/01/2023 Impaired fasting glucose [R73.01] 03/15/2024 Encounter Status:Closed by PRIYANKA QUEVEDO on 09/27/24 Normal [facility] CRP SerPl-ncon 09-26-2024 CRP [Mass/Vol] mg/L Normal <0.9 [facility] Comment on above: Order Comment: Speci men Type: BLOOD SPECIMEN Ordering Facility: [facility] Address: [address] [place] [address] Performed By: #### 5 7021-8, 4537-7 #### [facility] CLIA [id number] [address] [place] [address] [place] Comprehensive metabolic 2000 panelon 09-26-2024 Albumin [Mass/Vol] 4.4 g/dL Normal 3.9-4.9 [facility] Comment on above: Order Comment: Speci men Type: BLOOD SPECIMEN Ordering Facility: [facility] Address: [address] [place] [address] Performed By: #### 5 7021-8, 4537-7 #### [facility] CLIA [id number] [address] [place] [address] [place] ALP [Catalytic activity/Vol] 65 U/L Normal 34-123 [facility] Comment on above: Order Comment: Speci men Type: BLOOD SPECIMEN Ordering Facility: [facility] Address: [address] [place] [address] Performed By: #### 5 7021-8, 4537-7 #### [facility] CLIA [id number] [address] [place] [address] [place] ALT [Catalytic activity/Vol] 42 U/L High 7-38 [facility] Comment on above: Order Comment: Speci men Type: BLOOD SPECIMEN Ordering Facility: [facility] Address: [address] [place] [address] Performed By: #### 5 7021-8, 7-7 #### [facility] CLIA [id number] [address] [place] [address] [place] Anion gap [Moles/Vol] 9 mmol/L Normal 8-15 [facility] Comment on above: Order Comment: Speci men Type: BLOOD SPECIMEN Ordering Facility: [facility] Address: [address] [place] [address] Performed By: #### 5 7021-8, 7-7 #### [facility] CLIA [id number] [address] [place] [address] [place] AST [Catalytic activity/Vol] 29 U/L Normal 13-35 [facility] Comment on above: Order Comment: Speci men Type: BLOOD SPECIMEN Ordering Facility: [facility] Address: [address] [place] [address] Performed By: #### 5 7021-8, 7-7 #### [facility] CLIA [id number] [address] [place] [address] [place] Bilirubin [Mass/Vol] 0.9 mg/dL Normal 0.2-1.3 [facility] Comment on above: Order Comment: Speci men Type: BLOOD SPECIMEN Ordering Facility: [facility] Address: [address] [place] [address] Performed By: #### 5 7021-8, 4537-7 #### [facility] CLIA [id number] [address] [place] [address] [place] Calcium [Mass/Vol] 9.5 mg/dL Normal 8.5-10.2 [facility] Comment on above: Order Comment: Speci men Type: BLOOD SPECIMEN Ordering Facility: [facility] Address: [address] [place] [address] Performed By: #### 5 7021-8, 4537-7 #### [facility] CLIA [id number] [address] [place] [address] [place] Chloride [Moles/Vol] 105 mmol/L Normal 98-107 [facility] Comment on above: Order Comment: Speci men Type: BLOOD SPECIMEN Ordering Facility: [facility] Address: [address] [place] [address] Performed By: #### 5 7021-8, 4537-7 #### [facility] CLIA [id number] [address] [place] [address] [place] CO2 [Moles/Vol] 24 mmol/L Normal 22-30 [facility] Comment on above: Order Comment: Speci men Type: BLOOD SPECIMEN Ordering Facility: [facility] Address: [address] [place] [address] Performed By: #### 5 7021-8, 4537-7 #### [facility] CLIA [id number] [address] [place] [address] [place] Creatinine [Mass/Vol] 0.59 mg/dL Normal 0.58-0.96 [facility] Comment on above: Order Comment: Speci men Type: BLOOD SPECIMEN Ordering Facility: [facility] Address: [address] [place] [address] Performed By: #### 5 7021-8, 4537-7 #### [facility] CLIA [id number] [address] [place] [address] [place] Creatinine and Glomerular filtration rate.predicted panel (S/P/Bld) 110 mL/min/1.73m??? Normal >=60 [facility] Comment on above: Order Comment: Dilan arrington Type: BLOOD SPECIMEN Ordering Facility: [facility] Address: [address] [place] [address] Result Comment: Zoie mated Glomerular Filtration Rate (eGFR) is calculated using the 2020 CKD-EPI creatinine equation. This equation utilizes serum creatinine, sex, and age as parameters. The creatinine assay has traceable calibration to isotope dilution-mass spectrometry. Refer to KDIGO guidelines for clinical interpretation. In patients with unstable renal function, e.g. those with acute kidney injury, the eGFR may not accurately reflect actual GFR. Performed By: #### 5 7021-8, 4537-7 #### [facility] CLIA [id number] [address] [place] [address] [place] Glucose [Mass/Vol] 103 mg/dL High 74-99 [facility] Comment on above: Order Comment: Dilan arrington Type: BLOOD SPECIMEN Ordering Facility: [facility] Address: [address] [place] [address] Result Comment: The [place] Diabetes Association (ADA) provides guidance for cutoff values for fasting glucose and random glucose. The ADA defines fasting as no caloric intake for at least 8 hours. Fasting plasma glucose results between 100 to 125 mg/dL indicate increased risk for diabetes (prediabetes). Fasting plasma glucose results greater than or equal to 126 mg/dL meet the criteria for diagnosis of diabetes. In the absence of unequivocal hyperglycemia, results should be confirmed by repeat testing. In a patient with classic symptoms of hyperglycemia or hyperglycemic crisis, random plasma glucose results greater than or equal to 200 mg/dL meet the criteria for diagnosis of diabetes. Reference: Standards of Medical Care in Diabetes 2016, [place] Diabetes Association. Diabetes Care. 2016.39(Suppl 1). Performed By: #### 5 7021-8, 4537-7 #### [facility] CLIA [id number] [address] [place] [address] [place] Potassium [Moles/Vol] 4.4 mmol/L Normal 3.7-5.1 [facility] Comment on above: Order Comment: Speci men Type: BLOOD SPECIMEN Ordering Facility: [facility] Address: [address] [place] [address] Performed By: #### 5 7021-8, 4537-7 #### [facility] CLIA [id number] [address] [place] [address] [place] Protein [Mass/Vol] 7.3 g/dL Normal 6.3-8.0 [facility] Comment on above: Order Comment: Speci men Type: BLOOD SPECIMEN Ordering Facility: [facility] Address: [address] [place] [address] Performed By: #### 5 7021-8, 4537-7 #### [facility] CLIA [id number] [address] [place] [address] [place] Sodium [Moles/Vol] 138 mmol/L Normal 136-144 [facility] Comment on above: Order Comment: Speci men Type: BLOOD SPECIMEN Ordering Facility: [facility] Address: [address] [place] [address] Performed By: #### 5 7021-8, 4537-7 #### [facility] CLIA [id number] [address] [place] [address] [place] Urea nitrogen [Mass/Vol] 11 mg/dL Normal 7-21 [facility] Comment on above: Order Comment: Speci men Type: BLOOD SPECIMEN Ordering Facility: [facility] Address: [address] [place] [address] Performed By: #### 5 7021-8, 4537-7 #### [facility] CLIA [id number] [address] [place] [address] [place] ESR Westergren method (Bld) [Velocity]on 09-26-2024 ESR (Bld) [Velocity] 9 mm/h Normal 0-20 [facility] Comment on above: Order Comment: Speci men Type: BLOOD SPECIMEN Ordering Facility: [facility] Address: [address] [place] [address] Performed By: #### 5 7021-8, 4537-7 #### [facility] IA [id number] [address] [place] [address] [place] Heteroph Ab Ser Ql LAon 09-10 Heterophile Ab LA Ql (S) Negative Normal Negative [facility] Comment on above: Order Comment: Speci men Type: BLOOD SPECIMEN Ordering Facility: [facility] Address: [address] [place] [address] Result Comment: Infe ctious Mononucleosis rapid test is used as an aid in diagnosis of acute infection with Asher-Carmichael virus (EBV). The antibody levels may occasionally remain elevated up to several months after a primary EBV infection. Final interpretation should be done in conjunction with EBV-specific serology and clinical correlation. False positive results may occasionally be seen with other infectious agents such as Cytomegalovirus, Toxoplasma, and HIV among others as well as non-infectious conditions such as lymphoma. Clinical correlation is required. Performed By: #### 5 7021-8, 4537-7 #### [facility] CLIA [id number] [address] [place] [address] [place] CNOVon 09-11-2024 CNOV Office Visit (FAMPWS ) JOSE R WATT ([id number]) 1975 F T Date Time Provider Department 09/11/24 11:40 AM TOÑA DHALIWAL FAMPWS During your visit today, we recorded the following information about you: Temperature Pulse Respiration Blood pressure 99 degrees 84/minute 12/minute 120/62 Weight 80.1 kg Toña Dhaliwal APRN.STEM MOUNTER 09/11/2024 12:34 PM Signed Chief Complaint Patient presents with: sinus pressure: Eye feel full, gums sore HPI Jose R Watt is a 49 year old female who presents here today for Above Complaints. Jose R is an established patient of Dr. Yg DO. Pt was seen by Dr. Ronquillo on 09/05: She was recently treated with right lithotripsy procedure on 08/23 at [facility] by Dr. Soto and had ureteral stent placement. She was placed on ciprofloxacin antibiotic. She went home and then soon developed high fevers and worsening right flank pain. She was found to have sepsis at [facility] when evaluated. She was admitted to the hospital on 08/30 and discharged home on 09/01. She was sent home with 5 days of cefdinir antibiotics. She has another 3 tablets left of this. She is having a significant pressure severe pain headache in occipital area by description. No fevers or chills. She has been taking imitrex with temporary benefit only then headache reoccurs. She is willing to see tutor coordinator to help determine how to prevent these kidney stones- she has a punctate and 3 mm left kidney stone still present. ASSESSMENT/PLAN: 1. Pyelonephritis of right kidney - ICD9: 590.80, ICD10: N12 (primary diagnosis) Recheck labs F/u with Urologist in 2-3 weeks as scheduled Finish the Cefdinir Start on prn percocet for significant headache. She is afebrile currently Referral to Cold Type Artist for opinion regarding future stone formation prevention- we don't know what type of stones she is forming - C-REACTIVE PROTEIN - SEDIMENTATION RATE, WESTERGREN - COMPREHENSIVE METABOLIC PANEL - COMPLETE BLOOD COUNT AND DIFFERENTIAL - OXYCODONE-ACETAMINOPHE N 5 MG-325 MG TABLET - TAMSULOSIN 0.4 MG CAPSULE - CONSULT TO NEPHROLOGY Today in office... Pt reports feeling like she has a sinus infection. Has been off and on fighting URI symptoms since end of July when she was dx with strep from urgent care. Reports extreme fatigue, congestion, and now facial pressure/pain. Pt also asking about review of recent lab work d/t recent hospital admission. Would also like referral to new urologist. WBC while at [facility] from sepsis was 19.8 Recent labs: Latest Ref Rng 09/05/2024 WBC 3.70 - 11.00 k/uL 10.65 RBC 3.90 - 5.20 m/uL 4.43 Hemoglobin 11.5 - 15.5 g/dL 12.8 Hematocrit 36.0 - 46.0 % 39.6 MCV 80.0 - 100.0 fL 89.4 MCH 26.0 - 34.0 pg 28.9 MCHC 30.5 - 36.0 g/dL 32.3 RDW-CV 11.5 - 15.0 % 13.2 Platelet Count 150 - 400 k/uL 429 (H) MPV 9.0 - 12.7 fL 9.5 Neut% % 51.8 Abs Neut (ANC) 1.45 - 7.50 k/uL 5.52 Lymph% % 35.9 Abs Lymph 1.00 - 4.00 k/uL 3.82 [place]% % 7.2 Abs [place] <0.87 k/uL 0.77 Eosin% % 2.2 Abs Eosin <0.46 k/uL 0.23 Baso% % 1.0 Abs Baso <0.11 k/uL 0.11 (H) Immature Gran % % 1.9 IMMATURE GRANS (ABS) <0.10 k/uL 0.20 (H) NRBC /100 WBC 0.0 Absolute nRBC <0.01 k/uL <0.01 DTYPE Auto Protein, Total 6.3 - 8.0 g/dL 7.9 Albumin 3.9 - 4.9 g/dL 4.2 Calcium 8.5 - 10.2 mg/dL 9.6 Bilirubin, Total 0.2 - 1.3 mg/dL 0.6 Alkaline Phosphatase 34 - 123 U/L 76 AST 13 - 35 U/L 46 (H) ALT 7 - 38 U/L 60 (H) Glucose 74 - 99 mg/dL 96 BUN 7 - 21 mg/dL 18 Creatinine 0.58 - 0.96 mg/dL 0.57 (L) Sodium 136 - 144 mmol/L 138 Potassium 3.7 - 5.1 mmol/L 4.6 Chloride 98 - 107 mmol/L 102 CO2 22 - 30 mmol/L 23 Anion Gap 8 - 15 mmol/L 13 eGFR >=60 mL/min/1.73m? 111 CRP <0.9 mg/dL 1.3 (H) WSR 0 - 20 mm/hr 47 (H) Past medical history, appointments, medications, allergies reviewed. 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 [facility] JOSE R WATT ([id number]) 1975 F T Date Time Provider Department 09/09/24 SHON RONQUILLO [facility] During your visit today, we recorded the following information about you: Carie Aldana MA 09/09/2024 9:40 AM Signed Pt sent in AMENDIA message on 09/08/24 with question regarding lab work. Please review pt message below and advise. Carie Aldana MA Pt message: Should I be on an antibiotic still with my recent blood results? Should we be concerned with the recent blood results? Shon Ronquillo, DO 09/18/2024 2:27 PM Signed Patient was already assessed for these concerns with OFFICE VISIT with Toña Dhaliwal [facility] Allergies As of Date: 09/09/2024 Noted Allergy Reaction AUGMENTIN (AMOXICILLIN-POT CLAVUL*03/23/2012 11 - Vomiting SULFA (SULFONAMIDE ANTIBIOTICS) 11/27/2005 2 - Rash Date Reviewed: 09/05/2024 Reviewed by: Mckenna Dotson LPN - Fully Assessed Reason for Visit: Patient Question [1477] Prescriptions as of 10/23/2024 - ciprofloxacin HCl (CIPRO) 500 mg tablet Take 1 tablet by mouth two times a day for 7 days. - potassium citrate ER (UROCIT-K) 10 mEq (1,080 mg) Take 1,080 mg by mouth two times a day. - tamsulosin (FLOMAX) 0.4 mg Take 1 capsule by mouth daily at bedtime. - Lactobac no.41/Bifidobact no.7 (PROBIOTIC-10 ORAL) Take by mouth. - SUMAtriptan (IMITREX) 100 mg tablet Take 1 tablet (100 mg) by mouth as needed for migraine headache (see administration instructions). - indapamide (LOZOL) 1.25 mg tablet Take 1.25 mg by mouth once daily. - rosuvastatin (CRESTOR) 10 mg tablet Take 1 tablet by mouth once daily. - valsartan (DIOVAN) 160 mg tablet Take 1 tablet by mouth once daily. - calcium carbonate 600 mg-cholecalciferol 400 units (CALCIUM WITH VITAMIN D) 600 mg-10 mcg (400 unit) tab Take 1 tablet by mouth once daily. - fluticasone (FLONASE) 50 mcg/actuation nasal spray Use 2 Sprays in each nostril once daily. Rinse mouth after use. - omega 2-rrg-fku-fish oil (FISH OIL) 100-160-1,000 mg cap Take by mouth. - levonorgestrel (MIRENA) 20 mcg/24 hours (5-6 yrs) 52 mg IUD 1 Each by INTRAUTERINE route as directed. - ERGOCALCIFEROL, VITAMIN D2, (VITAMIN D ORAL) Take 2 capsules by mouth once daily. 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] 03/25/2016 External hemorrhoid [K64.4] 07/12/2020 Trapezius muscle spasm [M62.838] 07/12/2020 Obesity, Class I, BMI 30-34.9 [E66.811] 01/13/2022 Migraine without aura, intractable, without sta*01/13/2022 Hyperglycemia [R73.9] 03/01/2023 Well adult exam [Z00.00] 03/01/2023 Chest pain on breathing [R07.1] 03/01/2023 Hyperbilirubinemia [E80.6] 03/01/2023 Impaired fasting glucose [R73.01] 03/15/2024 Encounter Status:Closed by CARIE ALDANA on 10/23/24 Normal [facility] CBC W Auto Differential pane l (Bld)on 09-05-2024 Basophils (Bld) [#/Vol] 0.11 10*3/uL High <0.11 [facility] Comment on above: Order Comment: Speci men Type: BLOOD SPECIMEN Ordering Facility: [facility] Address: [address] [place] [address] Performed By: #### 5 7021-8, 4537-7 #### [facility] CLIA [id number] [address] [place] [address] [place] Basophils/100 WBC (Bld) 1.0 % Normal [facility] Comment on above: Order Comment: Speci men Type: BLOOD SPECIMEN Ordering Facility: [facility] Address: [address] [place] [address] Performed By: #### 5 7021-8, 4537-7 #### [facility] CLIA [id number] [address] [place] [address] [place] Differential cell count method Nom (Bld) Auto Normal [facility] Comment on above: Order Comment: Speci men Type: BLOOD SPECIMEN Ordering Facility: [facility] Address: [address] [place] [address] Performed By: #### 5 7021-8, 4537-7 #### [facility] CLIA [id number] [address] [place] [address] [place] Eosinophils (Bld) [#/Vol] 0.23 10*3/uL Normal <0.46 [facility] Comment on above: Order Comment: Speci men Type: BLOOD SPECIMEN Ordering Facility: [facility] Address: [address] [place] [address] Performed By: #### 5 7021-8, 453-7 #### [facility] CLIA [id number] [address] [place] [address] [place] Eosinophils/100 WBC (Bld) 2.2 % Normal [facility] Comment on above: Order Comment: Speci men Type: BLOOD SPECIMEN Ordering Facility: [facility] Address: [address] [place] [address] Performed By: #### 5 7021-8, 4536-7 #### [facility] CLIA [id number] [address] [place] [address] [place] Erythrocyte distribution width (RBC) [Ratio] 13.2 % Normal 11.5-15.0 [facility] Comment on above: Order Comment: Speci men Type: BLOOD SPECIMEN Ordering Facility: [facility] Address: [address] [place] [address] Performed By: #### 5 7021-8, 4536-7 #### [facility] CLIA [id number] [address] [place] [address] [place] Hematocrit (Bld) [Volume fraction] 39.6 % Normal 36.0-46.0 [facility] Comment on above: Order Comment: Speci men Type: BLOOD SPECIMEN Ordering Facility: [facility] Address: [address] [place] [address] Performed By: #### 5 7021-8, 4537-7 #### [facility] CLIA [id number] [address] [place] [address] [place] Hemoglobin (Bld) [Mass/Vol] 12.8 g/dL Normal 11.5-15.5 [facility] Comment on above: Order Comment: Speci men Type: BLOOD SPECIMEN Ordering Facility: [facility] Address: [address] [place] [address] Performed By: #### 5 7021-8, 4537-7 #### [facility] CLIA [id number] [address] [place] [address] [place] Immature granulocytes (Bld) [#/Vol] 0.20 10*3/uL High <0.10 [facility] Comment on above: Order Comment: Speci men Type: BLOOD SPECIMEN Ordering Facility: [facility] Address: [address] [place] [address] Performed By: #### 5 7021-8, 4537-7 #### [facility] CLIA [id number] [address] [place] [address] [place] Immature granulocytes/100 WBC (Bld) 1.9 % Normal [facility] Comment on above: Order Comment: Speci men Type: BLOOD SPECIMEN Ordering Facility: [facility] Address: [address] [place] [address] Performed By: #### 5 7021-8, 4537-7 #### [facility] CLIA [id number] [address] [place] [address] [place] Lymphocytes (Bld) [#/Vol] 3.82 10*3/uL Normal 1.00-4.00 [facility] Comment on above: Order Comment: Speci men Type: BLOOD SPECIMEN Ordering Facility: [facility] Address: [address] [place] [address] Performed By: #### 5 7021-8, 4537-7 #### [facility] CLIA [id number] [address] [place] [address] [place] Lymphocytes/100 WBC (Bld) 35.9 % Normal [facility] Comment on above: Order Comment: Speci men Type: BLOOD SPECIMEN Ordering Facility: [facility] Address: [address] [place] [address] Performed By: #### 5 7021-8, 4537-7 #### [facility] CLIA [id number] [address] [place] [address] [place] MCH (RBC) [Entitic mass] 28.9 pg Normal 26.0-34.0 [facility] Comment on above: Order Comment: Speci men Type: BLOOD SPECIMEN Ordering Facility: [facility] Address: [address] [place] [address] Performed By: #### 5 7021-8, 4537-7 #### [facility] CLIA [id number] [address] [place] [address] [place] MCHC (RBC) [Mass/Vol] 32.3 g/dL Normal 30.5-36.0 [facility] Comment on above: Order Comment: Speci men Type: BLOOD SPECIMEN Ordering Facility: [facility] Address: [address] [place] [address] Performed By: #### 5 7021-8, 4537-7 #### [facility] CLIA [id number] [address] [place] [address] [place] MCV (RBC) [Entitic vol] 89.4 fL Normal 80.0-100.0 [facility] Comment on above: Order Comment: Speci men Type: BLOOD SPECIMEN Ordering Facility: [facility] Address: [address] [place] [address] Performed By: #### 5 7021-8, 4537-7 #### [facility] CLIA [id number] [address] [place] [address] [place] Monocytes (Bld) [#/Vol] 0.77 10*3/uL Normal <0.87 [facility] Comment on above: Order Comment: Speci men Type: BLOOD SPECIMEN Ordering Facility: [facility] Address: [address] [place] [address] Performed By: #### 5 7021-8, 4537-7 #### [facility] CLIA [id number] [address] [place] [address] [place] Monocytes/100 WBC (Bld) 7.2 % Normal [facility] Comment on above: Order Comment: Speci men Type: BLOOD SPECIMEN Ordering Facility: [facility] Address: [address] [place] [address] Performed By: #### 5 7021-8, 453-7 #### [facility] CLIA [id number] [address] [place] [address] [place] Neutrophils (Bld) [#/Vol] 5.52 10*3/uL Normal 1.45-7.50 [facility] Comment on above: Order Comment: Speci men Type: BLOOD SPECIMEN Ordering Facility: [facility] Address: [address] [place] [address] Performed By: #### 5 7021-8, 7-7 #### [facility] CLIA [id number] [address] [place] [address] [place] Neutrophils/100 WBC (Bld) 51.8 % Normal [facility] Comment on above: Order Comment: Speci men Type: BLOOD SPECIMEN Ordering Facility: [facility] Address: [address] [place] [address] Performed By: #### 5 7021-8, 4537-7 #### [facility] CLIA [id number] [address] [place] [address] [place] Nucleated RBC (Bld) [#/Vol] 10*3/uL Normal <0.01 [facility] Comment on above: Order Comment: Speci men Type: BLOOD SPECIMEN Ordering Facility: [facility] Address: [address] [place] [address] Performed By: #### 5 7021-8, 4537-7 #### [facility] CLIA [id number] [address] [place] [address] [place] Nucleated RBC/100 WBC (Bld) [Ratio] 0.0 /100 WBC Normal [facility] Comment on above: Order Comment: Speci men Type: BLOOD SPECIMEN Ordering Facility: [facility] Address: [address] [place] [address] Performed By: #### 5 7021-8, 4537-7 #### [facility] CLIA [id number] [address] [place] [address] [place] Platelet mean volume (Bld) [Entitic vol] 9.5 fL Normal 9.0-12.7 [facility] Comment on above: Order Comment: Speci men Type: BLOOD SPECIMEN Ordering Facility: [facility] Address: [address] [place] [address] Performed By: #### 5 7021-8, 4537-7 #### [facility] CLIA [id number] [address] [place] [address] [place] Platelets (Bld) [#/Vol] 429 10*3/uL High 150-400 [facility] Comment on above: Order Comment: Speci men Type: BLOOD SPECIMEN Ordering Facility: [facility] Address: [address] [place] [address] Performed By: #### 5 7021-8, 4537-7 #### [facility] CLIA [id number] [address] [place] [address] [place] RBC (Bld) [#/Vol] 4.43 10*6/uL Normal 3.90-5.20 [facility] Comment on above: Order Comment: Speci men Type: BLOOD SPECIMEN Ordering Facility: [facility] Address: [address] [place] [address] Performed By: #### 5 7021-8, 4537-7 #### [facility] CLIA [id number] [address] [place] [address] [place] [address] [place] WBC (Bld) [#/Vol] 10.65 10*3/uL Normal 3.70-11.00 [facility] Comment on above: Order Comment: Speci men Type: BLOOD SPECIMEN Ordering Facility: [facility] Address: [address] [place] [address] Performed By: #### 5 7021-8, 4537-7 #### [facility] CLIA [id number] [address] [place], [place] [address] [address] [place] CNOVon 09-05-2024 CNOV Office Visit (FAMPWS ) JOSE R WATT ([id number]) 1975 F [facility] Date Time Provider Department 09/05/24 7:40 AM [facility] your visit today, we recorded the following information about you: Temperature Pulse Respiration Blood pressure 98.6 degrees 80/minute 16/minute 120/80 Weight 78.9 kg Shon Ronquillo DO 09/05/2024 9:28 AM Signed CC: Jose R Watt is a 49 year old female who presents to the office from hospital follow up HPI: She was recently treated with right lithotripsy procedure on 08/23 at [facility] by Dr. Soto and had ureteral stent placement. She was placed on ciprofloxacin antibiotic. She went home and then soon developed high fevers and worsening right flank pain. She was found to have sepsis at [facility] when evaluated. She was admitted to the hospital on 08/30 and discharged home on 09/01. She was sent home with 5 days of cefdinir antibiotics. She has another 3 tablets left of this. She is having a significant pressure severe pain headache in occipital area by description. No fevers or chills. She has been taking imitrex with temporary benefit only then headache reoccurs. She is willing to see tutor coordinator to help determine how to prevent these kidney stones- she has a punctate and 3 mm left kidney stone still present. 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 [employer] Donnie Unspecified essential hypertension 10/11/2006 Vitamin D deficiency secondary to parathyroidectomy PAST SURGICAL HISTORY Procedure Laterality Date DELIVERY ONLY X 2 PARATHYROID 01/09/2015 tumor removed REMOVE KIDNEY STONE Left Social History: Social History Tobacco Use Smoking status: Never Smokeless tobacco: Never Vaping Use Vaping status: Never Used Substance Use Topics Alcohol use: No Drug use: No FAMILY HISTORY Problem Relation Age of Onset Thyroid Mother Heart Mother Diabetes Mother Hypertension Father Heart Father Diabetes Father Diabetes Paternal Aunt Thyroid Other paternal side Current Outpatient prescriptions: cefdinir (OMNICEF) 300 mg capsule Take 300 mg by mouth two times a day. Lactobac no.41/Bifidobact no.7 (PROBIOTIC-10 ORAL) Take by mouth. oxyCODONE-acetaminophe n (PERCOCET) 5-325 mg tablet Take 1 tablet by mouth every 6 hours as needed for pain for up to 7 days. tamsulosin (FLOMAX) 0.4 mg Take 1 capsule by mouth daily at bedtime. indapamide (LOZOL) 1.25 mg tablet Take 1.25 mg by mouth once daily. rosuvastatin (CRESTOR) 10 mg tablet Take 1 tablet by mouth once daily. valsartan (DIOVAN) 160 mg tablet Take 1 tablet by mouth once daily. calcium carbonate 600 mg-cholecalciferol 400 units (CALCIUM WITH VITAMIN D) 600 mg-10 mcg (400 unit) tab Take 1 tablet by mouth once daily. fluticasone (FLONASE) 50 mcg/actuation nasal spray Use 2 Sprays in each nostril once daily. Rinse mouth after use. (Patient not taking: Reported on 12/01/2023) omega 4-pjq-wrd-fish oil (FISH OIL) 100-160-1,000 mg cap Take by mouth. SUMAtriptan (IMITREX) 100 mg tablet Take 1 tablet by mouth as needed for migraine headache (see administration instructions). levonorgestrel (MIRENA) 20 mcg/24 hours (5-6 yrs) 52 mg IUD 1 Each by INTRAUTERINE route as directed. ERGOCALCIFEROL, VITAMIN D2, (VITAMIN D ORAL) Take 2 capsules by mouth once daily. Allergies: ALLERGIES Allergen Reactions Augmentin [Amoxicil* Vomiting Sulfa (Sulfonamide * Rash ROS: See HPI PE: 09/05/24 0741 BP: 120/80 Pulse: 80 Resp: 16 Temp: 37 ?C (98.6 ?F) TempSrc: Temporal Weight: 78.9 kg (174 lb) Gen: AANDO, appears uncomfortable HEENT: NT/AC, PERRLA, EOMs intact b/l, nares clear and patent b/l, pharynx without erythema, exudate or lesions. Uvula midline. MMM Neck: supple, No cervical LAD, no thyromegaly, no carotid bruits CV: RRR, normal S1 and S2, no murmurs, no gallops, no rubs, Pulses 2+ and symmetric in UE and LE b/l Lungs: normal respiratory effort, CTA b/l, no wheezing or rhonchi or rales Abd: soft, NT, ND, +BS, no hepatosplenomegaly No flank pain MS: FROM all 4 extremities Neuro: CN II-XII intact b/l, sensation intact. Skin: warm, dry, intact, No rashes or lesions on exposed skin. No edema, normal pulses ASSESSMENT/PLAN: 1. Pyelonephritis of right kidney - ICD9: 590.80, ICD10: N12 (primary diagnosis) Recheck labs F/u with Urologist in 2-3 weeks as scheduled Finish the Cefdinir Start on prn percocet for significant headache. She is afebrile currently Referral to Cold Type Artist for opinion regarding future stone formation prevention- we don't know what type of sto (more content not included)... Normal [facility] CRP SerPl-ncon 09-05-2024 CRP [Mass/Vol] 1.3 mg/dL High <0.9 [facility] Comment on above: Order Comment: Speci men Type: BLOOD SPECIMEN Ordering Facility: [facility] Address: [address] [place] [address] Performed By: #### 5 7021-8, 4537-7 #### [facility] CLIA [id number] [address] [place] [address] [place] Comprehensive metabolic 2000 panelon 09-05-2024 Albumin [Mass/Vol] 4.2 g/dL Normal 3.9-4.9 [facility] Comment on above: Order Comment: Speci men Type: BLOOD SPECIMEN Ordering Facility: [facility] Address: [address] [place] [address] Performed By: #### 5 7021-8, 4537-7 #### [facility] CLIA [id number] [address] [place] [address] [place] ALP [Catalytic activity/Vol] 76 U/L Normal 34-123 [facility] Comment on above: Order Comment: Speci men Type: BLOOD SPECIMEN Ordering Facility: [facility] Address: [address] [place] [address] Performed By: #### 5 7021-8, 4537-7 #### [facility] CLIA [id number] [address] [place] [address] [place] ALT [Catalytic activity/Vol] 60 U/L High 7-38 [facility] Comment on above: Order Comment: Speci men Type: BLOOD SPECIMEN Ordering Facility: [facility] Address: [address] [place] [address] Performed By: #### 5 7021-8, 7-7 #### [facility] CLIA [id number] [address] [place] [address] [place] Anion gap [Moles/Vol] 13 mmol/L Normal 8-15 [facility] Comment on above: Order Comment: Speci men Type: BLOOD SPECIMEN Ordering Facility: [facility] Address: [address] [place] [address] Performed By: #### 5 7021-8, 4537-7 #### [facility] CLIA [id number] [address] [place] [address] [place] AST [Catalytic activity/Vol] 46 U/L High 13-35 [facility] Comment on above: Order Comment: Speci men Type: BLOOD SPECIMEN Ordering Facility: [facility] Address: [address] [place] [address] Performed By: #### 5 7021-8, 4537-7 #### [facility] CLIA [id number] [address] [place] [address] [place] Bilirubin [Mass/Vol] 0.6 mg/dL Normal 0.2-1.3 [facility] Comment on above: Order Comment: Speci men Type: BLOOD SPECIMEN Ordering Facility: [facility] Address: [address] [place] [address] Performed By: #### 5 7021-8, 4537-7 #### [facility] CLIA [id number] [address] [place] [address] [place] Calcium [Mass/Vol] 9.6 mg/dL Normal 8.5-10.2 [facility] Comment on above: Order Comment: Speci men Type: BLOOD SPECIMEN Ordering Facility: [facility] Address: [address] [place] [address] Performed By: #### 5 7021-8, 4537-7 #### [facility] CLIA [id number] [address] [place] [address] [place] Chloride [Moles/Vol] 102 mmol/L Normal 98-107 [facility] Comment on above: Order Comment: Speci men Type: BLOOD SPECIMEN Ordering Facility: [facility] Address: [address] [place] [address] Performed By: #### 5 7021-8, 4537-7 #### [facility] CLIA [id number] [address] [place] [address] [place] CO2 [Moles/Vol] 23 mmol/L Normal 22-30 [facility] Comment on above: Order Comment: Speci men Type: BLOOD SPECIMEN Ordering Facility: [facility] Address: [address] [place] [address] Performed By: #### 5 7021-8, 4536-7 #### [facility] CLIA [id number] [address] [place] [address] [place] Creatinine [Mass/Vol] 0.57 mg/dL Low 0.58-0.96 [facility] Comment on above: Order Comment: Speci men Type: BLOOD SPECIMEN Ordering Facility: [facility] Address: [address] [place] [address] Performed By: #### 5 7021-8, 7 #### [facility] CLIA [id number] [address] [place] [address] [place] Creatinine and Glomerular filtration rate.predicted panel (S/P/Bld) 111 mL/min/1.73m??? Normal >=60 [facility] Comment on above: Order Comment: Speci men Type: BLOOD SPECIMEN Ordering Facility: [facility] Address: [address] [place] [address] Result Comment: Zoie mated Glomerular Filtration Rate (eGFR) is calculated using the 2020 CKD-EPI creatinine equation. This equation utilizes serum creatinine, sex, and age as parameters. The creatinine assay has traceable calibration to isotope dilution-mass spectrometry. Refer to KDIGO guidelines for clinical interpretation. In patients with unstable renal function, e.g. those with acute kidney injury, the eGFR may not accurately reflect actual GFR. Performed By: #### 5 7021-8, 4536-7 #### [facility] CLIA [id number] [address] [place] [address] [place] Glucose [Mass/Vol] 96 mg/dL Normal 74-99 [facility] Comment on above: Order Comment: Speci men Type: BLOOD SPECIMEN Ordering Facility: [facility] Address: [address] [place] [address] Result Comment: The [place] Diabetes Association (ADA) provides guidance for cutoff values for fasting glucose and random glucose. The ADA defines fasting as no caloric intake for at least 8 hours. Fasting plasma glucose results between 100 to 125 mg/dL indicate increased risk for diabetes (prediabetes). Fasting plasma glucose results greater than or equal to 126 mg/dL meet the criteria for diagnosis of diabetes. In the absence of unequivocal hyperglycemia, results should be confirmed by repeat testing. In a patient with classic symptoms of hyperglycemia or hyperglycemic crisis, random plasma glucose results greater than or equal to 200 mg/dL meet the criteria for diagnosis of diabetes. Reference: Standards of Medical Care in Diabetes 2016, [place] [employer] Association. Diabetes Care. 2016.39(Suppl 1). Performed By: #### 5 7021-8, 4537-7 #### [facility] CLIA [id number] [address] [place] [address] [place] Potassium [Moles/Vol] 4.6 mmol/L Normal 3.7-5.1 [facility] Comment on above: Order Comment: Speci men Type: BLOOD SPECIMEN Ordering Facility: [facility] Address: [address] [place] [address] Performed By: #### 5 7021-8, 4537-7 #### [facility] CLIA [id number] [address] [place] [address] [place] Protein [Mass/Vol] 7.9 g/dL Normal 6.3-8.0 [facility] Comment on above: Order Comment: Speci men Type: BLOOD SPECIMEN Ordering Facility: [facility] Address: [address] [place] [address] Performed By: #### 5 7021-8, 4537-7 #### [facility] CLIA [id number] [address] [place] [address] [place] Sodium [Moles/Vol] 138 mmol/L Normal 136-144 [facility] Comment on above: Order Comment: Speci men Type: BLOOD SPECIMEN Ordering Facility: [facility] Address: [address] [place] [address] Performed By: #### 5 7021-8, 4537-7 #### [facility] CLIA [id number] [address] [place] [address] [place] Urea nitrogen [Mass/Vol] 18 mg/dL Normal 7-21 [facility] Comment on above: Order Comment: Speci men Type: BLOOD SPECIMEN Ordering Facility: [facility] Address: [address] [place] [address] Performed By: #### 5 7021-8, 4537-7 #### [facility] CLIA [id number] [address] [place] [address] [place] ESR Westergren method (Bld) [Velocity]on 09-05-2024 ESR (Bld) [Velocity] 47 mm/h High 0-20 [facility] Comment on above: Order Comment: Speci men Type: BLOOD SPECIMEN Ordering Facility: [facility] Address: [address] [place] [address] Performed By: #### 5 7021-8, 4537-7 #### [facility] CLIA [id number] [address] [place] [address] [place] Fazal 09-04-2024 CNPN Telephone (ALESHA) JOSE R WATT ([id number]) 1975 F [facility] Date Time Provider Department 09/04/24 [facility] During your visit today, we recorded the following information about you: Priyanka Quevedo LPN 09/04/2024 8:19 AM Signed Patient calling she had been in [facility] for sepsis, she had kidney stone surgery and had stent removed and then sepsis. She was discharged from [facility] on Saturday 09/01 and has had migraine type headache since then. She has to keep taking her migraine medication. She does not want to have to go to the ER. She is asking if any chance to get in with PCP today? She is scheduled for hospital follow up appt for 09/05 at 740 am with PCP. Patient is asking what can she do for the headaches? Please advise Shon Ronquillo DO 09/06/2024 7:06 AM Signed Patient has been already seen in office Shon Ronquillo DO Allergies As of Date: 09/04/2024 Noted Allergy Reaction AUGMENTIN (AMOXICILLIN-POT CLAVUL*03/23/2012 11 - Vomiting SULFA (SULFONAMIDE ANTIBIOTICS) 11/27/2005 2 - Rash Date Reviewed: 08/20/2024 Reviewed by: Yajaira Cherry MA - Fully Assessed Reason for Visit: Patient Question [9297] Prescriptions as of 09/06/2024 - cefdinir (OMNICEF) 300 mg capsule Take 300 mg by mouth two times a day. - Lactobac no.41/Bifidobact no.7 (PROBIOTIC-10 ORAL) Take by mouth. - oxyCODONE-acetaminophe n (PERCOCET) 5-325 mg tablet Take 1 tablet by mouth every 6 hours as needed for pain for up to 7 days. - tamsulosin (FLOMAX) 0.4 mg Take 1 capsule by mouth daily at bedtime. - SUMAtriptan (IMITREX) 100 mg tablet Take 1 tablet (100 mg) by mouth as needed for migraine headache (see administration instructions). - indapamide (LOZOL) 1.25 mg tablet Take 1.25 mg by mouth once daily. - rosuvastatin (CRESTOR) 10 mg tablet Take 1 tablet by mouth once daily. - valsartan (DIOVAN) 160 mg tablet Take 1 tablet by mouth once daily. - calcium carbonate 600 mg-cholecalciferol 400 units (CALCIUM WITH VITAMIN D) 600 mg-10 mcg (400 unit) tab Take 1 tablet by mouth once daily. - fluticasone (FLONASE) 50 mcg/actuation nasal spray Use 2 Sprays in each nostril once daily. Rinse mouth after use. - omega 0-hrv-vex-fish oil (FISH OIL) 100-160-1,000 mg cap Take by mouth. - levonorgestrel (MIRENA) 20 mcg/24 hours (5-6 yrs) 52 mg IUD 1 Each by INTRAUTERINE route as directed. - ERGOCALCIFEROL, VITAMIN D2, (VITAMIN D ORAL) Take 2 capsules by mouth once daily. 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 Normal [facility] Comment on above: Performed By: #### M 200.1000, L500.4050, L300.3900, L300.4310, L503.6005, L100.0100 #### [facility] [address] [place], [address] CUB Blood cultures x2, from two different sites No growth in 5 days. Normal [facility] Comment on above: Performed By: #### L 501.2300, L501.5200, L500.4050, L509.7000 #### [facility] [address] [place], [address] Basic Metabolic Profile (BMP )on 09-01-2024 BUN/CRE 12.6 RATIO Normal 10-20 [facility] Comment on above: Performed By: #### L 501.2300, L501.5200, L500.4050, L509.7000 #### [facility] [address] [place], [address] CA,Total 8.2 mg/dL Low 8.5-10.1 [facility] Comment on above: Performed By: #### L 501.2300, L501.5200, L500.4050, L509.7000 #### [facility] [address] [place], [address] Chloride [Moles/Vol] 110 mmol/L High 98-107 [facility] Comment on above: Performed By: #### L 501.2300, L501.5200, L500.4050, L509.7000 #### [facility] [address] [place], [address] CO2 [Moles/Vol] 24.0 mmol/L Normal 21.0-32.0 [facility] Comment on above: Performed By: #### L 501.2300, L501.5200, L500.4050, L509.7000 #### [facility] [address] [place], [address] Creatinine [Mass/Vol] 0.48 mg/dL Low 0.55-1.02 [facility] Comment on above: Result Comment: The validity of the calculated GFR GFRAA in patients over 70 years has not been determined. Clinical correlation is essential. Performed By: #### L 501.2300, L501.5200, L500.4050, L509.7000 #### [facility] [address] [place], [address] ECRCL 154.77 ml/min Normal [facility] Comment on above: Performed By: #### L 501.2300, L501.5200, L500.4050, L509.7000 #### [facility] [address] [place], [address] EST GFR - AA 177 mL/min Normal >60 [facility] Comment on above: Result Comment: Afri can [place] GFR Calc Performed By: #### L 501.2300, L501.5200, L500.4050, L509.7000 #### [facility] [address] [place], [address] GAP 5 Normal 5-15 [facility] Comment on above: Performed By: #### L 501.2300, L501.5200, L500.4050, L509.7000 #### [facility] [address] [place], [address] GFR/1.73 sq M.predicted among non-blacks MDRD (S/P/Bld) [Vol rate/Area] 146 mL/min/{1.73_m2} Normal >60 [facility] Comment on above: Result Comment: Non- GFR Calc Performed By: #### L 501.2300, L501.5200, L500.4050, L509.7000 #### [facility] [address] [place], [address] Glucose [Mass/Vol] 94 mg/dL Normal 74-106 [facility] Comment on above: Performed By: #### L 501.2300, L501.5200, L500.4050, L509.7000 #### [facility] [address] [place], [address] Potassium [Moles/Vol] 3.6 mmol/L Normal 3.5-5.1 [facility] Comment on above: Performed By: #### L 501.2300, L501.5200, L500.4050, L509.7000 #### [facility] [address] [place], [address] Sodium [Moles/Vol] 139 mmol/L Normal 136-145 [facility] Comment on above: Performed By: #### L 501.2300, L501.5200, L500.4050, L509.7000 #### [facility] [address] [place], [address] Urea nitrogen [Mass/Vol] 6 mg/dL Low 7-18 [facility] Comment on above: Performed By: #### L 501.2300, L501.5200, L500.4050, L509.7000 #### [facility] [address] [place], [address] CBC W/Diff, Automatedon 08-12 PATH REV Reviewed Normal [facility] Comment on above: Result Comment: Neut rophilic leukocytosis. Normocytic anemia. Clinical correlation necessary. Boby Bowens M.D. 09/01/24 AMENDED REPORT 09/01/24 0841 PATH REV previously reported as: February Performed By: #### L 501.2300, L501.5200, L500.4050, L509.7000 #### [facility] [address] [place], [address] Absolute Lymph 2.72 X10 3/uL Normal 0.83-4.51 [facility] Comment on above: Performed By: #### L 501.2300, L501.5200, L500.4050, L509.7000 #### [facility] [address] [place], [address] Absolute Neut 7.0 X10 3/uL Normal 2.0-7.7 [facility] Comment on above: Performed By: #### L 501.2300, L501.5200, L500.4050, L509.7000 #### [facility] [address] [place], [address] Basophils/100 WBC (Bld) 0.5 % Normal 0-1 [facility] Comment on above: Performed By: #### L 501.2300, L501.5200, L500.4050, L509.7000 #### [facility] [address] [place], [address] Eosinophils/100 WBC (Bld) 2.4 % Normal 0-5 [facility] Comment on above: Performed By: #### L 501.2300, L501.5200, L500.4050, L509.7000 #### [facility] [address] [place], [address] Erythrocyte distribution width (RBC) [Ratio] 13.2 % Normal 11.6-14.6 [facility] Comment on above: Performed By: #### L 501.2300, L501.5200, L500.4050, L509.7000 #### [facility] [address] [place], [address] Hematocrit (Bld) [Volume fraction] 30.0 % Low 37-47 [facility] Comment on above: Performed By: #### L 501.2300, L501.5200, L500.4050, L509.7000 #### [facility] [address] [place], [address] Hemoglobin (Bld) [Mass/Vol] 10.2 g/dL Low 12.0-15.0 [facility] Comment on above: Performed By: #### L 501.2300, L501.5200, L500.4050, L509.7000 #### [facility] [address] [place], [address] IG% 0.800 Normal 0.0-0.9 [facility] Comment on above: Result Comment: IG% - Immature Granulocytes (promyelocytes, myelocytes and metamyelocytes) > 1% indicates that a LEFT SHIFT is Present. Performed By: #### L 501.2300, L501.5200, L500.4050, L509.7000 #### [facility] [address] [place], [address] Lymphocytes/100 WBC (Bld) 24.6 % Normal 19-41 [facility] Comment on above: Performed By: #### L 501.2300, L501.5200, L500.4050, L509.7000 #### [facility] [address] [place], [address] MCH (RBC) [Entitic mass] 29.4 pg Normal 27.0-32.0 [facility] Comment on above: Performed By: #### L 501.2300, L501.5200, L500.4050, L509.7000 #### [facility] [address] [place], [address] MCHC (RBC) [Mass/Vol] 34.0 g/dL Normal 32-36 [facility] Comment on above: Performed By: #### L 501.2300, L501.5200, L500.4050, L509.7000 #### [facility] [address] [place], [address] MCV (RBC) [Entitic vol] 86.5 fL Normal 81-99 [facility] Comment on above: Performed By: #### L 501.2300, L501.5200, L500.4050, L509.7000 #### [facility] [address] [place], [address] Monocytes/100 WBC (Bld) 8.1 % Normal 0-10 [facility] Comment on above: Performed By: #### L 501.2300, L501.5200, L500.4050, L509.7000 #### [facility] [address] [place], [address] Neutrophils/100 WBC (Bld) 63.6 % Normal 47-70 [facility] Comment on above: Performed By: #### L 501.2300, L501.5200, L500.4050, L509.7000 #### [facility] [address] [place], [address] Nucleated RBC (Bld) [#/Vol] 0 10*3/uL Normal 0-5 [facility] Comment on above: Performed By: #### L 501.2300, L501.5200, L500.4050, L509.7000 #### [facility] [address] [place], [address] Platelet mean volume (Bld) [Entitic vol] 10.5 fL Normal 6.2-12.0 [facility] Comment on above: Performed By: #### L 501.2300, L501.5200, L500.4050, L509.7000 #### [facility] [address] [place], [address] Platelets (Bld) [#/Vol] 270 10*3/uL Normal 150-450 [facility] Comment on above: Performed By: #### L 501.2300, L501.5200, L500.4050, L509.7000 #### [facility] [address] [place], [address] RBC (Bld) [#/Vol] 3.47 10*6/uL Low 4.2-5.4 [facility] Comment on above: Performed By: #### L 501.2300, L501.5200, L500.4050, L509.7000 #### [facility] [address] [place], [address] RDW SD 41.8 fl Normal 35.1-43.9 [facility] Comment on above: Performed By: #### L 501.2300, L501.5200, L500.4050, L509.7000 #### [facility] [address] [place], [address] WBC (Bld) [#/Vol] 11.1 10*3/uL High 4.4-11.0 [facility] Comment on above: Performed By: #### L 501.2300, L501.5200, L500.4050, L509.7000 #### [facility] [address] [place], [address] Discharge Instructionon 08-12 Discharge Instruction [facility] Medical Records Department [address] [place] [address] Instructions for Home/Discharge Instructions 09/01/24 0959 MR#: [id number] Acct: [id number] Name: JOSE R WATT Rep #: [id number] : 1975 49 From: [place] MD PCP: Dr. Shon Ronquillo, Status:ADM IN Discharge Instructions Diet Discharge Diet: No restrictions Activity Discharge Activity: Return to Normal Activity Weight Bearing Status: Weight bearing as tolerated Dressing / Incision Call your doctor if you observe: Fever of 101 or Higher, Coldness, Increased Pain, Numbness or Tingling, Change in Color, Inability to urinate, Inability to have a bowel movement, Shortness of breath, Dizziness, Fainting spells, Swelling in the ankles, Chest pain, Prolonged hiccupping, Increased palpitations (irregular heartbeat) and Calf discomfort Follow Up Care When: IN 2 WEEKS Test Results: Test results from this visit will be discussed in further detail at your follow-up appointment, if applicable. Discharge Plan Admission Admit Date/Time: 08/30/24 00:33 Primary Reason for Your Visit: Sepsis due to right-sided pyelonephritis Attending Provider: [place] Primary Care Provider: Shon Ronquillo Consulting Providers: Daren Cortes; Bruce Soto Discharge Orders/Prescriptions Prescriptions: New cefdinir 300 mg capsule 300 mg PO BID 5 Days Qty: 10 0RF L.acidoph,saliva-B.bif -S.therm 175 mg Capsule 1 cap PO BID 7 Days Qty: 0 0RF Rx Instructions: Probiotic sdhp-aus-rqnyqqb for 1 week Continued valsartan 160 mg tablet 160 mg PO DAILY rosuvastatin 10 mg tablet 10 mg PO DAILY cholecalciferol (vitamin D3) [Vitamin D3] 50 mcg (2,000 unit) capsule 50 mcg PO DAILY indapamide 1.25 mg tablet 1.25 mg PO DAILY omega 5-xbs-xtu-fish oil [Fish Oil] 1,200 (144-216) mg capsule 2 cap PO DAILY acetaminophen 500 mg capsule 1,000 mg PO Q6H PRN (Reason: pain) tamsulosin [Flomax] 0.4 mg capsule 0.4 mg PO DAILY Qty: 10 0RF docusate sodium [Colace] 100 mg capsule 100 mg PO BID Qty: 20 0RF phenazopyridine [Pyridium] 100 mg tablet 100 mg PO TID Qty: 15 0RF Discontinued ciprofloxacin HCl 500 mg tablet 500 mg PO BID Referrals / Follow Up: Shon Ronquillo DO [Primary Care Provider] - Bruce Soto MD [Med Staff - Active Staff] - Within 1 Week Disposition Disposition (needs filled in before D/C Order can be placed): Home, Self Care 09/01/24 3923 [place] MD CC: Dr. Daren Cortes DO; Dr. Shon Ronquillo DO; Dr. Bruce Soto MD Signed Normal [facility] Basic Metabolic Profile (BMP )on 08-31-2024 BUN/CRE 15.2 RATIO Normal - [facility] Comment on above: Performed By: #### L 501.2300, L501.5200, L500.4050, L509.7000 #### [facility] [address] [place], [address] CA,Total 8.5 mg/dL Normal 8.5-10.1 [facility] Comment on above: Performed By: #### L 501.2300, L501.5200, L500.4050, L509.7000 #### [facility] [address] [place], [address] Chloride [Moles/Vol] 111 mmol/L High 98-107 [facility] Comment on above: Performed By: #### L 501.2300, L501.5200, L500.4050, L509.7000 #### [facility] [address] [place], [address] CO2 [Moles/Vol] 23.0 mmol/L Normal 21.0-32.0 [facility] Comment on above: Performed By: #### L 501.2300, L501.5200, L500.4050, L509.7000 #### [facility] [address] [place], [address] Creatinine [Mass/Vol] 0.53 mg/dL Low 0.55-1.02 [facility] Comment on above: Result Comment: The validity of the calculated GFR GFRAA in patients over 70 years has not been determined. Clinical correlation is essential. Performed By: #### L 501.2300, L501.5200, L500.4050, L509.7000 #### [facility] [address] [place], [address] ECRCL 133.03 ml/min Normal [facility] Comment on above: Performed By: #### L 501.2300, L501.5200, L500.4050, L509.7000 #### [facility] [address] [place], [address] EST GFR - AA 158 mL/min Normal >60 [facility] Comment on above: Result Comment: Afri can [place] GFR Calc Performed By: #### L 501.2300, L501.5200, L500.4050, L509.7000 #### [facility] [address] [place], [address] GAP 7 Normal 5-15 [facility] Comment on above: Performed By: #### L 501.2300, L501.5200, L500.4050, L509.7000 #### [facility] [address] [place], [address] GFR/1.73 sq M.predicted among non-blacks MDRD (S/P/Bld) [Vol rate/Area] 131 mL/min/{1.73_m2} Normal >60 [facility] Comment on above: Result Comment: Non- GFR Calc Performed By: #### L 501.2300, L501.5200, L500.4050, L509.7000 #### [facility] [address] [place], [address] Glucose [Mass/Vol] 101 mg/dL Normal 74-106 [facility] Comment on above: Result Comment: Fast ing Glucose result from 100 to 125 mg/dL suggests IMPAIRED HOMEOSTASIS per A.D.A. criteria. Performed By: #### L 501.2300, L501.5200, L500.4050, L509.7000 #### [facility] [address] [place], [address] Potassium [Moles/Vol] 3.6 mmol/L Normal 3.5-5.1 [facility] Comment on above: Performed By: #### L 501.2300, L501.5200, L500.4050, L509.7000 #### [facility] [address] [place], [address] Sodium [Moles/Vol] 141 mmol/L Normal 136-145 [facility] Comment on above: Performed By: #### L 501.2300, L501.5200, L500.4050, L509.7000 #### [facility] [address] [place], [address] Urea nitrogen [Mass/Vol] 8 mg/dL Normal 7-18 [facility] Comment on above: Performed By: #### L 501.2300, L501.5200, L500.4050, L509.7000 #### [facility] [address] [place], [address] Consultation - Urologyon Consultation - Urology [facility] Medical Records Department [address] [place] [address] Consultation - Urology 08/31/24 0732 MR#: [id number] Acct: [id number] Name: JOSE R WATT Rep #: [id number] : 1975 49 From: Bruce Soto MD PCP: Dr. Shon Ronquillo DO Status:ADM IN [id number] H[facility] Consult Data Date of Consult: 08/31/24 HPI Narrative Reason for Consultation: Follow-up for sepsis HPI Narrative: JOSE R WATT, is a 49 F who presents to the hospital with high fevers she had surgery in her kidney stones a week ago she presented the office not feeling well we did take out the stent but then she presented to the emergency room with high fevers white count of 20,000 urine cultures are pending but suspect she has pyelonephritis no intervention necessary from my standpoint but continue with antibiotics white count still high but she is clinically stable. I will follow her for now but I do not think I need any intervention from urology just treat her infection and she is getting better. [facility] Medical History Arthritis Kidney stones Migraine headache History of echocardiogram History of stress test Hypercholesterolemia Hypertension Home Medications ???Medication ???Instructions ???Recorded ???Last Taken ???Type cholecalciferol (vitamin D3) 50 50 mcg PO DAILY 08/15/24 08/22/24 History mcg (2,000 unit) capsule (Vitamin D3) indapamide 1.25 mg tablet 1.25 mg PO DAILY HTN 08/15/24 08/22/24 History omega 8-mqz-ylu-fish oil 1,200 mg 2 cap PO DAILY 08/15/24 08/22/24 History (144 mg-216 mg) capsule (Fish Oil) rosuvastatin 10 mg tablet 10 mg PO DAILY 08/15/24 08/22/24 History valsartan 160 mg tablet 160 mg PO DAILY 08/15/24 08/23/24 History acetaminophen 500 mg capsule 1,000 mg PO Q6H PRN pain 08/23/24 08/20/24 History docusate sodium 100 mg capsule 100 mg PO BID constipation #20 caps 08/23/24 Unknown Rx (Colace) phenazopyridine 100 mg tablet 100 mg PO TID #15 tabs 08/23/24 Unknown Rx (Pyridium) tamsulosin 0.4 mg capsule (Flomax) 0.4 mg PO DAILY #10 caps 08/23/24 Unknown Rx ciprofloxacin HCl 500 mg tablet 500 mg PO BID 08/29/24 Unknown History Allergy/AdvReac Type Severity Reaction Status Date / Time Sulfa (Sulfonamide Allergy Rash Verified 08/29/24 20:36 Antibiotics) amoxicillin trihydrate (From AdvReac Vomiting Verified 08/29/24 20:36 Augmentin) potassium clavulanate (From AdvReac Vomiting Verified 08/29/24 20:36 Augmentin) Surgical History Hx of parathyroidectomy Hx of cystoscopy H/O section Social History Smoking Status: Never smoker Lab / Micro Data 08/31/24 05:40 08/31/24 05:40 Labs: Laboratory Results - last 24 hr 08/30/24 05:05: Diff Path Review Reviewed, Hemoglobin A1c 5.8 H 08/31/24 05:40: WBC 20.3 H, RBC 3.63 L, Hgb 10.7 L, Hct 32.1 L, MCV 88.4, MCH 29.5, MCHC 33.3, RDW Std Deviation 43.8, RDW Coeff of Dante 13.5, Plt Count 292, MPV 9.8, Immature Gran % (Auto) 1.100 H, N eut % (Auto) 79.9 H, Lymph % (Auto) 10.3 L, [place] % (Auto) 7.5, Eos % (Auto) 0.8, Baso % (Auto) 0.4, Absolute Neuts (auto) 16.2 H, Absolute Lymphs (auto) 2.09, Nucleated RBC % 0, Sodium 141, Potassium 3.6, Chloride 111 H, Carbon Dioxide 23.0, Anion Gap 7, BUN 8, Creatinine 0.53 L, Estim Creat Clear Calc 133.03, Est GFR (MDRD) Af Amer 158, Est GFR (MDRD) Non-Af 131, BUN/Creatinine Ratio 15.2, Glucose 101, Calcium 8.5, Phosphorus 2.1 L, Magnesium 2.2 08/31/24 0733 Cosigner Signature (if applicable): CC: Dr. Shon Ronquillo DO Signed Normal [facility] Foot 2 Viewson 08-31-2024 Foot 2 Views [facility] Imaging Services [address] [place], [place] [id number] Foot 2 Views MR#: [id number] Acct: [id number] Name: JOSE R WATT Rep #: [id number] : 1975 F 49 From: Valeriano Sanders MD PCP: Dr. Shon Ronquillo DO Status: ADM IN Study: Foot 2 Views Date of Exam: 08/31/24 Exam# [id number] Ordering Dr: Daren Cortes DO [id number] STUDY: X-RAY - RIGHT FOOT CLINICAL: Female, 49 years old. Possible foot injury prior to admit. Right foot pain when standing. TECHNIQUE: 3 views of the right foot. COMPARISON: None. FINDINGS: Normal talus, calcaneus, and tarsal bones. Normal visualized subtalar, talonavicular, calcaneocuboid, tarsal and tarsometatarsal articulations. Normal metatarsi. Normal metatarsophalangeal joint of the great toe. Normal tibial and fibular sesamoid bones. Normal interphalangeal joint of the great toe. Normal phalanges of the great toe. Normal second through fifth metatarsophalangeal joints. Normal interphalangeal joints and phalanges of the lesser toes. The soft tissue structures are unremarkable. There is no demonstrated fracture. RAD/Foot 2 Views IMPRESSION: Normal x-ray examination of the right foot. Electronically Signed: Valeriano Sanders MD at 8:27 EST , CC: Dr. Daren Cortes, DO; Dr. Shon Ronquillo, DO Differential Tester: Signed Normal [facility] Magnesiumon 08-31-2024 Magnesium [Mass/Vol] 2.2 mg/dL Normal 1.6-2.6 [facility] Comment on above: Performed By: #### L 501.2300, L501.5200, L500.4050, L509.7000 #### [facility] [address] [place], [address] Phosphoruson 08-31-2024 Phosphate [Mass/Vol] 2.1 mg/dL Low 2.5-4.9 [facility] Comment on above: Performed By: #### L 501.2300, L501.5200, L500.4050, L509.7000 #### [facility] [address] [place], [address] CBC W/Diff, Automatedon 08-12 PATH REV Reviewed Normal [facility] Comment on above: Result Comment: GIULIANA Lind WITH COMMENTS Ana Cantrell M.D. 08/30/24 AMENDED REPORT 08/30/24 1421 PATH REV previously reported as: May gabriella Performed By: #### L 501.2300, L501.5200, L500.4050, L509.7000 #### [facility] [address] [place], [address] Comprehensive Metabolic Prof ilon 08-30-2024 Albumin [Mass/Vol] 2.4 g/dL Low 3.2-5.0 [facility] Comment on above: Order Comment: Comme nts: May add to ED labs Comments: may add to ED labs Performed By: #### L 501.2300, L501.5200, L500.4050, L509.7000 #### [facility] [address] [place], [address] Albumin/Globulin [Mass ratio] 0.8 {ratio} Low 0.9-2.4 [facility] Comment on above: Order Comment: Comme nts: May add to ED labs Comments: may add to ED labs Performed By: #### L 501.2300, L501.5200, L500.4050, L509.7000 #### [facility] [address] [place], [address] ALK P 56 U/L Normal 45-117 [facility] Comment on above: Order Comment: Comme nts: May add to ED labs Comments: may add to ED labs Performed By: #### L 501.2300, L501.5200, L500.4050, L509.7000 #### [facility] [address] [place], [address] ALT [Catalytic activity/Vol] 16 U/L Normal 13-56 [facility] Comment on above: Order Comment: Comme nts: May add to ED labs Comments: may add to ED labs Performed By: #### L 501.2300, L501.5200, L500.4050, L509.7000 #### [facility] [address] [place], [address] AST [Catalytic activity/Vol] 9 U/L Low 15-37 [facility] Comment on above: Order Comment: Commdiogo nts: May add to ED labs Comments: may add to ED labs Performed By: #### L 501.2300, L501.5200, L500.4050, L509.7000 #### [facility] [address] [place], [address] Bilirubin [Mass/Vol] 0.80 mg/dL Normal 0.20-1.00 [facility] Comment on above: Order Comment: Comme nts: May add to ED labs Comments: may add to ED labs Result Comment: For patients on eltrombopag therapy, use of Dimension Gervais TBIL is not recommended. Performed By: #### L 501.2300, L501.5200, L500.4050, L509.7000 #### [facility] [address] [place], [address] BUN/CRE 12.3 RATIO Normal 10-20 [facility] Comment on above: Order Comment: Comme nts: May add to ED labs Comments: may add to ED labs Performed By: #### L 501.2300, L501.5200, L500.4050, L509.7000 #### [facility] [address] [place], [address] CA,Total 7.2 mg/dL Low 8.5-10.1 [facility] Comment on above: Order Comment: Comme nts: May add to ED labs Comments: may add to ED labs Performed By: #### L 501.2300, L501.5200, L500.4050, L509.7000 #### [facility] [address] [place], [address] Chloride [Moles/Vol] 112 mmol/L High 98-107 [facility] Comment on above: Order Comment: Comme nts: May add to ED labs Comments: may add to ED labs Performed By: #### L 501.2300, L501.5200, L500.4050, L509.7000 #### [facility] [address] [place], [address] CO2 [Moles/Vol] 22.0 mmol/L Normal 21.0-32.0 [facility] Comment on above: Order Comment: Comme nts: May add to ED labs Comments: may add to ED labs Performed By: #### L 501.2300, L501.5200, L500.4050, L509.7000 #### [facility] [address] [place], [address] Creatinine [Mass/Vol] 0.65 mg/dL Normal 0.55-1.02 [facility] Comment on above: Order Comment: Comme nts: May add to ED labs Comments: may add to ED labs Result Comment: The validity of the calculated GFR GFRAA in patients over 70 years has not been determined. Clinical correlation is essential. Performed By: #### L 501.2300, L501.5200, L500.4050, L509.7000 #### [facility] [address] [place], [address] ECRCL 108.47 ml/min Normal [facility] Comment on above: Order Comment: Comme nts: May add to ED labs Comments: may add to ED labs Performed By: #### L 501.2300, L501.5200, L500.4050, L509.7000 #### [facility] [address] [place], [address] EST GFR - AA 124 mL/min Normal >60 [facility] Comment on above: Order Comment: Comme nts: May add to ED labs Comments: may add to ED labs Result Comment: Afri can Omani GFR Calc Performed By: #### L 501.2300, L501.5200, L500.4050, L509.7000 #### [facility] [address] [place], [address] GAP 4 Low 5-15 [facility] Comment on above: Order Comment: Comme nts: May add to ED labs Comments: may add to ED labs Performed By: #### L 501.2300, L501.5200, L500.4050, L509.7000 #### [facility] [address] [place], [address] GFR/1.73 sq M.predicted among non-blacks MDRD (S/P/Bld) [Vol rate/Area] 103 mL/min/{1.73_m2} Normal >60 [facility] Comment on above: Order Comment: Comme nts: May add to ED labs Comments: may add to ED labs Result Comment: Non- GFR Calc Performed By: #### L 501.2300, L501.5200, L500.4050, L509.7000 #### [facility] [address] [place], [address] Globulin (S) [Mass/Vol] 3.2 g/dL Normal 2.2-4.2 [facility] Comment on above: Order Comment: Comme nts: May add to ED labs Comments: may add to ED labs Performed By: #### L 501.2300, L501.5200, L500.4050, L509.7000 #### [facility] [address] [place], [address] Glucose [Mass/Vol] 148 mg/dL High 74-106 [facility] Comment on above: Order Comment: Comme nts: May add to ED labs Comments: may add to ED labs Result Comment: Fast ing Glucose result greater than or equal to 126 mg/dL suggests DIABETES MELLITUS per A.D.A. criteria. Performed By: #### L 501.2300, L501.5200, L500.4050, L509.7000 #### [facility] [address] [place], [address] Potassium [Moles/Vol] 3.5 mmol/L Normal 3.5-5.1 [facility] Comment on above: Order Comment: Comme nts: May add to ED labs Comments: may add to ED labs Performed By: #### L 501.2300, L501.5200, L500.4050, L509.7000 #### [facility] [address] [place], [address] Sodium [Moles/Vol] 138 mmol/L Normal 136-145 [facility] Comment on above: Order Comment: Comme nts: May add to ED labs Comments: may add to ED labs Performed By: #### L 501.2300, L501.5200, L500.4050, L509.7000 #### [facility] [address] [place], [address] T PROT 5.6 g/dL Low 6.4-8.2 [facility] Comment on above: Order Comment: Comme nts: May add to ED labs Comments: may add to ED labs Performed By: #### L 501.2300, L501.5200, L500.4050, L509.7000 #### [facility] [address] [place], [address] Urea nitrogen [Mass/Vol] 8 mg/dL Normal 7-18 [facility] Comment on above: Order Comment: Comme nts: May add to ED labs Comments: may add to ED labs Performed By: #### L 501.2300, L501.5200, L500.4050, L509.7000 #### [facility] [address] [place], [address] Emergency Department Summary on 08-30-2024 Emergency Department Summary [facility] Medical Records Department [address] [facility] [place] [address] Emergency Department Summary 08/30/24 MR#: [id number] Acct: [id number] Name: JOSE R WATT Rep #: [id number] : 1975 49 From: Scar Cha DO PCP: Dr. Shon Ronquillo, DO Status:ADM IN Location: ICU [id number] HPI History of Present Illness Chief Complaint: General Illness Informant: patient Narrative Narrative: Patient is a 49-year-old female with past medical history of hypertension and hyperlipidemia. She recently had kidney stones and had to have a stent placed. She states that the stent was removed earlier today. She reports that over the last 2 or 3 days however she has felt unwell. She states symptoms worsened this evening when she developed a fever and increasing right sided back pain. Therefore with the worsening symptoms and concern for developing infection she presents for evaluation [facility] Medical History (Updated 08/30/24 @ 03:[address] Scar Cha, DO) Arthritis Kidney stones Migraine headache History of echocardiogram History of stress test Hypercholesterolemia Hypertension Home Medications ???Medication ???Instructions ???Recorded ???Last Taken ???Type cholecalciferol (vitamin D3) 50 50 mcg PO DAILY 08/15/24 08/22/24 History mcg (2,000 unit) capsule (Vitamin D3) indapamide 1.25 mg tablet 1.25 mg PO DAILY HTN 08/15/24 08/22/24 History omega 3-ouj-uhz-fish oil 1,200 mg 2 cap PO DAILY 08/15/24 08/22/24 History (144 mg-216 mg) capsule (Fish Oil) rosuvastatin 10 mg tablet 10 mg PO DAILY 08/15/24 08/22/24 History valsartan 160 mg tablet 160 mg PO DAILY 08/15/24 08/23/24 History acetaminophen 500 mg capsule 1,000 mg PO Q6H PRN pain 08/23/24 08/20/24 History docusate sodium 100 mg capsule 100 mg PO BID constipation #20 caps 08/23/24 Unknown Rx (Colace) phenazopyridine 100 mg tablet 100 mg PO TID #15 tabs 08/23/24 Unknown Rx (Pyridium) tamsulosin 0.4 mg capsule (Flomax) 0.4 mg PO DAILY #10 caps 08/23/24 Unknown Rx ciprofloxacin HCl 500 mg tablet 500 mg PO BID 08/29/24 Unknown History Allergy/AdvReac Type Severity Reaction Status Date / Time Sulfa (Sulfonamide Allergy Rash Verified 08/29/24 20:36 Antibiotics) amoxicillin trihydrate (From AdvReac Vomiting Verified 08/29/24 20:36 Augmentin) potassium clavulanate (From AdvReac Vomiting Verified 08/29/24 20:36 Augmentin) Surgical History (Updated 08/30/24 @ 01:[address] Daren Cortes DO) Hx of parathyroidectomy Hx of cystoscopy H/O section Social History Smoking Status: Never smoker ROS ROS ED Constitutional Constitutional ED: Reports chills and fever(s) Eyes Eyes: Denies change in vision ENT ENT ED: Reports rhinorrhea; Denies sore throat Cardiovascular Cardiovascular: Denies chest pain Respiratory/Chest Respiratory/Chest: Denies cough or dyspnea Gastrointestinal Gastrointestinal: Reports nausea; Denies abdominal pain, diarrhea or vomiting Genitourinary Genitourinary ED: Denies dysuria or hematuria Musculoskeletal Musculoskeletal: Reports back pain and myalgias Integumentary Denies rash Neurologic Neurologic: Denies headache(s) Hematologic/Lymphatic Hematologic/Lymphatic: Denies easy bleeding or easy bruising EXAM Physical Exam Const Vital Signs: 08/29/24 20:36 08/29/24 20:39 08/29/24 21:39 Temperature 100.2 F H 100.2 F H 100.2 F H Temperature Source Oral Oral Oral Pulse Rate 122 H 122 H 129 H Respiratory Rate 18 18 19 H Respiratory Effort Respiratory Pattern Blood Pressure 170/96 H 170/96 H 160/87 H Blood Pressure Mean 120 120 111 Pulse Ox 99 99 96 Oxygen Delivery Method Room Air Room Air Room Air 08/29/24 21:40 08/29/24 21:40 08/29/24 22:00 Temperature 100.2 F H Temperature Source Oral Pulse Rate 133 H Respiratory Rate 22 H Respiratory Effort Normal Respiratory Pattern Normal Blood Pressure 152/69 H Blood Pressure Mean 96 Pulse Ox 97 Oxygen Delivery Method Room Air Room Air 08/29/24 23:00 08/30/24 00:00 Temperature 100.2 F H 100.2 F H Temperature Source Oral Oral Pulse Rate 120 H 115 H Respiratory Rate 29 H 24 H Respiratory Effort Respiratory Pattern Blood Pressure 124/71 H 123/77 H Blood Pressure Mean 88 92 Pulse Ox 95 97 Oxygen Delivery Method Room Air Room Air Positive well nourished and well developed General Appearance ED: well developed; Negative for pallor HEENT HEENT Narrative: Normocephalic atraumatic Eyes PERRL and EOMs intact bilaterally General Eye ED: Negative for scleral icterus Neck supple Neck Narrative: No nuchal rigidity or meningeal signs Resp normal respiratory (more content not included)... Normal [facility] H AND P Exam - Hospitaliston 08-30-2024 H&P Exam - Hospitalist [facility] Medical Records Department [address] [place] [address] H P Exam - Hospitalist 08/30/24 0032 MR#: [id number] Acct: [id number] Name: JOSE R WATT Rep #: [id number] : 1975 49 From: Daren Cortes DO PCP: Dr. Shon Ronquillo DO Status:ADM IN Location: ICU [id number] HPI - General General Date of Admission: 08/30/24 Date of Service: 08/30/24 Chief Complaint: Fever and Right Flank Pain. HPI Narrative JOSE R WATT, is a 49 F with a past medical history of essential hypertension; on valsartan and indapamide, hyperlipidemia; on rosuvastatin, history of parathyroidectomy, overweight; with BMI of 29.9 this admission, history of migraine headaches, history of , listed allergy to sulfonamide antibiotics (rash), listed allergy to augmentin (vomiting), osteoarthritis, history of cystoscopy with lithotripsy (2022) and recently diagnosed renal calculus; s/p cystoscopy and stent placement by Dr. Soto of urology on August 23, 2024 with patient still on oral ciprofloxacin, tamsulosin and pyridium who presents to [facility] ER complaining of fever and Right flank pain. Ms. Watt reports her symptoms never fully improved feeling unwell for the past 2- 3 days and then when she recently had her stent removed earlier on August 29, 2024 her condition worsened so she finally decided to come back in for further evaluation and treatment. She admits to fever up to 100.2 degrees Fahrenheit with chills and increasing Right flank pain, myalgias, severe malaise and nausea. She denies related abdominal pain, vomiting, SOB or headache. In the ER she was noted to have CT evidence of Right Pyelonephritis with a UA grossly positive for infection in the setting of recent Right renal calculus; s/p cystoscopy with subsequent stent placement and removal and she was then admitted to the ICU for treatment under the Sepsis protocol for a stay that is expected to extend beyond 2 midnights. [facility] Medical History Arthritis Kidney stones Migraine headache History of echocardiogram History of stress test Hypercholesterolemia Hypertension Home Medications ???Medication ???Instructions ???Recorded ???Last Taken ???Type cholecalciferol (vitamin D3) 50 50 mcg PO DAILY 08/15/24 08/22/24 History mcg (2,000 unit) capsule (Vitamin D3) indapamide 1.25 mg tablet 1.25 mg PO DAILY HTN 08/15/24 08/22/24 History omega 9-ltm-hcw-fish oil 1,200 mg 2 cap PO DAILY 08/15/24 08/22/24 History (144 mg-216 mg) capsule (Fish Oil) rosuvastatin 10 mg tablet 10 mg PO DAILY 08/15/24 08/22/24 History valsartan 160 mg tablet 160 mg PO DAILY 08/15/24 08/23/24 History acetaminophen 500 mg capsule 1,000 mg PO Q6H PRN pain 08/23/24 08/20/24 History docusate sodium 100 mg capsule 100 mg PO BID constipation #20 caps 08/23/24 Unknown Rx (Colace) phenazopyridine 100 mg tablet 100 mg PO TID #15 tabs 08/23/24 Unknown Rx (Pyridium) tamsulosin 0.4 mg capsule (Flomax) 0.4 mg PO DAILY #10 caps 08/23/24 Unknown Rx ciprofloxacin HCl 500 mg tablet 500 mg PO BID 08/29/24 Unknown History Allergy/AdvReac Type Severity Reaction Status Date / Time Sulfa (Sulfonamide Allergy Rash Verified 08/29/24 20:36 Antibiotics) amoxicillin trihydrate (From AdvReac Vomiting Verified 08/29/24 20:36 Augmentin) potassium clavulanate (From AdvReac Vomiting Verified 08/29/24 20:36 Augmentin) Surgical History Hx of parathyroidectomy Hx of cystoscopy H/O section Social History Smoking Status: Never smoker ROS ROS Narrative Review of Systems: Constitutional: Patient admits to fever and chills as noted in HPI. Eyes: Patient denies changes in vision or discharge from eyes. ENT: Patient denies runny nose, sore throat or ear pain. Resp: Patient denies SOB or cough. CV: Patient denies chest pain, palpitations or heart racing. GI: Patient admits to nausea but she denies vomiting, abdominal pain, diarrhea or constipation. : Patient admits to Right flank pain and dysuria. She denies hematuria. MSK: Patient admits to myalgias but she denies arthralgias. Skin: Patient denies rash, abscess or jaundice. Psych: Patient denies symptoms of uncontrolled depression or anxiety. Neuro: Patient denies headache, paresthesias or focal neurologic deficits. Allergy: Patient denies lip swelling, tongue swelling or urticaria. Hematology: Patient denies easy bleeding or easy bruisability. Endocrinology: Patient denies polyuria, polydipsia and polyphagia. 14 point ROS otherwise negative except for positives noted above in HPI. Vital Signs Vital Signs Vital Signs: 08/29/24 (more content not included)... Normal [facility] Hemoglobin A1con 08-30-2024 HbA1c (Bld) [Mass fraction] 5.8 % High 3.8-5.6 [facility] Comment on above: Result Comment: Norm al < 5.7 % Prediabetic 5.7 - 6.4 % Diabetic >or= 6.5 % Please note range changes. Performed By: #### L 501.2300, L501.5200, L500.4050, L509.7000 #### [facility] [address] [place], [address] Lactic Acidon 08-30-2024 Lactate [Moles/Vol] 1.1 mmol/L Normal 0.4-1.9 [facility] Comment on above: Order Comment: Comme nts: May add to ED labs Comments: may add to ED labs Performed By: #### L 501.2300, L501.5200, L500.4050, L509.7000 #### [facility] [address] [place], [address] M100.678on 08-30-2024 M100.678 Pending SARS-CoV-2 (COVID 19) Negative INFLUENZA A Negative INFLUENZA B Negative RSV PCR Negative Normal [facility] Comment on above: Performed By: #### L 501.2300, L501.5200, L500.4050, L509.7000 #### [facility] [address] [place], [address] Magnesiumon 08-30-2024 Magnesium [Mass/Vol] 1.7 mg/dL Normal 1.6-2.6 [facility] Comment on above: Order Comment: Comme nts: May add to ED labs Comments: may add to ED labs Performed By: #### L 501.2300, L501.5200, L500.4050, L509.7000 #### [facility] [address] [place], [place], [address] Phosphoruson 08-30-2024 Phosphate [Mass/Vol] 2.4 mg/dL Low 2.5-4.9 [facility] Comment on above: Order Comment: Comme nts: May add to ED labs Comments: may add to ED labs Performed By: #### L 501.2300, L501.5200, L500.4050, L509.7000 #### [facility] [address] [facility] [place], [place], [address] Procalcitoninon 08-30-2024 Procalcitonin 0.39 ng/mL High 0.00-0.09 [facility] Comment on above: Result Comment: A procalcitonin (PCT) level above 2.0 ng/mL on the first day of ICU admission is associated with a high risk for progression to severe sepsis and/or septic shock. A PCT level below 0.5 ng/mL on the first day of ICU admission is associated with a low risk for progression to severe and/or septic shock. Note: Concentrations <0.5 ng/mL do not exclude an infection on account of localized infections (without systemic signs) which can be associated with such low concentrations, or a systemic infection in its initial stages (<6 hours). Furthermore, increased procalcitonin can occur without infection. PCT concentrations between 0.5 and 2.0 ng/mL should be interpreted taking into account the patient's history. It is recommended to retest PCT within 6-24 hours if any concentrations <2 ng/mL are obtained. Performed By: #### L 501.2300, L501.5200, L500.4050, L509.7000 #### [facility] [address] [place], [address] Urine Cultureon 08-30-2024 URC Culture exhibits no growth. Normal [facility] Comment on above: Performed By: #### L 501.2300, L501.5200, L500.4050, L509.7000 #### [facility] [address] [place], [address] Abdomen/Pelvis W IV Cont ONL Yon 08-29-2024 Abdomen/Pelvis W IV Cont ONLY [facility] Imaging Services [address] [place] [address] Abdomen/Pelvis W IV Cont ONLY MR#: [id number] Acct: [id number] Name: JOSE R WATT Rep #: [id number] : 1975 F 49 From: Farzad braun MD PCP: Dr. Shon Ronquillo, Status: REG ER Study: Abdomen/Pelvis W IV Cont ONLY Date of Exam: Exam# [id number] Ordering Dr: Scar Cha DO [id number] EXAM: CT ABDOMEN AND PELVIS WITH INTRAVENOUS CONTRAST CLINICAL INDICATION: ? Pyelonephritis TECHNIQUE: Helically acquired images were obtained of the abdomen and pelvis with intravenous contrast. This CT exam was performed using one or more of the following dose reduction techniques: automated exposure control, adjustment of the mA and/or kV according to patient size, and/or use of iterative reconstruction technique. CONTRAST: IV 75mL Isovue-370 RADIATION DOSE: Total DLP: 1150.96 mGy-cm. COMPARISON: Abdomen pelvis CT of 08/04/2024. FINDINGS: LOWER THORAX: Discoid atelectasis has developed within the lower lobes. No pleural effusion. No significant pericardial effusion. ABDOMEN: LIVER: Right hepatic lobe is mildly elongated measuring 17.9 cm in cephalocaudal dimension. Portal and hepatic veins enhance normally. No focal intrahepatic abnormality. GALLBLADDER AND BILE DUCTS: Unremarkable. No calcified gallstones. No gallbladder distention or wall edema. No intra- or extrahepatic biliary ductal dilation. PANCREAS: Unremarkable. No focal cystic or solid mass. SPLEEN: Unremarkable. Normal size without focal cystic or solid mass. ADRENALS: Unremarkable. No nodules. KIDNEYS AND URETERS: There is asymmetric enlargement and edema of the right kidney, with associated perirenal stranding on the right. Ill-defined areas of slightly diminished cortical enhancement noted on the right, primarily within the upper and lower pole cortex, consistent with pyelonephritis. Uroepithelial enhancement noted within the renal pelvis and right ureter indicating associated ureteritis and pyelitis. No renal abscess. No hydronephrosis or obstructing ureteral stone. A punctate nonobstructing stone and a 3 mm nonobstructing stone is seen within the left renal lower pole collecting system. No findings of left-sided pyelonephritis or left ureteral stone. STOMACH AND BOWEL: Unremarkable. No stomach or bowel distention. No focal inflammatory change. PELVIS: APPENDIX: Retrocecal appendix. No findings of acute appendicitis. BLADDER: Air bubble noted within the urinary bladder, typically due to recent instrumentation. The bladder wall does not appear significantly thickened allowing for the limited degree of bladder distention. REPRODUCTIVE: Normal size uterus with a centrally positioned IUD. Small anterior subserosal fibroids. 2.1 cm dominant follicle in the left ovary, which requires no follow-up. 1.2 cm follicle in the right ovary, which requires no follow-up. ABDOMEN and PELVIS: INTRAPERITONEAL SPACE: Unremarkable. No ascites or other fluid collection. No free air. BONES/JOINTS: Mild degenerative spurring about the lower thoracic disc spaces. No acute osseous abnormality. No suspicious lytic or blastic abnormality. SOFT TISSUES: Unremarkable. No discrete abdominal or pelvic wall hernia. VASCULATURE: Normal caliber abdominal aorta. LYMPH NODES: Unremarkable. No enlarged lymph nodes. CT/Abdomen/Pelvis W IV Cont ONLY IMPRESSION: 1. Findings of mild right-sided pyelonephritis. No renal abscess or obstructing ureteral stone. 2. 2 small nonobstructing left renal calculi. 3. Ovarian follicles, which require no follow-up. Electronically Signed: Farzad Walden MD at 0:00 EST , CC: Dr. Shon Ronquillo DO; Scar Cha DO Differential Tester: Signed Normal [facility] CBC W/Diff, Automatedon 11- Absolute Lymph 1.27 X10 3/uL Normal 0.83-4.51 [facility] Comment on above: Order Comment: Comme nts: Place Priority cotton tipper CBC Tube Performed By: #### M 200.1000, L500.4050, L300.3900, L300.4310, L503.6005, L100.0100 #### [facility] [address] [place], [address] Absolute Neut 17.0 X10 3/uL High 2.0-7.7 [facility] Comment on above: Order Comment: Comme nts: Place Priority cotton tipper CBC Tube Performed By: #### M 200.1000, L500.4050, L300.3900, L300.4310, L503.6005, L100.0100 #### [facility] [address] [place], [address] Basophils/100 WBC (Bld) 0.4 % Normal 0-1 [facility] Comment on above: Order Comment: Comme nts: Place Priority cotton tipper CBC Tube Performed By: #### M 200.1000, L500.4050, L300.3900, L300.4310, L503.6005, L100.0100 #### [facility] [address] [place], [address] Eosinophils/100 WBC (Bld) 0.2 % Normal 0-5 [facility] Comment on above: Order Comment: Comme nts: Place Priority cotton tipper CBC Tube Performed By: #### M 200.1000, L500.4050, L300.3900, L300.4310, L503.6005, L100.0100 #### [facility] [address] [place], [address] Erythrocyte distribution width (RBC) [Ratio] 13.0 % Normal 11.6-14.6 [facility] Comment on above: Order Comment: Comme nts: Place Priority cotton tipper CBC Tube Performed By: #### M 200.1000, L500.4050, L300.3900, L300.4310, L503.6005, L100.0100 #### [facility] [address] [place], [address] Hematocrit (Bld) [Volume fraction] 35.5 % Low 37-47 [facility] Comment on above: Order Comment: Comme nts: Place Priority cotton tipper CBC Tube Performed By: #### M 200.1000, L500.4050, L300.3900, L300.4310, L503.6005, L100.0100 #### [facility] [address] [facility] [place], [address] Hemoglobin (Bld) [Mass/Vol] 12.0 g/dL Normal 12.0-15.0 [facility] Comment on above: Order Comment: Comme nts: Place Priority cotton tipper CBC Tube Performed By: #### M 200.1000, L500.4050, L300.3900, L300.4310, L503.6005, L100.0100 #### [facility] [address] [facility] [place], [address] IG% 0.600 Normal 0.0-0.9 [facility] Comment on above: Order Comment: Comme nts: Place Priority cotton tipper CBC Tube Result Comment: IG% - Immature Granulocytes (promyelocytes, myelocytes and metamyelocytes) > 1% indicates that a LEFT SHIFT is Present. Performed By: #### M 200.1000, L500.4050, L300.3900, L300.4310, L503.6005, L100.0100 #### [facility] [address] [facility] [place], [address] Lymphocytes/100 WBC (Bld) 6.4 % Low 19-41 [facility] Comment on above: Order Comment: Comme nts: Place Priority cotton tipper CBC Tube Performed By: #### M 200.1000, L500.4050, L300.3900, L300.4310, L503.6005, L100.0100 #### [facility] [address] [place], [address] MCH (RBC) [Entitic mass] 29.4 pg Normal 27.0-32.0 [facility] Comment on above: Order Comment: Comme nts: Place Priority cotton tipper CBC Tube Performed By: #### M 200.1000, L500.4050, L300.3900, L300.4310, L503.6005, L100.0100 #### [facility] [address] [place], [address] MCHC (RBC) [Mass/Vol] 33.8 g/dL Normal 32-36 [facility] Comment on above: Order Comment: Comme nts: Place Priority cotton tipper CBC Tube Performed By: #### M 200.1000, L500.4050, L300.3900, L300.4310, L503.6005, L100.0100 #### [facility] [address] [place], [address] MCV (RBC) [Entitic vol] 87.0 fL Normal 81-99 [facility] Comment on above: Order Comment: Comme nts: Place Priority cotton tipper CBC Tube Performed By: #### M 200.1000, L500.4050, L300.3900, L300.4310, L503.6005, L100.0100 #### [facility] [address] [place], [address] Monocytes/100 WBC (Bld) 6.2 % Normal 0-10 [facility] Comment on above: Order Comment: Comme nts: Place Priority cotton tipper CBC Tube Performed By: #### M 200.1000, L500.4050, L300.3900, L300.4310, L503.6005, L100.0100 #### [facility] [address] [place], [address] Neutrophils/100 WBC (Bld) 86.2 % High 47-70 [facility] Comment on above: Order Comment: Comme nts: Place Priority cotton tipper CBC Tube Performed By: #### M 200.1000, L500.4050, L300.3900, L300.4310, L503.6005, L100.0100 #### [facility] [address] [place], [address] Nucleated RBC (Bld) [#/Vol] 0 10*3/uL Normal 0-5 [facility] Comment on above: Order Comment: Comme nts: Place Priority cotton tipper CBC Tube Performed By: #### M 200.1000, L500.4050, L300.3900, L300.4310, L503.6005, L100.0100 #### [facility] [address] [place], [address] Platelet mean volume (Bld) [Entitic vol] 9.5 fL Normal 6.2-12.0 [facility] Comment on above: Order Comment: Comme nts: Place Priority cotton tipper CBC Tube Performed By: #### M 200.1000, L500.4050, L300.3900, L300.4310, L503.6005, L100.0100 #### [facility] [address] [place], [address] Platelets (Bld) [#/Vol] 332 10*3/uL Normal 150-450 [facility] Comment on above: Order Comment: Comme nts: Place Priority cotton tipper CBC Tube Performed By: #### M 200.1000, L500.4050, L300.3900, L300.4310, L503.6005, L100.0100 #### [facility] [address] [place], [address] RBC (Bld) [#/Vol] 4.08 10*6/uL Low 4.2-5.4 [facility] Comment on above: Order Comment: Comme nts: Place Priority cotton tipper CBC Tube Performed By: #### M 200.1000, L500.4050, L300.3900, L300.4310, L503.6005, L100.0100 #### [facility] [address] [place], [address] RDW SD 40.9 fl Normal 35.1-43.9 [facility] Comment on above: Order Comment: Comme nts: Place Priority cotton tipper CBC Tube Performed By: #### M 200.1000, L500.4050, L300.3900, L300.4310, L503.6005, L100.0100 #### [facility] [address] [place], [address] WBC (Bld) [#/Vol] 19.8 10*3/uL High 4.4-11.0 [facility] Comment on above: Order Comment: Comme nts: Place Priority cotton tipper CBC Tube Performed By: #### M 200.1000, L500.4050, L300.3900, L300.4310, L503.6005, L100.0100 #### [facility] [address] [place], [address] Chest PA and Lateralon 08-29 Chest PA and Lateral [facility] Imaging Services [address] [place] [address] Chest PA and Lateral MR#: [id number] Acct: [id number] Name: JOSE R WATT Rep #: [id number] : 1975 F 49 From: Farzad braun MD PCP: Dr. Shon Ronquillo, Status: [facility] ER Study: Chest PA and Lateral Date of Exam: 08/29/24 Exam# [id number] Ordering Dr: Scar Cha DO [id number] EXAM: XR CHEST, 2 VIEWS CLINICAL INDICATION: Neutropenic Fever TECHNIQUE: Frontal and lateral views of the chest. COMPARISON: Previous chest radiographs of 11/26/2023 and 02/08/well-healed. FINDINGS: LUNGS AND PLEURAL SPACES: Discoid atelectasis or scarring has developed within the right midlung. Projecting between the anterior right fourth and fifth ribs on the frontal view is a subtle rounded focus of asymmetric density, worrisome for minimal pneumonia. Left lung is clear. No pneumothorax. No effusion. HEART: Unremarkable. Cardiac silhouette not enlarged. Normal pulmonary vasculature. MEDIASTINUM: Central airways and mediastinal contour are unremarkable. BONES/JOINTS: Mild degenerative spurring noted about the thoracic disc spaces. No endplate destruction or paraspinal soft tissue swelling. No acute fracture. SOFT TISSUES: Unremarkable. RAD/Chest PA and Lateral IMPRESSION: Findings suspicious for minimal pneumonia within the right midlung. Discoid atelectasis or scarring has also developed within the right midlung. Electronically Signed: Farzad Walden MD at 23:31 EST , CC: Dr. Shon Ronquillo, ; Scar Cha DO Differential Tester: Signed Normal [facility] Comprehensive Metabolic Prof uton 08-29-2024 Albumin [Mass/Vol] 3.4 g/dL Normal 3.2-5.0 [facility] Comment on above: Performed By: #### M 200.1000, L500.4050, L300.3900, L300.4310, L503.6005, L100.0100 #### [facility] [address] [place], [place], [address] Albumin/Globulin [Mass ratio] 0.9 {ratio} Normal 0.9-2.4 [facility] Comment on above: Performed By: #### M 200.1000, L500.4050, L300.3900, L300.4310, L503.6005, L100.0100 #### [facility] [address] [place], [address] ALK P 77 U/L Normal 45-117 [facility] Comment on above: Performed By: #### M 200.1000, L500.4050, L300.3900, L300.4310, L503.6005, L100.0100 #### [facility] [address] [place], [address] ALT [Catalytic activity/Vol] 15 U/L Normal 13-56 [facility] Comment on above: Performed By: #### M 200.1000, L500.4050, L300.3900, L300.4310, L503.6005, L100.0100 #### [facility] [address] [place], [address] AST [Catalytic activity/Vol] 9 U/L Low 15-37 [facility] Comment on above: Performed By: #### M 200.1000, L500.4050, L300.3900, L300.4310, L503.6005, L100.0100 #### [facility] [address] [place], [address] Bilirubin [Mass/Vol] 1.20 mg/dL High 0.20-1.00 [facility] Comment on above: Result Comment: For patients on eltrombopag therapy, use of Dimension Gervais TBIL is not recommended. Performed By: #### M 200.1000, L500.4050, L300.3900, L300.4310, L503.6005, L100.0100 #### [facility] [address] [place], [address] BUN/CRE 15.6 RATIO Normal 10-20 [facility] Comment on above: Performed By: #### M 200.1000, L500.4050, L300.3900, L300.4310, L503.6005, L100.0100 #### [facility] [address] [place], [address] CA,Total 9.0 mg/dL Normal 8.5-10.1 [facility] Comment on above: Performed By: #### M 200.1000, L500.4050, L300.3900, L300.4310, L503.6005, L100.0100 #### [facility] [address] [place], [address] Chloride [Moles/Vol] 105 mmol/L Normal 98-107 [facility] Comment on above: Performed By: #### M 200.1000, L500.4050, L300.3900, L300.4310, L503.6005, L100.0100 #### [facility] [address] [place], [address] CO2 [Moles/Vol] 26.0 mmol/L Normal 21.0-32.0 [facility] Comment on above: Performed By: #### M 200.1000, L500.4050, L300.3900, L300.4310, L503.6005, L100.0100 #### [facility] [address] [place], [address] Creatinine [Mass/Vol] 0.77 mg/dL Normal 0.55-1.02 [facility] Comment on above: Result Comment: The validity of the calculated GFR GFRAA in patients over 70 years has not been determined. Clinical correlation is essential. Performed By: #### M 200.1000, L500.4050, L300.3900, L300.4310, L503.6005, L100.0100 #### [facility] [address] [place], [address] ECRCL 92.21 ml/min Normal [facility] Comment on above: Performed By: #### M 200.1000, L500.4050, L300.3900, L300.4310, L503.6005, L100.0100 #### [facility] [address] [place], [address] EST GFR - AA 102 mL/min Normal >60 [facility] Comment on above: Result Comment: Afri can Omani GFR Calc Performed By: #### M 200.1000, L500.4050, L300.3900, L300.4310, L503.6005, L100.0100 #### [facility] [address] [place], [address] GAP 5 Normal 5-15 [facility] Comment on above: Performed By: #### M 200.1000, L500.4050, L300.3900, L300.4310, L503.6005, L100.0100 #### [facility] [address] [place], [address] GFR/1.73 sq M.predicted among non-blacks MDRD (S/P/Bld) [Vol rate/Area] 84 mL/min/{1.73_m2} Normal >60 [facility] Comment on above: Result Comment: Non- GFR Calc Performed By: #### M 200.1000, L500.4050, L300.3900, L300.4310, L503.6005, L100.0100 #### [facility] [address] [place], [address] Globulin (S) [Mass/Vol] 3.8 g/dL Normal 2.2-4.2 [facility] Comment on above: Performed By: #### M 200.1000, L500.4050, L300.3900, L300.4310, L503.6005, L100.0100 #### [facility] [address] [place], [address] Glucose [Mass/Vol] 148 mg/dL High 74-106 [facility] Comment on above: Result Comment: Fast ing Glucose result greater than or equal to 126 mg/dL suggests DIABETES MELLITUS per A.D.A. criteria. Performed By: #### M 200.1000, L500.4050, L300.3900, L300.4310, L503.6005, L100.0100 #### [facility] [address] [place], [address] Potassium [Moles/Vol] 3.8 mmol/L Normal 3.5-5.1 [facility] Comment on above: Performed By: #### M 200.1000, L500.4050, L300.3900, L300.4310, L503.6005, L100.0100 #### [facility] [address] [place], [address] Sodium [Moles/Vol] 136 mmol/L Normal 136-145 [facility] Comment on above: Performed By: #### M 200.1000, L500.4050, L300.3900, L300.4310, L503.6005, L100.0100 #### [facility] [address] [place], [address] T PROT 7.2 g/dL Normal 6.4-8.2 [facility] Comment on above: Performed By: #### M 200.1000, L500.4050, L300.3900, L300.4310, L503.6005, L100.0100 #### [facility] [address] [place], [address] Urea nitrogen [Mass/Vol] 12 mg/dL Normal 7-18 [facility] Comment on above: Performed By: #### M 200.1000, L500.4050, L300.3900, L300.4310, L503.6005, L100.0100 #### [facility] [address] [place], [address] Lactic Acidon 08-29-2024 Lactate [Moles/Vol] 1.6 mmol/L Normal 0.4-1.9 [facility] Comment on above: Order Comment: Y Performed By: #### M 200.1000, L500.4050, L300.3900, L300.4310, L503.6005, L100.0100 #### [facility] [address] [place], [address] Partial Thromboplast Timeon 08-29-2024 aPTT Coag (Bld) [Time] 32.0 s Normal 24.1-36.2 [facility] Comment on above: Performed By: #### M 200.1000, L500.4050, L300.3900, L300.4310, L503.6005, L100.0100 #### [facility] [address] [place], [address] Prothrombin Time w/INRon INR Coag (PPP) [Relative time] 1.1 {INR} Normal [facility] Comment on above: Performed By: #### M 200.1000, L500.4050, L300.3900, L300.4310, L503.6005, L100.0100 #### [facility] [address] [place], [address] PT Coag (PPP) [Time] 13.8 s Normal 11.7-14.9 [facility] Comment on above: Performed By: #### M 200.1000, L500.4050, L300.3900, L300.4310, L503.6005, L100.0100 #### [facility] [address] [place], [address] Urinalysis, Completeon 08-29 AMORPHOUS RARE Normal [facility] Comment on above: Order Comment: Comme nts: May add to ED labs Comments: may add to ED labs Performed By: #### L 501.2300, L501.5200, L500.4050, L509.7000 #### [facility] [address] [place], [address] BACTERIA RARE Normal None Seen [facility] Comment on above: Order Comment: Comme nts: May add to ED labs Comments: may add to ED labs Performed By: #### L 501.2300, L501.5200, L500.4050, L509.7000 #### [facility] [address] [place], [address] Mucus Ql (Urine sed) 1+ /hpf Normal [facility] Comment on above: Order Comment: Comme nts: May add to ED labs Comments: may add to ED labs Performed By: #### L 501.2300, L501.5200, L500.4050, L509.7000 #### [facility] [address] [place], [address] EPI,SQUAMOUS 5-10 SEEN Normal 5-10 [facility] Comment on above: Order Comment: Comme nts: May add to ED labs Comments: may add to ED labs Performed By: #### L 501.2300, L501.5200, L500.4050, L509.7000 #### [facility] [address] [place], [address] RBC 0-5 SEEN Normal 0-5 [facility] Comment on above: Order Comment: Comme nts: May add to ED labs Comments: may add to ED labs Performed By: #### L 501.2300, L501.5200, L500.4050, L509.7000 #### [facility] [address] [place], [address] WBC 25-50 SEEN Normal 0-5 [facility] Comment on above: Order Comment: Rayray nts: May add to ED labs Comments: may add to ED labs Performed By: #### L 501.2300, L501.5200, L500.4050, L509.7000 #### [facility] [address] [place], [address] Discharge Instructionon 08-11 Discharge Instruction [facility] Medical Records Department [address] [place] [address] Instructions for Home/Discharge Instructions 08/23/24 1526 MR#: [id number] Acct: [id number] Name: JOSE R WATT Rep #: [id number] : 1975 49 From: Bruce Soto MD PCP: Dr. Shon Ronquillo DO Status:REG [facility] Discharge Instructions Diet Discharge Diet: No restrictions Activity Discharge Activity: Return to Normal Activity and May Not Drive (while taking narcotic pain medications.) Dressing / Incision Call your doctor if you observe: Fever of 101 or Higher Follow Up Care Please Follow Up With: Bruce Soto MD When: Call [phone] for an appointment Test Results: Test results from this visit will be discussed in further detail at your follow-up appointment, if applicable. Discharge Plan Admission Primary Reason for Your Visit: laser of right kidney stones Attending Provider: Bruce Soto Primary Care Provider: Shon Ronquillo Instructions Patient Instructions: Kidney Stone Ureteroscopy Print Language: [place] Discharge Orders/Prescriptions Prescriptions: New oxycodone 5 mg tablet 5 mg PO Q6H PRN (Reason: pain) 7 Days Qty: 14 0RF tamsulosin [Flomax] 0.4 mg capsule 0.4 mg PO DAILY Qty: 10 0RF docusate sodium [Colace] 100 mg capsule 100 mg PO BID Qty: 20 0RF phenazopyridine [Pyridium] 100 mg tablet 100 mg PO TID Qty: 15 0RF Continued valsartan 160 mg tablet 160 mg PO DAILY rosuvastatin 10 mg tablet 10 mg PO DAILY cholecalciferol (vitamin D3) [Vitamin D3] 50 mcg (2,000 unit) capsule 50 mcg PO DAILY indapamide 1.25 mg tablet 1.25 mg PO DAILY omega 3-kvy-isn-fish oil [Fish Oil] 1,200 (144-216) mg capsule 2 cap PO DAILY acetaminophen 500 mg capsule 1,000 mg PO Q6H PRN (Reason: pain) Referrals / Follow Up: Shon Ronquillo DO [Primary Care Provider] - Bruce Soto MD [Med Staff - Active Staff] - Disposition Disposition (needs filled in before D/C Order can be placed): Home, Self Care 08/23/24 1526 Bruce Soto MD CC: Dr. Shon Ronquillo, DO Signed [facility] MR/POSTOP.ANEon 08-23-2024 MR/POSTOP.[facility] Medical Records Department [address] [place] [address] Anesthesia Postop Eval I 08/23/24 164 MR#: [id number] Acct: [id number] Name: JOSE R WATT Rep #: [id number] : 1975 49 From: Low Best CRNA PCP: Dr. Shon Ronquillo, DO Status:REG SDC Y Race: C Location: [place] [address] Anesthesia: Postop Eval I Current Vital Signs Temperature: 96.8 F Pulse Rate: 79 Blood Pressure: 126/84 Respiratory Rate: 16 Pulse Ox: 93 Oxygen Delivery Method: Room Air Assessment Airway patent: Yes Spontaneous unlabored respirations: Yes Mental status: Awake and Calm nausea: No Vomiting: No Anesthesia Complication: No Fluid Hydration Crystalloid volume administer (ml): 1,000 Total IV fluid infused: 1,000 Progress Note Anesthesia document: Postop Eval 1 completed: Yes 08/23/241641 Date Low Best CRNA Cosigner Signature: Date CC: Signed [place] [facility] MR/RSMMUUOB0rs 08-23-2024 MR/POSTOPAN2 [facility] Medical Records Department [address] [place] [address] Anesthesia Postop Eval II 08/23/24 1715 MR#: [id number] Acct: [id number] Name: JOSE R WATT Rep #: [id number] : 1975 49 From: Jay Jay Sarkar MD PCP: Dr. Shon Ronquillo, DO Status:REG SDC Y Race: C Location: [place] [address] Anesthesia Postop Eval I Sum Postop Eval Completion status Anesthesia document: Postop Eval 1 completed: Yes Anesthesia Postop Eval I Summary Anesthesia Postop Eval I Summary: Anesthesia Postop Eval I: Assessment Summary Airway patent Yes 08/23/24 16:42 CLINICAL PROGRAM DIRECTOR.JBLOU Spontaneous unlabored Yes 08/23/24 16:42 CLINICAL PROGRAM DIRECTOR.JBLOU respirations Mental status Awake,Calm 08/23/24 16:42 CLINICAL PROGRAM DIRECTOR.JBLOU nausea No 08/23/24 16:42 CLINICAL PROGRAM DIRECTOR.JBLOU Vomiting No 08/23/24 16:42 CLINICAL PROGRAM DIRECTOR.JBLOU Anesthesia Postop Eval I: Fluid Summary Crystalloid volume administer 1,000 08/23/24 16:42 CLINICAL PROGRAM DIRECTOR.JBLOU (ml) Colloids volume administered ( ml) Blood Product volume administered (ml) Total IV fluid infused 1,000 08/23/24 16:42 CLINICAL PROGRAM DIRECTOR.JBLOU Anesthesia Postop Eval I: Summary Notes Anesthesia Complication No 08/23/24 16:42 CLINICAL PROGRAM DIRECTOR.JBLOU Anesthesia Complication Comment: Post-operative progress note Anesthesia: Postop Eval II Evaluation Mental status: Awake and Calm Pain Level: 1 nausea: No Vomiting: No Complications Anesthesia Complication: No 08/23/24 1716 Date Jay Jay Sarkar MD Cosigner Signature: Date CC: Signed Normal [facility] Operative Reporton 4 Operative Report [facility] Medical Records Department [address] [place] [address] Operative Report 08/23/24 1606 MR#: [id number] Acct: [id number] Name: JOSE R WATT Rep #: [id number] : 1975 49 From: Bruce Soto MD PCP: Dr. Shon Ronquillo, DO Status:REG SDC Location: [place] [address] Operative Report (Standard) Operative Information Surgery/Procedure Performed: Cystoscopy balloon dilation of right ureter right ureteroscopy laser lithotripsy of stones and stent Surgeon: Bruce Soto Date of Procedure: 08/23/24 Procedure Start Time: 15:51 Procedure Stop Time: 16:07 Pre-Operative Diagnosis: Right UPJ stone Post-Operative Diagnosis: The same Select all DRAINS/GRAFTS/IMPLANTS that apply: Drains Drain details: Right stent Type of Anesthesia: General Estimated Blood Loss: None Specimen collected: No Description of surgery: This is a patient who presents to the hospital for treatment for an obstructing ureter calculi. I discussed with the patient how the surgery would be performed and we reviewed the risks and benefits of the surgery. The risk and benefits include the risk of failure to remove the stone completely and that the patient may need multiple procedures. We discussed the risk of an infection, the risk of bleeding. We discussed the very rare risk of serious complicated injury to the ureter. The patient understands that if the stone is not able to be removed safely that we may abort the procedure and place a stent. After full discussion and all questions address with the patient the consent form was signed the side was marked appropriately and the patient was taken back to the operating room for the procedure. The patient was taken back to the operating room. After induction of anesthesia by the anesthesiology team the patient was placed in dorsolithotomy position. The genitals were prepped and draped in usual sterile fashion. I went into the bladder with a 21 Swedish rigid cystourethroscope through the urethra. Upon entering the bladder I inspected the trigone the left and right ureteral orifice and the bladder itself. I then cannulated the Right ureteral orifice and advanced a 0.038 Glidewire up into the kidney. Then over the Glidewire I advanced a 5 Fr Ureteral catheter and performed a retrograde pyelogram with about 10cc of contrast, to delineate the anatomy and identify the stone location. Then a ureteral balloon dilator was advanced over the wire and the distal ureter was balloon dilated with a 12 Fr x 5cm balloon dilator. After 3 minutes of dilating the ureter the balloon was backloaded off the 0.038 glidewire over the 0.038 guidewire I went in with the flexible 7.5fr ureteroscope. I was able to go inside with the 7.5Fr utereroscope and I pulled out the guidewire and then through the ureteroscope I engage the stone with laser lithotripsy using a 270miron laser fiber with energy setting of 6 Hertz and 0.6 J until the stone was lasered into tiny little pieces that should pass on their own. A retrograde pyelogram was performed with 10cc of contrast and no extravasation of contrast or perforation was identified in the ureter there was some mild irritation of the ureter where the stone was located. I then backed out of the ureter left the wire in place and then over the 0.038 guidewire I placed a double coiled pigtail ureteral stent. The ureteral stent was advanced over the 0.038 guidewire under direct fluoroscopic guidance and direct cystoscopic visual guidance, once the stent was in good position I pulled the wire and the stent coiled in the kidney and bladder in good position. I then drained the patient's bladder and the cystoscope was removed and the patient was taken back to the recovery room in good position. The patient was given discharge instructions to call the office for instructions on when to come to the office to have the stent removed. Surgical Findings: Stone in the right UPJ was lasered completely into tiny little dust fragments and stent placed on the right side. Family Resource Coordinator body shop floorperson: No Complications Complications: No Admit VTE Documentation VTE Present on Admission: No VTE Mechan Device Prophylaxis: SCD's VTE Pharm Prophylaxis ordered?: No 08/23/24 1608 Cosigner Signature (if applicable): CC: Dr. Shon Ronquillo, DO; Dr. Bruce Soto MD Signed Normal [facility] ,Urineon 08-23-2024 Beta HCG ( test) Ql (U) Negative Normal [facility] Comment on above: Result Comment: Very dilute urine specimens, as indicated by a low specific gravity, may not contain customer field representative levels of hCG. If is still suspected, a first morning urine specimen should be collected 48 hours later and tested. Performed By: #### L 501.2300, L501.5200, L500.4050, L509.7000 #### [facility] [address] [place], [address] CNOVon 08-20-2024 CNOV Office Visit (UCWSTR ) JOSE R WATT ([id number]) 1975 F T Date Time Provider Department 08/20/24 8:30 AM BRENDA ANTHONY During your visit today, we recorded the following information about you: Temperature Pulse Respiration Blood pressure 98.5 degrees 100/minute 19/minute 130/80 Weight 80 kg Laine Lopez APRN.CNP 08/20/2024 8:40 AM Signed CC: Patient presents with: Sore Throat: X 1 day HPI: Jose R Watt is a 49 year old female who presents to the office with complaint of sore throat for the past day. Symptoms are worsening Associated symptoms includes sore throat. Denies fever, nausea, vomiting , and diarrhea. Treatments tried include nothing so far. with no relief of symptoms. Sick contacts: unknown. History of asthma, frequent episodes of bronchitis, chronic bronchitis, bronchiectasis or COPD: No Smoker: No Seasonal/environmental allergies: No The ROS is otherwise negative. The patient's pmh, medications, allergies, and past visits are reviewed. PHYSICAL EXAM: BP 130/80 Pulse 100 Temp 36.9 ?C (98.5 ?F) Resp 19 Wt 80 kg (176 lb 5.9 oz) LMP 10/19/2023 (Approximate) SpO2 97% BMI 30.75 kg/m? General appearance: alert, cooperative, pleasant, in no acute distress Head: Normocephalic Eyes: EOM's intact, conjunctiva pink and moist, no icterus, sclera white, non-injected Ears: Right ear: External ear/canal- Normal, TM - clear with good landmarks. Left ear: External ear/canal- Normal, TM - clear with good landmarks Oropharynx:mild erythema, without exudates present Heart: Negative. RRR without obvious murmur, gallop, or rubs. No ectopy. Lungs: clear to auscultation, without rales or wheeze, good air exchange PAST MEDICAL HISTORY Diagnosis Date Dysmenorrhea Excessive or frequent menstruation Heavy periods Resolved Kidney stones Malaise and fatigue Mixed hyperlipidemia Parathyroid tumor 10/11/2014 benign, 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 [employer] [place] Unspecified essential hypertension 10/11/2006 Vitamin D deficiency secondary to parathyroidectomy PAST SURGICAL HISTORY Procedure Laterality Date DELIVERY ONLY X 2 PARATHYROID 01/09/2015 tumor removed REMOVE KIDNEY STONE Left ALLERGIES Augmentin [Amoxicillin-Pot Clavulanate] and Sulfa (Sulfonamide Antibiotics) MEDICATIONS indapamide (LOZOL) 1.25 mg tablet Take 1.25 mg by mouth once daily. rosuvastatin (CRESTOR) 10 mg tablet Take 1 tablet by mouth once daily. valsartan (DIOVAN) 160 mg tablet Take 1 tablet by mouth once daily. omega 4-bwv-ric-fish oil (FISH OIL) 100-160-1,000 mg cap Take by mouth. SUMAtriptan (IMITREX) 100 mg tablet Take 1 tablet by mouth as needed for migraine headache (see administration instructions). levonorgestrel (MIRENA) 20 mcg/24 hours (5-6 yrs) 52 mg IUD 1 Each by INTRAUTERINE route as directed. ERGOCALCIFEROL, VITAMIN D2, (VITAMIN D ORAL) Take 2 capsules by mouth once daily. calcium carbonate 600 mg-cholecalciferol 400 units (CALCIUM WITH VITAMIN D) 600 mg-10 mcg (400 unit) tab Take 1 tablet by mouth once daily. fluticasone (FLONASE) 50 mcg/actuation nasal spray Use 2 Sprays in each nostril once daily. Rinse mouth after use. (Patient not taking: Reported on 12/01/2023) FAMILY HISTORY Problem Relation Age of Onset Thyroid Mother Heart Mother Diabetes Mother Hypertension Father Heart Father Diabetes Father Diabetes Paternal Aunt Thyroid Other paternal side Social History Tobacco Use Smoking status: Never Smokeless tobacco: Never Vaping Use Vaping status: Never Used Substance Use Topics Alcohol use: No Drug use: No ASSESSMENT/PLAN: 1. Sore throat - ICD9: 462, ICD10: J02.9 - STREP A MOLECULAR (POC) - neg No viral testing at this time. OTC meds for symptoms. Potential red flag symptoms discussed with the patient. Reviewed appropriate action plan to take if red flag symptoms occur. Patient agreeable to treatment plan. Laine Lopez APRN.CNP Allergies As of Date: 08/20/2024 Noted Allergy Reaction AUGMENTIN (AMOXICILLIN-POT CLAVUL*03/23/2012 11 - Vomiting SULFA (SULFONAMIDE ANTIBIOTICS) 11/27/2005 2 - Rash Date Reviewed: 08/20/2024 Reviewed by: Yajaira Cherry MA - Fully Assessed Reason for Visit: Sore Throat [200] Cmt: X 1 day Primary Visit Diagnosis:Sore throat [J02.9] Order(s):STREP A MOLECULAR (POC) [7995807] Order #: [id number] #:[id number] Prescriptions as of 08/20/2024 - indapamide (LOZOL) 1.25 mg tablet Take 1.25 mg by mouth once daily. - rosuvastatin (CRESTOR) 10 mg tablet Take 1 tablet by mouth once daily. - valsartan (DIOVAN) 160 mg tablet Take 1 tablet by mouth once daily. - calcium carbonate 600 mg-cholecalciferol 400 units (CALCIUM WITH VITAMIN D) 600 mg-10 mcg (more content not included)... Normal [facility] STREP A MOLECULAR (POC)on Procedural Control Valid [facility] Strep A (POCT) Negative Negative [facility] CNOVon 08-06-2024 CNOV Office Visit (UCWSTR ) JOSE R WATT ([id number]) 1975 F CHT Date Time Provider Department 08/06/24 12:30 PM LAINE LOPEZ WSTR During your visit today, we recorded the following information about you: Temperature Pulse Respiration Blood pressure 102.1 degrees 110/minute 16/minute 119/80 Weight 80.8 kg Laine Lopez APRN.CNP 08/06/2024 1:24 PM Signed CC: Patient presents with: Ear Pain: Right ear with sore throat x 1 day HPI: Jose R Watt is a 49 year old female who presents to the office with complaint of sore throat and ear symptoms for the past day. Symptoms are worsening Associated symptoms includes sore throat. Denies nausea, vomiting , and diarrhea. Treatments tried include nothing so far. with no relief of symptoms. Sick contacts: unknown. History of asthma, frequent episodes of bronchitis, chronic bronchitis, bronchiectasis or COPD: No Smoker: No Seasonal/environmental allergies: No The ROS is otherwise negative. The patient's pmh, medications, allergies, and past visits are reviewed. PHYSICAL EXAM: BP 119/80 Pulse 110 Temp (!) 38.9 ?C (102.1 ?F) (Left Tympanic) Resp 16 Wt 80.8 kg (178 lb 2.1 oz) LMP 10/19/2023 (Approximate) SpO2 97% BMI 31.06 kg/m? General appearance: alert, cooperative, pleasant, in no acute distress Head: Normocephalic Eyes: EOM's intact, conjunctiva pink and moist, no icterus, sclera white, non-injected Ears: Right ear: External ear/canal- Normal, TM - clear with good landmarks. Left ear: External ear/canal- Normal, TM - clear with good landmarks Oropharynx:moderate erythema, without exudates present Heart: Negative. RRR without obvious murmur, gallop, or rubs. No ectopy. Lungs: clear to auscultation, without rales or wheeze, good air exchange PAST MEDICAL HISTORY Diagnosis Date Dysmenorrhea Excessive or frequent menstruation Heavy periods Resolved Kidney stones Malaise and fatigue Mixed hyperlipidemia Parathyroid tumor 10/11/2014 benign, Dr. [employer] [place] Premenstrual tension syndromes Thyroid nodule 10/11/2014 Dr. [employer] [place] Unspecified essential hypertension 10/11/2006 Vitamin D deficiency secondary to parathyroidectomy PAST SURGICAL HISTORY Procedure Laterality Date DELIVERY ONLY X 2 PARATHYROID 01/09/2015 tumor removed REMOVE KIDNEY STONE Left ALLERGIES Augmentin [Amoxicillin-Pot Clavulanate] and Sulfa (Sulfonamide Antibiotics) MEDICATIONS indapamide (LOZOL) 1.25 mg tablet Take 1.25 mg by mouth once daily. valsartan (DIOVAN) 160 mg tablet Take 1 tablet by mouth once daily. omega 8-fhz-zbd-fish oil (FISH OIL) 100-160-1,000 mg cap Take by mouth. SUMAtriptan (IMITREX) 100 mg tablet Take 1 tablet by mouth as needed for migraine headache (see administration instructions). levonorgestrel (MIRENA) 20 mcg/24 hours (5-6 yrs) 52 mg IUD 1 Each by INTRAUTERINE route as directed. ERGOCALCIFEROL, VITAMIN D2, (VITAMIN D ORAL) Take 2 capsules by mouth once daily. rosuvastatin (CRESTOR) 10 mg tablet Take 1 tablet by mouth once daily. calcium carbonate 600 mg-cholecalciferol 400 units (CALCIUM WITH VITAMIN D) 600 mg-10 mcg (400 unit) tab Take 1 tablet by mouth once daily. fluticasone (FLONASE) 50 mcg/actuation nasal spray Use 2 Sprays in each nostril once daily. Rinse mouth after use. (Patient not taking: Reported on 12/01/2023) FAMILY HISTORY Problem Relation Age of Onset Thyroid Mother Heart Mother Diabetes Mother Hypertension Father Heart Father Diabetes Father Diabetes Paternal Aunt Thyroid Other paternal side Social History Tobacco Use Smoking status: Never Smokeless tobacco: Never Vaping Use Vaping status: Never Used Substance Use Topics Alcohol use: No Drug use: No ASSESSMENT/PLAN: 1. Sore throat - ICD9: 462, ICD10: J02.9 (primary diagnosis) - STREP A MOLECULAR (POC) - pos - IBUPROFEN 600 MG TABLET 2. Strep throat - ICD9: 034.0, ICD10: J02.0 - CEPHALEXIN 500 MG CAPSULE Prescription instructions reviewed with patient as applicable. Potential red flag symptoms discussed with the patient. Reviewed appropriate action plan to take if red flag symptoms occur. Patient will report to the ER if anything changes or worsens. Patient agreeable to treatment plan. At this time patient has no kidney pain or abdominal pain was instructed if she does develop any in due to having kidney stones she should report to the ER. Fever is believed to be caused by the strep at this point. Laine Lopez APRN.STEM MOUNTER Allergies As of Date: 08/06/2024 Noted Allergy Reaction AUGMENTIN (AMOXICILLIN-POT CLAVUL*03/23/2012 11 - Vomiting SULFA (SULFONAMIDE ANTIBIOTICS) 11/27/2005 2 - Rash Date Reviewed: 08/06/2024 Reviewed by: Kat Vincent MA - Fully Assessed Reason for Visit: Ear Pain [817] Cmt: Right ear with sore th (more content not included)... Normal [facility] STREP A MOLECULAR (POC)on Interpretation and review of laboratory results Abnormal [facility] Procedural Control Valid [facility] Strep A (POCT) Positive Abnormal Negative [facility] Abdomen/Pelvis without Conto n 08-04-2024 Abdomen/Pelvis without Cont [facility] Imaging Services [address] [place], [place] [address] Abdomen/Pelvis without Cont MR#: [id number] Acct: [id number] Name: JOSE R WATT Rep #: [id number] : 1975 F 49 From: Tyler william MD PCP: Dr. Shon Ronquillo, Status: REG CLI Study: Abdomen/Pelvis without Cont Date of Exam: 07/12 03/03 Exam# [id number] Ordering Dr: Bruce Soto MD [id number] INDICATION: KS EXAMINATION: CT Abdomen And Pelvis W/O Contrast Injection TECHNIQUE: Helically acquired images were obtained of the abdomen and pelvis without the use of IV contrast. A radiation dose optimization technique was used for this scan. Oral contrast: None. COMPARISON: None FINDINGS: Evaluation of the solid organs and vascular structures is limited without intravenous contrast. Visualized lung bases: Unremarkable Liver: Unremarkable Gallbladder: Unremarkable Spleen: Unremarkable Pancreas: Unremarkable Adrenal Glands: Unremarkable Kidneys: 5 mm obstructing stone in the right ureteropelvic junction with associated mild right hydronephrosis. Other nonobstructing stones seen in the left lower renal pole measuring up to 4 mm. Vasculature: Unremarkable GI Tract: Unremarkable Lymphadenopathy: None Peritoneum: No ascites. Bladder: Unremarkable Reproductive organs: IUD in place. Bones/Soft tissues: No suspicious osseous or soft tissue lesions CT/Abdomen/Pelvis without Cont IMPRESSION: 5 mm obstructing stone in the right ureteropelvic junction with associated mild right hydronephrosis. Other nonobstructing stones seen in the left lower renal pole measuring up to 4 mm. Electronically Signed: Tyler Aquino MD at 18:22 EDT , CC: Dr. Shon Ronquillo DO; Dr. Bruce Soto MD Differential Tester: Signed Normal [facility] Abdomen Single Viewon 2023 Abdomen Single View [facility] Imaging Services [address] [place] [address] Abdomen Single View MR#: [id number] Acct: [id number] Name: JOSE R WATT Rep #: [id number] : 1975 F 49 From: Helio Casanova MD PCP: Dr. Shon Ronquillo DO Status: REG CLI Study: Abdomen Single View Date of Exam: 08/01/24 Exam# [id number] Ordering Dr: Bruce Soto MD [id number] STUDY: X-RAY - ABDOMEN/PELVIS REASON FOR EXAM: Female, 49 years old. CALCULUS OF KIDNEY TECHNIQUE: Single AP view of the abdomen / pelvis. COMPARISON: 02/11/2024 FINDINGS: Normal visualized lung bases. There is an unremarkable bowel gas pattern. Multiple small calcific opacity projecting over the lower pole left kidney consistent with left renal stones. 8 mm calcific opacity projecting near the medial aspect lower pole right kidney may represent a right ureteral stone. Intrauterine device. Normal visualized osseous structures. RAD/Abdomen Single View IMPRESSION: Suspect left renal stones. Possible proximal right ureteral stone. Electronically Signed: Helio Casanova MD at 10:52 EDT , CC: Dr. Shon Ronquillo DO; Dr. Bruce Soto MD Differential Tester: Signed Normal [facility] Vitamin D,25 Hydroxyon 06-26 Vitamin D 25-OH 74.7 ng/mL Normal [facility] Comment on above: Result Comment: [place] min D 25(OH) Status Range Deficiency <20 ng/mL (50nmol/L) Insufficiency 20 - 30 ng/mL (50 - 75 nmol/L) Sufficiency 30 - 100 ng/mL (75 - 250 nmol/L) Toxicity >100 ng/mL (>250 nmol/L) Performed By: #### L 501.2300, L501.5200, L500.4050, L509.7000 #### [facility] [address] [place], [address] Comprehensive Metabolic Prof ilon 06-24-2024 Albumin [Mass/Vol] 3.7 g/dL Normal 3.2-5.0 [facility] Comment on above: Performed By: #### L 501.2300, L501.5200, L500.4050, L509.7000 #### [facility] [address] [place], [address] Albumin/Globulin [Mass ratio] 1.0 {ratio} Normal 0.9-2.4 [facility] Comment on above: Performed By: #### L 501.2300, L501.5200, L500.4050, L509.7000 #### [facility] [address] [place], [address] ALK P 60 U/L Normal 45-117 [facility] Comment on above: Performed By: #### L 501.2300, L501.5200, L500.4050, L509.7000 #### [facility] [address] [place], [address] ALT [Catalytic activity/Vol] 26 U/L Normal 13-56 [facility] Comment on above: Performed By: #### L 501.2300, L501.5200, L500.4050, L509.7000 #### [facility] [address] [place], [address] AST [Catalytic activity/Vol] 19 U/L Normal 15-37 [facility] Comment on above: Performed By: #### L 501.2300, L501.5200, L500.4050, L509.7000 #### [facility] [address] [place], [address] Bilirubin [Mass/Vol] 0.80 mg/dL Normal 0.20-1.00 [facility] Comment on above: Result Comment: For patients on eltrombopag therapy, use of Dimension Gervais TBIL is not recommended. Performed By: #### L 501.2300, L501.5200, L500.4050, L509.7000 #### [facility] [address] [place], [address] BUN/CRE 17.2 RATIO Normal 10-20 [facility] Comment on above: Performed By: #### L 501.2300, L501.5200, L500.4050, L509.7000 #### [facility] [address] [place], [address] CA,Total 9.1 mg/dL Normal 8.5-10.1 [facility] Comment on above: Performed By: #### L 501.2300, L501.5200, L500.4050, L509.7000 #### [facility] [address] [place], [address] Chloride [Moles/Vol] 108 mmol/L High 98-107 [facility] Comment on above: Performed By: #### L 501.2300, L501.5200, L500.4050, L509.7000 #### [facility] [address] [place], [address] CO2 [Moles/Vol] 24.0 mmol/L Normal 21.0-32.0 [facility] Comment on above: Performed By: #### L 501.2300, L501.5200, L500.4050, L509.7000 #### [facility] [address] [place], [address] Creatinine [Mass/Vol] 0.64 mg/dL Normal 0.55-1.02 [facility] Comment on above: Result Comment: The validity of the calculated GFR GFRAA in patients over 70 years has not been determined. Clinical correlation is essential. Performed By: #### L 501.2300, L501.5200, L500.4050, L509.7000 #### [facility] [address] [place], [address] EST GFR - AA 127 mL/min Normal >60 [facility] Comment on above: Result Comment: Afri can Omani GFR Calc Performed By: #### L 501.2300, L501.5200, L500.4050, L509.7000 #### [facility] [address] [place], [address] GAP 6 Normal 5-15 [facility] Comment on above: Performed By: #### L 501.2300, L501.5200, L500.4050, L509.7000 #### [facility] [address] [place], [address] GFR/1.73 sq M.predicted among non-blacks MDRD (S/P/Bld) [Vol rate/Area] 105 mL/min/{1.73_m2} Normal >60 [facility] Comment on above: Result Comment: Non- GFR Calc Performed By: #### L 501.2300, L501.5200, L500.4050, L509.7000 #### [facility] [address] [place], [address] Globulin (S) [Mass/Vol] 3.7 g/dL Normal 2.2-4.2 [facility] Comment on above: Performed By: #### L 501.2300, L501.5200, L500.4050, L509.7000 #### [facility] [address] [place], [address] Glucose [Mass/Vol] 103 mg/dL Normal 74-106 [facility] Comment on above: Result Comment: Fast ing Glucose result from 100 to 125 mg/dL suggests IMPAIRED HOMEOSTASIS per A.D.A. criteria. Performed By: #### L 501.2300, L501.5200, L500.4050, L509.7000 #### [facility] [address] [place], [address] Potassium [Moles/Vol] 3.9 mmol/L Normal 3.5-5.1 [facility] Comment on above: Performed By: #### L 501.2300, [id number], [id number], [id number] #### [facility] [address] [place], [address] Sodium [Moles/Vol] 138 mmol/L Normal 136-145 [facility] Comment on above: Performed By: #### L 501.2300, [id number], [id number], [id number] #### [facility] [address] [place], [address] T PROT 7.4 g/dL Normal 6.4-8.2 [facility] Comment on above: Performed By: #### L 501.2300, [id number], [id number], [id number] #### [facility] [address] [place], [address] Urea nitrogen [Mass/Vol] 11 mg/dL Normal 7-18 [facility] Comment on above: Performed By: #### L 501.2300, [id number], [id number], [id number] #### [facility] [address] [place], [address] Lipid Profileon 06-24-2024 Cholesterol [Mass/Vol] 188 mg/dL Normal 200 [facility] Comment on above: Result Comment: <200 mg/dL Desirable 200-240 mg/dL Borderline >240 mg/dL High Risk Performed By: #### L 501.2300, [id number], [id number], [id number] #### [facility] [address] [place], [address] Cholesterol in HDL [Mass/Vol] 53 mg/dL Normal [facility] Comment on above: Result Comment: The drugs N-Acetylcysteine and Metamizole may falsely depress this assay. Reference Range HDL <40 mg/dL Low HDL Cholesterol HDL >or= 60 mg/dL High HDL Cholesterol Performed By: #### L 501.2300, [id number], [id number], [id number] #### [facility] [address] [place], [address] Cholesterol in LDL [Mass/Vol] 115 mg/dL Normal 0-130 [facility] Comment on above: Performed By: #### L 501.2300, [id number], [id number], [id number] #### [facility] [address] [place], [address] Cholesterol in VLDL [Mass/Vol] 20 mg/dL Normal 5-40 [facility] Comment on above: Performed By: #### L 501.2300, [id number], [id number], [id number] #### [facility] [address] [place], [address] Triglyceride [Mass/Vol] 98 mg/dL Normal [facility] Comment on above: Result Comment: The drugs N-Acetylcysteine and Metamizole may falsely depress this assay. Serum Triglycerides Reference Interval Normal <150 mg/dL Borderline high 150 - 199 mg/dL High 200 - 499 mg/dL Very High > or = 500 mg/dL Performed By: #### L 501.2300, [id number], [id number], [id number] #### [facility] [address] [place], [address] Basic Metabolic Profile (BMP )on 04-10-2024 BUN/CRE 26.2 RATIO High 10-20 [facility] Comment on above: Performed By: #### L 501.2300, [id number], [id number], [id number] #### [facility] [address] [place], [address] CA,Total 8.8 mg/dL Normal 8.5-10.1 [facility] Comment on above: Performed By: #### L 501.2300, [id number], [id number], [id number] #### [facility] [address] [place], [address] Chloride [Moles/Vol] 108 mmol/L High 98-107 [facility] Comment on above: Performed By: #### L 501.2300, [id number], [id number], [id number] #### [facility] [address] [place], [address] CO2 [Moles/Vol] 26.0 mmol/L Normal 21.0-32.0 [facility] Comment on above: Performed By: #### L 501.2300, [id number], [id number], [id number] #### [facility] [address] [place], [address] Creatinine [Mass/Vol] 0.69 mg/dL Normal 0.55-1.02 [facility] Comment on above: Result Comment: The validity of the calculated GFR GFRAA in patients over 70 years has not been determined. Clinical correlation is essential. Performed By: #### L 501.2300, [id number], [id number], [id number] #### [facility] [address] [place], [address] EST GFR - AA 117 mL/min Normal >60 [facility] Comment on above: Result Comment: Afri can Omani GFR Calc Performed By: #### L 501.2300, [id number], [id number], [id number] #### [facility] [address] [place], [address] GAP 5 Normal 5-15 [facility] Comment on above: Performed By: #### L 501.2300, [id number], [id number], [id number] #### [facility] [address] [place], [address] GFR/1.73 sq M.predicted among non-blacks MDRD (S/P/Bld) [Vol rate/Area] 96 mL/min/{1.73_m2} Normal >60 [facility] Comment on above: Result Comment: Non- GFR Calc Performed By: #### L 501.2300, [id number], [id number], [id number] #### [facility] [address] [place], [address] Glucose [Mass/Vol] 106 mg/dL Normal 74-106 [facility] Comment on above: Result Comment: Fast ing Glucose result from 100 to 125 mg/dL suggests IMPAIRED HOMEOSTASIS per A.D.A. criteria. Performed By: #### L 501.2300, [id number], [id number], [id number] #### [facility] [address] [place], [address] Potassium [Moles/Vol] 3.8 mmol/L Normal 3.5-5.1 [facility] Comment on above: Performed By: #### L 501.2300, [id number], [id number], [id number] #### [facility] [address] [place], [address] Sodium [Moles/Vol] 139 mmol/L Normal 136-145 [facility] Comment on above: Performed By: #### L 501.2300, [id number], [id number], [id number] #### [facility] [address] [place], [address] Urea nitrogen [Mass/Vol] 18 mg/dL Normal 7-18 [facility] Comment on above: Performed By: #### L 501.2300, [id number], [id number], [id number] #### [facility] [address] [place], [address] Magnesiumon 04-10-2024 Magnesium [Mass/Vol] 2.0 mg/dL Normal 1.6-2.6 [facility] Comment on above: Performed By: #### L 501.2300, [id number], [id number], [id number] #### [facility] [address] [place], [address] Basophil percentageOrdered B y: AMERICA PATEL on 02-11-2024 Chloride [Moles/Vol] 104 mmol/L 98-107 [facility] Glucose [Mass/Vol] 101 mg/dL 74-106 [facility] Comment on above: Fasting Glucose resu lt from 100 to 125 mg/dL suggests IMPAIRED HOMEOSTASIS per A.D.A. criteria. Potassium [Moles/Vol] 4.0 mmol/L 3.5-5.1 [facility] Sodium [Moles/Vol] 137 mmol/L 136-145 [facility] - Chemistry and C hemistry - challengeOrdered By: AMERICA PATEL on 02-11-2024 CO2 [Moles/Vol] 27.0 mmol/L 21.0-32.0 [facility] Urea nitrogen/Creatinine [Mass ratio] 19.8 mg/mg 10-20 [facility] No Panel InformationOrdered By: AMERICA PATEL on 02-11-2024 Estimated GFR (MDRD) Amer 113 mL/min >60 [facility] Comment on above: GFR Calc Estimated GFR (MDRD) Non-Af Amer 93 mL/min >60 [facility] Comment on above: Non- GFR Calc Serum or plasma calcium marina urement (mass/volume)Ordered By: AMERICA PATEL on 02-11-2024 Calcium [Mass/Vol] 9.4 mg/dL 8.5-10.1 [facility] Serum or plasma creatinine m easurement (mass/volume)Ordered By: AMERICA PATEL on 02-11-2024 Creatinine [Mass/Vol] 0.71 mg/dL 0.55-1.02 [facility] Comment on above: The validity of the calculated GFR & GFRAA in patients over 70 years has not been determined. Clinical correlation is essential. Serum or plasma urea nitroge n measurement (mass/volume)Ordered By: AMERICA PATEL on 02-11-2024 Urea nitrogen [Mass/Vol] 14 mg/dL -18 [facility] Thin prep Papanicolaou smear with manual screeningOrdered By: AMERICA PATEL on 02-11-2024 Thin prep Papanicolaou smear with manual screening 6 5-15 [facility] Basophil percentageOrdered B y: Rajendra David on 12-18-2023 Bilirubin [Mass/Vol] 1.00 mg/dL 0.20-1.00 [facility] Comment on above: For patients on eltr ombopag therapy, use of Dimension Gervais TBIL is not recommended. Chloride [Moles/Vol] 110 mmol/L 98-107 [facility] Cholesterol [Mass/Vol] 189 mg/dL <200 [facility] Comment on above: <200 mg/dL Desirable 200-240 mg/dL Borderline >240 mg/dL High Risk Glucose [Mass/Vol] 106 mg/dL 74-106 [facility] Comment on above: Fasting Glucose resu lt from 100 to 125 mg/dL suggests IMPAIRED HOMEOSTASIS per A.D.A. criteria. Potassium [Moles/Vol] 4.1 mmol/L 3.5-5.1 [facility] Protein [Mass/Vol] 7.3 g/dL 6.4-8.2 [facility] Sodium [Moles/Vol] 139 mmol/L 136-145 [facility] Triglyceride [Mass/Vol] 88 mg/dL <199 [facility] Comment on above: The drugs N-Acetylcy steine and Metamizole may falsely depress this assay.Serum Triglycerides Reference Interval Normal <150 mg/dL Borderline high 150 - 199 mg/dL High 200 - 499 mg/dL Very High > or = 500 mg/dL Laboratory - Chemistry and C hemistry - challengeOrdered By: Rajendra Hernandez on 12-18-2023 Albumin/Globulin [Mass ratio] 1.0 {ratio} 0.9-2.4 [facility] ALP [Catalytic activity/Vol] 61 U/L 45-117 [facility] ALT [Catalytic activity/Vol] 28 U/L 13-56 [facility] Cholesterol in HDL [Mass/Vol] 43 mg/dL >40 [facility] Comment on above: The drugs N-Acetylcy steine and Metamizole may falsely depress this assay. Reference Range HDL <40 mg/dL Low HDL Cholesterol HDL >or= 60 mg/dL High HDL Cholesterol Cholesterol in LDL [Mass/Vol] 128 mg/dL 0-130 [facility] CO2 [Moles/Vol] 27.0 mmol/L 21.0-32.0 [facility] Globulin (S) [Mass/Vol] 3.7 g/dL 2.2-4.2 [facility] Urea nitrogen/Creatinine [Mass ratio] 20.2 mg/mg 10-20 [facility] No Panel InformationOrdered By: Rajendra Hernandez on 12-18-2023 Estimated GFR (MDRD) Amer 116 mL/min >60 [facility] Comment on above: GFR Calc Estimated GFR (MDRD) Non-Af Amer 96 mL/min >60 [facility] Comment on above: Non- GFR Calc Vitamin D 25-Hydroxy 30.2 ng/mL [facility] Comment on above: Vitamin D 25(OH) Sta tus Range Deficiency <20 ng/mL (50nmol/L) Insufficiency 20 - 30 ng/mL (50 - 75 nmol/L) Sufficiency 30 - 100 ng/mL (75 - 250 nmol/L) Toxicity >100 ng/mL (>250 nmol/L) VLDL Cholesterol 18 mg/dL 5-40 [facility] Serum or plasma calcium marina urement (mass/volume)Ordered By: Rajendra Hernandez on 12-18-2023 Calcium [Mass/Vol] 8.8 mg/dL 8.5-10.1 [facility] Serum or plasma creatinine m easurement (mass/volume)Ordered By: Rajendra Hernandez on 12-18-2023 Creatinine [Mass/Vol] 0.69 mg/dL 0.55-1.02 [facility] Comment on above: The validity of the calculated GFR & GFRAA in patients over 70 years has not been determined. Clinical correlation is essential. Serum or plasma urea nitroge n measurement (mass/volume)Ordered By: Rajendra Hernandez on 12-18-2023 Urea nitrogen [Mass/Vol] 14 mg/dL 7-18 [facility] Thin prep Papanicolaou smear with manual screeningOrdered By: Rajendra Hernandez on 12-18-2023 Thin prep Papanicolaou smear with manual screening 3.6 g/dL 3.2-5.0 [facility] Thin prep Papanicolaou smear with manual screening 17 U/L 15-37 [facility] Thin prep Papanicolaou smear with manual screening 2 5-15 [facility] Absolute lymphocyte countOrd ered By: Lakhwinder Headley on 11-26-2023 Lymphocytes Auto (Unsp spec) [#/Vol] 2.62 10*3/uL 0.83-4.51 [facility] Automated lymphocyte count a s percentage of total leukocytesOrdered By: Lakhwinder Headley on 11-26-2023 Lymphocytes/100 WBC Auto (Unsp spec) 24.5 % 19-41 [facility] Basophil percentageOrdered B y: Lakhwinder Headley on 11-26-2023 Basophil percentage 0-5 SEEN /hpf 0-5 [facility] Basophils/100 WBC (Bld) 0.7 % 0-1 [facility] Chloride [Moles/Vol] 106 mmol/L 98-107 [facility] Eosinophils/100 WBC (Bld) 0.3 % 0-5 [facility] Glucose [Mass/Vol] 150 mg/dL 74-106 [facility] Comment on above: Fasting Glucose resu lt greater than or equal to 126 mg/dL suggests DIABETES MELLITUS per A.D.A. criteria. Hemoglobin (Bld) [Mass/Vol] 13.4 g/dL 12.0-15.0 [facility] Monocytes/100 WBC (Bld) 7.9 % 0-10 [facility] Neutrophils (Bld) [#/Vol] 7.1 10*3/uL 2.0-7.7 [facility] Neutrophils/100 WBC (Bld) 66.1 % 47-70 [facility] Potassium [Moles/Vol] 3.5 mmol/L 3.5-5.1 [facility] Sodium [Moles/Vol] 140 mmol/L 136-145 [facility] WBC (Bld) [#/Vol] 10.7 10*3/uL 4.4-11.0 [facility] Bilirubin Test strip Ql (U)O rdered By: Lakhwinder Headley on 11-26-2023 Bilirubin Ql (U) Negative Negative [facility] Determination of erythrocyte mean corpuscular volume (MCV)Ordered By: Lakhwinder Headley on 11-26-2023 MCV (RBC) [Entitic vol] 85.8 fL 81-99 [facility] Erythrocyte distribution wid th ratioOrdered By: Lakhwinder Headley on 11-26-2023 Erythrocyte distribution width (RBC) [Ratio] 12.8 % 11.6-14.6 [facility] Erythrocyte distribution wid th standard deviationOrdered By: Lakhwinder Headley on 11-26-2023 Erythrocyte distribution width (RBC) [Entitic vol] 39.1 fL 35.1-43.9 [facility] Hematocrit Auto (Bld) [Volum e fraction]Ordered By: Lakhwinder Headley on 11-26-2023 Hematocrit (Bld) [Volume fraction] 39.8 % 37-47 [facility] Immature granulocytes/100 WB C Auto (Bld)Ordered By: Lakhwinder Headley on 11-26-2023 Immature granulocytes/100 WBC (Bld) 0.500 % 0.0-0.9 [facility] Comment on above: IG% - Immature Granu locytes (promyelocytes, myelocytes and metamyelocytes) > 1% indicates that a LEFT SHIFT is Present. Ketones Test strip Ql (U)Ord ered By: Lakhwinder Headley on 11-26-2023 Ketones Ql (U) Negative Negative [facility] - Chemistry and C hemistry - challengeOrdered By: Lakhwinder Headley on 11-26-2023 CO2 [Moles/Vol] 27.0 mmol/L 21.0-32.0 [facility] Urea nitrogen/Creatinine [Mass ratio] 16.7 mg/mg 10-20 [facility] - Hematology and Cell countsOrdered By: Lakhwinder Headley on 11-26-2023 MCH (RBC) [Entitic mass] 28.9 pg 27.0-32.0 [facility] MCHC (RBC) [Mass/Vol] 33.7 g/dL 32-36 [facility] Nucleated RBC/100 WBC (Bld) [Ratio] 0 % 0-5 [facility] Platelet mean volume (Bld) [Entitic vol] 10.4 fL 6.2-12.0 [facility] Platelets (Bld) [#/Vol] 344 10*3/uL 150-450 [facility] Mucus LM Ql (Urine sed)Order ed By: Lakhwinder Headley on 11-26-2023 Mucus Ql (Urine sed) 0 SEEN /hpf [facility] Nitrite Test strip Ql (U)Ord ered By: Lakhwinder Headley on 11-26-2023 Nitrite Ql (U) Negative Negative [facility] No Panel InformationOrdered By: Lakhwinder Headley on 11-26-2023 Urine RBC 0-5 SEEN /hpf 0-5 [facility] D-Dimer Quantitative (PE/DVT) 0.41 FEU/ug/m 0.27-0.49 [facility] Comment on above: NORMAL D-Dimer level (<0.50) indicates no DVT or PE. Estimated Creatinine Clearance Calc 98.65 ml/min [facility] Estimated GFR (MDRD) Amer 111 mL/min >60 [facility] Comment on above: GFR Calc Estimated GFR (MDRD) Non-Af Amer 92 mL/min >60 [facility] Comment on above: Non- GFR Calc Troponin I High Sensitivity 6 pg/mL 3.0-54.0 [facility] Comment on above: Please Note: New Sally t Units and Gender Specific Reference Ranges. For more information see Policy Stat Procedure Gervais High Sensitivity Troponin (TNIH) and attachments. Protein Test strip Ql (U)Ord ered By: Lakhwinder Headley on 11-26-2023 Protein Ql (U) Negative Negative [facility] RBC Auto (Bld) [#/Vol]Ordere d By: Lakhwinder Headley on 11-26-2023 RBC (Bld) [#/Vol] 4.64 10*6/uL 4.2-5.4 [facility] Serum or plasma calcium marina urement (mass/volume)Ordered By: Lakhwinder Headley on 11-26-2023 Calcium [Mass/Vol] 9.8 mg/dL 8.5-10.1 [facility] Serum or plasma creatinine m easurement (mass/volume)Ordered By: Lakhwinder Headley on 11-26-2023 Creatinine [Mass/Vol] 0.72 mg/dL 0.55-1.02 [facility] Comment on above: The validity of the calculated GFR & GFRAA in patients over 70 years has not been determined. Clinical correlation is essential. Serum or plasma urea nitroge n measurement (mass/volume)Ordered By: Lakhwinder Headley on 11-26-2023 Urea nitrogen [Mass/Vol] 12 mg/dL 7-18 [facility] Squamous epithelial cells de tection in urine sediment by light microscopyOrdered By: Lakhwinder Headley on 11-26-2023 Epithelial cells.squamous LM Ql (Urine sed) 0-5 SEEN /hpf 5-10 [facility] Thin prep Papanicolaou smear with manual screeningOrdered By: Lakhwinder Headley on 11-26-2023 Thin prep Papanicolaou smear with manual screening 7 5-15 [facility] UA DIP, URINE (POC)on 2023 BILIRUBIN UA (POCT) Negative Negative [facility] CLARITY UA (POCT) Clear [facility] COLOR UA (POCT) Dark yellow [facility] GLUCOSE UA (POCT) Negative Negative mg/dL [facility] Hemoglobin Ql (U) Trace-lysed Abnormal Negative [facility] KETONE UA (POCT) Negative Negative mg/dL [facility] LEUKOCYTES UA (POCT) Negative Negative [facility] NITRITE UA (POCT) Negative Negative [facility] PH UA (POCT) 7.0 4.5 - 8.0 [facility] Protein Ql (U) Negative Negative mg/dL [facility] SPECIFIC GRAVITY UA (POCT) 1.020 1.005 - 1.030 [facility] UROBILINOGEN UA (POCT) 0.2 E.U./dL [facility] E.U./dL [facility] Urine blood detectionOrdered By: Lakhwinder Headley on 11-26-2023 RBC Ql (U) 50 /ul Negative [facility] Urine clarityOrdered By: Divina Headley on 11-26-2023 Clarity (U) Clear Clear [facility] Urine color determinationOrd ered By: Lakhwinder Headley on 11-26-2023 Color (U) Yellow Yellow [facility] Urine glucose detectionOrder ed By: Lakhwinder Headley on 11-26-2023 Glucose Ql (U) Normal mg/dl Normal [facility] Urine leukocyte esterase det ection by dipstickOrdered By: Lakhwinder Headley on 11-26-2023 Leukocyte esterase Test strip Ql (U) Negative Negative [facility] Urine pHOrdered By: Lakhwinder larson on 11-26-2023 pH (U) 7.0 [pH] 5.0 - 8.0 [facility] Urine sediment bacteria coun t by microscopy (number/high power field)Ordered By: Lakhwinder Headley on 11-26-2023 Bacteria LM.HPF (Urine sed) [#/Area] RARE /hpf None Seen [facility] Urine specific gravity measu rementOrdered By: Lakhwinder Headley on 11-26-2023 Specific gravity (U) [Rel density] 1.010 1.002-1.030 [facility] Urine urobilinogen measureme ntOrdered By: Lakhwinder Headley on 11-26-2023 Urobilinogen Ql (U) Normal mg/dl Normal [facility] Basophil percentageOrdered B y: Rajendar Hernandez on 06-28-2023 Bilirubin [Mass/Vol] 0.90 mg/dL 0.20-1.00 [facility] Comment on above: For patients on eltr ombopag therapy, use of Dimension Gervais TBIL is not recommended. Chloride [Moles/Vol] 109 mmol/L 98-107 [facility] Cholesterol [Mass/Vol] 173 mg/dL <200 [facility] Comment on above: <200 mg/dL Desirable 200-240 mg/dL Borderline >240 mg/dL High Risk Glucose [Mass/Vol] 101 mg/dL 74-106 [facility] Comment on above: Fasting Glucose resu lt from 100 to 125 mg/dL suggests IMPAIRED HOMEOSTASIS per A.D.A. criteria. Potassium [Moles/Vol] 3.9 mmol/L 3.5-5.1 [facility] Protein [Mass/Vol] 7.6 g/dL 6.4-8.2 [facility] Sodium [Moles/Vol] 140 mmol/L 136-145 [facility] Triglyceride [Mass/Vol] 176 mg/dL <199 [facility] Comment on above: The drugs N-Acetylcy steine and Metamizole may falsely depress this assay.Serum Triglycerides Reference Interval Normal <150 mg/dL Borderline high 150 - 199 mg/dL High 200 - 499 mg/dL Very High > or = 500 mg/dL Laboratory - Chemistry and C hemistry - challengeOrdered By: Rajendra Hernandez on 06-28-2023 ALP [Catalytic activity/Vol] 60 U/L 45-117 [facility] ALT [Catalytic activity/Vol] 28 U/L 13-56 [facility] CO2 [Moles/Vol] 27.0 mmol/L 21.0-32.0 [facility] Globulin (S) [Mass/Vol] 3.9 g/dL 2.2-4.2 [facility] Urea nitrogen/Creatinine [Mass ratio] 23.2 mg/mg 10-20 [facility] No Panel InformationOrdered By: Rajendra Hernandez on 06-28-2023 Estimated GFR (MDRD) Amer 126 mL/min >60 [facility] Comment on above: GFR Calc Estimated GFR (MDRD) Non-Af Amer 104 mL/min >60 [facility] Comment on above: Non- GFR Calc Serum or plasma albumin marina urement (mass/volume)Ordered By: Rajendra Hernandez on 06-28-2023 Albumin [Mass/Vol] 3.7 g/dL 3.2-5.0 [facility] Serum or plasma albumin/glob ulin mass ratioOrdered By: Rajendra Hernandez on 06-28-2023 Albumin/Globulin [Mass ratio] 0.9 {ratio} 0.9-2.4 [facility] Serum or plasma calcium marina urement (mass/volume)Ordered By: Rajendra Hernandez on 06-28-2023 Calcium [Mass/Vol] 9.0 mg/dL 8.5-10.1 [facility] Serum or plasma cholesterol in HDL measurement (mass/volume)Ordered By: Rajendra Hernandez on 06-28-2023 Cholesterol in HDL [Mass/Vol] 37 mg/dL >40 [facility] Comment on above: The drugs N-Acetylcy steine and Metamizole may falsely depress this assay. Reference Range HDL <40 mg/dL Low HDL Cholesterol HDL >or= 60 mg/dL High HDL Cholesterol Serum or plasma cholesterol in VLDL measurement (mass/volume)Ordered By: Rajendra Hernandez on 06-28-2023 Cholesterol in VLDL [Mass/Vol] 35 mg/dL 5-40 [facility] Serum or plasma creatinine m easurement (mass/volume)Ordered By: Rajendra Hernandez on 06-28-2023 Creatinine [Mass/Vol] 0.65 mg/dL 0.55-1.02 [facility] Comment on above: The validity of the calculated GFR & GFRAA in patients over 70 years has not been determined. Clinical correlation is essential. Serum or plasma low density lipoprotein (LDL) cholesterol measurement (mass/volume)Ordered By: Rajendra Hernandez on 06-28-2023 Cholesterol in LDL [Mass/Vol] 101 mg/dL 0-130 [facility] Serum or plasma urea nitroge n measurement (mass/volume)Ordered By: Rajendra Hernandez on 06-28-2023 Urea nitrogen [Mass/Vol] 15 mg/dL 7-18 [facility] Thin prep Papanicolaou smear with manual screeningOrdered By: Rajendra Hernandez on 06-28-2023 Thin prep Papanicolaou smear with manual screening 16 U/L 15-37 [facility] Thin prep Papanicolaou smear with manual screening 4 5-15 [facility] LISA SCREENING W Erna 05-14 [facility] percentageOrdered B y: TOÑA PERDOMO on 12-22-2022 Bilirubin [Mass/Vol] 0.90 mg/dL 0.20-1.00 [facility] Comment on above: For patients on eltr ombopag therapy, use of Dimension Gervais TBIL is not recommended. Chloride [Moles/Vol] 106 mmol/L 98-107 [facility] Cholesterol [Mass/Vol] 183 mg/dL <200 [facility] Comment on above: <200 mg/dL Desirable 200-240 mg/dL Borderline >240 mg/dL High Risk Glucose [Mass/Vol] 103 mg/dL 74-106 [facility] Comment on above: Fasting Glucose resu lt from 100 to 125 mg/dL suggests IMPAIRED HOMEOSTASIS per A.D.A. criteria. Potassium [Moles/Vol] 4.0 mmol/L 3.5-5.1 [facility] Protein [Mass/Vol] 7.4 g/dL 6.4-8.2 [facility] Sodium [Moles/Vol] 140 mmol/L 136-145 [facility] Triglyceride [Mass/Vol] 144 mg/dL <199 [facility] Comment on above: The drugs N-Acetylcy steine and Metamizole may falsely depress this assay.Serum Triglycerides Reference Interval Normal <150 mg/dL Borderline high 150 - 199 mg/dL High 200 - 499 mg/dL Very High > or = 500 mg/dL WBC (Bld) [#/Vol] 7.0 10*3/uL 4.4-11.0 [facility] Blood erythrocytes count (nu mber/volume)Ordered By: TOÑA PERDOMO on 12-22-2022 RBC (Bld) [#/Vol] 4.56 10*6/uL 4.2-5.4 [facility] Blood hemoglobin measurement (mass/volume)Ordered By: TOÑA PERDOMO on 12-22-2022 Hemoglobin (Bld) [Mass/Vol] 13.3 g/dL 12.0-15.0 [facility] Blood platelet mean volumeOr dered By: TOÑA PERDOMO on 12-22-2022 Platelet mean volume (Bld) [Entitic vol] 10.2 fL 6.2-12.0 [facility] Determination of erythrocyte mean corpuscular volume (MCV)Ordered By: TOÑA PERDOMO on 12-22-2022 MCV (RBC) [Entitic vol] 88.6 fL 81-99 [facility] Hematocrit Auto (Bld) [Volum e fraction]Ordered By: TOÑA PERDOMO on 12-22-2022 Hematocrit (Bld) [Volume fraction] 40.4 % 37-47 [facility] Laboratory - Chemistry and C hemistry - challengeOrdered By: TOÑA PERDOMO on 12-22-2022 ALP [Catalytic activity/Vol] 58 U/L 45-117 [facility] ALT [Catalytic activity/Vol] 28 U/L 13-56 [facility] CO2 [Moles/Vol] 27.0 mmol/L 21.0-32.0 [facility] Globulin (S) [Mass/Vol] 3.7 g/dL 2.2-4.2 [facility] Urea nitrogen/Creatinine [Mass ratio] 23.3 mg/mg 10-20 [facility] - Hematology and Cell countsOrdered By: TOÑA PERDOMO on 12-22-2022 Erythrocyte distribution width (RBC) [Entitic vol] 41.3 fL 35.1-43.9 [facility] Erythrocyte distribution width (RBC) [Ratio] 12.8 % 11.6-14.6 [facility] MCH (RBC) [Entitic mass] 29.2 pg 27.0-32.0 [facility] MCHC Auto (RBC) [Mass/Vol]Or dered By: TOÑA PERODMO on 12-22-2022 MCHC (RBC) [Mass/Vol] 32.9 g/dL 32-36 [facility] No Panel InformationOrdered By: TOÑA PERDOMO on 12-22-2022 Estimated GFR (MDRD) Amer 126 mL/min >60 [facility] Comment on above: GFR Calc Estimated GFR (MDRD) Non-Af Amer 105 mL/min >60 [facility] Comment on above: Non- GFR Calc Platelets bldOrdered By: DAGO PERDOMO on 12-22-2022 Platelets (Bld) [#/Vol] 315 10*3/uL 150-450 [facility] Serum or plasma albumin marina urement (mass/volume)Ordered By: TOÑA PERDOMO on 12-22-2022 Albumin [Mass/Vol] 3.7 g/dL 3.2-5.0 [facility] Serum or plasma albumin/glob ulin mass ratioOrdered By: TOÑA PERDOMO on 12-22-2022 Albumin/Globulin [Mass ratio] 1.0 {ratio} 0.9-2.4 [facility] Serum or plasma calcium marina urement (mass/volume)Ordered By: TOÑA PERDOMO on 12-22-2022 Calcium [Mass/Vol] 8.9 mg/dL 8.5-10.1 [facility] Serum or plasma cholesterol in HDL measurement (mass/volume)Ordered By: TOÑA PERDOMO on 12-22-2022 Cholesterol in HDL [Mass/Vol] 37 mg/dL >40 [facility] Comment on above: The drugs N-Acetylcy steine and Metamizole may falsely depress this assay. Reference Range HDL <40 mg/dL Low HDL Cholesterol HDL >or= 60 mg/dL High HDL Cholesterol Serum or plasma cholesterol in VLDL measurement (mass/volume)Ordered By: TOÑA PERDOMO on 12-22-2022 Cholesterol in VLDL [Mass/Vol] 29 mg/dL 5-40 [facility] Serum or plasma creatinine m easurement (mass/volume)Ordered By: TOÑA PERDOMO on 12-22-2022 Creatinine [Mass/Vol] 0.64 mg/dL 0.55-1.02 [facility] Comment on above: The validity of the calculated GFR & GFRAA in patients over 70 years has not been determined. Clinical correlation is essential. Serum or plasma low density lipoprotein (LDL) cholesterol measurement (mass/volume)Ordered By: TOÑA PERDOMO on 12-22-2022 Cholesterol in LDL [Mass/Vol] 117 mg/dL 0-130 [facility] Serum or plasma urea nitroge n measurement (mass/volume)Ordered By: TOÑA PERDOMO on 12-22-2022 Urea nitrogen [Mass/Vol] 15 mg/dL 7-18 [facility] Thin prep Papanicolaou smear with manual screeningOrdered By: TOÑA PERDOMO 12-22-2022 Thin prep Papanicolaou smear with manual screening 17 U/L 15-37 [facility] Thin prep Papanicolaou smear with manual screening 7 5-15 [facility] Whole blood hemoglobin A1c/t otal hemoglobin ratio (mass fraction)Ordered By: TOÑA PERDOMO on 12-22-2022 HbA1c (Bld) [Mass fraction] 5.5 % 3.8-5.6 [facility] Comment on above: Normal < 5.7 % Predi abetic 5.7 - 6.4 % Diabetic >or= 6.5 % Please note range changes. Basophil percentageOrdered B y: Dr. Hernandez on 11-02-2022 Bilirubin [Mass/Vol] 0.70 mg/dL 0.20-1.00 [facility] Comment on above: For patients on eltr ombopag therapy, use of Dimension Gervais TBIL is not recommended. Chloride [Moles/Vol] 108 mmol/L 98-107 [facility] Cholesterol [Mass/Vol] 159 mg/dL <200 [facility] Comment on above: <200 mg/dL Desirable 200-240 mg/dL Borderline >240 mg/dL High Risk Glucose [Mass/Vol] 108 mg/dL 74-106 [facility] Comment on above: Fasting Glucose resu lt from 100 to 125 mg/dL suggests IMPAIRED HOMEOSTASIS per A.D.A. criteria. Potassium [Moles/Vol] 4.1 mmol/L 3.5-5.1 [facility] Protein [Mass/Vol] 7.4 g/dL 6.4-8.2 [facility] Sodium [Moles/Vol] 140 mmol/L 136-145 [facility] Triglyceride [Mass/Vol] 162 mg/dL <199 [facility] Comment on above: The drugs N-Acetylcy steine and Metamizole may falsely depress this assay.Serum Triglycerides Reference Interval Normal <150 mg/dL Borderline high 150 - 199 mg/dL High 200 - 499 mg/dL Very High > or = 500 mg/dL Laboratory - Chemistry and C hemistry - challengeOrdered By: Dr. Hernandez on 11-02-2022 ALP [Catalytic activity/Vol] 64 U/L 45-117 [facility] ALT [Catalytic activity/Vol] 31 U/L 13-56 [facility] CO2 [Moles/Vol] 26.0 mmol/L 21.0-32.0 [facility] Globulin (S) [Mass/Vol] 3.7 g/dL 2.2-4.2 [facility] Urea nitrogen/Creatinine [Mass ratio] 14.8 mg/mg 10-20 [facility] No Panel InformationOrdered By: Dr. Hernandez on 11-02-2022 Estimated GFR (MDRD) Amer 119 mL/min >60 [facility] Comment on above: GFR Calc Estimated GFR (MDRD) Non-Af Amer 99 mL/min >60 [facility] Comment on above: Non- GFR Calc Thyroid Stimulating Hormone (TSH) 1.51 uIU/mL 0.358-3.74 [facility] Vitamin D 25-Hydroxy 35.3 ng/mL [facility] Comment on above: Vitamin D 25(OH) Sta tus Range Deficiency <20 ng/mL (50nmol/L) Insufficiency 20 - 30 ng/mL (50 - 75 nmol/L) Sufficiency 30 - 100 ng/mL (75 - 250 nmol/L) Toxicity >100 ng/mL (>250 nmol/L) Serum or plasma albumin marina urement (mass/volume)Ordered By: Dr. Hernandez on 11-02-2022 Albumin [Mass/Vol] 3.7 g/dL 3.2-5.0 [facility] Serum or plasma albumin/glob ulin mass ratioOrdered By: Dr. Hernandez on 11-02-2022 Albumin/Globulin [Mass ratio] 1.0 {ratio} 0.9-2.4 [facility] Serum or plasma calcium marina urement (mass/volume)Ordered By: Dr. Hernandez on 11-02-2022 Calcium [Mass/Vol] 8.6 mg/dL 8.5-10.1 [facility] Serum or plasma cholesterol in HDL measurement (mass/volume)Ordered By: Dr. Hernandez on 11-02-2022 Cholesterol in HDL [Mass/Vol] 39 mg/dL >40 [facility] Comment on above: The drugs N-Acetylcy steine and Metamizole may falsely depress this assay. Reference Range HDL <40 mg/dL Low HDL Cholesterol HDL >or= 60 mg/dL High HDL Cholesterol Serum or plasma cholesterol in VLDL measurement (mass/volume)Ordered By: Dr. Hernandez on 11-02-2022 Cholesterol in VLDL [Mass/Vol] 32 mg/dL 5-40 [facility] Serum or plasma creatinine m easurement (mass/volume)Ordered By: Dr. Hernandez on 11-02-2022 Creatinine [Mass/Vol] 0.68 mg/dL 0.55-1.02 [facility] Comment on above: The validity of the calculated GFR & GFRAA in patients over 70 years has not been determined. Clinical correlation is essential. Serum or plasma low density lipoprotein (LDL) cholesterol measurement (mass/volume)Ordered By: Dr. Hernandez on 11-02-2022 Cholesterol in LDL [Mass/Vol] 88 mg/dL 0-130 [facility] Serum or plasma urea nitroge n measurement (mass/volume)Ordered By: Dr. Hernandez on 11-02-2022 Urea nitrogen [Mass/Vol] 10 mg/dL 7-18 [facility] Thin prep Papanicolaou smear with manual screeningOrdered By: Dr. Hernandez on 11-02-2022 Thin prep Papanicolaou smear with manual screening 16 U/L 15-37 [facility] Thin prep Papanicolaou smear with manual screening 6 5-15 [facility] Throat specimen bacteria joe ntification by cultureOrdered By: Dr. Nam on 09-23-2022 Bacteria identified Cx Nom (Throat) [facility] Vital Signs Date Time Vital Sign Value Performing Clinician Facility 06-25-2025 15:41-0400 Body height 162.6 cm Александр Oshea MD Work Phone: [facility] 06-25-2025 15:41-0400 Body mass index (BMI) [Ratio] 29.52 kg/m2 Александр Oshea MD Work Phone: [facility] 06-25-2025 15:41-0400 Body weight 78.02 kg Александр Oshea MD Work Phone: [facility] 12-18-2024 15:16-0400 Body height 162.6 cm Александр Oshea MD Work Phone: [facility] 12-18-2024 15:16-0400 Body mass index (BMI) [Ratio] 29.87 kg/m2 Александр Oshea MD Work Phone: [facility] 12-18-2024 15:16-0400 Body weight 78.93 kg Александр Oshea MD Work Phone: [facility] 12-18-2024 15:16-0400 Heart rate 76 /min Александр Oshea MD Work Phone: [facility] 12-18-2024 15:16-0400 Respiratory rate 16 /min Александр Oshea MD Work Phone: [facility] 12-18-2024 15:16-0400 SaO2% (BldA) [Mass fraction] 98 % Александр Oshea MD Work Phone: [facility] 11-08-2024 14:09-0500 Body mass index (BMI) [Ratio] 31.21 kg/m2 Andrea Nicole MD Work Phone: [facility] 11-08-2024 14:09-0500 Body weight 81.19 kg Andrea Nicole MD Work Phone: [facility] 10-17-2024 08:21-0500 Body mass index (BMI) [Ratio] 31.21 kg/m2 Enmanuel Vargas PA-C Work Phone: [facility] 10-17-2024 08:21-0500 Body weight 81.19 kg Enmanuel Vargas PA-C Work Phone: [facility] 10-17-2024 08:21-0500 Diastolic blood pressure 93 mm[Hg] Enmanuel Vargas PA-C Work Phone: [facility] 10-17-2024 08:21-0500 Heart rate 82 /min Enmanuel Vargas PA-C Work Phone: [facility] 10-17-2024 08:21-0500 Respiratory rate 16 /min Enmanuel Vargas PA-C Work Phone: [facility] 10-17-2024 08:21-0500 Systolic blood pressure 146 mm[Hg] Enmanuel Vargas PA-C Work Phone: [facility] 09-11-2024 11:48-0500 Body mass index (BMI) [Ratio] 30.79 kg/m2 Toña Dhaliwal [employer] Work Phone: [facility] 09-11-2024 11:48-0500 Body temperature 99 [degF] Toña Dhaliwal [employer] Work Phone: [facility] 09-11-2024 11:48-0500 Body weight 80.1 kg Toña Dhaliwal [employer] Work Phone: [facility] 09-11-2024 11:48-0500 Diastolic blood pressure 62 mm[Hg] Toña Dhaliwal [employer] Work Phone: [facility] 09-11-2024 11:48-0500 Heart rate 84 /min Toña Dhaliwal [employer] Work Phone: [facility] 09-11-2024 11:48-0500 Respiratory rate 12 /min Toña Dhaliwal [employer] Work Phone: [facility] 09-11-2024 11:48-0500 SaO2% (BldA) [Mass fraction] 98 % Toña Dhaliwal [employer] Work Phone: [facility] 09-11-2024 11:48-0500 Systolic blood pressure 120 mm[Hg] Toña Dhaliwal [employer] Work Phone: [facility] 09-05-2024 07:41-0500 Body mass index (BMI) [Ratio] 30.34 kg/m2 Shon Ronquillo DO Work Phone: [facility] 09-05-2024 07:41-0500 Body temperature 98.6 [degF] Shon Ronquillo DO Work Phone: [facility] 09-05-2024 07:41-0500 Body weight 78.93 kg Shon Ronquillo DO Work Phone: [facility] 09-05-2024 07:41-0500 Diastolic blood pressure 80 mm[Hg] Shon Ronquillo DO Work Phone: [facility] 09-05-2024 07:41-0500 Heart rate 80 /min Shon Ronquillo DO Work Phone: [facility] 09-05-2024 07:41-0500 Respiratory rate 16 /min Shon Ronquillo DO Work Phone: [facility] 09-05-2024 07:41-0500 Systolic blood pressure 120 mm[Hg] Shon Ronquillo DO Work Phone: [facility] 08-20-2024 08:27-0500 Body mass index (BMI) [Ratio] 30.75 kg/m2 Brenda Anthony [employer] Work Phone: [facility] 08-20-2024 08:27-0500 Body temperature 98.49 [degF] Brenda Anthony [employer] Work Phone: [facility] 08-20-2024 08:27-0500 Body weight 80 kg Brenda Anthony [employer] Work Phone: [facility] 08-20-2024 08:27-0500 Diastolic blood pressure 80 mm[Hg] Brenda Anthony [employer] Work Phone: [facility] 08-20-2024 08:27-0500 Heart rate 100 /min Brenda Anthony [employer] Work Phone: [facility] 08-20-2024 08:27-0500 Respiratory rate 19 /min Brenda Anthony [employer] Work Phone: [facility] 08-20-2024 08:27-0500 SaO2% (BldA) [Mass fraction] 97 % Brenda Anthony [employer] Work Phone: [facility] 08-20-2024 08:27-0500 Systolic blood pressure 130 mm[Hg] Brenda Anthony [employer] Work Phone: [facility] 08-06-2024 12:29-0400 Body mass index (BMI) [Ratio] 31.06 kg/m2 Laine Lopez APRN.[employer] Work Phone: [facility] 08-06-2024 12:29-0400 Body temperature 102.09 [degF] Laine Lopez APRN.[employer] Work Phone: [facility] 08-06-2024 12:29-0400 Body weight 80.8 kg Laine Lopez APRN.[employer] Work Phone: [facility] 08-06-2024 12:29-0400 Diastolic blood pressure 80 mm[Hg] Laine Lopez APRN.[employer] Work Phone: [facility] 08-06-2024 12:29-0400 Heart rate 110 /min Laine Lopez APRN.[employer] Work Phone: [facility] 08-06-2024 12:29-0400 Respiratory rate 16 /min Laine Lopez APRN.[employer] Work Phone: [facility] 08-06-2024 12:29-0400 SaO2% (BldA) [Mass fraction] 97 % Laine Lopez APRN.[employer] Work Phone: [facility] 08-06-2024 12:29-0400 Systolic blood pressure 119 mm[Hg] Laine Lopez APRN.[employer] M[employer] Work Phone: [facility] 05-12-2024 15:42-0400 Body height 161.3 cm Ebony Tom MD Work Phone: [facility] 05-12-2024 15:42-0400 Body mass index (BMI) [Ratio] 30.51 kg/m2 Ebony Tom MD Work Phone: [facility] 05-12-2024 15:42-0400 Body weight 79.38 kg Ebony Tom MD Work Phone: [facility] 05-12-2024 15:42-0400 Diastolic blood pressure 60 mm[Hg] Ebony Tom MD Work Phone: [facility] 05-12-2024 15:42-0400 Systolic blood pressure 112 mm[Hg] Ebony Tom MD Work Phone: [facility] 03-15-2024 07:41-0400 Body height 163 cm Shon Ronquillo DO Work Phone: [facility] 03-15-2024 07:41-0400 Body mass index (BMI) [Ratio] 30.05 kg/m2 Shon Ronquillo DO Work Phone: [facility] 03-15-2024 07:41-0400 Body temperature 97 [degF] Shon Ronquillo DO Work Phone: [facility] 03-15-2024 07:41-0400 Body weight 79.83 kg Shon Ronquillo DO Work Phone: [facility] 03-15-2024 07:41-0400 Diastolic blood pressure 80 mm[Hg] Shon Ronquillo DO Work Phone: [facility] 03-15-2024 07:41-0400 Heart rate 76 /min Shon Ronquillo DO Work Phone: [facility] 03-15-2024 07:41-0400 Respiratory rate 16 /min Shon Ronquillo DO Work Phone: [facility] 03-15-2024 07:41-0400 Systolic blood pressure 136 mm[Hg] Shon Ronquillo DO Work Phone: [facility] 12-29-2023 17:15-0400 Body weight 80.56 kg Toña Dhaliwal [employer] Work Phone: [facility] 12-29-2023 17:15-0400 Diastolic blood pressure 62 mm[Hg] Toña Dhaliwal [employer] Work Phone: [facility] 12-29-2023 17:15-0400 Heart rate 64 /min Toña Dhaliwal [employer] Work Phone: [facility] 12-29-2023 17:15-0400 Respiratory rate 14 /min Toña Dhaliwal [employer] Work Phone: [facility] 12-29-2023 17:15-0400 Systolic blood pressure 126 mm[Hg] Toña Dhaliwal [employer] Work Phone: [facility] 12-01-2023 12:29-0500 Body weight 80.02 kg Toña Dhaliwal [employer] Work Phone: [facility] 12-01-2023 12:29-0500 Diastolic blood pressure 80 mm[Hg] Toña Dhaliwal [employer] Work Phone: [facility] 12-01-2023 12:29-0500 Heart rate 72 /min Toña Dhaliwal [employer] Work Phone: [facility] 12-01-2023 12:29-0500 Respiratory rate 12 /min Toña Dhaliwal [employer] Work Phone: [facility] 12-01-2023 12:29-0500 Systolic blood pressure 140 mm[Hg] Toña Dhaliwal [employer] Work Phone: [facility] 11-26-2023 23:55-0500 Body temperature 98.1 [degF] [facility] 11-26-2023 23:55-0500 Diastolic blood pressure 80 mm[Hg] [facility] 11-26-2023 23:55-0500 Heart rate 80 /min [facility] 11-26-2023 23:55-0500 Respiratory rate 18 /min [facility] 11-26-2023 23:55-0500 SaO2% (BldA) [Mass fraction] 95 % [facility] 11-26-2023 23:55-0500 Systolic blood pressure 179 mm[Hg] [facility] 11-26-2023 19:09-0500 Body height 165.1 cm [facility] 11-26-2023 19:09-0500 Body mass index (BMI) [Ratio] 29.2 kg/m2 [facility] 11-26-2023 19:09-0500 Body weight 79.78 kg [facility] 11-26-2023 10:58-0500 Diastolic blood pressure 90 mm[Hg] Krislyn Aberegg PA Work Phone: [facility] 11-26-2023 10:58-0500 Systolic blood pressure 172 mm[Hg] Krislyn Aberegg PA Work Phone: [facility] 11-26-2023 10:42-0500 Body temperature 97.59 [degF] Krislyn Aberegg PA Work Phone: [facility] 11-26-2023 10:42-0500 Body weight 78.93 kg Krislyn Aberegg PA Work Phone: [facility] 11-26-2023 10:42-0500 Heart rate 64 /min Krislyn Aberegg PA Work Phone: [facility] 11-26-2023 10:42-0500 Respiratory rate 18 /min Krislyn Aberegg PA Work Phone: [facility] 11-26-2023 10:42-0500 SaO2% (BldA) [Mass fraction] 100 % Krislyn Aberegg PA Work Phone: [facility] 09-16-2023 16:56-0500 Body temperature 98.01 [degF] Krislyn Aberegg PA Work Phone: [facility] 09-16-2023 16:56-0500 Body weight 81.19 kg Krislyn Aberegg PA Work Phone: [facility] 09-16-2023 16:56-0500 Diastolic blood pressure 92 mm[Hg] Krislyn Aberegg PA Work Phone: [facility] 09-16-2023 16:56-0500 Heart rate 91 /min Krislyn Aberegg PA Work Phone: [facility] 09-16-2023 16:56-0500 Respiratory rate 18 /min Krislyn Aberegg PA Work Phone: [facility] 09-16-2023 16:56-0500 SaO2% (BldA) [Mass fraction] 98 % Danish FLORES Work Phone: [facility] 09-16-2023 16:56-0500 Systolic blood pressure 156 mm[Hg] Danish FLORES Work Phone: [facility] Encounters Encounter Date Encounter Type Care Provider Facility Start: 06-25-2025 End: 06-25-2025 Office outpatient visit 25 minutes Александр Oshea MD Work Phone: Urology Comment on above: Recurrent nephrolith iasis (Primary Dx); Left renal stone; Hypercalciuria; Hypernatriuria Start: 06-25-2025 End: 06-25-2025 ambulatory АЛЕКСАНДР OSHEA Facility:[facility] Start: 06-20-2025 ambulatory АЛЕКСАНДР OSHEA Facility: [facility] Start: 06-20-2025 End: 06-20-2025 Subsequent hospital visit by physician Us [facility] Work Phone: Radiology Comment on above: Recurrent nephrolith iasis [N20.0] Start: 05-21-2025 ambulatory SHON Graves y:[facility] Start: 05-21-2025 End: 05-21-2025 Subsequent hospital visit by physician Screen Mammo [facility] Mammogram Start: 05-16-2025 ambulatory SHON Graves y:[facility] Start: 03-06-2025 End: 03-06-2025 Refill Toña Dhaliwal APRN.CNP Work Phone: [facility] Comment on above: Refill Request Start: 03-06-2025 End: 03-06-2025 Refill Shon Ronquillo DO Work Phone: [facility] Comment on above: Refill Request Start: 02-12-2025 End: 02-12-[address] Shon Ronquillo DO Work Phone: [facility] Work Phone: Start: 02-12-2025 End: 02-12-[address] Leon Magaña [facility] Work Phone: Start: 02-12-2025 End: 02-12-2025 ambulatory Shon Ronquillo Facility:[facility] Start: 01-24-2025 End: 01-24-2025 Chart abstracting Shon Ronquillo DO Work Phone: [facility] Comment on above: Results, Lab ([facility] p 01/13/25) Start: 12-18-2024 End: 12-18-2024 ambulatory SHON RONQUILLO Facility:[facility] Start: 12-18-2024 End: 12-18-2024 Office outpatient visit 25 minutes Александр Oshea MD Work Phone: Urology Comment on above: Recurrent nephrolith iasis (Primary Dx); Left renal stone; Hypercalciuria; Hypernatriuria; Calcium oxalate stones; Uric acid kidney stone Start: 11-13-2024 End: 11-21-2024 Telephone encounter Enmanuel Vargas PA-C Work Phone: Urology Comment on above: Results Start: 11-10-2024 End: 11-10-2024 Chart abstracting Andrea Nicole MD Work Phone: [facility] Start: 11-08-2024 End: 11-08-2024 [facility] RONQUILLO Facility:[facility] Start: 11-08-2024 End: 11-08-2024 Patient encounter procedure Andrea Nicole MD Work Phone: [facility] Comment on above: Renal stones (Primar y Dx); Pyelonephritis of right kidney; Ureterolithiasis; Essential hypertension Start: 11-03-2024 End: 11-03-2024 Transcribe Orders America Patel CNP Work Phone: [facility] Comment on above: Kidney stone (Primar y Dx) Start: 10-30-2024 End: 10-30-2024 Telephone encounter Enmanuel Vargas PA-C Work Phone: Urology Comment on above: Orders Start: 10-30-2024 End: 10-30-2024 [facility] Facility:[facility] Start: 10-20-2024 End: 10-20-2024 Telephone encounter Enmanuel Vargas PA-C Work Phone: Urology Comment on above: Results; Orders Start: 10-20-2024 End: 10-20-2024 ambulatory SHON SUAREZON Facility:[facility] Start: 10-17-2024 End: 10-17-2024 Telephone encounter Enmanuel Vargas PA-C Work Phone: [facility] Comment on above: Appointment Start: 10-17-2024 End: 10-17-2024 ambulatory TOÑA DHALIWAL Facility:[facility] Start: 10-17-2024 End: 10-17-2024 Patient encounter procedure Enmanuel Vargas PA-C Work Phone: Urology Comment on above: Ureterolithiasis (Pr imary Dx); Status post laser lithotripsy of ureteral calculus; Pyelonephritis of right kidney; Screening for genitourinary condition Start: 10-16-2024 End: 10-16-2024 ambulatory Shon Ronquillo Facility:[facility] Start: 09-27-2024 End: 09-27-2024 Telephone encounter Toña Dhaliwal [employer] Work Phone: [facility] Comment on above: Results Start: 09-26-2024 End: 09-26-2024 ambulatory TOÑA DHALIWAL Facility:[facility] Start: 09-11-2024 End: 09-11-2024 Office outpatient visit 25 minutes Toña Dhaliwal [employer] Work Phone: [facility] Comment on above: Pyelonephritis of ri ght kidney (Primary Dx); Ureterolithiasis; Status post laser lithotripsy of ureteral calculus; Bacterial sinusitis; Elevated liver enzymes; Elevated sed rate Start: 09-11-2024 End: 09-11-2024 ambulatory TOÑA DHALIWAL Facility:[facility] Start: 09-09-2024 End: 10-23-2024 Telephone encounter Shon Ronquillo DO Work Phone: [facility] Comment on above: Patient Question Start: 09-08-2024 End: 09-09-2024 ambulatory Shon Ronquillo DO Work Phone: [facility] Comment on above: Blood work? Start: 09-05-2024 End: 09-05-2024 ambulatory SHON RONQUILLO [facility] Health Start: 09-05-2024 End: 09-05-2024 Patient encounter procedure Shon Ronquillo DO Work Phone: [facility] Comment on above: Pyelonephritis of ri ght kidney (Primary Dx); Ureterolithiasis; Status post laser lithotripsy of ureteral calculus; Acute intractable headache, unspecified headache type Refill Request Start: 09-04-2024 End: 09-06-2024 Telephone encounter Shon Ronquillo DO Work Phone: [facility] Comment on above: Patient Question Start: 08-30-2024 ambulatory Bruce Soto Carlos Eduardo lity:BMS Start: 08-30-2024 End: 09-01-2024 Evaluation and management of inpatient Shon Ronquillo Facility:[facility] Start: 08-29-2024 End: 08-29-2024 ambulatory Hson Ronquillo Facility:[facility] Start: 08-23-2024 End: 08-23-2024 ambulatory Shon Ronquillo Facility:[facility] Start: 08-20-2024 End: 08-20-2024 ambulatory SHON RONQUILLO Facility:[facility] Start: 08-20-2024 End: 08-20-2024 Patient encounter procedure Brenda Anthony APRN.STEM MOUNTER Work Phone: [facility] Comment on above: Sore throat (Primary Dx) Start: 08-06-2024 End: 08-06-2024 ambulatory SHON RONQUILLO Facility:[facility] Start: 08-06-2024 End: 08-06-2024 Patient encounter procedure Laine Lopez APRN.STEM MOUNTER Work Phone: [facility] Comment on above: Sore throat (Primary Dx); Strep throat Start: 08-04-2024 End: 08-04-2024 ambulatory Shon Ronquillo Facility:[facility] Start: 08-01-2024 End: 08-01-2024 ambulatory Shon Ronquillo Facility:[facility] Start: 06-24-2024 End: 06-24-2024 ambulatory [facility] Facility:[facility] Start: 05-16-2024 Documentation procedure Mammog sully Coordinator [facility] Department Start: 05-16-2024 Letter encounter Mammography Coordinator [facility] Start: 05-15-2024 End: 05-15-2024 Subsequent hospital visit by physician Screen Mammo [facility] Mammogram Comment on above: Encounter for screen ing mammogram for malignant neoplasm of breast [Z12.31] Start: 05-12-2024 End: 05-12-2024 Patient encounter procedure Ebony Tom MD Work Phone: OB/Gynecology Comment on above: Encounter for gyneco logical examination (general) (routine) without abnormal findings (Primary Dx); Encounter for screening mammogram for breast cancer Start: 05-12-2024 End: 05-12-2024 Patient encounter status Ebony Tom MD Work Phone: [facility] Start: 04-10-2024 End: 04-10-2024 ambulatory [facility] Facility:[facility] Start: 03-29-2024 Telephone encounter Shon hassan DO Work Phone: [facility] Comment on above: Results Start: 03-15-2024 End: 03-15-2024 Patient encounter procedure Shon Ronquillo DO Work Phone: [facility] Comment on above: Well adult exam ([facility] camron Dx); Mixed hyperlipidemia; Hypertension, essential; Encounter for screening mammogram for malignant neoplasm of breast; Screening for colon cancer; Plantar fasciitis; Acute non-recurrent maxillary sinusitis; Impaired fasting glucose Start: 03-15-2024 End: 03-15-2024 Patient encounter status Shon Ronquillo DO Work Phone: [facility] Start: 03-09-2024 Refill Shon mccollum DO Work Phone: [facility] Comment on above: Refill Request Start: 02-28-2024 Refill Sherri lind APRN.CNP Work Phone: [facility] Comment on above: Refill Request Start: 02-11-2024 End: 02-11-2024 ambulatory [facility] Work Phone: Start: 02-11-2024 End: 02-11-2024 Patient encounter procedure [facility] Work Phone: Start: 01-18-2024 End: 01-18-2024 ambulatory [facility] Work Phone: Start: 01-18-2024 End: 01-18-2024 [facility] Work Phone: Start: 01-12-2024 End: 01-12-2024 ambulatory [facility] Work Phone: Start: 01-12-2024 End: 01-12-2024 [facility] Work Phone: Start: 12-29-2023 End: 12-29-2023 Patient encounter procedure Toña Dhaliwal APRN.STEM MOUNTER Work Phone: [facility] Comment on above: Hypertension, essent ial (Primary Dx); Kidney stone; Bacterial sinusitis Start: 12-18-2023 End: 12-18-2023 [facility] Work Phone: Start: 12-18-2023 End: 12-18-2023 Patient encounter procedure [facility] Work Phone: Start: 12-01-2023 End: 12-01-2023 Patient encounter procedure Toña Isra MCLEODN.STEM MOUNTER Work Phone: [facility] Comment on above: Hypertension, essent ial (Primary Dx); Kidney stone Start: 11-26-2023 End: 11-27-2023 Emergency department patient visit [facility] Work Phone: Start: 11-26-2023 End: 11-26-2023 Patient encounter procedure Danish FLORES Work Phone: [facility] Comment on above: Urination frequency (Primary Dx); Hypertension, essential; Microscopic hematuria; Flank pain Start: 09-16-2023 End: 09-16-2023 Patient encounter procedure Danish FLORES Work Phone: [facility] Comment on above: Eye irritation (Prim kelsi Dx) Start: 06-28-2023 End: 06-28-2023 ambulatory [facility] Work Phone: Start: 06-28-2023 End: 06-28-2023 Patient encounter procedure [facility] Work Phone: Start: 05-14-2023 End: 05-14-2023 Subsequent hospital visit by physician Screen Mammo [facility] Mammogram Comment on above: Encounter for screen ing mammogram for breast cancer [Z12.31] Start: 05-11-2023 End: 05-11-2023 Patient encounter procedure Ebony Tom MD Work Phone: OB/Gynecology Comment on above: Encounter for gyneco logical examination (general) (routine) without abnormal findings (Primary Dx); Encounter for screening mammogram for breast cancer; Special screening for malignant neoplasms, colon Start: 05-11-2023 End: 05-11-2023 Patient encounter status Ebony Tom MD Work Phone: [facility] Start: 03-15-2023 Refill Shon mccollum DO Work Phone: [facility] Comment on above: Refill Request Start: 03-01-2023 Patient encounter status Patricio Ronquillo DO Work Phone: [facility] Work Phone: Start: 02-11-2023 End: 02-11-2023 ambulatory [facility] Work Phone: Start: 02-11-2023 End: 02-11-2023 [facility] Start: 12-25-2022 Telephone encounter Ludivina Cabral APRN.CNP Work Phone: [facility] Comment on above: Request Outside [facility] Start: 12-25-2022 End: 12-25-2022 ambulatory Ludivina Cantu [employer]KER.STEM MOUNTER Work Phone: [facility] Comment on above: Mixed hyperlipidemia (Primary Dx); Hypertension, essential; Other migraine without status migrainosus, intractable Start: 12-25-2022 End: 12-25-2022 Telemedicine consultation with patient Ludivina Cantu APRN.STEM MOUNTER Work Phone: [facility] Start: 12-23-2022 Telephone encounter Toña mccollum [employer] BASKET [employer]KER.STEM MOUNTER Work Phone: [facility] Comment on above: Results Start: 12-22-2022 End: 12-22-2022 ambulatory [facility] Work Phone: Start: 12-22-2022 End: 12-22-2022 Patient encounter procedure [facility] Start: 12-09-2022 Patient encounter status Patricio Ronquillo DO Work Phone: [facility] Start: 12-09-2022 Telephone encounter Shon Anderson mo DO Work Phone: [facility] Comment on above: Orders Start: 11-02-2022 End: 11-02-2022 Patient encounter procedure [facility] Start: 09-21-2022 End: 09-21-2022 Patient encounter procedure [facility], Specimen Start: 07-27-2022 ambulatory Shon mccollum DO Work Phone: [facility] Start: 07-27-2022 Letter encounter Shon Holcomb rylan DO Work Phone: [facility] Comment on above: Letter Start: 07-27-2022 Telephone encounter Shon hassan DO Work Phone: [facility] Comment on above: Letter Start: 07-02-2022 Refill Shon mccollum DO Work Phone: [facility] Comment on above: Refill Request Start: 02-12-2022 Documentation procedure Mammog sully Coordinator [facility] Start: 02-12-2022 Letter encounter Mammography Coordinator [facility] Department Start: 01-13-2022 Telephone encounter Shon hassan DO Work Phone: [facility] [place] Comment on above: Headache Start: 11-13-2021 End: 11-13-2021 Discharged Recurring [facility] Procedures Date Procedure Procedure Detail Performing Clinician Start: 11-08-2024 Urnls dip stick/tablet rgnt auto w/o microscopy Andrea Nicole MD Work Phone: Start: 11-08-2024 H/O: surgery Status post laser lithotripsy of ureteral calculus Andrea Nicole MD Work Phone: Start: 10-17-2024 Urnls dip stick/tablet rgnt auto w/o microscopy Enmanuel Vargas PA-C Work Phone: Start: 08-20-2024 STREP A MOLECULAR (POC) Brenda FRITZ RN.STEM MOUNTER Work Phone: Start: 08-06-2024 STREP A MOLECULAR (POC) Laine Lopez APRN.STEM MOUNTER Work Phone: Start: 03-23-2024 Lipid 1996 panel - Serum or Plasma Shon Yg DO Work Phone: Start: 02-11-2024 Diagnostic radiography of abdomen Start: 11-26-2023 Plain chest X-ray Start: 11-26-2023 CT of abdomen and pelvis without contrast Start: 11-26-2023 Urnls dip stick/tablet rgnt auto w/o microscopy Danish FLORES Work Phone: Start: 05-14-2023 Screening digital breast tomosynthesis bi Bulk Order Provider Start: 02-12-2022 Mammography Mammography Coordinator Start: 10-25-2021 Lipid 1996 panel - Serum or Plasma Screen Wstr Start: 10-22-2021 Adult depression screening assessment Shon Yg DO Work Phone: Start: 01-22-2021 Mammography Shon Ronquillo DO Work Phone: Bacteria identificat ion test H/O: surgery Status post lase r lithotripsy of ureteral calculus Shon Suarezon DO Work Phone: H/O: surgery Status post lase r lithotripsy of ureteral calculus Toña Dhaliwal WIRE BASKET MAKER.STEM MOUNTER Work Phone: H/O: surgery Status post lase r lithotripsy of ureteral calculus Enmanuel Vargas PA-C Work Phone: Plan of Treatment Date Care Activity Detail Author Start: 03-23-2029 Lipid panel Lipid Screening [facility] Start: 11-03-2027 Diabetes Screening Diabetes Screening [facility] Start: 09-26-2027 Diabetes Screening Diabetes Screening [facility] Start: 09-05-2027 Diabetes Screening Diabetes Screening [facility] Start: 03-23-2027 Diabetes Screening Diabetes Screening [facility] Start: 03-23-2027 Screening for malignant neoplasm of colon [facility] Start: 10-25-2026 Lipid 1996 panel - Serum or Plasma Lipid Screening [facility] Start: 10-25-2026 Lipid panel Lipid Screening [facility] Start: 10-25-2026 LIPID SCREEN LIPID SCREEN [facility] Start: 05-21-2026 Screening for malignant neoplasm of breast Mammogram Screening [facility] Start: 05-16-2026 Screening for malignant neoplasm of breast Mammogram Screening [facility] Start: 03-01-2026 DIABETES SCREEN DIABETES SCREEN [facility] Start: 03-01-2026 Diabetes Screening Diabetes Screening [facility] Start: 01-08-2026 HPV TESTING HPV TESTING [facility] Start: 01-08-2026 PAP TESTING PAP TESTING [facility] Start: 01-08-2026 Screening for malignant neoplasm of cervix [facility] Start: 12-23-2025 End: 07-25-2026 US Kidney - bilateral and Urinary bladder US KIDNEY/BLADDER Radiology Routine Recurrent nephrolithiasis Expected: 12/23/2025 (Approximate), Expires: 07/25/2026 [facility] Work Phone: Comment on above: Expected: 12/23/2025 (Approximate), Expi res: 07/25/2026 Start: 12-23-2025 End: 07-25-2026 XR Abdomen Supine and Upright XR ABDOMEN 1V SUPINE Radiology Routine Recurrent nephrolithiasis Expected: 12/23/2025 (Approximate), Expires: 07/25/2026 [facility] Comment on above: Expected: 12/23/2025 (Approximate), Expi res: 07/25/2026 Start: 09-14-2025 End: 09-14-2025 Patient encounter procedure 09/14/2025 2:30 PM EST Office Visit OB/Gynecology [address] [place] [id number] Ebony Harris MD [address] [place] [address] Annual OB/Gynecology Comment on above: Annual Start: 09-11-2025 Annual PCP Team Chronic Disease Visit Annual PCP Team Chronic Disease Visit [facility] Start: 09-11-2025 BP Controlled (<130/80) BP Controlled (<130/80) [facility] in Start: 09-11-2025 Covid-19 Vaccine () Covid-19 Vaccine () [facility] Comment on above: Postponed from 06/11/2024 (Declined at t his time) Start: 09-05-2025 Annual PCP Team Chronic Disease Visit Annual PCP Team Chronic Disease Visit [facility] Start: 08-08-2025 End: 08-08-2025 Patient encounter procedure 08/08/2025 4:00 PM EDT Office Visit [facility] [address] [place] [address] Shon Ronquillo DO [address] [place] [address] . [facility] Comment on above: . Start: 06-25-2025 End: 06-25-2025 Patient encounter procedure 06/25/2025 3:45 PM EDT Office Visit Urology [address] [address] Александр Oshea MD [address] [place] [address] Return for Nephrolithiasis. Urology Comment on above: Return for Nephrolithiasis. Start: 06-25-2025 End: 09-24-2025 LITHOLINK 24HR URINE PANEL LITHOLINK 24HR URINE PANEL Lab Routine Recurrent nephrolithiasis Expected: 06/25/2025 (Approximate), Expires: 09/24/2025 [facility] Comment on above: Expected: 06/25/2025 (Approximate), Expi res: 09/24/2025 Start: 06-20-2025 End: 01-17-2026 US Kidney - bilateral and Urinary bladder [facility] Comment on above: Expected: 06/20/2025 (Approximate), Expi res: 01/17/2026 Start: 06-20-2025 End: 01-17-2026 XR Abdomen Supine and Upright XR ABDOMEN 1V SUPINE Radiology Routine Recurrent nephrolithiasis Expected: 06/20/2025 (Approximate), Expires: 01/17/2026 [facility] Comment on above: Expected: 06/20/2025 (Approximate), Expi res: 01/17/2026 Start: 06-20-2025 End: 06-20-2025 Patient encounter procedure 06/20/2025 7:00 AM EDT Appointment Radiology [address] [place] [address] Recurrent nephrolithiasis [N20.0] Radiology Comment on above: Recurrent nephrolithiasis [N20.0] Start: 06-11-2025 Influenza vaccination [facility] Start: 05-16-2025 End: 05-16-2025 Patient encounter procedure 05/16/2025 9:00 AM EDT Office Visit Kidney Medicine [address] [place] [address] [place] [address] [place] [address] Return in about 6 months (around 05/08/2025). Kidney Medicine Comment on above: Return in about 6 months (around 05/08/20). Start: 05-15-2025 Screening for malignant neoplasm of breast Mammogram Screening [facility] Start: 05-12-2025 BP Controlled (<130/80) BP Controlled (<130/80) [facility] in Start: 04-09-2025 Influenza vaccination Influenza Vaccine (#1) [facility] Comment on above: Postponed from 06/11/2024 (Declined at t his time) Start: 03-15-2025 Annual PCP Team Chronic Disease Visit Annual PCP Team Chronic Disease Visit [facility] Start: 02-12-2025 MR Lower extremity WO contrast [facility] Start: 02-12-2025 MRI of lower extremity Lower Ext/No Jt/w/o [facility] Start: 12-28-2024 Annual PCP Team Chronic Disease Visit Annual PCP Team Chronic Disease Visit [facility] Start: 12-28-2024 BP Controlled (<130/80) BP Controlled (<130/80) [facility] in Start: 12-18-2024 End: 12-18-2024 Patient encounter procedure 12/18/2024 3:15 PM EDT Office Visit Urology [address] [place] [address] Александр Oshea MD [address] [place] [address] Ureterolithiasis Urology Comment on above: Ureterolithiasis Start: 12-18-2024 End: 03-19-2025 LITHOLINK 24HR URINE PANEL LITHOLINK 24HR URINE PANEL Lab Routine Recurrent nephrolithiasis Expected: 12/18/2024, Expires: 03/19/2025 [facility] Work Phone: Comment on above: Expected: 12/18/2024, Expires: Start: 12-01-2024 Annual PCP Team Chronic Disease Visit Annual PCP Team Chronic Disease Visit [facility] Start: 12-01-2024 Covid-19 Vaccine ( season) Covid-19 Vaccine ( season) [facility] Comment on above: Postponed from 06/11/2023 (Declined at t his time) Start: 12-01-2024 Urine microalbumin profile DTaP,Tdap,Td Vaccine (1 - Tdap) [facility] Comment on above: Postponed from 1993 (Declined at t his time) Start: 11-08-2024 End: 11-08-2024 Patient encounter procedure 11/08/2024 2:20 PM EST Office Visit Kidney Medicine [address] [place] [address] [place] [address] [place] [address] Pyelonephritis of right kidney [N12]; Ureterolithiasis [N20.1]; Status post laser lithotripsy of ureteral calculus [Z98.890] Kidney Medicine Comment on above: Pyelonephritis of right kidney [N12]; Ur eterolithiasis [N20.1]; Status post laser lithotripsy of ureteral calculus [Z98.890] Start: 11-08-2024 End: 02-07-2025 25-hydroxyvitamin D3 [Mass/volume] in Serum or Plasma VITAMIN D 25 HYDROXY Lab Routine Renal stones Pyelonephritis of right kidney Ureterolithiasis Expected: 11/08/2024, Expires: 02/07/2025 [facility] Comment on above: Expected: 11/08/2024, Expires: Start: 11-08-2024 End: 02-07-2025 Parathyrin.intact [Mass/volume] in Serum or Plasma PTH INTACT Lab Routine Renal stones Pyelonephritis of right kidney Ureterolithiasis Expected: 11/08/2024, Expires: 02/07/2025 [facility] Comment on above: Expected: 11/08/2024, Expires: Start: 11-08-2024 End: 02-07-2025 Urate [Mass/volume] in Serum or Plasma URIC ACID Lab Routine Renal stones Pyelonephritis of right kidney Expected: 11/08/2024, Expires: 02/07/2025 [facility] Comment on above: Expected: 11/08/2024, Expires: Start: 11-03-2024 End: 02-02-2025 Bacteria identified in Urine by Culture BACTERIAL CULTURE, URINE Microbiology Routine Dysuria Expected: 11/03/2024 (Approximate), Expires: 02/02/2025 [facility] Work Phone: Comment on above: Expected: 11/03/2024 (Approximate), Expi res: 02/02/2025 Start: 11-03-2024 End: 02-02-2025 Comprehensive metabolic 2000 panel - Serum or Plasma [facility] Work Phone: Comment on above: Expected: 11/03/2024, Expires: Start: 10-25-2024 DIABETES SCREEN DIABETES SCREEN [facility] Start: 10-17-2024 End: 10-17-2024 Patient encounter procedure 10/17/2024 8:30 AM EST Office Visit Urology [address] [place] [address] Enmanuel Vargas PA-C [address] [place], [place] [id number] Pyelonephritis of right kidney [N12]; Ureterolithiasis [N20.1]; Status post laser lithotripsy of ureteral calculus [Z98.890] Urology Comment on above: Pyelonephritis of right kidney [N12]; Ur eterolithiasis [N20.1]; Status post laser lithotripsy of ureteral calculus [Z98.890] Start: 10-10-2024 Behavioral Health Screening Behavioral Health Screening [facility] Comment on above: Postponed from 10/11/2023 (Declined at t his time) Start: 10-10-2024 Depression Assessment Depression Assessment [facility] Comment on above: Postponed from 10/11/2023 (Declined at t his time) Start: 09-11-2024 End: 12-11-2024 C reactive protein [Mass/volume] in Serum or Plasma C-REACTIVE PROTEIN Lab Routine Elevated sed rate Expected: 09/11/2024, Expires: 12/11/2024 [facility] Comment on above: Expected: 09/11/2024, Expires: Start: 09-11-2024 End: 12-11-2024 Comprehensive metabolic 2000 panel - Serum or Plasma COMPREHENSIVE METABOLIC PANEL Lab Routine Elevated liver enzymes Expected: 09/11/2024, Expires: 12/11/2024 [facility] Comment on above: Expected: 09/11/2024, Expires: Start: 09-11-2024 End: 12-11-2024 Erythrocyte sedimentation rate SEDIMENTATION RATE, WESTERGREN Lab Routine Elevated sed rate Expected: 09/11/2024, Expires: 12/11/2024 [facility] Work Phone: Comment on above: Expected: 09/11/2024, Expires: Start: 09-11-2024 End: 12-11-2024 Heterophile Ab [Presence] in Serum by Latex agglutination MONOTEST, INFECTIOUS MONO Lab Routine Bacterial sinusitis Expected: 09/11/2024, Expires: 12/11/2024 [facility] Comment on above: Expected: 09/11/2024, Expires: Start: 09-05-2024 End: 12-05-2024 C reactive protein [Mass/volume] in Serum or Plasma [facility] Work Phone: Comment on above: Expected: 09/05/2024, Expires: Start: 09-05-2024 End: 12-05-2024 CBC W Auto Differential panel - Blood [facility] Comment on above: Expected: 09/05/2024, Expires: Start: 09-05-2024 End: 12-05-2024 Comprehensive metabolic 2000 panel - Serum or Plasma [facility] Comment on above: Expected: 09/05/2024, Expires: Start: 09-05-2024 End: 12-05-2024 Erythrocyte sedimentation rate [facility] Comment on above: Expected: 09/05/2024, Expires: Start: 2024 Pneumococcal Vaccine: 50+ (1 of 1 - PCV) Pneumococcal Vaccine: 50+ (1 of 1 - PCV) [facility] Start: 2024 Shingrix Vaccine (1 of 2) Shingrix Vaccine (1 of 2) [facility] Start: 06-11-2024 Covid-19 Vaccine ( season) Covid-19 Vaccine () [facility] Start: 06-11-2024 Influenza vaccination [facility] Start: 05-15-2024 End: 05-15-2024 Patient encounter procedure 05/15/2024 9:50 AM EDT Appointment Mammogram [address] [place] [address] [facility] Comment on above: [facility] Start: 05-14-2024 Mammography Mammogram Screening [facility] Start: 05-14-2024 Screening for malignant neoplasm of breast Mammogram Screening [facility] Start: 05-12-2024 End: 05-12-2024 Patient encounter procedure 05/12/2024 3:50 PM EDT Office Visit OB/Gynecology [address] [place] [address] Ebony Harris MD [address] [place] [address] Annual OB/Gynecology Comment on above: Annual Start: 04-09-2024 [facility] from 06/11/2023 (Declined at t his time) Start: 03-15-2024 End: 06-14-2024 25-hydroxyvitamin D3 [Mass/volume] in Serum or Plasma VITAMIN D 25 HYDROXY Lab Routine Well adult exam Expected: 03/15/2024, Expires: 06/14/2024 [facility] Comment on above: Expected: 03/15/2024, Expires: Start: 03-15-2024 End: 06-14-2024 C reactive protein [Mass/volume] in Serum or Plasma C-REACTIVE PROTEIN Lab Routine Well adult exam Expected: 03/15/2024, Expires: 06/14/2024 [facility] Comment on above: Expected: 03/15/2024, Expires: Start: 03-15-2024 End: 06-14-2024 Cobalamin (Vitamin B12) [Mass/volume] in Serum or Plasma VITAMIN B12 Lab Routine Well adult exam Expected: 03/15/2024, Expires: 06/14/2024 [facility] Comment on above: Expected: 03/15/2024, Expires: Start: 03-15-2024 End: 06-14-2024 Comprehensive metabolic 2000 panel - Serum or Plasma COMPREHENSIVE METABOLIC PANEL Lab Routine Well adult exam Expected: 03/15/2024, Expires: 06/14/2024 [facility] Comment on above: Expected: 03/15/2024, Expires: Start: 03-15-2024 End: 06-14-2024 Follitropin [Units/volume] in Serum or Plasma FOLLICLE STIMULATING HORMONE Lab Routine Well adult exam Expected: 03/15/2024, Expires: 06/14/2024 [facility] Comment on above: Expected: 03/15/2024, Expires: Start: 03-15-2024 End: 06-14-2024 Hemoglobin A1c in Blood HEMOGLOBIN A1C Lab Routine Well adult exam Expected: 03/15/2024, Expires: 06/14/2024 [facility] Comment on above: Expected: 03/15/2024, Expires: Start: 03-15-2024 End: 06-14-2024 Lipid 1996 panel - Serum or Plasma LIPID PANEL BASIC Lab Routine Well adult exam Expected: 03/15/2024, Expires: 06/14/2024 [facility] Comment on above: Expected: 03/15/2024, Expires: Start: 03-15-2024 End: 06-14-2024 Thyrotropin [Units/volume] in Serum or Plasma THYROID STIMULATING HORMONE Lab Routine Well adult exam Expected: 03/15/2024, Expires: 06/14/2024 [facility] Comment on above: Expected: 03/15/2024, Expires: Start: 03-15-2024 End: 03-15-2024 Patient encounter procedure 03/15/2024 7:40 AM EDT Office Visit Family Medicine [facility] [address] [place] [address] Shon Ronquillo DO [address] [place] [address] yearly Family [facility] Comment on above: yearly Start: 03-01-2024 ANNUAL PCP TEAM CHRONIC DISEASE VISIT ANNUAL PCP TEAM CHRONIC DISEASE VISIT [facility] Start: 03-01-2024 BP CONTROLLED (<130/80) BP CONTROLLED (<130/80) [facility] Start: 12-26-2023 ANNUAL PCP TEAM CHRONIC DISEASE VISIT ANNUAL PCP TEAM CHRONIC DISEASE VISIT [facility] Start: 11-27-2023 [facility] Start: 11-26-2023 Plain chest X-ray Chest PA and Lateral [facility] Start: 11-26-2023 XR Chest PA and Lateral [facility] Start: 10-11-2023 Depression Assessment Depression Assessment [facility] Start: 06-11-2023 Covid-19 Vaccine () Covid-19 Vaccine () [facility] Start: 06-11-2023 Influenza vaccination [facility] Start: 02-12-2023 Mammography MAMMOGRAM [facility] Start: 02-11-2023 Procedure [facility] Start: 01-13-2023 ANNUAL PCP TEAM CHRONIC DISEASE VISIT ANNUAL PCP TEAM CHRONIC DISEASE VISIT [facility] Start: 12-09-2022 End: 02-08-2023 CBC panel - Blood by Automated count CBC Lab Routine Hypertension, essential Expected: 12/09/2022, Expires: 02/08/2023 [facility] Work Phone: Comment on above: Expected: 12/09/2022, Expires: 3 Start: 12-09-2022 End: 02-08-2023 Comprehensive metabolic 2000 panel - Serum or Plasma COMP METABOLIC PANEL Lab Routine Hypertension, essential Expected: 12/09/2022, Expires: 02/08/2023 [facility] Work Phone: Comment on above: Expected: 12/09/2022, Expires: 3 Start: 12-09-2022 End: 02-08-2023 Hemoglobin A1c in Blood HGB A1C Lab Routine Impaired fasting glucose Expected: 12/09/2022, Expires: 02/08/2023 [facility] Work Phone: Comment on above: Expected: 12/09/2022, Expires: 3 Start: 12-09-2022 End: 02-08-2023 Lipid 1996 panel - Serum or Plasma LIPID PANEL BASIC Lab Routine Mixed hyperlipidemia Expected: 12/09/2022, Expires: 02/08/2023 [facility] Work Phone: Comment on above: Expected: 12/09/2022, Expires: 3 Start: 10-22-2022 Adult depression screening assessment DEPRESSION SCREENING [facility] Start: 10-11-2022 DEPRESSION ASSESSMENT DEPRESSION ASSESSMENT [facility] Start: 06-11-2022 Influenza vaccination [facility] Start: 01-22-2022 Mammography MAMMOGRAM [facility] Start: 01-09-2022 COVID-19 VACCINE (3 - Booster for Pfizer series) COVID-19 VACCINE (3 - Booster for Pfizer series) [facility] Start: 10-11-2021 DEPRESSION ASSESSMENT DEPRESSION ASSESSMENT [facility] Start: 10-06-2021 COVID-19 VACCINE (3 - Booster for Pfizer series) COVID-19 VACCINE (3 - Booster for Pfizer series) [facility] Start: 10-06-2021 COVID-19 VACCINE (3 - Pfizer series) COVID-19 VACCINE (3 - Pfizer series) [facility] Start: 2019 COLOGUARD (FIT-DNA) COLOGUARD (FIT-DNA) [facility] Start: 2019 Colonoscopy COLONOSCOPY [facility] Start: 2019 COLORECTAL CANCER SCREENING COLORECTAL CANCER SCREENING [facility] Start: [address] COLONOGRAPHY [facility] Start: 2019 FECAL OCCULT BLOOD FECAL OCCULT BLOOD [facility] Start: 2019 Screening for malignant neoplasm of colon [facility] Start: 2019 SIGMOIDOSCOPY SIGMOIDOSCOPY [facility] Start: 1993 Hepatitis B Vaccine (1 of 3 - 19+ 3-dose series) Hepatitis B Vaccine (1 of 3 - 19+ 3-dose series) [facility] Start: 1993 Urine microalbumin profile [facility] Start: 1992 Anxiety Screening Anxiety Screening [facility] Start: 1992 BP CONTROLLED (<130/80) BP CONTROLLED (<130/80) [facility] Start: 1992 Depression Screening Depression Screening [facility] Start: 1992 HEPATITIS C SCREENING HEPATITIS C SCREENING [facility] Start: 1992 Hepatitis C screening Hepatitis C Screening [facility] Start: 1992 HIV SCREENING HIV SCREENING [facility] Start: 1992 HIV screening HIV Screening [facility] Start: 1974 HEPATITIS B (1 of 3 - 3-dose series) HEPATITIS B (1 of 3 - 3-dose series) [facility] Start: 1974 Hepatitis B Vaccine (1 of 3 - 3-dose series) Hepatitis B Vaccine (1 of 3 - 3-dose series) [facility] Bacteria identified in Urine by Culture URINE CULTURE Microbiology Routine Urination frequency 11/26/2023 11:26 AM EST [facility] Work Phone: Bacteria identified in Urine by Culture URINE CULTURE Microbiology Routine Status post laser lithotripsy of ureteral calculus Ordered: 10/17/2024 [facility] Work Phone: Comment on above: Ordered: 10/17/2024 CALCULI ANALYSIS CALCULI ANALYSI S Lab Routine Ureterolithiasis 10/29/2024 11:00 AM EST [facility] Work Phone: End: 11-08-2025 CBC panel - Blood by Automated count COMPLETE BLOOD COUNT Lab Routine Renal stones Pyelonephritis of right kidney Ureterolithiasis Every 6 months for 2 Occurrences starting 11/08/2024 until 11/08/2025 [facility] Work Phone: Comment on above: Every 6 months for 2 Occurrences startin g 11/08/2024 until 11/08/2025 COLOGUARD COLOGUARD Lab Ro utine Screening for colon cancer Ordered: 03/15/2024 [facility] Comment on above: Ordered: 03/15/2024 End: 04-14-2025 DBT Breast - bilateral screening LISA SCREENING [facility] Routine Encounter for screening mammogram for malignant neoplasm of breast 1 Occurrences starting 03/15/2024 until 04/14/2025 [facility] Work Phone: Comment on above: 1 Occurrences starting 03/15/2024 until 04/14/2025 End: 06-11-2025 DBT Breast - bilateral screening LISA SCREENING [facility] Radiology Routine Encounter for screening mammogram for breast cancer 1 Occurrences starting 05/12/2024 until 06/11/2025 [facility] Work Phone: Comment on above: 1 Occurrences starting 05/12/2024 until 06/11/2025 DBT Breast - bilater al screening LISA SCREENING [facility] Radiology Routine Encounter for screening mammogram for malignant neoplasm of breast 05/15/2024 9:53 AM EDT [facility] Work Phone: End: 06-09-2024 LISA SCREENING [facility] LISA SCREENING [facility] Radiology Routine Encounter for screening mammogram for breast cancer 1 Occurrences starting 05/11/2023 until 06/09/2024 [facility] Work Phone: Comment on above: 1 Occurrences starting 05/11/2023 until 06/09/2024 Patient Education ED Hypertensio n, Established ED Kidney Stone with Pain [facility] Work Phone: Patient referral [facility] Work Phone: End: 11-08-2025 Protein/Creatinine [Mass Ratio] in Urine PROTEIN / CREATININE RATIO Lab Routine Renal stones Pyelonephritis of right kidney Ureterolithiasis Every 6 months for 2 Occurrences starting 11/08/2024 until 11/08/2025 [facility] Comment on above: Every 6 months for 2 Occurrences startin g 11/08/2024 until 11/08/2025 End: 11-08-2025 Renal function 2000 panel - Serum or Plasma RENAL FUNCTION PANEL Lab Routine Renal stones Pyelonephritis of right kidney Ureterolithiasis Every 6 months for 2 Occurrences starting 11/08/2024 until 11/08/2025 [facility] Comment on above: Every 6 months for 2 Occurrences startin g 11/08/2024 until 11/08/2025 End: 05-11-2024 Screening colonoscopy COLONOSCOPY SCREENING Endoscopy Routine Special screening for malignant neoplasms, colon 1 Occurrences starting 05/11/2023 until 05/11/2024 [facility] Work Phone: Comment on above: 1 Occurrences starting 05/11/2023 until 05/11/2024 End: 11-08-2025 Urinalysis complete panel - Urine URINALYSIS, WITH MICROSCOPIC Lab Routine Renal stones Pyelonephritis of right kidney Ureterolithiasis Every 6 months for 2 Occurrences starting 11/08/2024 until 11/08/2025 [facility] Comment on above: Every 6 months for 2 Occurrences startin g 11/08/2024 until 11/08/2025 [facility] Immunizations Immunization Date Immunization Notes Care Provider Susan fong 08-11-2021 COVID-19 vaccine, ag e 12+ yr ([email or web address] - PURPLE TOP) Shon Ronquillo DO Work Phone: [facility] Work Phone: 07-08-2018 influenza virus vaccine, unspecified formulation Screen Wstr [facility] Payers Date Payer Category Payer Self-pay [id number] [id number] 2019 Private Health Insurance MMO SUP [employer] PPO [id number] 2019 Unknown MMO MMO [employer] PLUS [id number] 2019-Present [phone] [address] [place] [address] PPO [id number] 2019 Unknown [id number] 2014 Unknown [id number] Unknown [id number] Unknown [id number] 462 Unknown [id number] 462 Unknown [id number] 462 Unknown [id number] 462 Unknown [id number] 462 Unknown [id number] 462 Unknown [id number] 462 Unknown [id number] 462 Unknown [id number] 462 Unknown [id number] 462 Unknown [id number] 462 Social History Date Type Detail Facility Start: 03-23-2012 End: 08-30-2024 Tobacco smoking status TXIS Never smoked tobacco [facility] Work Phone: Start: 10-22-2021 End: 06-25-2025 Alcohol intake Current non-drinker of alcohol (finding) [facility] Start: 1975 Sex Assigned At Female [facility] Start: 07-01-2014 End: 11-26-2023 Tobacco smoking status TXIS Unknown if ever smoked [facility] Start: 02-02-2022 End: 02-12-2022 Exposure to SARS-CoV-2 (event) Not sure [facility] Start: 03-23-2012 Tobacco use and exposure Smokeless tobacco non-user [facility] Work Phone: Start: 12-21-2022 End: 12-25-2022 History SDOH Alcohol Frequency 1 [facility] Start: 12-21-2022 End: 12-25-2022 History SDOH Alcohol Std Drinks 0 [facility] Start: 12-21-2022 End: 12-25-2022 History SDOH Social Connections Phone 5 [facility] Start: 12-21-2022 End: 12-25-2022 History SDOH Social Connections Amish 3 [facility] Start: 12-21-2022 End: 12-25-2022 History SDOH Physical Activity MPS 2 [facility] Start: 12-21-2022 End: 12-25-2022 History SDOH Stress 4 [facility] Start: 12-25-2022 End: 03-01-2023 History of Social function [facility] Start: 12-25-2022 End: 03-01-2023 Social connection and isolation panel [facility] Do you belong to any clubs or organizations such as sikhism groups, unions, fraternal or athletic groups, or school groups? Yes [facility] Are you now , , , , never or living with a partner? [facility] How often to you hav e a drink containing alcohol? Never [facility] Start: 09-11-2012 How many standard drinks containing alcohol do you have on a typical day? Patient does not drink [facility] Do you feel stress - tense, restless, nervous, or anxious, or unable to sleep at night because your mind is troubled all the time - these days [OSQ] Rather much [facility] (I/We) worried wheth er (my/our) food would run out before (I/we) got money to buy more. Never true [facility] In the past 12 month s, was there a time when you were not able to pay the mortgage or rent on time? No [facility] Start: 02-11-2021 Gender identity Identifies as female gender (finding) [facility] Start: 02-11-2021 Sexual orientation Heterosexual (finding) [facility] Medical Equipment Procedure Code Equipment Code Equipment Origin al Text Equipment Identifier Dates Cystoscopy, with retrograde pyelogram, ureteroscopy, laser procedure, and stent inser ([id number]) Polymeric ureteral stent ()[id number] FDA Start: 08-23-2024 Mental Status Date Assessment Result Facility 11-26-2023 Cognitive function Level Of Cons ciousness Awake;Alert;Appropriate;Follow s Commands [facility] Work Phone: Clinical Notes 01-13-2022 to 06-25-2025 Александр Oshea MD - 06/25/2025 4:05 PM Jemima Bosch RDMS - 06/20/2025 7:00 AM EDSoheila Parsons Mammo Tech - 05/21/2025 12:50 PM Arti Chen MA - 01/24/2025 9:15 AM EDT Note Date & Type Note Facility 06-25-2025 Note HNO ID: [id number] Author: АЛЕКСАНДР OSHEA MD Service: ? Author Type: Physician Type: Progress Notes Filed: 06/25/2025 16:30 Note Text: [facility] NOTE Patient: Jose R Watt Provider: Александр Oshea MD : 1975 Date of Service: 06/25/2025 PCP: Shon Ronquillo DO Chief complaint/Identification: Jose R Watt is a 49 year old female patient who presents for evaluation of nephrolithiasis. ASSESSMENT: 1. Recurrent nephrolithiasis - ICD9: 592.0, ICD10: N20.0 (primary diagnosis) 2. Left renal stone - ICD9: 592.0, ICD10: N20.0 3. 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 Hypernatriuria - ICD9: 276.0, ICD10: E87.0 Hx of CaOxD / UA stones Hypercalciuria Hypernatriuria Stone burden: - On CT (08/03) L renal stones, non-obs, 4 mm or smaller - On US (06/2025) 8 mm left lower pole, 4 mm R upper pole PLAN: Continue Indapamide, K Cit (10 mEq daily) Get KUB now Repeat 24h urine 6 mo follow up with [facility], with repeat KUB/RBUS prior Discussed that ultrasound and CT are not always comparable. For now she is asymptomatic, continue to observe stone(s). 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 Still on potassium citrate and Indapamide. Reviewed 24h urine, imaging. No longer following with Nephrology. 06/20/2025: RBUS - bilateral nephrolithiasis, 4 mm in the right upper pole, 8 mm in the left lower pole 01/09/25 24h urine: vol 1.43L, HCa 399 (498), HNa 261 (175) 12/18/2024 History of nephrolithiasis. Undergone lithotripsy twice by urologist in [place]. Most recently in August 2024. Had episode of sepsis requiring hospitalization after removing her stent. Has known left renal stones, reportedly 4 mm in the lower pole on CT scan from July 2024. Follows with endocrinology for history of hyperparathyroidism status post parathyroidectomy. PTH normalized postsurgery. Follows with nephrology (Dr. Nicole) as well. History of hypercalciuria on 24 urine test in October. Previously on indapamide and potassium citrate. Was off indapamide for the 24 urine test. Has since restarted. 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 Currently asymptomatic, wants to establish with urology here. Plan: Continue Indapamide, K Cit (10 mEq daily) Repeat 24h urine 6 mo follow up with KUB/RBUS Observe L renal stones for now given small size (4 mm) PAST STONE HISTORY: Date/year of first Episode: 2023 (knew about them for some time before) No. Of stones passed: 1 Prior 24hr urine: 10/30/2024: vol 1.7L, HCa 498, HNa 175, Cit 1200, Ox 32 Stone analysis: 70% CaOxM, 30% UA Prior stone related surgery: No. Of prior Shock Wave lithotripsy: x0 No. Of prior Ureteroscopy: 11/2023, 08/2024 ([place]) No. 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 RELEVANT IMAGING STUDIES (most recent): 08/04/2024: CT scan ([facility]) 5 mm right UPJ stone with hydronephrosis, nonobstructing left lower pole renal stones up to 4 mm LABS/INVESTIGATIONS: Urine Chemstrip: Lab Results Component Value Date GLUCOSE UA (POCT) Negative 11/08/2024 BILIRUBIN UA (POCT) Negative 11/08/2024 KETONE UA (POCT) Negative 11/08/2024 SPECIFIC GRAVITY UA (POCT) 1.020 11/08/2024 HEMOGLOBIN/BLOOD UA (POCT) Negative 11/08/2024 PH UA (POCT) 7.0 11/08/2024 PROTEIN UA (POCT) Negative 11/08/2024 UROBILINOGEN UA (POCT) 0.2 11/08/2024 NITRITE UA (POCT) Negative 11/08/2024 LEUKOCYTES UA (POCT) Negative 11/08/2024 COLOR UA (POCT) Yellow 11/08/2024 CLARITY UA (POCT) Clear 11/08/2024 Creatinine Date Value Ref Range Status 11/03/2024 0.65 0.58 - 0.96 mg/dL Final 09/26/2024 0.59 0.58 - 0.96 mg/dL Final 09/05/2024 0.57 (L) 0.58 - 0.96 mg/dL Final 03/23/2024 0.65 0.58 - 0.96 mg/dL Final Hemoglobin (g/dL) Date Value 09/05/2024 12.8 10/25/2021 13.4 Hematocrit (%) Date Value 09/05 (more content not included)... [facility] 06-25-2025 History of Present illness Narrative Images from the original note were not included. [facility] NOTE Patient: Jose R Watt Provider: Александр Oshea MD : 1975 Date of Service: 06/25/2025 PCP: Shon Ronquillo DO Chief complaint/Identification: Jose R Watt is a 49 year old female patient who presents for evaluation of nephrolithiasis. ASSESSMENT: 1. Recurrent nephrolithiasis - ICD9: 592.0, ICD10: N20.0 (primary diagnosis) 2. Left renal stone - ICD9: 592.0, ICD10: N20.0 3. 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 Hypernatriuria - ICD9: 276.0, ICD10: E87.0 Hx of CaOxD / UA stones Hypercalciuria Hypernatriuria Stone burden: - On CT (08/03) L renal stones, non-obs, 4 mm or smaller - On US (06/2025) 8 mm left lower pole, 4 mm R upper pole PLAN: Continue Indapamide, K Cit (10 mEq daily) Get KUB now Repeat 24h urine 6 mo follow up with [facility], with repeat KUB/RBUS prior Discussed that ultrasound and CT are not always comparable. For now she is asymptomatic, continue to observe stone(s). 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 Still on potassium citrate and Indapamide. Reviewed 24h urine, imaging. No longer following with Nephrology. 06/20/2025: RBUS - bilateral nephrolithiasis, 4 mm in the right upper pole, 8 mm in the left lower pole 01/09/25 24h urine: vol 1.43L, HCa 399 (498), HNa 261 (175) 12/18/2024 History of nephrolithiasis. Undergone lithotripsy twice by urologist in [place]. Most recently in August 2024. Had episode of sepsis requiring hospitalization after removing her stent. Has known left renal stones, reportedly 4 mm in the lower pole on CT scan from July 2024. Follows with endocrinology for history of hyperparathyroidism status post parathyroidectomy. PTH normalized postsurgery. Follows with nephrology (Dr. Nicole) as well. History of hypercalciuria on 24 urine test in October. Previously on indapamide and potassium citrate. Was off indapamide for the 24 urine test. Has since restarted. 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 Currently asymptomatic, wants to establish with urology here. Plan: Continue Indapamide, K Cit (10 mEq daily) Repeat 24h urine 6 mo follow up with KUB/RBUS Observe L renal stones for now given small size (4 mm) PAST STONE HISTORY: Date/year of first Episode: 2023 (knew about them for some time before) No. Of stones passed: 1 Prior 24hr urine: 10/30/2024: vol 1.7L, HCa 498, HNa 175, Cit 1200, Ox 32 Stone analysis: 70% CaOxM, 30% UA Prior stone related surgery: No. Of prior Shock Wave lithotripsy: x0 No. Of prior Ureteroscopy: 11/2023, 08/2024 ([place]) No. 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 RELEVANT IMAGING STUDIES (most recent): 08/04/2024: CT scan ([facility]) 5 mm right UPJ stone with hydronephrosis, nonobstructing left lower pole renal stones up to 4 mm LABS/INVESTIGATIONS: Urine Chemstrip: Lab Results Component Value Date GLUCOSE UA (POCT) Negative 11/08/2024 BILIRUBIN UA (POCT) Negative 11/08/2024 KETONE UA (POCT) Negative 11/08/2024 SPECIFIC GRAVITY UA (POCT) 1.020 11/08/2024 HEMOGLOBIN/BLOOD UA (POCT) Negative 11/08/2024 PH UA (POCT) 7.0 11/08/2024 PROTEIN UA (POCT) Negative 11/08/2024 UROBILINOGEN UA (POCT) 0.2 11/08/2024 NITRITE UA (POCT) Negative 11/08/2024 LEUKOCYTES UA (POCT) Negative 11/08/2024 COLOR UA (POCT) Yellow 11/08/2024 CLARITY UA (POCT) Clear 11/08/2024 Creatinine Date Value Ref Range Status 11/03/2024 0.65 0.58 - 0.96 mg/dL Final 09/26/2024 0.59 0.58 - 0.96 mg/dL Final 09/05/2024 0.57 (L) 0.58 - 0.96 mg/dL Final 03/23/2024 0.65 0.58 - 0.96 mg/dL Final Hemoglobin (g/dL) Date Value 09/05/2024 12.8 10/25/2021 13.4 Hematocrit (%) Date Value 09/05/2024 39.6 10/25/2021 41.6 WBC (k/uL) Date Value 09/05/2024 10.65 10/25/2021 7.74 No results found for: PSA, PSAPER HISTORIES FAMILY HISTORY Problem Relation Age of Onset Thyroid Mother Heart Mother Diabetes Mother Hypertension Father Heart Father Diabetes Father Diabetes Paternal Aunt Thyroid Other paternal side PAST MEDICAL HISTORY Diagnosis Date Dysmenorrhea Excessive or frequent menstruation Heavy periods Resolved Kidney stones Malaise and fatigue Mixed hyperlipidemia Parathyroid tumor 10/11/2014 benign, 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 [employer] Delivery Driver [place] Unspecified essential hypertension 10/11/2006 Vitamin D deficiency secondary to parathyroidectomy PAST SURGICAL HISTORY Procedure Laterality Date DELIVERY ONLY X 2 PARATHYROID 01/09/2015 tumor removed REMOVE KIDNEY STONE Left Social History Tobacco Use Smoking status: Never Smokeless tobacco: Never Vaping Use Vaping status: Never Used Substance Use Topics Alcohol use: No Drug use: No ALLERGIES Allergen Reactions Augmentin [Amoxicil* Vomiting Sulfa (Sulfonamide * Rash Current Outpatient Medications Medication Sig Dispense Refill valsartan (DIOVAN) 160 mg tablet TAKE 1 TABLET BY MOUTH EVERY DAY 30 tablet 11 rosuvastatin (CRESTOR) 10 mg tablet Take 1 tablet by mouth once daily. 90 tablet 3 SUMAtriptan (IMITREX) 100 mg tablet Take 1 tablet by mouth as needed for migraine headache (see administration instructions). 9 tablet 3 potassium citrate ER (UROCIT-K) 10 mEq (1,080 mg) Take 1,080 mg by mouth two times a day. Lactobac no.41/Bifidobact no.7 (PROBIOTIC-10 ORAL) Take by mouth. omega 6-ypq-olz-fish oil (FISH OIL) 100-160-1,000 mg cap Take by mouth. levonorgestrel (MIRENA) 20 mcg/24 hours (5-6 yrs) 52 mg IUD 1 Each by INTRAUTERINE route as directed. 1 Each 0 ERGOCALCIFEROL, VITAMIN D2, (VITAMIN D ORAL) Take 2 capsules by mouth once daily. tamsulosin (FLOMAX) 0.4 mg Take 1 capsule by mouth daily at bedtime. 90 capsule 0 calcium carbonate 600 mg-cholecalciferol 400 units (CALCIUM WITH VITAMIN D) 600 mg-10 mcg (400 unit) tab Take 1 tablet by mouth once daily. No current facility-administered medications for this visit. PHYSICAL EXAMINATION: Vitals: Ht 162.6 cm (5' 4) Wt 78 kg (172 lb) LMP 10/19/2023 (Approximate) BMI 29.52 kg/m BMI: Body mass index is 29.52 kg/m . Constitutional: Apparent distress -No Psych: Alert & oriented - Yes; documented in this encounter [facility] 06-20-2025 History of Present illness Narrative Radiology Service Progress Note PATIENT NAME: Jose R Watt DATE OF SERVICE: June 20, 2025 TIME: 7:37 AM PATIENT IDENTITY VERIFICATION COMPLETED USING TWO (2) IDENTIFIERS: Name and Date of confirmed by patient verbally. FALL SCREENING: Has the patient had 2 falls in the last year or 1 fall with injury or currently using an Ambulatory Assistive Device (Walker, Cane, Wheelchair, Crutches, etc.)? No PATIENT GENDER DATA: Assigned female at . status: : No status: NO. PATIENT RELEVANT IMPLANT DATA REVIEWED: Not Applicable PATIENT PRESENTS WITH AN IMPLANTABLE OR ATTACHED CURB WORKER: No RADIOLOGY DEPARTMENT: Ultrasound PERIPHERAL IV DATA: Not applicable SIGNED BY: Jemima Irvin RDMS June 20, 2025 7:37 AM documented in this encounter [facility] 06-20-2025 Note HNO ID: [id number] Author: JEMIMA IRVIN RDMS Service: ? Author Type: Market Specialist Type: Progress Notes Filed: 06/20/2025 07:38 Note Text: Radiology Service Progress Note PATIENT NAME: Jose R Watt DATE OF SERVICE: June 20, 2025 TIME: 7:37 AM PATIENT IDENTITY VERIFICATION COMPLETED USING TWO (2) IDENTIFIERS: Name and Date of confirmed by patient verbally. FALL SCREENING: Has the patient had 2 falls in the last year or 1 fall with injury or currently using an Ambulatory Assistive Device (Walker, Cane, Wheelchair, Crutches, etc.)? No PATIENT GENDER DATA: Assigned female at . status: : No status: NO. PATIENT RELEVANT IMPLANT DATA REVIEWED: Not Applicable PATIENT PRESENTS WITH AN IMPLANTABLE OR ATTACHED CURB WORKER: No RADIOLOGY DEPARTMENT: Ultrasound PERIPHERAL IV DATA: Not applicable SIGNED BY: Jemima Irvin RDMS June 20, 2025 7:37 AM [facility] 05-21-2025 History of Present illness Narrative Radiology Service Progress Note PATIENT NAME: Jose R Watt DATE OF SERVICE: May 21, 2025 TIME: 1:58 PM PATIENT IDENTITY VERIFICATION COMPLETED USING TWO (2) IDENTIFIERS: Name and Date of confirmed by patient verbally. FALL SCREENING: Has the patient had 2 falls in the last year or 1 fall with injury or currently using an Ambulatory Assistive Device (Walker, Cane, Wheelchair, Crutches, etc.)? No PATIENT GENDER DATA: Assigned female at . status: : No status: NO. PATIENT RELEVANT IMPLANT DATA REVIEWED: Not Applicable PATIENT PRESENTS WITH AN IMPLANTABLE OR ATTACHED CURB WORKER: No RADIOLOGY DEPARTMENT: Mammography PERIPHERAL IV DATA: Not applicable SIGNED BY: Jil Johnson May 21, 2025 1:58 PM documented in this encounter [facility] 05-21-2025 Note HNO ID: [id number] Author: SOHEILA CARDONA Mammo Tech Service: ? Author Type: Market Specialist Type: Progress Notes Filed: 05/21/2025 13:58 Note Text: Radiology Service Progress Note PATIENT NAME: Jose R Watt DATE OF SERVICE: May 21, 2025 TIME: 1:58 PM PATIENT IDENTITY VERIFICATION COMPLETED USING TWO (2) IDENTIFIERS: Name and Date of confirmed by patient verbally. FALL SCREENING: Has the patient had 2 falls in the last year or 1 fall with injury or currently using an Ambulatory Assistive Device (Walker, Cane, Wheelchair, Crutches, etc.)? No PATIENT GENDER DATA: Assigned female at . status: : No status: NO. PATIENT RELEVANT IMPLANT DATA REVIEWED: Not Applicable PATIENT PRESENTS WITH AN IMPLANTABLE OR ATTACHED CURB WORKER: No RADIOLOGY DEPARTMENT: Mammography PERIPHERAL IV DATA: Not applicable SIGNED BY: Jil Johnson May 21, 2025 1:58 PM [facility] 05-16-2025 Note HNO ID: [id number] Author: SOHEILA CARDONA Mammo Tech Service: ? Author Type: Market Specialist Type: Progress Notes Filed: 05/16/2025 08:17 Note Text: Radiology Service Progress Note PATIENT NAME: Jose R Watt DATE OF SERVICE: May 16, 2025 TIME: 8:17 AM PATIENT IDENTITY VERIFICATION COMPLETED USING TWO (2) IDENTIFIERS: Name and Date of confirmed by patient verbally. FALL SCREENING: Has the patient had 2 falls in the last year or 1 fall with injury or currently using an Ambulatory Assistive Device (Walker, Cane, Wheelchair, Crutches, etc.)? No PATIENT GENDER DATA: Assigned female at . status: : No status: NO. PATIENT RELEVANT IMPLANT DATA REVIEWED: Not Applicable PATIENT PRESENTS WITH AN IMPLANTABLE OR ATTACHED CURB WORKER: No RADIOLOGY DEPARTMENT: Mammography PERIPHERAL IV DATA: Not applicable SIGNED BY: Jil Johnson May 16, 2025 8:17 AM [facility] 03-06-2025 Telephone encounter Note The patient has been identified by name and date of : Yes Caregiver verified no other encounters exist for this prescription request: Yes Caregiver confirmed with patient/requestor that no other refills are due, in the near future, with this provider at this time: Yes The last office visit in the department: 09/11/2024 Does the patient have a future office visit with this provider/department: 08/08/2025 [facility] Wellness. Offered sooner appt with [employer] but patient wanted to see Dr. Ronquillo. Requested Prescriptions Pending Prescriptions Disp Refills rosuvastatin (CRESTOR) 10 mg tablet Sig: Take 1 tablet by mouth once daily. SUMAtriptan (IMITREX) 100 mg tablet Sig: Take 1 tablet by mouth as needed for migraine headache (see administration instructions). Bertha Lucero RN March 06, 2025 12:20 PM [facility] 03-06-2025 Miscellaneous Notes The patient has been identified by name and date of : Yes Caregiver verified no other encounters exist for this prescription request: Yes Caregiver confirmed with patient/requestor that no other refills are due, in the near future, with this provider at this time: Yes The last office visit in the department: 09/11/2024 Does the patient have a future office visit with this provider/department: 08/08/2025 Yearly Wellness. Offered sooner appt with [employer] but patient wanted to see Dr. Ronquillo. Requested Prescriptions Pending Prescriptions Disp Refills rosuvastatin (CRESTOR) 10 mg tablet Sig: Take 1 tablet by mouth once daily. SUMAtriptan (IMITREX) 100 mg tablet Sig: Take 1 tablet by mouth as needed for migraine headache (see administration instructions). Bertha Lucero RN March 06, 2025 12:20 PM documented in this encounter [facility] 03-06-2025 Telephone encounter Note Pharmacy verified in [employer]. Patient has been identified by name and date of : Yes Patient aware RX will be sent to pharmacy. No need to notify patient. Patient phones for refill(s): Requested Prescriptions Pending Prescriptions Disp Refills valsartan (DIOVAN) 160 mg tablet [Pharmacy Med Name: VALSARTAN 160 MG TABLET] 30 tablet 11 Sig: TAKE 1 TABLET BY MOUTH EVERY DAY Date of last office visit : 09/11/2024 Date of next office visit : Visit date not found Last 2 Encounter Wt Readings: Date: Wt: 12/18/2024 78.9 kg (174 lb) 11/08/2024 81.2 kg (179 lb) Blood Pressure: BUN (mg/dL) Date Value 11/03/2024 19 10/25/2021 13 10/25/2021 12 Creatinine (mg/dL) Date Value 11/03/2024 0.65 10/25/2021 0.62 10/25/2021 0.63 Sodium (mmol/L) Date Value 11/03/2024 142 10/25/2021 142 10/25/2021 141 Potassium (mmol/L) Date Value 11/03/2024 4.3 10/25/2021 4.3 10/25/2021 4.2 Last 1 Encounter BP Readings: Date: BP: 10/17/2024 146/93 Please advise. Inocencia Sosa MA [facility] 03-06-2025 Miscellaneous Notes Pharmacy verified in [facility]. Patient has been identified by name and date of : Yes Patient aware RX will be sent to pharmacy. No need to notify patient. Patient phones for refill(s): Requested Prescriptions Pending Prescriptions Disp Refills valsartan (DIOVAN) 160 mg tablet [Pharmacy Med Name: VALSARTAN 160 MG TABLET] 30 tablet 11 Sig: TAKE 1 TABLET BY MOUTH EVERY DAY Date of last office visit : 09/11/2024 Date of next office visit : Visit date not found Last 2 Encounter Wt Readings: Date: Wt: 12/18/2024 78.9 kg (174 lb) 11/08/2024 81.2 kg (179 lb) Blood Pressure: BUN (mg/dL) Date Value 11/03/2024 19 10/25/2021 13 10/25/2021 12 Creatinine (mg/dL) Date Value 11/03/2024 0.65 10/25/2021 0.62 10/25/2021 0.63 Sodium (mmol/L) Date Value 11/03/2024 142 10/25/2021 142 10/25/2021 141 Potassium (mmol/L) Date Value 11/03/2024 4.3 10/25/2021 4.3 10/25/2021 4.2 Last 1 Encounter BP Readings: Date: BP: 10/17/2024 146/93 Please advise. Inocencia Sosa MA documented in this encounter [facility] 01-24-2025 Note HNO ID: [id number] Author: ARTI BROWN MA Service: ? Author Type: Restaurant Operations Manager Type: Progress Notes Filed: 01/24/2025 09:16 Note Text: Patient records received via electronic fax. Uploaded to [facility] via [employer]. Please review in scanned documents tab of chart review. Scan on 01/13/2025 4:02 AM by Provider, External, PABriseydaC: [facility] 01/12/25 Arti Brown MA [facility] 01-24-2025 History of Present illness Narrative Patient records received via electronic fax. Uploaded to [facility] via [employer]. Please review in scanned documents tab of chart review. Scan on 01/13/2025 4:02 AM by Provider, CR Beal: [facility] 01/12/25 Arti Brown MA documented in this encounter [facility] 12-18-2024 Note HNO ID: [id number] Author: АЛЕКСАНДР OSHEA MD Service: ? Author Type: Physician Type: Progress Notes Filed: 12/18/2024 16:52 Note Text: [facility] NOTE Patient: Jose R Watt Provider: Александр Oshea MD : 1975 Date of Service: 12/18/2024 PCP: Shon Ronquillo DO Chief complaint/Identification: Jose R Watt is a 49 year old female patient who presents for evaluation of nephrolithiasis. ASSESSMENT: 1. Recurrent nephrolithiasis - ICD9: 592.0, ICD10: N20.0 (primary diagnosis) 2. Left renal stone - ICD9: 592.0, ICD10: N20.0 3. 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 Hypernatriuria - ICD9: 276.0, ICD10: E87.0 5. Calcium oxalate stones - ICD9: 592.0, ICD10: N20.0 6. Uric acid kidney stone - ICD9: 274.11, ICD10: N20.0 Hx of CaOxD / UA stones Hypercalciuria Hypernatriuria L renal stones, non-obs, 4 mm or smaller PLAN: Continue Indapamide, K Cit (10 mEq daily) Repeat 24h urine 6 mo follow up with KUB/RBUS Observe L renal stones for now given small size (4 mm) Discussed dietary interventions to preventing kidney stone formation - Increased fluid intake (at least 3L/day) - Dietary sodium restriction (<2300 mg/day) - Increased fruit/vegetable intake - Decrease oxalate levels, or eat calcium-rich foods with meals - Limit meat intake (especially cysteine stones or CaOx stones with high urine uric acid) - Take in the 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 Undergone lithotripsy twice by urologist in [place]. Most recently in August 2024. Had episode of sepsis requiring hospitalization after removing her stent. Has known left renal stones, reportedly 4 mm in the lower pole on CT scan from July 2024. Follows with endocrinology for history of hyperparathyroidism status post parathyroidectomy. PTH normalized postsurgery. Follows with nephrology (Dr. Nicole) as well. History of hypercalciuria on 24 urine test in October. Previously on indapamide and potassium citrate. Was off indapamide for the 24 urine test. Has since restarted. 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 Currently asymptomatic, wants to establish with urology here. PAST STONE HISTORY: Date/year of first Episode: 2023 (knew about them for some time before) No. Of stones passed: 1 Prior 24hr urine: 10/30/2024: vol 1.7L, HCa 498, HNa 175, Cit 1200, Ox 32 Stone analysis: 70% CaOxM, 30% UA Prior stone related surgery: No. Of prior Shock Wave lithotripsy: x0 No. Of prior Ureteroscopy: 11/2023, 08/2024 ([place]) No. 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 RELEVANT IMAGING STUDIES (most recent): 08/04/2024: CT scan ([facility]) 5 mm right UPJ stone with hydronephrosis, nonobstructing left lower pole renal stones up to 4 mm LABS/INVESTIGATIONS: Urine Chemstrip: Lab Results Component Value Date GLUCOSE UA (POCT) Negative 11/08/2024 BILIRUBIN UA (POCT) Negative 11/08/2024 KETONE UA (POCT) Negative 11/08/2024 SPECIFIC GRAVITY UA (POCT) 1.020 11/08/2024 HEMOGLOBIN/BLOOD UA (POCT) Negative 11/08/2024 PH UA (POCT) 7.0 11/08/2024 PROTEIN UA (POCT) Negative 11/08/2024 UROBILINOGEN UA (POCT) 0.2 11/08/2024 NITRITE UA (POCT) Negative 11/08/2024 LEUKOCYTES UA (POCT) Negative 11/08/2024 COLOR UA (POCT) Yellow 11/08/2024 CLARITY UA (POCT) Clear 11/08/2024 Creatinine Date Value Ref Range Status 11/03/2024 0.65 0.58 - 0.96 mg/dL Final 09/26/2024 0.59 0.58 - 0.96 mg/dL Final 09/05/2024 0.57 (L) 0.58 - 0.96 mg/dL Final 03/23/2024 0.65 0.58 - 0.96 mg/dL Final Hemoglobin (g/dL) Date Value 09/05/2024 12.8 10/25/2021 13.4 Hematocrit (%) Date Value 09/05/2024 39.6 10/25/2021 41.6 WBC (k/uL) Date Value 09/05/2024 10.65 10/25/2021 7.74 No results found for: PSA, PSAPER HISTORIES FAMILY HISTORY Problem Relation Age of Onset Thyroid Mother Heart Mother Diabetes Mother Hypertension Father Heart Father Diabetes Father Diabetes Paternal Aunt Thyroid Other paternal side PAST MEDICAL HISTORY Diagnosis Date Dysmenorrhea Excessive or frequent menstruation Heavy periods Resolved Kidney stones Malaise and fatigue Mixed hyperlipidemia Parathyroid tumor (more content not included)... [facility] 12-18-2024 History of Present illness Narrative Images from the original note were not included. [facility] UR[facility]INIC NOTE Patient: Jose R Watt Provider: Александр Oshea MD : 1975 Date of Service: 12/18/2024 PCP: Shon Ronquillo DO Chief complaint/Identification: Jose R Watt is a 49 year old female patient who presents for evaluation of nephrolithiasis. ASSESSMENT: 1. Recurrent nephrolithiasis - ICD9: 592.0, ICD10: N20.0 (primary diagnosis) 2. Left renal stone - ICD9: 592.0, ICD10: N20.0 3. 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 Hypernatriuria - ICD9: 276.0, ICD10: E87.0 5. Calcium oxalate stones - ICD9: 592.0, ICD10: N20.0 6. Uric acid kidney stone - ICD9: 274.11, ICD10: N20.0 Hx of CaOxD / UA stones Hypercalciuria Hypernatriuria L renal stones, non-obs, 4 mm or smaller PLAN: Continue Indapamide, K Cit (10 mEq daily) Repeat 24h urine 6 mo follow up with KUB/RBUS Observe L renal stones for now given small size (4 mm) Discussed dietary interventions to preventing kidney stone formation - Increased fluid intake (at least 3L/day) - Dietary sodium restriction (<2300 mg/day) - Increased fruit/vegetable intake - Decrease oxalate levels, or eat calcium-rich foods with meals - Limit meat intake (especially cysteine stones or CaOx stones with high urine uric acid) - Take in the 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 Undergone lithotripsy twice by urologist in [place]. Most recently in August 2024. Had episode of sepsis requiring hospitalization after removing her stent. Has known left renal stones, reportedly 4 mm in the lower pole on CT scan from July 2024. Follows with endocrinology for history of hyperparathyroidism status post parathyroidectomy. PTH normalized postsurgery. Follows with nephrology (Dr. Nicole) as well. History of hypercalciuria on 24 urine test in October. Previously on indapamide and potassium citrate. Was off indapamide for the 24 urine test. Has since restarted. 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 Currently asymptomatic, wants to establish with urology here. PAST STONE HISTORY: Date/year of first Episode: 2023 (knew about them for some time before) No. Of stones passed: 1 Prior 24hr urine: 10/30/2024: vol 1.7L, HCa 498, HNa 175, Cit 1200, Ox 32 Stone analysis: 70% CaOxM, 30% UA Prior stone related surgery: No. Of prior Shock Wave lithotripsy: x0 No. Of prior Ureteroscopy: 11/2023, 08/2024 ([place]) No. 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 RELEVANT IMAGING STUDIES (most recent): 08/04/2024: CT scan ([facility]) 5 mm right UPJ stone with hydronephrosis, nonobstructing left lower pole renal stones up to 4 mm LABS/INVESTIGATIONS: Urine Chemstrip: Lab Results Component Value Date GLUCOSE UA (POCT) Negative 11/08/2024 BILIRUBIN UA (POCT) Negative 11/08/2024 KETONE UA (POCT) Negative 11/08/2024 SPECIFIC GRAVITY UA (POCT) 1.020 11/08/2024 HEMOGLOBIN/BLOOD UA (POCT) Negative 11/08/2024 PH UA (POCT) 7.0 11/08/2024 PROTEIN UA (POCT) Negative 11/08/2024 UROBILINOGEN UA (POCT) 0.2 11/08/2024 NITRITE UA (POCT) Negative 11/08/2024 LEUKOCYTES UA (POCT) Negative 11/08/2024 COLOR UA (POCT) Yellow 11/08/2024 CLARITY UA (POCT) Clear 11/08/2024 Creatinine Date Value Ref Range Status 11/03/2024 0.65 0.58 - 0.96 mg/dL Final 09/26/2024 0.59 0.58 - 0.96 mg/dL Final 09/05/2024 0.57 (L) 0.58 - 0.96 mg/dL Final 03/23/2024 0.65 0.58 - 0.96 mg/dL Final Hemoglobin (g/dL) Date Value 09/05/2024 12.8 10/25/2021 13.4 Hematocrit (%) Date Value 09/05/2024 39.6 10/25/2021 41.6 WBC (k/uL) Date Value 09/05/2024 10.65 10/25/2021 7.74 No results found for: PSA, PSAPER HISTORIES FAMILY HISTORY Problem Relation Age of Onset Thyroid Mother Heart Mother Diabetes Mother Hypertension Father Heart Father Diabetes Father Diabetes Paternal Aunt Thyroid Other paternal side PAST MEDICAL HISTORY Diagnosis Date Dysmenorrhea Excessive or frequent menstruation Heavy periods Resolved Kidney stones Malaise and fatigue Mixed hyperlipidemia Parathyroid tumor 10/11/2014 benign, Dr. Hernandez [employer] [place] Premenstrual tension syndromes Thyroid nodule 10/11/2014 Dr. [employer] [place] Unspecified essential hypertension 10/11/2006 Vitamin D deficiency secondary to parathyroidectomy PAST SURGICAL HISTORY Procedure Laterality Date DELIVERY ONLY X 2 PARATHYROID 01/09/2015 tumor removed REMOVE KIDNEY STONE Left Social History Tobacco Use Smoking status: Never Smokeless tobacco: Never Vaping Use Vaping status: Never Used Substance Use Topics Alcohol use: No Drug use: No ALLERGIES Allergen Reactions Augmentin [Amoxicil* Vomiting Sulfa (Sulfonamide * Rash Current Outpatient Medications Medication Sig Dispense Refill potassium citrate ER (UROCIT-K) 10 mEq (1,080 mg) Take 1,080 mg by mouth two times a day. tamsulosin (FLOMAX) 0.4 mg Take 1 capsule by mouth daily at bedtime. 90 capsule 0 SUMAtriptan (IMITREX) 100 mg tablet Take 1 tablet (100 mg) by mouth as needed for migraine headache (see administration instructions). 12 tablet 5 valsartan (DIOVAN) 160 mg tablet Take 1 tablet by mouth once daily. 90 tablet 3 omega 4-nbv-irx-fish oil (FISH OIL) 100-160-1,000 mg cap Take by mouth. levonorgestrel (MIRENA) 20 mcg/24 hours (5-6 yrs) 52 mg IUD 1 Each by INTRAUTERINE route as directed. 1 Each 0 Lactobac no.41/Bifidobact no.7 (PROBIOTIC-10 ORAL) Take by mouth. indapamide (LOZOL) 1.25 mg tablet Take 1.25 mg by mouth once daily. (Patient not taking: Reported on 09/11/2024) rosuvastatin (CRESTOR) 10 mg tablet Take 1 tablet by mouth once daily. 90 tablet 3 calcium carbonate 600 mg-cholecalciferol 400 units (CALCIUM WITH VITAMIN D) 600 mg-10 mcg (400 unit) tab Take 1 tablet by mouth once daily. fluticasone (FLONASE) 50 mcg/actuation nasal spray Use 2 Sprays in each nostril once daily. Rinse mouth after use. (Patient not taking: Reported on 12/01/2023) 11.1 mL 0 ERGOCALCIFEROL, VITAMIN D2, (VITAMIN D ORAL) Take 2 capsules by mouth once daily. No current facility-administered medications for this visit. PHYSICAL EXAMINATION: Vitals: Pulse 76 Resp 16 Ht 162.6 cm (5' 4) Wt 78.9 kg (174 lb) LMP 10/19/2023 (Approximate) SpO2 98% BMI 29.87 kg/m BMI: Body mass index is 29.87 kg/m . Constitutional: Apparent distress -No Psych: Alert & oriented - Yes; documented in this encounter [facility] 11-15-2024 Telephone encounter Note Called patient. No answer- unable to leave message. Patients culture shows no urinary tract infection. It shows abnormal because there are different types of bacteria in the urine. Nothing grew abnormally but what was present could have been improper cleansing with vaginal mohamud, skin from surrounding area got into the urine. Arti Yepez LPN [facility] 11-15-2024 Miscellaneous Notes Called patient. No answer- unable to leave message. Patients culture shows no urinary tract infection. It shows abnormal because there are different types of bacteria in the urine. Nothing grew abnormally but what was present could have been improper cleansing with vaginal mohamud, skin from surrounding area got into the urine. Arti Yepez LPN Patient calling and states she had received her results and was told no bacteria. Patient is asking why the results in my-chart are saying abnormal? She wants to know what that means? Called patient. No answer- left message to call clinic for results and that [employer] message being sent. Arti Yepez LPN ----- Message from Enmanuel Vargas PA-C sent at 11/13/2024 3:35 PM EST ----- No infection in the urine MAIA Downs, CR CROOKS documented in this encounter [facility] 11-15-2024 Telephone encounter Note Patient calling and states she had received her results and was told no bacteria. Patient is asking why the results in my-chart are saying abnormal? She wants to know what that means? [facility] 11-13-2024 Telephone encounter Note Called patient. No answer- left message to call clinic for results and that [employer] message being sent. Arti Yepez LPN [facility] 11-13-2024 Telephone encounter Note ----- Message from Enmanuel Vargas PA-C sent at 11/13/2024 3:35 PM EST ----- No infection in the urine MAIA Downs, CR CROOKS [facility] 11-10-2024 Note HNO ID: [id number] Author: ANDREA NICOLE MD Service: ? Author Type: Physician Type: Progress Notes Filed: 11/10/2024 17:48 Note Text: Records from endocrine clinic ([facility] endocrinology) obtained and reviewed: There is mention of primary hyperparathyroidism for which patient underwent right inferior parathyroidectomy on 01/2015. No baseline parathyroid hormone level before the surgery is documented. Function has always been normal. Serum calcium 9.9 from 11/03/2024 with normal albumin. Litholink panel done on 01/24/2024 reviewed: Urine volume 1.47 L Urine calcium 452 mg Urine oxalate 22 mg Urine citrate 1199 mg Urine pH 6.555 Uric acid 0.575 mg [facility] 11-10-2024 History of Present illness Narrative Records from endocrine clinic ([facility]) obtained and reviewed: There is mention of primary hyperparathyroidism for which patient underwent right inferior parathyroidectomy on 01/2015. No baseline parathyroid hormone level before the surgery is documented. Function has always been normal. Serum calcium 9.9 from 11/03/2024 with normal albumin. Litholink panel done on 01/24/2024 reviewed: Urine volume 1.47 L Urine calcium 452 mg Urine oxalate 22 mg Urine citrate 1199 mg Urine pH 6.555 Uric acid 0.575 mg documented in this encounter [facility] 11-08-2024 Instructions Andrea Nicole MD - 11/08/2024 3:05 PM EST INSTRUCTIONS FOR 24 HOUR URINE COLLECTION -You will need to supervisor picking crew a urine jug from any [facility] lab and collect urine for 24 hrs, as below: -To collect 24 hour urine, you would ideally want to do this on a day that you are not working and/or staying home for most of the day. -You will start your urine collection in the morning when you wake up (for example, at 7 am) -- please note that the very first urine should be flushed down the toilet (do not collect this), and then all urine after this gets collected into the urine jug during the course of the day (and night), until the following morning at 7 am (this is the last urine that you will collect). -Once you start the collection, all of your urine goes into the jug. If you forget and go into the toilet, dump out the urine and start the test over the next chance you have. -The urine jug needs to be kept cold until you bring it back to the lab, i.e., in the fridge or cooler or ice-bucket -You will need to drop off urine as soon as you are done (please time your collection such that you don't finish your collection on a day that the lab is closed, because you want to drop off the urine jug to the lab on the day that you finish collection) Fluid intake of 80-96 oz a day Low salt, low oxalate diet. Cut down the intake of red meat. Labs every 6 months documented in this encounter [facility] 11-08-2024 History of Present illness Narrative [facility] SERVICE DATE: 11/08/2024 REASON FOR CONSULT: I am asked to see this patient in consultation for my opinion regarding renal stones. My recommendations will be communicated by way of shared medical record, fax, or mail. REQUESTING PHYSICIAN: Shon Ronquillo DO PRIMARY CARE PHYSICIAN: Shon Ronquillo DO CHIEF COMPLAINT: renal stones HPI: 49-year-old female with medical history current for significant for kidney stones, hypertension, h/o hyperparathyroidism s/p parathyroidectomy, thyroid nodule, dyslipidemia has been referred for history of pyelonephritis. She came to know that she had kidney stones years back but she ignored it. She started having pain last Nov and that was the first time she was diagnosed with kidney stone formally. She had lithotripsy in the right kidney done in Nov and then in Jul, 2024. Had stent removed in Jul and then she got admitted to [facility] in August, with right-sided pyelonephritis and was sick to the extent of needing ICU stay. She still complains of pain but it is on the left side though. She recently passed a stone which was analysed recently and was found to have calcium oxatate and uric acid stone (mixed). Her Father and brother both have kidney stones. Not aware if any of them had problems with parathyroid gland. She has been following up with an Endocrine physician at [place] for around 8 years. She also had one parathyroid gland removed and used to be calcium supplements which she stopped doing around a year ago. She was started on Indapamide around Nov, 2023 and she taking taking it in Jul, 2024 before re-starting two days. Fluid intake of around 64 oz a day. Does not smoke or drink alcohol. 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 Review of the labs show that patient's kidney function is normal. Patient had a 24-hour urine stone panel test done which shows high urinary calcium of 498 mg and oxalate of 32 mg. Stone composition analysis done on 10/29/2024 shows 70% calcium oxalate monohydrate and 30% uric acid stones. Patient is on valsartan 160 mg daily, tamsulosin 0.4 mg at bedtime, potassium citrate 10 mEq twice daily, rosuvastatin 10 mg daily, ergocalciferol 2 caps daily, calcium plus vitamin D, indapamide 1.25 mg daily. PAST MEDICAL HISTORY: PAST MEDICAL HISTORY Diagnosis Date Dysmenorrhea Excessive or frequent menstruation Heavy periods Resolved Kidney stones Malaise and fatigue Mixed hyperlipidemia Parathyroid tumor 10/11/2014 benign, 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 [employer] Donnie Unspecified essential hypertension 10/11/2006 Vitamin D deficiency secondary to parathyroidectomy PAST SURGICAL HISTORY: PAST SURGICAL HISTORY Procedure Laterality Date DELIVERY ONLY X 2 PARATHYROID 01/09/2015 tumor removed REMOVE KIDNEY STONE Left FAMILY HISTORY: FAMILY HISTORY Problem Relation Age of Onset Thyroid Mother Heart Mother Diabetes Mother Hypertension Father Heart Father Diabetes Father Diabetes Paternal Aunt Thyroid Other paternal side SOCIAL HISTORY: Social History Tobacco Use Smoking status: Never Smokeless tobacco: Never Vaping Use Vaping status: Never Used Substance Use Topics Alcohol use: No Drug use: No MEDICATIONS: potassium citrate ER (UROCIT-K) 10 mEq (1,080 mg) Take 1,080 mg by mouth two times a day. tamsulosin (FLOMAX) 0.4 mg Take 1 capsule by mouth daily at bedtime. Lactobac no.41/Bifidobact no.7 (PROBIOTIC-10 ORAL) Take by mouth. SUMAtriptan (IMITREX) 100 mg tablet Take 1 tablet (100 mg) by mouth as needed for migraine headache (see administration instructions). indapamide (LOZOL) 1.25 mg tablet Take 1.25 mg by mouth once daily. (Patient not taking: Reported on 09/11/2024) rosuvastatin (CRESTOR) 10 mg tablet Take 1 tablet by mouth once daily. valsartan (DIOVAN) 160 mg tablet Take 1 tablet by mouth once daily. calcium carbonate 600 mg-cholecalciferol 400 units (CALCIUM WITH VITAMIN D) 600 mg-10 mcg (400 unit) tab Take 1 tablet by mouth once daily. fluticasone (FLONASE) 50 mcg/actuation nasal spray Use 2 Sprays in each nostril once daily. Rinse mouth after use. (Patient not taking: Reported on 12/01/2023) omega 6-rrs-nvx-fish oil (FISH OIL) 100-160-1,000 mg cap Take by mouth. levonorgestrel (MIRENA) 20 mcg/24 hours (5-6 yrs) 52 mg IUD 1 Each by INTRAUTERINE route as directed. ERGOCALCIFEROL, VITAMIN D2, (VITAMIN D ORAL) Take 2 capsules by mouth once daily. ALLERGIES: ALLERGIES Allergen Reactions Augmentin [Amoxicil* Vomiting Sulfa (Sulfonamide * Rash REVIEW OF SYSTEMS: Constitutional: No fevers, chills, weight loss Eyes: No loss in vision, photophobia Ear, Nose, and Throat: No epistaxis, nasal congestion Cardiovascular: No chest pain, FRIED, SOB, palpitations Respiratory: No cough, hemoptysis Gastrointestinal: No diarrhea, constipation Genitourinary: No dysuria, polyuria Musculoskeletal: No joint pain, morning stiffness Skin: No rash, no ulcers Neurological: No headaches, seizures, paresthesias Psychiatric: No depression, anxiety Endocrine: No hair loss, no heat intolerance Hematologic:No easy bruising, easy bleeding PHYSICAL EXAM: LMP 10/19/2023 (Approximate) Wt 81.2 kg (179 lb) LMP 10/19/2023 (Approximate) BMI 31.21 kg/m General: Awake, not in distress. HENT: Normocephalic. Eyes: PERRL, Anicteric Neck:Trachea midline, No JVD Respiratory: Clear bilaterally. CV: RRR, No murmurs, rubs, or gallops Abdomen: Soft, non-distended. Extremities: Pedal edema absent. Skin: No rashes. Neurologic: Alert and oriented x 3, no focal deficits. Psychiatric: Cooperative, normal mood/affect. DATA: Diagnostic tests reviewed for today's visit: No results for input(s): COLOR, CLARITY, UGLUC, UBILI, UKET, SPGR, UHB, UPH, UPROT, NITRITES, LEUKEST, UWBC, URBC in the last 8784 hours. Recent Labs 09/05/24 0833 03/23/24 1202 B12 -- 405 HB 12.8 -- Recent Labs 11/03/24 1632 09/05/24 0833 03/23/24 1202 ALKPHOS 66 < > 66 VITD25 -- -- 50.7 CA 9.9 < > 10.3* ALB 4.6 < > 4.7 < > = values in this interval not displayed. URINE POC GLUCOSE UA (POCT) Negative 11/08/2024 BILIRUBIN UA (POCT) Negative 11/08/2024 KETONE UA (POCT) Negative 11/08/2024 SPECIFIC GRAVITY UA (POCT) 1.020 11/08/2024 HEMOGLOBIN/BLOOD UA (POCT) Negative 11/08/2024 PH UA (POCT) 7.0 11/08/2024 PROTEIN UA (POCT) Negative 11/08/2024 UROBILINOGEN UA (POCT) 0.2 11/08/2024 NITRITE UA (POCT) Negative 11/08/2024 LEUKOCYTES UA (POCT) Negative 11/08/2024 COLOR UA (POCT) Yellow 11/08/2024 CLARITY UA (POCT) Clear 11/08/2024 Glucose (mg/dL) Date Value 11/03/2024 86 10/25/2021 90 10/25/2021 89 Potassium (mmol/L) Date Value 11/03/2024 4.3 10/25/2021 4.3 10/25/2021 4.2 Sodium (mmol/L) Date Value 11/03/2024 142 10/25/2021 142 10/25/2021 141 Chloride (mmol/L) Date Value 11/03/2024 105 10/25/2021 106 10/25/2021 105 CO2 (mmol/L) Date Value 11/03/2024 27 10/25/2021 25 10/25/2021 24 Creatinine (mg/dL) Date Value 11/03/2024 0.65 10/25/2021 0.62 10/25/2021 0.63 BUN (mg/dL) Date Value 11/03/2024 19 10/25/2021 13 10/25/2021 12 Anion Gap (mmol/L) Date Value 11/03/2024 10 10/25/2021 11 10/25/2021 12 Calcium (mg/dL) Date Value 10/25/2021 9.6 10/25/2021 9.6 Calcium, Total (mg/dL) Date Value 11/03/2024 9.9 GFR (mL/MIN) Date Value 08/22/2019 102 eGFR- (no units) Date Value 10/25/2021 >60 10/25/[address] abdomen and pelvis 08/04/2025 (done at [facility]) Impression: 5 mm obstructing stone in the right ureteropelvic junction with associated mild right hydronephrosis. Other nonobstructing stones seen in the left lower renal pole measuring up to 4 mm. ASSESSMENT: Renal stones: History of Bilateral stones. Patient had lithotripsy done at [facility] in July, following which she developed pyelonephritis needing ICU stay. Stone analysis revealed 70% calcium oxalate and 30% uric acid stone. 24-hour urine shows calcium of 498 mg and oxalate of 32 mg with high citric acid levels. She has been taking potassium citrate 10 mEq twice daily. She also has a strong family history of kidney stones. Also had a parathyroid gland/adenoma removed several years back. 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 Hypertension: Patient is on valsartan 160 mg daily, indapamide 1.25 mg daily. BP is controlled. Pelvic exam. PLAN: Will get records from her endocrine physician in [place]. Advised to continue taking potassium citrate 10 mEq daily and indapamide 1.25 mg daily. Repeat Litholink panel in 3 months. Advised to increase fluid intake (80-96 oz a day) , stay with low oxalate and low purine diet -flyers provided Check PTH and vitamin D levels along with renal panel. She is scheduled to see urology on 12/18/2024. I spent a total of 65 minutes on the date of the service which included preparing to see the patient, [id number] patient care, completing clinical documentation, obtaining and/or reviewing separately obtained history, performing a medically appropriate examination, counseling and educating the patient/family/caregiver, and ordering medications, tests, or procedures. Patient will need a buttermaker helper follow-up in renal clinic. SIGNATURE: Andrea Nicole MD, [facility], [facility] PATIENT NAME: Jose R Watt OFFICE NUMBER: [phone] CC: REFERRING PROVIDER: Shon Ronquillo DO PRIMARY CARE PHYSICIAN: Shon Ronquillo DO documented in this encounter [facility] 11-08-2024 Note HNO ID: [id number] Author: ANDREA NICOLE MD Service: ? Author Type: Physician Type: Progress Notes Filed: 11/08/2024 17:47 Note Text: [facility]YP[facility] SERVICE DATE: 11/08/2024 REASON FOR CONSULT: I am asked to see this patient in consultation for my opinion regarding renal stones. My recommendations will be communicated by way of shared medical record, fax, or mail. REQUESTING PHYSICIAN: Shon Ronquillo DO PRIMARY CARE PHYSICIAN: Shon Ronquillo DO CHIEF COMPLAINT: renal stones HPI: 49-year-old female with medical history current for significant for kidney stones, hypertension, h/o hyperparathyroidism s/p parathyroidectomy, thyroid nodule, dyslipidemia has been referred for history of pyelonephritis. She came to know that she had kidney stones years back but she ignored it. She started having pain last Nov and that was the first time she was diagnosed with kidney stone formally. She had lithotripsy in the right kidney done in Nov and then in Jul, 2024. Had stent removed in Jul and then she got admitted to [facility] in August, with right-sided pyelonephritis and was sick to the extent of needing ICU stay. She still complains of pain but it is on the left side though. She recently passed a stone which was analysed recently and was found to have calcium oxatate and uric acid stone (mixed). Her Father and brother both have kidney stones. Not aware if any of them had problems with parathyroid gland. She has been following up with an Endocrine physician at [place] for around 8 years. She also had one parathyroid gland removed and used to be calcium supplements which she stopped doing around a year ago. She was started on Indapamide around Nov, 2023 and she taking taking it in Jul, 2024 before re-starting two days. Fluid intake of around 64 oz a day. Does not smoke or drink alcohol. 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 Review of the labs show that patient's kidney function is normal. Patient had a 24-hour urine stone panel test done which shows high urinary calcium of 498 mg and oxalate of 32 mg. Stone composition analysis done on 10/29/2024 shows 70% calcium oxalate monohydrate and 30% uric acid stones. Patient is on valsartan 160 mg daily, tamsulosin 0.4 mg at bedtime, potassium citrate 10 mEq twice daily, rosuvastatin 10 mg daily, ergocalciferol 2 caps daily, calcium plus vitamin D, indapamide 1.25 mg daily. PAST MEDICAL HISTORY: PAST MEDICAL HISTORY Diagnosis Date Dysmenorrhea Excessive or frequent menstruation Heavy periods Resolved Kidney stones Malaise and fatigue Mixed hyperlipidemia Parathyroid tumor 10/11/2014 benign, 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 [employer] Donnie Unspecified essential hypertension 10/11/2006 Vitamin D deficiency secondary to parathyroidectomy PAST SURGICAL HISTORY: PAST SURGICAL HISTORY Procedure Laterality Date DELIVERY ONLY X 2 PARATHYROID 01/09/2015 tumor removed REMOVE KIDNEY STONE Left FAMILY HISTORY: FAMILY HISTORY Problem Relation Age of Onset Thyroid Mother Heart Mother Diabetes Mother Hypertension Father Heart Father Diabetes Father Diabetes Paternal Aunt Thyroid Other paternal side SOCIAL HISTORY: Social History Tobacco Use Smoking status: Never Smokeless tobacco: Never Vaping Use Vaping status: Never Used Substance Use Topics Alcohol use: No Drug use: No MEDICATIONS: potassium citrate ER (UROCIT-K) 10 mEq (1,080 mg) Take 1,080 mg by mouth two times a day. tamsulosin (FLOMAX) 0.4 mg Take 1 capsule by mouth daily at bedtime. Lactobac no.41/Bifidobact no.7 (PROBIOTIC-10 ORAL) Take by mouth. SUMAtriptan (IMITREX) 100 mg tablet Take 1 tablet (100 mg) by mouth as needed for migraine headache (see administration instructions). indapamide (LOZOL) 1.25 mg tablet Take 1.25 mg by mouth once daily. (Patient not taking: Reported on 09/11/2024) rosuvastatin (CRESTOR) 10 mg tablet Take 1 tablet by mouth once daily. valsartan (DIOVAN) 160 mg tablet Take 1 tablet by mouth once daily. calcium carbonate 600 mg-cholecalciferol 400 units (CALCIUM WITH VITAMIN D) 600 mg-10 mcg (400 unit) tab Take 1 tablet by mouth once daily. fluticasone (FLONASE) 50 mcg/actuation nasal spray Use 2 Sprays in each nostril once daily. Rinse mouth after use. (Patient not taking: Reported on 12/01/2023) omega 0-stw-qvo-fish oil (FISH OIL) 100-160-1,000 mg cap Take by mouth. levonorgestrel (MIRENA) 20 mcg/24 hours (5-6 yrs) 52 mg IUD 1 Each by INTRAUTERINE route as directed. ERGOCALCIFEROL, VITAMIN D2, (VITAMIN D ORAL) Take 2 capsules by mouth once daily. ALLERGIES: ALLERGIES Allergen Reactions Augmentin [Amoxicil* Vomiting Sulfa (Sulfonamide * Rash REVIEW OF SYSTEMS: Constitutional: No fevers, chills, weight loss Eyes: N (more content not included)... [facility] 10-30-2024 Telephone encounter Note Called patient. Verified name and date of . Informed of order. Verbalizes understanding. Arti Yepez LPN [facility] 10-30-2024 Miscellaneous Notes Called patient. Verified name and date of . Informed of order. Verbalizes understanding. Arti Yepez LPN Patient stopped by clinic. Verified name and date of . She feels as if she passed a stone and was informed to bring it to the clinic. Please place order and she will take it to the lab. Arti Yepez LPN documented in this encounter [facility] 10-30-2024 Telephone encounter Note Patient stopped by clinic. Verified name and date of . She feels as if she passed a stone and was informed to bring it to the clinic. Please place order and she will take it to the lab. Arti Yepez LPN [facility] 10-20-2024 Telephone encounter Note Pt notified and verbalizes understanding. Emanuel Purcell MA [facility] 10-20-2024 Miscellaneous Notes Pt notified and verbalizes understanding. Emanuel Purcell MA Please, notify patient the urine culture was positive Treatment e-scripted: Cipro 500 mg Patient needs to hold Calcium while on RX while on antibiotic. And will need a 2 week post-treatment urine culture ( orders are in) Thank you, MAIA Downs MT, PA-C Pt calling for results of urine culture. [facility] pharmacy Please review and advise. Emanuel Purcell MA documented in this encounter [facility] 10-20-2024 Telephone encounter Note Please, notify patient the urine culture was positive Treatment e-scripted: Cipro 500 mg Patient needs to hold Calcium while on RX while on antibiotic. And will need a 2 week post-treatment urine culture ( orders are in) Thank you, MAIA Downs MT, PA-C [facility] 10-20-2024 Telephone encounter Note Pt calling for results of urine culture. [facility] pharmacy Please review and advise. Emanuel Purcell MA [facility] 10-17-2024 Telephone encounter Note Left pt vm re: needs an appt with Dr. Oshea. Ref by Devin Vargas. Tory [facility] 10-17-2024 Miscellaneous Notes Left pt vm re: needs an appt with Dr. Oshea. Ref by Devin Vargas. Tory documented in this encounter [facility] 10-17-2024 Instructions Enmanuel Vargas PA-C - 10/17/2024 9:28 AM EST > Urine Culture - Pending > Keep Nephrology appointment - Dr. Nicole > Endourology Consult [facility] > Discussed her calling office to get urine culture orders placed if she is having UTi symptoms again instead of going to urgent care As long as I have seen her with in the year, understanding no antibiotics treatment until he culture is final or if she has fever then would send her to ER documented in this encounter [facility] 10-17-2024 Note HNO ID: [id number] Author: ENMANUEL VARGAS PA-C Service: ? Author Type: Physician Cage/Vault Supervisor Type: Progress Notes Filed: 10/17/2024 18:26 Note Text: [facility] [place] [facility] NEW PATIENT CLINIC NOTE SERVICE DATE: October 17, 2024 NAME: Jsoe R Watt CHIEF COMPLAINT: Nephrolithiasis HISTORY OF PRESENT ILLNESS: Jose R Watt is a 49 year old female an new patient here for Nephrolithiasis The patient reports having kidney stone and stent placement with [facility] Urologist and when JJ Stent was removed she had fever And went to ER and found to have pyelonephritis and became septic and admitted to [facility] ICU had been given IV antibiotics an IV Fluids, Imaging showed bilateral kidney stones Right side treated left 4 mm non-obstructing stone, no treatment at that time And not sure if she passed it or not, she is frustrated that Urologist at [facility] did not sent any of the stone fragments for analysis So is not certain of what type of stones she had. Her family has history of CA Oxylate stones, she was give strainer and sterile cup if she does find stone will bring it in for analysis > We discussed increasing daily water intake to 64-84 oz 7a -7p and try to reduce bladder irritants, caffeine, alcohol and acid foods and drink. Instructed the patient to CALL office to get a URINE CULTURE order placed if having UTI symptoms, instead of going to Urgent Care or ER As long as I have seen the patient within 1 year, understanding NO antibiotics will be given until the culture is final If patient has a FEVER > 100.1, we will send her to ER that is not common for uncomplicated UTI LUTS: DYSURIA: no URGENCY: Yes FREQUENCY:3 per day NOCTURIA: 0 per night STRAINING TO VOID: No EMPTIES COMPLETELY: Yes UTI: No GROSS HEMATURIA: no UA DIPSTICK POSITIVE ONLY: yes LABS: No results found for: PSA No results found for: TESTOST Hematocrit (%) Date Value 09/05/2024 39.6 10/25/2021 41.6 No results found for: PSA Creatinine Date Value Ref Range Status 09/26/2024 0.59 0.58 - 0.96 mg/dL Final 09/05/2024 0.57 (L) 0.58 - 0.96 mg/dL Final 03/23/2024 0.65 0.58 - 0.96 mg/dL Final MEDICATIONS: potassium citrate ER (UROCIT-K) 10 mEq (1,080 mg) Take 1,080 mg by mouth two times a day. Lactobac no.41/Bifidobact no.7 (PROBIOTIC-10 ORAL) Take by mouth. SUMAtriptan (IMITREX) 100 mg tablet Take 1 tablet (100 mg) by mouth as needed for migraine headache (see administration instructions). valsartan (DIOVAN) 160 mg tablet Take 1 tablet by mouth once daily. omega 7-cfa-zyj-fish oil (FISH OIL) 100-160-1,000 mg cap Take by mouth. levonorgestrel (MIRENA) 20 mcg/24 hours (5-6 yrs) 52 mg IUD 1 Each by INTRAUTERINE route as directed. ERGOCALCIFEROL, VITAMIN D2, (VITAMIN D ORAL) Take 2 capsules by mouth once daily. tamsulosin (FLOMAX) 0.4 mg Take 1 capsule by mouth daily at bedtime. indapamide (LOZOL) 1.25 mg tablet Take 1.25 mg by mouth once daily. (Patient not taking: Reported on 09/11/2024) rosuvastatin (CRESTOR) 10 mg tablet Take 1 tablet by mouth once daily. calcium carbonate 600 mg-cholecalciferol 400 units (CALCIUM WITH VITAMIN D) 600 mg-10 mcg (400 unit) tab Take 1 tablet by mouth once daily. fluticasone (FLONASE) 50 mcg/actuation nasal spray Use 2 Sprays in each nostril once daily. Rinse mouth after use. (Patient not taking: Reported on 12/01/2023) PAST MEDICAL HISTORY: PAST MEDICAL HISTORY Diagnosis Date Dysmenorrhea Excessive or frequent menstruation Heavy periods Resolved Kidney stones Malaise and fatigue Mixed hyperlipidemia Parathyroid tumor 10/11/2014 benign, 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 [employer] Donnie Unspecified essential hypertension 10/11/2006 Vitamin D deficiency secondary to parathyroidectomy PAST SURGICAL HISTORY: PAST SURGICAL HISTORY Procedure Laterality Date DELIVERY ONLY X 2 PARATHYROID 01/09/2015 tumor removed REMOVE KIDNEY STONE Left FAMILY HISTORY: FAMILY HISTORY Problem Relation Age of Onset Thyroid Mother Heart Mother Diabetes Mother Hypertension Father Heart Father Diabetes Father Diabetes Paternal Aunt Thyroid Other paternal side SOCIAL HISTORY: Social Connections: Socially Integrated (12/25/2022) Social Connection and Isolation Panel [NHANES] Frequency of Communication with Friends and Family: More than three times a week Frequency of Social Gatherings with Friends and Family: More than three times a week Attends Orthodox Services: More than 4 times per year Active Member of Clubs or Organizations: Yes Attends Club or Organization Meetings: More than 4 times per year Marital Status: REVIEW OF SYSTEMS: GENERAL: No fever, chills, weight loss, or fatigue. ENMT: Negative CARDIOVASCULAR:NO CHEST PAIN, PALPITATIONS, ANKLE EDEMA RESPIRAT (more content not included)... [facility] 10-17-2024 History of Present illness Narrative Images from the original note were not included. [facility] NEW PATIENT CLINIC NOTE SERVICE DATE: October 17, 2024 NAME: Jose R Watt CHIEF COMPLAINT: Nephrolithiasis HISTORY OF PRESENT ILLNESS: Jose R Watt is a 49 year old female an new patient here for Nephrolithiasis The patient reports having kidney stone and stent placement with [facility] Urologist and when JJ Stent was removed she had fever And went to ER and found to have pyelonephritis and became septic and admitted to [facility] ICU had been given IV antibiotics an IV Fluids, Imaging showed bilateral kidney stones Right side treated left 4 mm non-obstructing stone, no treatment at that time And not sure if she passed it or not, she is frustrated that Urologist at [facility] did not sent any of the stone fragments for analysis So is not certain of what type of stones she had. Her family has history of CA Oxylate stones, she was give strainer and sterile cup if she does find stone will bring it in for analysis > We discussed increasing daily water intake to 64-84 oz 7a -7p and try to reduce bladder irritants, caffeine, alcohol and acid foods and drink. Instructed the patient to CALL office to get a URINE CULTURE order placed if having UTI symptoms, instead of going to Urgent Care or ER As long as I have seen the patient within 1 year, understanding NO antibiotics will be given until the culture is final If patient has a FEVER > 100.1, we will send her to ER that is not common for uncomplicated UTI LUTS: DYSURIA: no URGENCY: Yes FREQUENCY:3 per day NOCTURIA: 0 per night STRAINING TO VOID: No EMPTIES COMPLETELY: Yes UTI: No GROSS HEMATURIA: no UA DIPSTICK POSITIVE ONLY: yes LABS: No results found for: PSA No results found for: TESTOST Hematocrit (%) Date Value 09/05/2024 39.6 10/25/2021 41.6 No results found for: PSA Creatinine Date Value Ref Range Status 09/26/2024 0.59 0.58 - 0.96 mg/dL Final 09/05/2024 0.57 (L) 0.58 - 0.96 mg/dL Final 03/23/2024 0.65 0.58 - 0.96 mg/dL Final MEDICATIONS: potassium citrate ER (UROCIT-K) 10 mEq (1,080 mg) Take 1,080 mg by mouth two times a day. Lactobac no.41/Bifidobact no.7 (PROBIOTIC-10 ORAL) Take by mouth. SUMAtriptan (IMITREX) 100 mg tablet Take 1 tablet (100 mg) by mouth as needed for migraine headache (see administration instructions). valsartan (DIOVAN) 160 mg tablet Take 1 tablet by mouth once daily. omega 4-hcb-kkk-fish oil (FISH OIL) 100-160-1,000 mg cap Take by mouth. levonorgestrel (MIRENA) 20 mcg/24 hours (5-6 yrs) 52 mg IUD 1 Each by INTRAUTERINE route as directed. ERGOCALCIFEROL, VITAMIN D2, (VITAMIN D ORAL) Take 2 capsules by mouth once daily. tamsulosin (FLOMAX) 0.4 mg Take 1 capsule by mouth daily at bedtime. indapamide (LOZOL) 1.25 mg tablet Take 1.25 mg by mouth once daily. (Patient not taking: Reported on 09/11/2024) rosuvastatin (CRESTOR) 10 mg tablet Take 1 tablet by mouth once daily. calcium carbonate 600 mg-cholecalciferol 400 units (CALCIUM WITH VITAMIN D) 600 mg-10 mcg (400 unit) tab Take 1 tablet by mouth once daily. fluticasone (FLONASE) 50 mcg/actuation nasal spray Use 2 Sprays in each nostril once daily. Rinse mouth after use. (Patient not taking: Reported on 12/01/2023) PAST MEDICAL HISTORY: PAST MEDICAL HISTORY Diagnosis Date Dysmenorrhea Excessive or frequent menstruation Heavy periods Resolved Kidney stones Malaise and fatigue Mixed hyperlipidemia Parathyroid tumor 10/11/2014 benign, 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 [employer] [place] Unspecified essential hypertension 10/11/2006 Vitamin D deficiency secondary to parathyroidectomy PAST SURGICAL HISTORY: PAST SURGICAL HISTORY Procedure Laterality Date DELIVERY ONLY X 2 PARATHYROID 01/09/2015 tumor removed REMOVE KIDNEY STONE Left FAMILY HISTORY: FAMILY HISTORY Problem Relation Age of Onset Thyroid Mother Heart Mother Diabetes Mother Hypertension Father Heart Father Diabetes Father Diabetes Paternal Aunt Thyroid Other paternal side SOCIAL HISTORY: Social Connections: Socially Integrated (12/25/2022) Social Connection and Isolation Panel [NHANES] Frequency of Communication with Friends and Family: More than three times a week Frequency of Social Gatherings with Friends and Family: More than three times a week Attends Orthodox Services: More than 4 times per year Active Member of Clubs or Organizations: Yes Attends Club or Organization Meetings: More than 4 times per year Marital Status: REVIEW OF SYSTEMS: GENERAL: No fever, chills, weight loss, or fatigue. ENMT: Negative CARDIOVASCULAR:NO CHEST PAIN, PALPITATIONS, ANKLE EDEMA RESPIRATORY: No chronic cough, wheezing, dyspnea, hemoptysis. GENITOURINARY: SEE HPI MUSCULOSKELETAL:NO CHRONIC BACK PAIN, ARTHRITIS, CHRONIC NECK PAIN SKIN: NO VARICOSE VEINS, RASH, ABNORMAL ITCHING HEME/LYMPH/IMMUNE:Negative for prolonged bleeding, bruising easily or swollen nodes NEUROLOGICAL: NO HEADACHES, NUMBNESS, SEIZURES, STROKE DIABETES: No All other systems reviewed and are negative PHYSICAL EXAMINATION: Blood pressure 146/93, pulse 82, resp. rate 16, weight 81.2 kg (179 lb), last menstrual period 10/19/2023. GENERAL: WNL nutrition, no deformities, healthy appearing NEURO: Awake, alert and oriented x 3 and Normal gait PSYCH: No signs of depression, anxiety, or agitation ENMT (Ear, Nose, Mouth, Throat): No masses, adenopathy, icterus. Thyroid nonpalpable RESP: NL effort, no retractions or purse-lip breathing. CV: No extremity swelling, varices, edema, pallor, erythema GASTROINTESTINAL: Soft, nontender, nondistended, no masses. HERNIAS: None SKIN: No rash, lesions No palpable lymphadenopathy MUSCULOSKELETAL: Extremities normal. No deformities, edema, clubbing or skin discoloration. PROBLEM LIST REVIEW: Yes LABS: Results for orders placed or performed in visit on 10/17/24 UA DIP, URINE (POC) Result Value Ref Range GLUCOSE UA (POCT) Negative Negative mg/dL BILIRUBIN UA (POCT) Negative Negative KETONE UA (POCT) Negative Negative mg/dL SPECIFIC GRAVITY UA (POCT) 1.025 1.005 - 1.030 HEMOGLOBIN/BLOOD UA (POCT) Trace-intact (A) Negative PH UA (POCT) 6.5 4.5 - 8.0 PROTEIN UA (POCT) Negative Negative mg/dL UROBILINOGEN UA (POCT) 0.2 Normal E.U./dL NITRITE UA (POCT) Positive (A) Negative LEUKOCYTES UA (POCT) Negative Negative COLOR UA (POCT) Yellow CLARITY UA (POCT) Clear IMAGING: CT Scanned report in [facility] ASSESSMENT/PLAN: 1. Ureterolithiasis - ICD9: 592.1, ICD10: N20.1 (primary diagnosis) 2. Status post laser lithotripsy of ureteral calculus - ICD9: V45.89, ICD10: Z98.890 3. Pyelonephritis of right kidney - ICD9: 590.80, ICD10: N12 4. Screening for genitourinary condition - ICD9: V81.6, ICD10: Z13.89 Acute - New Problem , Medication - Renewed Flomax continue for next 2 months > Referring patient to Endourology to establish care with specialist for further treatment if needed Consultation requested by Toña Dhaliwal [id number] [facility] [id number] for an opinion regarding Jose R Watt patient and my final recommendations will be communicated back to the requesting physician by way of shared Medical record or letter via US mail. MAIA Downs, DAKSHA, CR documented in this encounter [facility] 09-27-2024 Telephone encounter Note Phoned patient went over results, notes from Toña Dhaliwal [employer] with understanding. [facility] 09-27-2024 Miscellaneous Notes Phoned patient went over results, notes from Toña Dhaliwal [employer] with understanding. Please call patient and let her know that lab work results look fantastic! Inflammatory markers are back to normal. Liver enzymes have also recovered back to normal. No concerns. Take care, Toña Dhaliwal APRN.STEM MOUNTER documented in this encounter [facility] 09-27-2024 Telephone encounter Note Please call patient and let her know that lab work results look fantastic! Inflammatory markers are back to normal. Liver enzymes have also recovered back to normal. No concerns. Take Toña booker APRN.STEM MOUNTER [facility] 09-18-2024 Telephone encounter Note Patient was already assessed for these concerns with OFFICE VISIT with Toña Dhaliwal STEM M[employer]TER [facility] 09-18-2024 Miscellaneous Notes Patient was already assessed for these concerns with OFFICE VISIT with Toña Dhaliwal CNP Pt sent in AMENDIA message on 09/08/24 with question regarding lab work. Please review pt message below and advise. Carie Aldana MA Pt message: Should I be on an antibiotic still with my recent blood results? Should we be concerned with the recent blood results? documented in this encounter [facility] 09-11-2024 Instructions Toña Dhaliwal APRN.STEM MOUNTER - 09/11/2024 12:11 PM EST BP of < 100/60, go to ER. documented in this encounter [facility] 09-11-2024 History of Present illness Narrative Chief Complaint Patient presents with: sinus pressure: Eye feel full, gums sore HPI Jose R Watt is a 49 year old female who presents here today for Above Complaints. Jose R is an established patient of Dr. Yg DO. Pt was seen by Dr. Ronquillo on 09/05: She was recently treated with right lithotripsy procedure on 08/23 at [facility] by Dr. Soto and had ureteral stent placement. She was placed on ciprofloxacin antibiotic. She went home and then soon developed high fevers and worsening right flank pain. She was found to have sepsis at [facility] when evaluated. She was admitted to the hospital on 08/30 and discharged home on 09/01. She was sent home with 5 days of cefdinir antibiotics. She has another 3 tablets left of this. She is having a significant pressure severe pain headache in occipital area by description. No fevers or chills. She has been taking imitrex with temporary benefit only then headache reoccurs. She is willing to see tutor coordinator to help determine how to prevent these kidney stones- she has a punctate and 3 mm left kidney stone still present. ASSESSMENT/PLAN: 1. Pyelonephritis of right kidney - ICD9: 590.80, ICD10: N12 (primary diagnosis) Recheck labs F/u with Urologist in 2-3 weeks as scheduled Finish the Cefdinir Start on prn percocet for significant headache. She is afebrile currently Referral to Cold Type Artist for opinion regarding future stone formation prevention- we don't know what type of stones she is forming - C-REACTIVE PROTEIN - SEDIMENTATION RATE, WESTERGREN - COMPREHENSIVE METABOLIC PANEL - COMPLETE BLOOD COUNT AND DIFFERENTIAL - OXYCODONE-ACETAMINOPHEN 5 MG-325 MG TABLET - TAMSULOSIN 0.4 MG CAPSULE - CONSULT TO NEPHROLOGY Today in office... Pt reports feeling like she has a sinus infection. Has been off and on fighting URI symptoms since end of July when she was dx with strep from urgent care. Reports extreme fatigue, congestion, and now facial pressure/pain. Pt also asking about review of recent lab work d/t recent hospital admission. Would also like referral to new urologist. WBC while at [facility] from sepsis was 19.8 Recent labs: Latest Ref Rng 09/05/2024 WBC 3.70 - 11.00 k/uL 10.65 RBC 3.90 - 5.20 m/uL 4.43 Hemoglobin 11.5 - 15.5 g/dL 12.8 Hematocrit 36.0 - 46.0 % 39.6 MCV 80.0 - 100.0 fL 89.4 MCH 26.0 - 34.0 pg 28.9 MCHC 30.5 - 36.0 g/dL 32.3 RDW-CV 11.5 - 15.0 % 13.2 Platelet Count 150 - 400 k/uL 429 (H) MPV 9.0 - 12.7 fL 9.5 Neut% % 51.8 Abs Neut (ANC) 1.45 - 7.50 k/uL 5.52 Lymph% % 35.9 Abs Lymph 1.00 - 4.00 k/uL 3.82 [place]% % 7.2 Abs [place] <0.87 k/uL 0.77 Eosin% % 2.2 Abs Eosin <0.46 k/uL 0.23 Baso% % 1.0 Abs Baso <0.11 k/uL 0.11 (H) Immature Gran % % 1.9 IMMATURE GRANS (ABS) <0.10 k/uL 0.20 (H) NRBC /100 WBC 0.0 Absolute nRBC <0.01 k/uL <0.01 DTYPE Auto Protein, Total 6.3 - 8.0 g/dL 7.9 Albumin 3.9 - 4.9 g/dL 4.2 Calcium 8.5 - 10.2 mg/dL 9.6 Bilirubin, Total 0.2 - 1.3 mg/dL 0.6 Alkaline Phosphatase 34 - 123 U/L 76 AST 13 - 35 U/L 46 (H) ALT 7 - 38 U/L 60 (H) Glucose 74 - 99 mg/dL 96 BUN 7 - 21 mg/dL 18 Creatinine 0.58 - 0.96 mg/dL 0.57 (L) Sodium 136 - 144 mmol/L 138 Potassium 3.7 - 5.1 mmol/L 4.6 Chloride 98 - 107 mmol/L 102 CO2 22 - 30 mmol/L 23 Anion Gap 8 - 15 mmol/L 13 eGFR >=60 mL/min/1.73m 111 CRP <0.9 mg/dL 1.3 (H) WSR 0 - 20 mm/hr 47 (H) Past medical history, appointments, medications, allergies reviewed. 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 Hernandez [employer] [place] Premenstrual tension syndromes Thyroid nodule 10/11/2014 Dr. [employer] [place] Unspecified essential hypertension 10/11/2006 Vitamin D deficiency secondary to parathyroidectomy Previous Surgical History PAST SURGICAL HISTORY Procedure Laterality Date DELIVERY ONLY X 2 PARATHYROID 01/09/2015 tumor removed REMOVE KIDNEY STONE Left Family History FAMILY HISTORY Problem Relation Age of Onset Thyroid Mother Heart Mother Diabetes Mother Hypertension Father Heart Father Diabetes Father Diabetes Paternal Aunt Thyroid Other paternal side Patient Allergies ALLERGIES Allergen Reactions Augmentin [Amoxicil* Vomiting Sulfa (Sulfonamide * Rash Current Medications Current Outpatient Medications on File Prior to Visit Medication Sig cefdinir (OMNICEF) 300 mg capsule Take 300 mg by mouth two times a day. Lactobac no.41/Bifidobact no.7 (PROBIOTIC-10 ORAL) Take by mouth. oxyCODONE-acetaminophen (PERCOCET) 5-325 mg tablet Take 1 tablet by mouth every 6 hours as needed for pain for up to 7 days. tamsulosin (FLOMAX) 0.4 mg Take 1 capsule by mouth daily at bedtime. SUMAtriptan (IMITREX) 100 mg tablet Take 1 tablet (100 mg) by mouth as needed for migraine headache (see administration instructions). indapamide (LOZOL) 1.25 mg tablet Take 1.25 mg by mouth once daily. rosuvastatin (CRESTOR) 10 mg tablet Take 1 tablet by mouth once daily. valsartan (DIOVAN) 160 mg tablet Take 1 tablet by mouth once daily. calcium carbonate 600 mg-cholecalciferol 400 units (CALCIUM WITH VITAMIN D) 600 mg-10 mcg (400 unit) tab Take 1 tablet by mouth once daily. fluticasone (FLONASE) 50 mcg/actuation nasal spray Use 2 Sprays in each nostril once daily. Rinse mouth after use. (Patient not taking: Reported on 12/01/2023) omega 0-nvs-mxm-fish oil (FISH OIL) 100-160-1,000 mg cap Take by mouth. levonorgestrel (MIRENA) 20 mcg/24 hours (5-6 yrs) 52 mg IUD 1 Each by INTRAUTERINE route as directed. ERGOCALCIFEROL, VITAMIN D2, (VITAMIN D ORAL) Take 2 capsules by mouth once daily. No current facility-administered medications on file prior to visit. Social History Social History Tobacco Use Smoking status: Never Smokeless tobacco: Never Vaping Use Vaping status: Never Used Substance Use Topics Alcohol use: No Drug use: No REVIEW OF SYSTEMS: as above Reviewed relevant PMHx, PSHx, Social Hx, current medications and allergies. Review of Symptoms REVIEW OF SYSTEMS See HPI. EXAM: BP 120/62 (BP Site: Left Arm, BP Position: Sitting, BP Cuff Size: Regular Adult) Pulse 84 Temp 37.2 C (99 F) Resp 12 Wt 80.1 kg (176 lb 9.4 oz) LMP 10/19/2023 (Approximate) SpO2 98% BMI 30.79 kg/m General Appearance: Well appearing, alert, in no acute distress, well-hydrated, well nourished.. Skin: Skin color, texture, turgor normal, no suspicious rashes or lesions. Head: Normocephalic, no masses, lesions, tenderness or abnormalities, + maxillary and frontal sinus facial tenderness. Eyes: Anicteric sclera. Pupils are equally round and reactive to light. Extraocular movements are intact. . Nose/Sinuses: Nares normal, septum midline, mucosa normal, no drainage or sinus tenderness. Oropharynx: Lips, mucosa, and tongue normal, teeth and gums normal, oropharynx normal. Lungs: Lungs clear to auscultation. No wheezing, rhonchi, rales.. Heart: RRR without murmur, gallop, or rubs. No ectopy. Health Maintenance List Depression Screening Never done Anxiety Screening Never done Hepatitis C Screening Never done HIV Screening Never done Hepatitis B Vaccine(1 of 3 - 19+ 3-dose series) Never done BP Controlled (<130/80) due on 03/01/2024 Shingrix Vaccine(1 of 2) Never done DTaP,Tdap,Td Vaccine(1 - Tdap) due on 12/01/2024 Influenza Vaccine(1) due on 04/09/2025 Covid-19 Vaccine(3 - season) due on 09/11/2025 Mammogram Screening due on 05/15/2025 Annual PCP Team Chronic Disease Visit due on 09/05/2025 Cervical Cancer Screening due on 01/08/2026 Colorectal Cancer Screening due on 03/23/2027 Diabetes Screening due on 09/05/2027 Lipid Screening due on 03/23/2029 ASSESSMENT/PLAN: 1. Pyelonephritis of right kidney - ICD9: 590.80, ICD10: N12 (primary diagnosis) Recovering well. WBC improved from hospitalization and back WNL. Sed rate and CRP elevated as expected due to body recovering from recent sepsis and current URI symptoms. Repeat sed rate, CRP, and CMP (to recheck elevated liver enzymes) in 2 weeks. Schedule with new urologist as patient request. Continue with tutor coordinator - CONSULT TO UROLOGY 2. Ureterolithiasis - ICD9: 592.1, ICD10: N20.1 See above. - CONSULT TO UROLOGY 3. Status post laser lithotripsy of ureteral calculus - ICD9: V45.89, ICD10: Z98.890 See above. - CONSULT TO UROLOGY 4. Bacterial sinusitis - ICD9: 473.9, 041.9, ICD10: J32.9, B96.89 Treat for sinusitis. Diflucan given if needed d/t ongoing antibiotic treatment. [place] lab work d/t ongoing fatigue since dx of strep in July. - Will begin treatment with as per antibiotic as written, see orders - The patient should also be given OTC decongestants prn, OTC cough and cold meds as needed, warm salt water gargles, throat lozenges and/or OTC throat spray as needed, and nasal saline gtts and suction prn for the first 5-7 days of treatment. - Supportive care with plenty of fluids, rest, and analgesia prn. - Follow up in 3-5 days if symptoms persist or worsen. - MONOTEST, INFECTIOUS MONO 5. Elevated liver enzymes - ICD9: 790.5, ICD10: R74.8 See above - COMPREHENSIVE METABOLIC PANEL 6. Elevated sed rate - ICD9: 790.1, ICD10: R70.0 See above. - SEDIMENTATION RATE, WESTERGREN - C-REACTIVE PROTEIN RTO as needed. Prescription instructions reviewed with patient as applicable. Potential red flag symptoms discussed with the patient. Reviewed appropriate action plan to take if red flag symptoms occur. Patient agreeable to treatment plan. Toña Perdomo APRN.STEM MOUNTER [id number] [place] [address] documented in this encounter [facility] 09-11-2024 Note HNO ID: [id number] Author: TOÑA DHALIWAL APRN.STEM MOUNTER Service: ? Author Type: Nurse Practitioner Type: Progress Notes Filed: 09/11/2024 12:34 Note Text: Chief Complaint Patient presents with: sinus pressure: Eye feel full, gums sore HPI Jose R Watt is a 49 year old female who presents here today for Above Complaints. Jose R is an established patient of Dr. Yg DO. Pt was seen by Dr. Ronquillo on 09/05: She was recently treated with right lithotripsy procedure on 08/23 at [facility] by Dr. Soto and had ureteral stent placement. She was placed on ciprofloxacin antibiotic. She went home and then soon developed high fevers and worsening right flank pain. She was found to have sepsis at [facility] when evaluated. She was admitted to the hospital on 08/30 and discharged home on 09/01. She was sent home with 5 days of cefdinir antibiotics. She has another 3 tablets left of this. She is having a significant pressure severe pain headache in occipital area by description. No fevers or chills. She has been taking imitrex with temporary benefit only then headache reoccurs. She is willing to see tutor coordinator to help determine how to prevent these kidney stones- she has a punctate and 3 mm left kidney stone still present. ASSESSMENT/PLAN: 1. Pyelonephritis of right kidney - ICD9: 590.80, ICD10: N12 (primary diagnosis) Recheck labs F/u with Urologist in 2-3 weeks as scheduled Finish the Cefdinir Start on prn percocet for significant headache. She is afebrile currently Referral to Cold Type Artist for opinion regarding future stone formation prevention- we don't know what type of stones she is forming - C-REACTIVE PROTEIN - SEDIMENTATION RATE, WESTERGREN - COMPREHENSIVE METABOLIC PANEL - COMPLETE BLOOD COUNT AND DIFFERENTIAL - OXYCODONE-ACETAMINOPHEN 5 MG-325 MG TABLET - TAMSULOSIN 0.4 MG CAPSULE - CONSULT TO NEPHROLOGY Today in office... Pt reports feeling like she has a sinus infection. Has been off and on fighting URI symptoms since end of July when she was dx with strep from urgent care. Reports extreme fatigue, congestion, and now facial pressure/pain. Pt also asking about review of recent lab work d/t recent hospital admission. Would also like referral to new urologist. WBC while at [facility] from sepsis was 19.8 Recent labs: Latest Ref Rng 09/05/2024 WBC 3.70 - 11.00 k/uL 10.65 RBC 3.90 - 5.20 m/uL 4.43 Hemoglobin 11.5 - 15.5 g/dL 12.8 Hematocrit 36.0 - 46.0 % 39.6 MCV 80.0 - 100.0 fL 89.4 MCH 26.0 - 34.0 pg 28.9 MCHC 30.5 - 36.0 g/dL 32.3 RDW-CV 11.5 - 15.0 % 13.2 Platelet Count 150 - 400 k/uL 429 (H) MPV 9.0 - 12.7 fL 9.5 Neut% % 51.8 Abs Neut (ANC) 1.45 - 7.50 k/uL 5.52 Lymph% % 35.9 Abs Lymph 1.00 - 4.00 k/uL 3.82 [place]% % 7.2 Abs [place] <0.87 k/uL 0.77 Eosin% % 2.2 Abs Eosin <0.46 k/uL 0.23 Baso% % 1.0 Abs Baso <0.11 k/uL 0.11 (H) Immature Gran % % 1.9 IMMATURE GRANS (ABS) <0.10 k/uL 0.20 (H) NRBC /100 WBC 0.0 Absolute nRBC <0.01 k/uL <0.01 DTYPE Auto Protein, Total 6.3 - 8.0 g/dL 7.9 Albumin 3.9 - 4.9 g/dL 4.2 Calcium 8.5 - 10.2 mg/dL 9.6 Bilirubin, Total 0.2 - 1.3 mg/dL 0.6 Alkaline Phosphatase 34 - 123 U/L 76 AST 13 - 35 U/L 46 (H) ALT 7 - 38 U/L 60 (H) Glucose 74 - 99 mg/dL 96 BUN 7 - 21 mg/dL 18 Creatinine 0.58 - 0.96 mg/dL 0.57 (L) Sodium 136 - 144 mmol/L 138 Potassium 3.7 - 5.1 mmol/L 4.6 Chloride 98 - 107 mmol/L 102 CO2 22 - 30 mmol/L 23 Anion Gap 8 - 15 mmol/L 13 eGFR >=60 mL/min/1.73m? 111 CRP <0.9 mg/dL 1.3 (H) WSR 0 - 20 mm/hr 47 (H) Past medical history, appointments, medications, allergies reviewed. 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 Hernandez [employer] [place] Premenstrual tension syndromes Thyroid nodule 10/11/2014 Dr. [employer] [place] Unspecified essential hypertension 10/11/2006 Vitamin D deficiency secondary to parathyroidectomy Previous Surgical History PAST SURGICAL HISTORY Procedure Laterality Date DELIVERY ONLY X 2 PARATHYROID 01/09/2015 tumor removed REMOVE KIDNEY STONE Left Family History FAMILY HISTORY Problem Relation Age of Onset Thyroid Mother Heart Mother Diabetes Mother Hypertension Father Heart Father Diabetes Father Diabetes Paternal Aunt Thyroid Other paternal side Patient Allergies ALLERGIES Allergen Reactions Augmentin [Amoxicil* Vomiting Sulfa (Sulfonamide * Rash Current Medications Current Outpatient Medications on File Prior to Visit Medication Sig cefdinir (OMNICEF) 300 mg capsule Take 300 mg by mouth two times a day. Lactobac no.41/Bifidobact no.7 (PROBIOTIC-10 ORAL) Take by mouth. oxyCODONE-acetaminophen (PERCOCET) 5-325 mg tablet Take 1 tablet by mouth every 6 hours as needed for pain fo (more content not included)... [facility] 09-09-2024 Telephone encounter Note Pt sent in AMENDIA message on 09/08/24 with question regarding lab work. Please review pt message below and advise. Carie Aldana MA Pt message: Should I be on an antibiotic still with my recent blood results? Should we be concerned with the recent blood results? [facility] 09-09-2024 Telephone encounter Note Turned into TE and routed to PCP. Carie Aldana MA [facility] 09-09-2024 Miscellaneous Notes Turned into TE and routed to PCP. Carie Aldana MA documented in this encounter [facility] 09-06-2024 Telephone encounter Note Patient has been already seen in office Shon Ronquillo DO [facility] 09-06-2024 Miscellaneous Notes Patient has been already seen in office Shon Ronquillo DO Patient calling she had been in [facility] for sepsis, she had kidney stone surgery and had stent removed and then sepsis. She was discharged from [facility] on Saturday 09/01 and has had migraine type headache since then. She has to keep taking her migraine medication. She does not want to have to go to the ER. She is asking if any chance to get in with PCP today? She is scheduled for hospital follow up appt for 09/05 at 740 am with PCP. Patient is asking what can she do for the headaches? Please advise documented in this encounter [facility] 09-05-2024 Telephone encounter Note Pt had an appt this morning and forgot she needed a refill for Imitrex. Requested rx go to [facility]. Pharmacy updated. Prescription Refill Information The patient has been identified by name and date of : Yes Caregiver verified no other encounters exist for this prescription request: Yes Caregiver confirmed with patient/requestor that no other refills are due, in the near future, with this provider at this time: Yes The last office visit in the department: today Does the patient have a future office visit with this provider/department: No Requested Prescriptions Pending Prescriptions Disp Refills SUMAtriptan (IMITREX) 100 mg tablet 12 tablet 5 Sig: Take 1 tablet (100 mg) by mouth as needed for migraine headache (see administration instructions). Meggan Berrios LPN September 05, 2024 11:08 AM [facility] 09-05-2024 Miscellaneous Notes Pt had an appt this morning and forgot she needed a refill for Imitrex. Requested rx go to [facility]. Pharmacy updated. Prescription Refill Information The patient has been identified by name and date of : Yes Caregiver verified no other encounters exist for this prescription request: Yes Caregiver confirmed with patient/requestor that no other refills are due, in the near future, with this provider at this time: Yes The last office visit in the department: today Does the patient have a future office visit with this provider/department: No Requested Prescriptions Pending Prescriptions Disp Refills SUMAtriptan (IMITREX) 100 mg tablet 12 tablet 5 Sig: Take 1 tablet (100 mg) by mouth as needed for migraine headache (see administration instructions). Meggan Berrios LPN September 05, 2024 11:08 AM documented in this encounter [facility] 09-05-2024 Note HNO ID: [id number] Author: SHON RONQUILLO, DO Service: ? Author Type: Physician Type: Progress Notes Filed: 09/05/2024 09:28 Note Text: CC: Jose R Watt is a 49 year old female who presents to the office from hospital follow up HPI: She was recently treated with right lithotripsy procedure on 08/23 at [facility] by Dr. Soto and had ureteral stent placement. She was placed on ciprofloxacin antibiotic. She went home and then soon developed high fevers and worsening right flank pain. She was found to have sepsis at [facility] when evaluated. She was admitted to the hospital on 08/30 and discharged home on 09/01. She was sent home with 5 days of cefdinir antibiotics. She has another 3 tablets left of this. She is having a significant pressure severe pain headache in occipital area by description. No fevers or chills. She has been taking imitrex with temporary benefit only then headache reoccurs. She is willing to see tutor coordinator to help determine how to prevent these kidney stones- she has a punctate and 3 mm left kidney stone still present. 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 [employer]andze [employer] Donnie Unspecified essential hypertension 10/11/2006 Vitamin D deficiency secondary to parathyroidectomy PAST SURGICAL HISTORY Procedure Laterality Date DELIVERY ONLY X 2 PARATHYROID 01/09/2015 tumor removed REMOVE KIDNEY STONE Left Social History: Social History Tobacco Use Smoking status: Never Smokeless tobacco: Never Vaping Use Vaping status: Never Used Substance Use Topics Alcohol use: No Drug use: No FAMILY HISTORY Problem Relation Age of Onset Thyroid Mother Heart Mother Diabetes Mother Hypertension Father Heart Father Diabetes Father Diabetes Paternal Aunt Thyroid Other paternal side Current Outpatient prescriptions: cefdinir (OMNICEF) 300 mg capsule Take 300 mg by mouth two times a day. Lactobac no.41/Bifidobact no.7 (PROBIOTIC-10 ORAL) Take by mouth. oxyCODONE-acetaminophen (PERCOCET) 5-325 mg tablet Take 1 tablet by mouth every 6 hours as needed for pain for up to 7 days. tamsulosin (FLOMAX) 0.4 mg Take 1 capsule by mouth daily at bedtime. indapamide (LOZOL) 1.25 mg tablet Take 1.25 mg by mouth once daily. rosuvastatin (CRESTOR) 10 mg tablet Take 1 tablet by mouth once daily. valsartan (DIOVAN) 160 mg tablet Take 1 tablet by mouth once daily. calcium carbonate 600 mg-cholecalciferol 400 units (CALCIUM WITH VITAMIN D) 600 mg-10 mcg (400 unit) tab Take 1 tablet by mouth once daily. fluticasone (FLONASE) 50 mcg/actuation nasal spray Use 2 Sprays in each nostril once daily. Rinse mouth after use. (Patient not taking: Reported on 12/01/2023) omega 8-uoo-cxh-fish oil (FISH OIL) 100-160-1,000 mg cap Take by mouth. SUMAtriptan (IMITREX) 100 mg tablet Take 1 tablet by mouth as needed for migraine headache (see administration instructions). levonorgestrel (MIRENA) 20 mcg/24 hours (5-6 yrs) 52 mg IUD 1 Each by INTRAUTERINE route as directed. ERGOCALCIFEROL, VITAMIN D2, (VITAMIN D ORAL) Take 2 capsules by mouth once daily. Allergies: ALLERGIES Allergen Reactions Augmentin [Amoxicil* Vomiting Sulfa (Sulfonamide * Rash ROS: See HPI PE: 09/05/24 0741 BP: 120/80 Pulse: 80 Resp: 16 Temp: 37 ?C (98.6 ?F) TempSrc: Temporal Weight: 78.9 kg (174 lb) Gen: AANDO, appears uncomfortable HEENT: NT/AC, PERRLA, EOMs intact b/l, nares clear and patent b/l, pharynx without erythema, exudate or lesions. Uvula midline. MMM Neck: supple, No cervical LAD, no thyromegaly, no carotid bruits CV: RRR, normal S1 and S2, no murmurs, no gallops, no rubs, Pulses 2+ and symmetric in UE and LE b/l Lungs: normal respiratory effort, CTA b/l, no wheezing or rhonchi or rales Abd: soft, NT, ND, +BS, no hepatosplenomegaly No flank pain MS: FROM all 4 extremities Neuro: CN II-XII intact b/l, sensation intact. Skin: warm, dry, intact, No rashes or lesions on exposed skin. No edema, normal pulses ASSESSMENT/PLAN: 1. Pyelonephritis of right kidney - ICD9: 590.80, ICD10: N12 (primary diagnosis) Recheck labs F/u with Urologist in 2-3 weeks as scheduled Finish the Cefdinir Start on prn percocet for significant headache. She is afebrile currently Referral to [facility] [employer] [facility] for opinion regarding future stone formation prevention- we don't know what type of stones she is forming - C-REACTIVE PROTEIN - SEDIMENTATION RATE, WESTERGREN - COMPREHENSIVE METABOLIC PANEL - COMPLETE BLOOD COUNT AND DIFFERENTIAL - OXYCODONE-ACETAMINOPHEN 5 MG-325 MG TABLET - TAMSULOSIN 0.4 MG CAPSULE - CONSULT TO NEPHROLOGY 2. Ureterolithiasis - ICD9: 592.1, ICD10: N20.1 Rechec (more content not included)... [facility] 09-05-2024 History of Present illness Narrative CC: Jose R Watt is a 49 year old female who presents to the office from hospital follow up HPI: She was recently treated with right lithotripsy procedure on 08/23 at [facility] by Dr. Soto and had ureteral stent placement. She was placed on ciprofloxacin antibiotic. She went home and then soon developed high fevers and worsening right flank pain. She was found to have sepsis at [facility] when evaluated. She was admitted to the hospital on 08/30 and discharged home on 09/01. She was sent home with 5 days of cefdinir antibiotics. She has another 3 tablets left of this. She is having a significant pressure severe pain headache in occipital area by description. No fevers or chills. She has been taking imitrex with temporary benefit only then headache reoccurs. She is willing to see tutor coordinator to help determine how to prevent these kidney stones- she has a punctate and 3 mm left kidney stone still present. 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 [employer] Unspecified essential hypertension 10/11/2006 Vitamin D deficiency secondary to parathyroidectomy PAST SURGICAL HISTORY Procedure Laterality Date DELIVERY ONLY X 2 PARATHYROID 01/09/2015 tumor removed REMOVE KIDNEY STONE Left Social History: Social History Tobacco Use Smoking status: Never Smokeless tobacco: Never Vaping Use Vaping status: Never Used Substance Use Topics Alcohol use: No Drug use: No FAMILY HISTORY Problem Relation Age of Onset Thyroid Mother Heart Mother Diabetes Mother Hypertension Father Heart Father Diabetes Father Diabetes Paternal Aunt Thyroid Other paternal side Current Outpatient prescriptions: cefdinir (OMNICEF) 300 mg capsule Take 300 mg by mouth two times a day. Lactobac no.41/Bifidobact no.7 (PROBIOTIC-10 ORAL) Take by mouth. oxyCODONE-acetaminophen (PERCOCET) 5-325 mg tablet Take 1 tablet by mouth every 6 hours as needed for pain for up to 7 days. tamsulosin (FLOMAX) 0.4 mg Take 1 capsule by mouth daily at bedtime. indapamide (LOZOL) 1.25 mg tablet Take 1.25 mg by mouth once daily. rosuvastatin (CRESTOR) 10 mg tablet Take 1 tablet by mouth once daily. valsartan (DIOVAN) 160 mg tablet Take 1 tablet by mouth once daily. calcium carbonate 600 mg-cholecalciferol 400 units (CALCIUM WITH VITAMIN D) 600 mg-10 mcg (400 unit) tab Take 1 tablet by mouth once daily. fluticasone (FLONASE) 50 mcg/actuation nasal spray Use 2 Sprays in each nostril once daily. Rinse mouth after use. (Patient not taking: Reported on 12/01/2023) omega 8-sjj-hqk-fish oil (FISH OIL) 100-160-1,000 mg cap Take by mouth. SUMAtriptan (IMITREX) 100 mg tablet Take 1 tablet by mouth as needed for migraine headache (see administration instructions). levonorgestrel (MIRENA) 20 mcg/24 hours (5-6 yrs) 52 mg IUD 1 Each by INTRAUTERINE route as directed. ERGOCALCIFEROL, VITAMIN D2, (VITAMIN D ORAL) Take 2 capsules by mouth once daily. Allergies: ALLERGIES Allergen Reactions Augmentin [Amoxicil* Vomiting Sulfa (Sulfonamide * Rash ROS: See HPI PE: 09/05/24 0741 BP: 120/80 Pulse: 80 Resp: 16 Temp: 37 C (98.6 F) TempSrc: Temporal Weight: 78.9 kg (174 lb) Gen: A&O, appears uncomfortable HEENT: NT/AC, PERRLA, EOMs intact b/l, nares clear and patent b/l, pharynx without erythema, exudate or lesions. Uvula midline. MMM Neck: supple, No cervical LAD, no thyromegaly, no carotid bruits CV: RRR, normal S1 and S2, no murmurs, no gallops, no rubs, Pulses 2+ and symmetric in UE and LE b/l Lungs: normal respiratory effort, CTA b/l, no wheezing or rhonchi or rales Abd: soft, NT, ND, +BS, no hepatosplenomegaly No flank pain MS: FROM all 4 extremities Neuro: CN II-XII intact b/l, sensation intact. Skin: warm, dry, intact, No rashes or lesions on exposed skin. No edema, normal pulses ASSESSMENT/PLAN: 1. Pyelonephritis of right kidney - ICD9: 590.80, ICD10: N12 (primary diagnosis) Recheck labs F/u with Urologist in 2-3 weeks as scheduled Finish the Cefdinir Start on prn percocet for significant headache. She is afebrile currently Referral to [employer] for opinion regarding future stone formation prevention- we don't know what type of stones she is forming - C-REACTIVE PROTEIN - SEDIMENTATION RATE, WESTERGREN - COMPREHENSIVE METABOLIC PANEL - COMPLETE BLOOD COUNT AND DIFFERENTIAL - OXYCODONE-ACETAMINOPHEN 5 MG-325 MG TABLET - TAMSULOSIN 0.4 MG CAPSULE - CONSULT TO NEPHROLOGY 2. Ureterolithiasis - ICD9: 592.1, ICD10: N20.1 Recheck labs F/u with Urologist in 2-3 weeks as scheduled Finish the Cefdinir Start on prn percocet for significant headache. She is afebrile currently Referral to [employer] for opinion regarding future stone formation prevention- we don't know what type of stones she is forming - CONSULT TO NEPHROLOGY 3. Status post laser lithotripsy of ureteral calculus - ICD9: V45.89, ICD10: Z98.890 Recheck labs F/u with Urologist in 2-3 weeks as scheduled Finish the Cefdinir Start on prn percocet for significant headache. She is afebrile currently Referral to [employer] [facility] for opinion regarding future stone formation prevention- we don't know what type of stones she is forming - CONSULT TO NEPHROLOGY 4. Acute intractable headache, unspecified headache type - ICD9: 784.0, ICD10: R51.9 Recheck labs F/u with Urologist in 2-3 weeks as scheduled Finish the Cefdinir Start on prn percocet for significant headache. She is afebrile currently Referral to [employer] for opinion regarding future stone formation prevention- we don't know what type of stones she is forming Shon Ronquillo DO To ER if develops chest pain, shortness of breath, or severe worsening of symptoms. Discussed risks, benefits, alternatives, and potential side effects of medications. Patient expressed understanding and agreed with the plan. Shon Ronquillo DO [address] [place] [address] documented in this encounter [facility] 09-04-2024 Telephone encounter Note Patient calling she had been in [facility] for sepsis, she had kidney stone surgery and had stent removed and then sepsis. She was discharged from [facility] on Saturday 09/01 and has had migraine type headache since then. She has to keep taking her migraine medication. She does not want to have to go to the ER. She is asking if any chance to get in with PCP today? She is scheduled for hospital follow up appt for 09/05 at 740 am with PCP. Patient is asking what can she do for the headaches? Please advise [facility] 09-01-2024 Note [facility] Medical Records Department [address] [place] [address] Discharge Summary 09/01/24 1029 MR#: [id number] Acct: [id number] Name: JOSE R WATT Rep #: [id number] : 1975 49 From: [place] MD PCP: Dr. Shon Ronquillo DO Status:ADM IN [id number] Prov[facility] Date of Admission: 08/30/24 Date of Discharge: 09/01/24 Primary Care Physician: Dr. Shon Ronquillo DO Consultations 08/30/24 01:17 Consult: Urology Routine Consulting Provider: Bruce Soto Reason for Consult: Sepsis with Right Pyelonephritis. EMERGENT Consult: No MD Notified: Yes Date Notified: 08/30/24 Time Notified: 00:37 Method of Notification: ED Physician Initiated Reason For Visit: SEPSIS WITH RIGHT PYELONEPHRITIS Diagnosis Discharge Diagnosis (1) Sepsis: Status: Acute Code(s): A41.9 - Sepsis, unspecified organism Qualifiers: Sepsis acute organ dysfunction status: without acute organ dysfunction Sepsis type: sepsis due to unspecified organism Qualified Code(s): A41.9 - Sepsis, unspecified organism (2) Pyelonephritis of right kidney: Status: Acute Code(s): N12 - Tubulo-interstitial nephritis, not specified as acute or chronic (3) Kidney stones: Status: Acute Code(s): N20.0 - Calculus of kidney (4) Hx of cystoscopy: Status: Acute Code(s): Z98.890 - Other specified postprocedural states (5) Overweight (BMI 25.0-29.9): Status: Acute Code(s): E66.3 - Overweight (6) Hypertension: Status: Chronic Code(s): I10 - Essential (primary) hypertension Qualifiers: Hypertension type: unspecified Qualified Code(s): I10 - Essential (primary) hypertension (7) Hypercholesterolemia: Status: Acute Code(s): E78.00 - Pure hypercholesterolemia, unspecified Plan This 49-year-old female was admitted with right-sided flank pain, low-grade fever and pyelonephritis. Her BP was LOW and drop in his SBP was more than 40 mmHg therefore suggestive of sepsis. Denies dysuria but had laser lithotripsy of right ureteral stone and stent placement on 08/23 and was sent home on Cipro. 1. Sepsis due to or associated with recent stent placement/ removal post cystoscopy and laser lithotripsy: Patient was admitted in ICU with sepsis. CT evidence of Right pyelonephritis with Leukocytosis of 19.8K present on admission with Fever of 100.2 degrees Fahrenheit and Sinus Tachycardia of 122 bpm present on admission -patient is admitted in ICU as per sepsis protocol. The patient presented with suspected sepsis with clinical indicators of fever, tachycardia, tachypnea and leukocytosis due to right-sided pyelonephritis with acute sepsis-related organ dysfunction as evidenced by drop in SBP more than 40 mmHg, responsive to IV fluid blood and urine culture pending. On IV meropenem. In afternoon about 1:45 PM her BP is 105/60, MAP 74. Okay for transfer to PCU. Transfer ordered 08/31: No fever but patient has high leukocytosis 20.3 thousand. Urine and blood cultures are pending. Patient also had mild morning headache but not migraine headache. On Motrin. 09/01: Patient had ureteric stone required lithotripsy and stent placement and then stent removal with consequent sepsis. Sepsis is already resolved 2 days ago. Patient had 3 days of IV meropenem and discharged on 5 more days of cefdinir follow-up with urologist Dr. Soto in 1 week. 2. Recently diagnosed right ureteric calculus status post cystoscopy, laser lithotripsy and stent placement on 08/23 and then removal on 08/29. Patient was on oral Cipro probably resistant along with tamsulosin and Pyridium. Dr. Soto is consulted. Patient had parathyroidectomy in the past. 08/31 patient was evaluated by Dr. Soto. [place], 5/325 mg 1 tablet for moderate pain and 2 tablets for severe pain respectively. Neurologic intervention planned. 3. Overweight; with BMI of 29.9 this admission compoundin Weight loss recommended. 4. Essential hypertension; on valsartan and indapamide - Hold scheduled antihypertensives until infection outlined #1 has been neutralized. 5. Hyperlipidemia; on rosuvastatin - Resume statin as previous. 6. Chronic migraine: 08/31: Patient had headache yesterday afternoon. Mild headache in the morning but not like migraine headache. On Motrin and Tylenol 7. Mild osteoarthritis: No acute issues. Tylenol as needed. 8. DVT prophylaxis - Lovenox 40 mg subcu daily plus SCDs. Medications at Discharge Home Medications cholecalciferol (vitamin D3) 50 mcg (2,000 unit) capsule (Vitamin D3) 50 mcg PO DAILY 08/15/24 indapamide 1.25 mg tablet 1.25 mg PO DAILY HTN 08/15/24 omega 4-rpm-are-fish oil 1,200 mg (144 mg-216 mg) capsule (Fish Oil) 2 cap PO DAILY 08/15/24 rosuvastatin 10 mg tablet 10 mg PO DAILY 08/15/24 valsartan 160 mg tablet 160 mg PO DAILY 08/15/24 acetaminophen 500 mg capsule 1,000 mg PO Q6H PRN pain 08/23/24 (more content not included)... [facility] 08-23-2024 Note [facility] Medical Records Department [address] [place] [address] History Physical Exam 08/23/24 1513 MR#: [id number] Acct: [id number] Name: JOSE R WATT Rep #: [id number] : 1975 49 From: Bruce Soto MD PCP: Dr. Shon Ronquillo, DO Status:[facility] Location: [address] - General General Date of Service: 08/23/24 Chief Complaint: Right kidney stone HPI Narrative JOSE R WATT, is a 49 F who presents to laser stone in the right kidney she also has of stones in the left lower pole of the kidney possible we may not treat these today depending on situation but we will definitely treat laser the stone on the right kidney that is causing her problems. [facility] Medical History Arthritis Kidney stones Migraine headache History of echocardiogram History of stress test Hypercholesterolemia Hypertension Home Medications ???Medication ???Instructions ???Recorded ???Last Taken ???Type cholecalciferol (vitamin D3) 50 50 mcg PO DAILY 08/15/24 08/22/24 History mcg (2,000 unit) capsule (Vitamin D3) indapamide 1.25 mg tablet 1.25 mg PO DAILY 08/15/24 08/22/24 History omega 6-hit-mfn-fish oil 1,200 mg 2 cap PO DAILY 08/15/24 08/22/24 History (144 mg-216 mg) capsule (Fish Oil) rosuvastatin 10 mg tablet 10 mg PO DAILY 08/15/24 08/22/24 History valsartan 160 mg tablet 160 mg PO DAILY 08/15/24 08/23/24 History acetaminophen 500 mg capsule 1,000 mg PO Q6H PRN pain 08/23/24 08/20/24 History Allergy/AdvReac Type Severity Reaction Status Date / Time Sulfa (Sulfonamide Allergy Rash Verified 08/23/24 12:50 Antibiotics) amoxicillin trihydrate (From AdvReac Vomiting Verified 08/23/24 12:50 Augmentin) potassium clavulanate (From AdvReac Vomiting Verified 08/23/24 12:50 Augmentin) Surgical History Hx of parathyroidectomy Hx of cystoscopy H/O section Social History Smoking Status: Never smoker Vital Signs Vital Signs Vital Signs: 08/23/24 12:52 08/23/24 12:52 08/23/24 13:19 Temperature 98.0 F 98.0 F Temperature Source Temporal Pulse Rate 80 80 Respiratory Rate 18 18 Respiratory Pattern Normal Blood Pressure 151/81 H 151/81 H Blood Pressure Mean 104 Blood Pressure Source Monitor Blood Pressure Position Semi-Fowlers Blood Pressure Location Left Arm Pulse Ox 98 98 Oxygen Delivery Method Room Air Weight Weight: 79 kg Body Mass Index (BMI) 29.0 Results Lab / Micro Data Labs: Laboratory Results - last 24 hr 08/23/24 12:40: Urine Test Negative 08/23/24 1513 Cosigner Signature (if applicable): CC: Dr. Shon Ronquillo DO; Dr. Bruce Soto MD Signed [facility] 08-20-2024 Note HNO ID: [id number] Author: LAINE LOPEZ APRN.[employer] Service: ? Author Type: Nurse Practitioner Type: Progress Notes Filed: 08/20/2024 08:40 Note Text: CC: Patient presents with: Sore Throat: X 1 day HPI: Jose R Watt is a 49 year old female who presents to the office with complaint of sore throat for the past day. Symptoms are worsening Associated symptoms includes sore throat. Denies fever, nausea, vomiting , and diarrhea. Treatments tried include nothing so far. with no relief of symptoms. Sick contacts: unknown. History of asthma, frequent episodes of bronchitis, chronic bronchitis, bronchiectasis or COPD: No Smoker: No Seasonal/environmental allergies: No The ROS is otherwise negative. The patient's pmh, medications, allergies, and past visits are reviewed. PHYSICAL EXAM: BP 130/80 Pulse 100 Temp 36.9 ?C (98.5 ?F) Resp 19 Wt 80 kg (176 lb 5.9 oz) LMP 10/19/2023 (Approximate) SpO2 97% BMI 30.75 kg/m? General appearance: alert, cooperative, pleasant, in no acute distress Head: Normocephalic Eyes: EOM's intact, conjunctiva pink and moist, no icterus, sclera white, non-injected Ears: Right ear: External ear/canal- Normal, TM - clear with good landmarks. Left ear: External ear/canal- Normal, TM - clear with good landmarks Oropharynx:mild erythema, without exudates present Heart: Negative. RRR without obvious murmur, gallop, or rubs. No ectopy. Lungs: clear to auscultation, without rales or wheeze, good air exchange PAST MEDICAL HISTORY Diagnosis Date Dysmenorrhea Excessive or frequent menstruation Heavy periods Resolved Kidney stones Malaise and fatigue Mixed hyperlipidemia Parathyroid tumor 10/11/2014 benign, Dr. [employer] [place] Premenstrual tension syndromes Thyroid nodule 10/11/2014 Dr. [employer] [place] Unspecified essential hypertension 10/11/2006 Vitamin D deficiency secondary to parathyroidectomy PAST SURGICAL HISTORY Procedure Laterality Date DELIVERY ONLY X 2 PARATHYROID 01/09/2015 tumor removed REMOVE KIDNEY STONE Left ALLERGIES Augmentin [Amoxicillin-Pot Clavulanate] and Sulfa (Sulfonamide Antibiotics) MEDICATIONS indapamide (LOZOL) 1.25 mg tablet Take 1.25 mg by mouth once daily. rosuvastatin (CRESTOR) 10 mg tablet Take 1 tablet by mouth once daily. valsartan (DIOVAN) 160 mg tablet Take 1 tablet by mouth once daily. omega 4-yqm-vsr-fish oil (FISH OIL) 100-160-1,000 mg cap Take by mouth. SUMAtriptan (IMITREX) 100 mg tablet Take 1 tablet by mouth as needed for migraine headache (see administration instructions). levonorgestrel (MIRENA) 20 mcg/24 hours (5-6 yrs) 52 mg IUD 1 Each by INTRAUTERINE route as directed. ERGOCALCIFEROL, VITAMIN D2, (VITAMIN D ORAL) Take 2 capsules by mouth once daily. calcium carbonate 600 mg-cholecalciferol 400 units (CALCIUM WITH VITAMIN D) 600 mg-10 mcg (400 unit) tab Take 1 tablet by mouth once daily. fluticasone (FLONASE) 50 mcg/actuation nasal spray Use 2 Sprays in each nostril once daily. Rinse mouth after use. (Patient not taking: Reported on 12/01/2023) FAMILY HISTORY Problem Relation Age of Onset Thyroid Mother Heart Mother Diabetes Mother Hypertension Father Heart Father Diabetes Father Diabetes Paternal Aunt Thyroid Other paternal side Social History Tobacco Use Smoking status: Never Smokeless tobacco: Never Vaping Use Vaping status: Never Used Substance Use Topics Alcohol use: No Drug use: No ASSESSMENT/PLAN: 1. Sore throat - ICD9: 462, ICD10: J02.9 - STREP A MOLECULAR (POC) - neg No viral testing at this time. OTC meds for symptoms. Potential red flag symptoms discussed with the patient. Reviewed appropriate action plan to take if red flag symptoms occur. Patient agreeable to treatment plan. Laine Lopez APRN.[facility] 08-20-2024 History of Present illness Narrative CC: Patient presents with: Sore Throat: X 1 day HPI: Jose R aWtt is a 49 year old female who presents to the office with complaint of sore throat for the past day. Symptoms are worsening Associated symptoms includes sore throat. Denies fever, nausea, vomiting , and diarrhea. Treatments tried include nothing so far. with no relief of symptoms. Sick contacts: unknown. History of asthma, frequent episodes of bronchitis, chronic bronchitis, bronchiectasis or COPD: No Smoker: No Seasonal/environmental allergies: No The ROS is otherwise negative. The patient's pmh, medications, allergies, and past visits are reviewed. PHYSICAL EXAM: BP 130/80 Pulse 100 Temp 36.9 C (98.5 F) Resp 19 Wt 80 kg (176 lb 5.9 oz) LMP 10/19/2023 (Approximate) SpO2 97% BMI 30.75 kg/m General appearance: alert, cooperative, pleasant, in no acute distress Head: Normocephalic Eyes: EOM's intact, conjunctiva pink and moist, no icterus, sclera white, non-injected Ears: Right ear: External ear/canal- Normal, TM - clear with good landmarks. Left ear: External ear/canal- Normal, TM - clear with good landmarks Oropharynx:mild erythema, without exudates present Heart: Negative. RRR without obvious murmur, gallop, or rubs. No ectopy. Lungs: clear to auscultation, without rales or wheeze, good air exchange PAST MEDICAL HISTORY Diagnosis Date Dysmenorrhea Excessive or frequent menstruation Heavy periods Resolved Kidney stones Malaise and fatigue Mixed hyperlipidemia Parathyroid tumor 10/11/2014 benign, Dr[employer] [place] Premenstrual tension syndromes Thyroid nodule 10/11/2014 Dr. [employer] [place] Unspecified essential hypertension 10/11/2006 Vitamin D deficiency secondary to parathyroidectomy PAST SURGICAL HISTORY Procedure Laterality Date DELIVERY ONLY X 2 PARATHYROID 01/09/2015 tumor removed REMOVE KIDNEY STONE Left ALLERGIES Augmentin [Amoxicillin-Pot Clavulanate] and Sulfa (Sulfonamide Antibiotics) MEDICATIONS indapamide (LOZOL) 1.25 mg tablet Take 1.25 mg by mouth once daily. rosuvastatin (CRESTOR) 10 mg tablet Take 1 tablet by mouth once daily. valsartan (DIOVAN) 160 mg tablet Take 1 tablet by mouth once daily. omega 9-ssa-ekp-fish oil (FISH OIL) 100-160-1,000 mg cap Take by mouth. SUMAtriptan (IMITREX) 100 mg tablet Take 1 tablet by mouth as needed for migraine headache (see administration instructions). levonorgestrel (MIRENA) 20 mcg/24 hours (5-6 yrs) 52 mg IUD 1 Each by INTRAUTERINE route as directed. ERGOCALCIFEROL, VITAMIN D2, (VITAMIN D ORAL) Take 2 capsules by mouth once daily. calcium carbonate 600 mg-cholecalciferol 400 units (CALCIUM WITH VITAMIN D) 600 mg-10 mcg (400 unit) tab Take 1 tablet by mouth once daily. fluticasone (FLONASE) 50 mcg/actuation nasal spray Use 2 Sprays in each nostril once daily. Rinse mouth after use. (Patient not taking: Reported on 12/01/2023) FAMILY HISTORY Problem Relation Age of Onset Thyroid Mother Heart Mother Diabetes Mother Hypertension Father Heart Father Diabetes Father Diabetes Paternal Aunt Thyroid Other paternal side Social History Tobacco Use Smoking status: Never Smokeless tobacco: Never Vaping Use Vaping status: Never Used Substance Use Topics Alcohol use: No Drug use: No ASSESSMENT/PLAN: 1. Sore throat - ICD9: 462, ICD10: J02.9 - STREP A MOLECULAR (POC) - neg No viral testing at this time. OTC meds for symptoms. Potential red flag symptoms discussed with the patient. Reviewed appropriate action plan to take if red flag symptoms occur. Patient agreeable to treatment plan. Laine Lopez APRN.[employer] documented in this encounter [facility] 08-06-2024 Note HNO ID: [id number] Author: LAINE LOPEZ APRN.STEM M[employer]TER Service: ? Author Type: Nurse Practitioner Type: Progress Notes Filed: 08/06/2024 13:24 Note Text: CC: Patient presents with: Ear Pain: Right ear with sore throat x 1 day HPI: Jose R Watt is a 49 year old female who presents to the office with complaint of sore throat and ear symptoms for the past day. Symptoms are worsening Associated symptoms includes sore throat. Denies nausea, vomiting , and diarrhea. Treatments tried include nothing so far. with no relief of symptoms. Sick contacts: unknown. History of asthma, frequent episodes of bronchitis, chronic bronchitis, bronchiectasis or COPD: No Smoker: No Seasonal/environmental allergies: No The ROS is otherwise negative. The patient's pmh, medications, allergies, and past visits are reviewed. PHYSICAL EXAM: BP 119/80 Pulse 110 Temp (!) 38.9 ?C (102.1 ?F) (Left Tympanic) Resp 16 Wt 80.8 kg (178 lb 2.1 oz) LMP 10/19/2023 (Approximate) SpO2 97% BMI 31.06 kg/m? General appearance: alert, cooperative, pleasant, in no acute distress Head: Normocephalic Eyes: EOM's intact, conjunctiva pink and moist, no icterus, sclera white, non-injected Ears: Right ear: External ear/canal- Normal, TM - clear with good landmarks. Left ear: External ear/canal- Normal, TM - clear with good landmarks Oropharynx:moderate erythema, without exudates present Heart: Negative. RRR without obvious murmur, gallop, or rubs. No ectopy. Lungs: clear to auscultation, without rales or wheeze, good air exchange PAST MEDICAL HISTORY Diagnosis Date Dysmenorrhea Excessive or frequent menstruation Heavy periods Resolved Kidney stones Malaise and fatigue Mixed hyperlipidemia Parathyroid tumor 10/11/2014 benign, 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 [employer] [place] Unspecified essential hypertension 10/11/2006 Vitamin D deficiency secondary to parathyroidectomy PAST SURGICAL HISTORY Procedure Laterality Date DELIVERY ONLY X 2 PARATHYROID 01/09/2015 tumor removed REMOVE KIDNEY STONE Left ALLERGIES Augmentin [Amoxicillin-Pot Clavulanate] and Sulfa (Sulfonamide Antibiotics) MEDICATIONS indapamide (LOZOL) 1.25 mg tablet Take 1.25 mg by mouth once daily. valsartan (DIOVAN) 160 mg tablet Take 1 tablet by mouth once daily. omega 0-sbc-zab-fish oil (FISH OIL) 100-160-1,000 mg cap Take by mouth. SUMAtriptan (IMITREX) 100 mg tablet Take 1 tablet by mouth as needed for migraine headache (see administration instructions). levonorgestrel (MIRENA) 20 mcg/24 hours (5-6 yrs) 52 mg IUD 1 Each by INTRAUTERINE route as directed. ERGOCALCIFEROL, VITAMIN D2, (VITAMIN D ORAL) Take 2 capsules by mouth once daily. rosuvastatin (CRESTOR) 10 mg tablet Take 1 tablet by mouth once daily. calcium carbonate 600 mg-cholecalciferol 400 units (CALCIUM WITH VITAMIN D) 600 mg-10 mcg (400 unit) tab Take 1 tablet by mouth once daily. fluticasone (FLONASE) 50 mcg/actuation nasal spray Use 2 Sprays in each nostril once daily. Rinse mouth after use. (Patient not taking: Reported on 12/01/2023) FAMILY HISTORY Problem Relation Age of Onset Thyroid Mother Heart Mother Diabetes Mother Hypertension Father Heart Father Diabetes Father Diabetes Paternal Aunt Thyroid Other paternal side Social History Tobacco Use Smoking status: Never Smokeless tobacco: Never Vaping Use Vaping status: Never Used Substance Use Topics Alcohol use: No Drug use: No ASSESSMENT/PLAN: 1. Sore throat - ICD9: 462, ICD10: J02.9 (primary diagnosis) - STREP A MOLECULAR (POC) - pos - IBUPROFEN 600 MG TABLET 2. Strep throat - ICD9: 034.0, ICD10: J02.0 - CEPHALEXIN 500 MG CAPSULE Prescription instructions reviewed with patient as applicable. Potential red flag symptoms discussed with the patient. Reviewed appropriate action plan to take if red flag symptoms occur. Patient will report to the ER if anything changes or worsens. Patient agreeable to treatment plan. At this time patient has no kidney pain or abdominal pain was instructed if she does develop any in due to having kidney stones she should report to the ER. Fever is believed to be caused by the strep at this point. Laine Lopez APRN.[facility] 08-06-2024 History of Present illness Narrative CC: Patient presents with: Ear Pain: Right ear with sore throat x 1 day HPI: Jose R Watt is a 49 year old female who presents to the office with complaint of sore throat and ear symptoms for the past day. Symptoms are worsening Associated symptoms includes sore throat. Denies nausea, vomiting , and diarrhea. Treatments tried include nothing so far. with no relief of symptoms. Sick contacts: unknown. History of asthma, frequent episodes of bronchitis, chronic bronchitis, bronchiectasis or COPD: No Smoker: No Seasonal/environmental allergies: No The ROS is otherwise negative. The patient's pmh, medications, allergies, and past visits are reviewed. PHYSICAL EXAM: BP 119/80 Pulse 110 Temp (!) 38.9 C (102.1 F) (Left Tympanic) Resp 16 Wt 80.8 kg (178 lb 2.1 oz) LMP 10/19/2023 (Approximate) SpO2 97% BMI 31.06 kg/m General appearance: alert, cooperative, pleasant, in no acute distress Head: Normocephalic Eyes: EOM's intact, conjunctiva pink and moist, no icterus, sclera white, non-injected Ears: Right ear: External ear/canal- Normal, TM - clear with good landmarks. Left ear: External ear/canal- Normal, TM - clear with good landmarks Oropharynx:moderate erythema, without exudates present Heart: Negative. RRR without obvious murmur, gallop, or rubs. No ectopy. Lungs: clear to auscultation, without rales or wheeze, good air exchange PAST MEDICAL HISTORY Diagnosis Date Dysmenorrhea Excessive or frequent menstruation Heavy periods Resolved Kidney stones Malaise and fatigue Mixed hyperlipidemia Parathyroid tumor 10/11/2014 benign, 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 [employer] [place] Unspecified essential hypertension 10/11/2006 Vitamin D deficiency secondary to parathyroidectomy PAST SURGICAL HISTORY Procedure Laterality Date DELIVERY ONLY X 2 PARATHYROID 01/09/2015 tumor removed REMOVE KIDNEY STONE Left ALLERGIES Augmentin [Amoxicillin-Pot Clavulanate] and Sulfa (Sulfonamide Antibiotics) MEDICATIONS indapamide (LOZOL) 1.25 mg tablet Take 1.25 mg by mouth once daily. valsartan (DIOVAN) 160 mg tablet Take 1 tablet by mouth once daily. omega 0-cim-qvi-fish oil (FISH OIL) 100-160-1,000 mg cap Take by mouth. SUMAtriptan (IMITREX) 100 mg tablet Take 1 tablet by mouth as needed for migraine headache (see administration instructions). levonorgestrel (MIRENA) 20 mcg/24 hours (5-6 yrs) 52 mg IUD 1 Each by INTRAUTERINE route as directed. ERGOCALCIFEROL, VITAMIN D2, (VITAMIN D ORAL) Take 2 capsules by mouth once daily. rosuvastatin (CRESTOR) 10 mg tablet Take 1 tablet by mouth once daily. calcium carbonate 600 mg-cholecalciferol 400 units (CALCIUM WITH VITAMIN D) 600 mg-10 mcg (400 unit) tab Take 1 tablet by mouth once daily. fluticasone (FLONASE) 50 mcg/actuation nasal spray Use 2 Sprays in each nostril once daily. Rinse mouth after use. (Patient not taking: Reported on 12/01/2023) FAMILY HISTORY Problem Relation Age of Onset Thyroid Mother Heart Mother Diabetes Mother Hypertension Father Heart Father Diabetes Father Diabetes Paternal Aunt Thyroid Other paternal side Social History Tobacco Use Smoking status: Never Smokeless tobacco: Never Vaping Use Vaping status: Never Used Substance Use Topics Alcohol use: No Drug use: No ASSESSMENT/PLAN: 1. Sore throat - ICD9: 462, ICD10: J02.9 (primary diagnosis) - STREP A MOLECULAR (POC) - pos - IBUPROFEN 600 MG TABLET 2. Strep throat - ICD9: 034.0, ICD10: J02.0 - CEPHALEXIN 500 MG CAPSULE Prescription instructions reviewed with patient as applicable. Potential red flag symptoms discussed with the patient. Reviewed appropriate action plan to take if red flag symptoms occur. Patient will report to the ER if anything changes or worsens. Patient agreeable to treatment plan. At this time patient has no kidney pain or abdominal pain was instructed if she does develop any in due to having kidney stones she should report to the ER. Fever is believed to be caused by the strep at this point. Laine Lopez APRN.JONO documented in this encounter [facility] 05-16-2024 Note Formatting of this n ote might be different from the original. May 16, 2024 PID: [id number] Jose R Watt [facility] [place] [address] Dear Ms. Watt, We are pleased to inform you that the results of your recent breast imaging exam on 05/15/2024 are normal. Breast tissue can be either dense or not dense. Dense tissue makes it harder to find breast cancer on a mammogram and also raises the risk of developing breast cancer. Your breast tissue is dense. In some people with dense tissue, other imaging tests in addition to a mammogram may help find cancers. Talk to your healthcare provider about breast density, risks for breast cancer, and your individual situation. Early detection of cancer is very important. We also understand recommendations regarding breast cancer screening are controversial. Please discuss with your primary care provider which strategy is best for you and whether a mammogram is right for you. Your imaging studies and report will be kept on file at [facility] as part of your permanent medical record and are available for your continuing care. Thank you for allowing us to help in meeting your health care needs. Sincerely, Dr. Rankin Interpreting Radiologist [facility] (Normal over 40) [facility] 05-16-2024 Miscellaneous Notes May 16, 2024 PID: [id number] Jose R Watt [address] [place] [address] Dear Ms. Watt, We are pleased to inform you that the results of your recent breast imaging exam on 05/15/2024 are normal. Breast tissue can be either dense or not dense. Dense tissue makes it harder to find breast cancer on a mammogram and also raises the risk of developing breast cancer. Your breast tissue is dense. In some people with dense tissue, other imaging tests in addition to a mammogram may help find cancers. Talk to your healthcare provider about breast density, risks for breast cancer, and your individual situation. Early detection of cancer is very important. We also understand recommendations regarding breast cancer screening are controversial. Please discuss with your primary care provider which strategy is best for you and whether a mammogram is right for you. Your imaging studies and report will be kept on file at [facility] as part of your permanent medical record and are available for your continuing care. Thank you for allowing us to help in meeting your health care needs. Sincerely, Dr. Rankin Interpreting Radiologist [facility] (Normal over 40) documented in this encounter [facility] 05-15-2024 History of Present illness Narrative Radiology Service Progress Note PATIENT NAME: Jose R Watt DATE OF SERVICE: May 15, 2024 TIME: 9:58 AM PATIENT IDENTITY VERIFICATION COMPLETED USING TWO (2) IDENTIFIERS: Name and Date of confirmed by patient verbally. FALL SCREENING: Has the patient had 2 falls in the last year or 1 fall with injury or currently using an Ambulatory Assistive Device (Walker, Cane, Wheelchair, Crutches, etc.)? No PATIENT GENDER DATA: Female. status: : No status: NO. PATIENT RELEVANT IMPLANT DATA REVIEWED: Not Applicable PATIENT PRESENTS WITH AN IMPLANTABLE OR ATTACHED CURB WORKER: No RADIOLOGY DEPARTMENT: Mammography PERIPHERAL IV DATA: Not applicable SIGNED BY: Soheila Cardona VIVA May 15, 2024 9:58 AM documented in this encounter [facility] 05-12-2024 History of Present illness Narrative Assembler Adjuster offered: Patient declines. Resendiz is a 48 year old who presents for an annual gynecologic exam without complaints. 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 Menses: no menses - Mirena IUD. Occasional spotting Contraception: IUD HPV vaccine: No Last Pap: 01/13/2021 normal HPV: 01/10/2021 negative History of abnormal pap: No Last mammogram: 2022normal Sexually active: Yes History of STDS: None Patient concerns for STD exposure: No. Pain with intercourse: No Postcoital bleeding: No Hot flashes: No Night sweats: No Vaginal dryness: No Exercise: walking, elliptical Diet: balanced OB History T2 L2 SAB0 IAB0 Ectopic0 Multiple0 Live Births0 Safety Scientist History LMP: 10/19/2023 (Approximate), IUD Age at Menarche: Age at First : Age at Menopause: Safety Scientist History Comments: Sexual Activity: Yes; Male; vasectomy Contraception: Surgical, I.U.D. PAST MEDICAL HISTORY No date: Dysmenorrhea No date: Excessive or frequent menstruation Comment: Heavy periods Resolved No date: Kidney stones No date: Malaise and fatigue No date: Mixed hyperlipidemia 10/11/2014: Parathyroid tumor Comment: benign, Dr. [employer] [place] No date: Premenstrual tension syndromes 10/11/2014: Thyroid nodule Comment: Dr. [employer] [place] 10/11/2006: Unspecified essential hypertension No date: Vitamin D deficiency Comment: secondary to parathyroidectomy PAST SURGICAL HISTORY No date: DELIVERY ONLY Comment: X 2 01/09/2015: PARATHYROID Comment: tumor removed No date: REMOVE KIDNEY STONE; Left FAMILY HISTORY Problem Relation Age of Onset Thyroid Mother Heart Mother Diabetes Mother Hypertension Father Heart Father Diabetes Father Diabetes Paternal Aunt Thyroid Other paternal [...] retraction. Allergies and current medication updated:Yes EXAM: Ht 5' 3.5 (1.61m) Wt 175 lb (79.4kg) LMP 10/19/2023 BMI 30.51 kg/(m^2). GENERAL: pleasant, female in no apparent distress [...] external genitalia normal, normal Bartholin's glands, urethra, [place]'s glands, no vulvar lesions, no cervical lesions, good vaginal support, physiologic discharge present, normal appearing perineal body and perianal region. + IUD strings BIMANUAL: uterus normal size, shape and consistency, no adnexal masses, and non-tender RECTOVAGINAL: deferred. NEURO: alert and oriented x3,exam grossly non-focal EXTREMITIES: normal ASSESSMENT/PLAN: 1) Health maintenance: Pap/HPV up to date. Mammogram ordered. Nutrition, exercise and routine health maintenance exams reviewed. 2) Contraception: IUD. Contraceptive options reviewed and information provided. 3) STD screening: Declined STD check. 4) Follow up one year or sooner as needed Ebony Little MD documented in this encounter [facility] 03-30-2024 Telephone encounter Note Patient notified of results and provider's instructions. Patient verbalizes understanding. Vy Tran RN [facility] 03-30-2024 Miscellaneous Notes Patient notified of results and provider's instructions. Patient verbalizes understanding. Vy Tran RN Phoned patient left message to return call and ask to speak to a nurse. Phoned patient, rang and hung up. Please try again later. Please inform patient that her triglycerides and her A1c are up in the abnormal range. She is back into a prediabetes range. Needs to cut back on sugars and starches in her diet as well as less animal fats Shon Ronquillo DO documented in this encounter [facility] 03-30-2024 Telephone encounter Note Phoned patient left message to return call and ask to speak to a nurse. [facility] 03-30-2024 Telephone encounter Note Phoned patient, rang and hung up. Please try again later. [facility] 03-29-2024 Telephone encounter Note Please inform patient that her triglycerides and her A1c are up in the abnormal range. She is back into a prediabetes range. Needs to cut back on sugars and starches in her diet as well as less animal fats Shon Ronquillo DO [facility] 03-29-2024 Telephone encounter Note Patient calls and notified of results. Patient verbalizes understanding. Bertha Lucero RN [facility] 03-29-2024 Miscellaneous Notes Patient calls and notified of results. Patient verbalizes understanding. Bertha Lucero RN Phoned patient left message to return call and ask to speak to a nurse. Please inform patient that her Cologuard is negative Shon Ronquillo DO documented in this encounter [facility] 03-29-2024 Telephone encounter Note Phoned patient left message to return call and ask to speak to a nurse. [facility] 03-29-2024 Telephone encounter Note Please inform patient that her Cologuard is negative Shon Ronquillo DO [facility] 03-15-2024 History of Present illness Narrative CC: Jose R Watt is a 48 year old female who presents to the office for physical HPI: Acute sinusitis, she is concerned that she has an infection. Has had symptoms >6 weeks. Was treated with doxycycline with minimal improvement. Sinus pressure left >right and headaches and ear pressure. No fevers or chills. HPL, taking crestor as prescribed, no SE with medication. Willing to have fasting lab draw HTN, overall stable, taking diovan Had recent cardiac testing with ECHO and stress treadmill testing which were both normal. 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 [employer] [place] Unspecified essential hypertension 10/11/2006 Vitamin D deficiency secondary to parathyroidectomy PAST SURGICAL HISTORY Procedure Laterality Date DELIVERY ONLY X 2 PARATHYROID 01/09/2015 tumor removed REMOVE KIDNEY STONE Left Social History: Social History Tobacco Use Smoking status: Never Smokeless tobacco: Never Vaping Use Vaping Use: Never used Substance Use Topics Alcohol use: No Drug use: No FAMILY HISTORY Problem Relation Age of Onset Thyroid Mother Heart Mother Diabetes Mother Hypertension Father Heart Father Diabetes Father Diabetes Paternal Aunt Thyroid Other paternal side Current Outpatient prescriptions: indapamide (LOZOL) 1.25 mg tablet^Take 1.25 mg by mouth once daily.^Disp: ^Rfl: rosuvastatin (CRESTOR) 10 mg tablet^Take 1 tablet by mouth once daily.^Disp: 90 tablet^Rfl: 3 cefdinir (OMNICEF) 300 mg capsule^Take 1 capsule by mouth two times a day for 14 days.^Disp: 28 capsule^Rfl: 1 valsartan (DIOVAN) 160 mg tablet^Take 1 tablet by mouth once daily.^Disp: 90 tablet^Rfl: 3 calcium carbonate 600 mg-cholecalciferol 400 units (CALCIUM WITH VITAMIN D) 600 mg-10 mcg (400 unit) tab^Take 1 tablet by mouth once daily.^Disp: ^Rfl: fluticasone (FLONASE) 50 mcg/actuation nasal spray^Use 2 Sprays in each nostril once daily. Rinse mouth after use.^Disp: 11.1 mL^Rfl: 0 (Patient not taking: Reported on 12/01/2023) omega 6-azo-ixm-fish oil (FISH OIL) 100-160-1,000 mg cap^Take by mouth.^Disp: ^Rfl: SUMAtriptan (IMITREX) 100 mg tablet^Take 1 tablet by mouth as needed for migraine headache (see administration instructions).^Disp: 12 tablet^Rfl: 5 levonorgestrel (MIRENA) 20 mcg/24 hours (5-6 yrs) 52 mg IUD^1 Each by INTRAUTERINE route as directed.^Disp: 1 Each^Rfl: 0 ERGOCALCIFEROL, VITAMIN D2, (VITAMIN D ORAL)^Take 2 capsules by mouth once daily. ^Disp: ^Rfl: Allergies: ALLERGIES Allergen Reactions Augmentin [Amoxicil* Vomiting Sulfa (Sulfonamide * Rash ROS: See HPI PE: 03/15/24 0741 BP: 136/80 Pulse: 76 Resp: 16 Temp: 36.1 C (97 F) TempSrc: Right Tympanic Weight: 79.8 kg (176 lb) Height: 163 cm (5' 4.17) Gen: A&O, NAD, non-toxic appearing, Pleasant, cooperative HEENT: NT/AC, PERRLA, EOMs intact b/l, nares congested b/l, left maxillary sinus TTP, pharynx without erythema, exudate or lesions. Uvula midline. MMM, EACs without erythema or debris. TMs pearly lopez with intact landmarks b/l. Neck: supple, No cervical LAD, no thyromegaly, no carotid bruits CV: RRR, normal S1 and S2, no murmurs, no gallops, no rubs, Pulses 2+ and symmetric in UE and LE b/l Lungs: normal respiratory effort, CTA b/l, no wheezing or rhonchi or rales Abd: soft,overweight, NT, ND, +BS, no hepatosplenomegaly MS: FROM all 4 extremities Neuro: CN II-XII intact b/l, strength 5/5 b/l UE and LE, DTRs 2/4 UE and LE, sensation intact. Skin: warm, dry, intact, No rashes or lesions on exposed skin. No edema, normal pulses Plantar fasciitis foot right ASSESSMENT/PLAN: 1. Well adult exam - ICD9: V70.0, ICD10: Z00.00 (primary diagnosis) - Counseled on healthy diet and regular exercise - Colorectal cancer screening recommended - agrees to Cologuard - Mammogram ordered - exam recommended once yearly - COMPREHENSIVE METABOLIC PANEL - LIPID PANEL BASIC - HEMOGLOBIN A1C - THYROID STIMULATING HORMONE - VITAMIN B12 - VITAMIN D 25 HYDROXY - C-REACTIVE PROTEIN - FOLLICLE STIMULATING HORMONE 2. Mixed hyperlipidemia - ICD9: 272.2, ICD10: E78.2 - Control undetermined, due for labs - Continue current medications - Counseled on healthy diet and regular exercise - Discussed need for and benefit of weight loss. BMI 30.05 kg/(m^2) - ROSUVASTATIN 10 MG TABLET 3. Hypertension, essential - ICD9: 401.9, ICD10: I10 - Controlled - Continue current medications - Recommend home blood pressure monitoring, to bring results to next visit - Encouraged sodium restriction, DASH or Mediterranean diet - Recommend regular aerobic exercise 4. Encounter for screening mammogram for malignant neoplasm of breast - ICD9: V76.12, ICD10: Z12.31 - Set up for mammogram, yearly mammogram recommended - Encouraged monthly BSE - LISA SCREENING W SCOTT 5. Screening for colon cancer - ICD9: V76.51, ICD10: Z12.11 - COLOGUARD 6. Plantar fasciitis - ICD9: 728.71, ICD10: M72.2 D/w her care 7. Acute non-recurrent maxillary sinusitis - ICD9: 461.0, ICD10: J01.00 - Will begin treatment with as per antibiotic as written, see orders 8. Impaired fasting glucose - ICD9: 790.21, ICD10: R73.01 Fasting labs ordered Shon Ronquillo DO To ER if develops chest pain, shortness of breath, or severe worsening of symptoms. Discussed risks, benefits, alternatives, and potential side effects of medications. Patient expressed understanding and agreed with the plan. Shon Ronquillo DO [address] [place] [address] documented in this encounter [facility] 03-15-2024 Instructions Shon Ronquillo DO - 03/15/2024 8:28 AM EDT Epsom salt soak in warm water 20 minutes at night Apply Voltaren 1% cream after soaking foot, use the cream the in the AM too documented in this encounter [facility] 03-09-2024 Telephone encounter Note Patient has been identified by name and date of : Yes, Provider Dr. Ronquillo Date 03/09/24 Time 12:24 Patient phones for refill(s): Requested Prescriptions Pending Prescriptions Disp Refills valsartan (DIOVAN) 160 mg tablet 90 tablet 3 Sig: Take 1 tablet by mouth once daily. Date of last office visit in primary care: 12/29/2023 Date of next office visit in primary care: 03/15/2024 Please advise. Thank you. Rosa Maria Wallace LPN. [facility] 03-09-2024 Miscellaneous Notes Patient has been identified by name and date of : Yes, Provider Dr. Ronquillo Date 03/09/24 Time 12:24 Patient phones for refill(s): Requested Prescriptions Pending Prescriptions Disp Refills valsartan (DIOVAN) 160 mg tablet 90 tablet 3 Sig: Take 1 tablet by mouth once daily. Date of last office visit in primary care: 12/29/2023 Date of next office visit in primary care: 03/15/2024 Please advise. Thank you. Rosa Maria Wallace LPN. Patient has been identified by name and date of : Yes, Provider Dr Ronquillo Date 03-09-24 Time 11:54A Patient phones for refill(s): Requested Prescriptions Pending Prescriptions Disp Refills valsartan (DIOVAN) 160 mg tablet 90 tablet 3 Sig: Take 1 tablet by mouth once daily. Date of last office visit in primary care: 12/29/2023 Date of next office visit in primary care: 03/15/2024 Please advise. Thank you. Clotilde Escobedo. documented in this encounter [facility] 03-09-2024 Telephone encounter Note Patient has been identified by name and date of : Yes, Provider Dr Ronquillo Date 03-09-24 Time 11:54A Patient phones for refill(s): Requested Prescriptions Pending Prescriptions Disp Refills valsartan (DIOVAN) 160 mg tablet 90 tablet 3 Sig: Take 1 tablet by mouth once daily. Date of last office visit in primary care: 12/29/2023 Date of next office visit in primary care: 03/15/2024 Please advise. Thank you. Clotilde Escobedo. [facility] 02-28-2024 Telephone encounter Note Pharmacy request denied. Patient needs to contact office for refills. Shala Sears MA [facility] 02-28-2024 Miscellaneous Notes Pharmacy request denied. Patient needs to contact office for refills. Shala Sears MA documented in this encounter [facility] 12-29-2023 History of Present illness Narrative Chief Complaint Patient presents with: 4 week f/up: Also feels may have sinus infection, sinus pressure through eyes , had aches nasal drainage for about a week and a half now HPI Jose R Watt is a 48 year old female who presents here today for Above Complaints. Jose R is an established patient of Dr. Ronquillo, DO and myself. Concerns today... Per appointment on 12/01/23: ASSESSMENT/PLAN: 1. Hypertension, essential - ICD9: 401.9, [...] RTO in 4 weeks, sooner if needed. Here today to recheck BP --- HTN -- She states compliant with current blood pressure medication(s): valsartan 160 mg daily. She does check BP at home. Average home readings: 110-145/70-90. A few higher readings around 140-155/90s while she still had kidney stone and/or ureter stent in place which was very painful for pt. At BPs improvement back to normal after this was removed. She denies chest pain, shortness of breath, palpitations, dizziness, leg edema, headaches, or vision changes. Last 14 Encounter BP Readings: Date: BP: 12/29/2023 126/62 12/01/2023 140/80 11/26/2023 172/90 11/04/2023 142/92 09/16/2023 156/92 03/01/2023 134/88 04/27/2022 136/78 01/13/2022 130/84 10/22/2021 134/80 03/26/2021 122/76 02/12/2021 124/70 01/22/2021 152/90 01/08/2021 122/78 12/30/2020 130/82 Pt reports lithotripsy and stent placement for kidney stone was very painful. Hematuria and dysuria the entire week the stent was placed. After removal, symptoms all improved and pt is now back to baseline. Endocrinology is having pt get 24 hour urine sample to look for calcium in urine -- due to history of parathyroidectomy and being on calcium supplement daily. Worried extra calcium may be causing kidney stones. Pt still have kidney stone from CT scan noted to R side but this is not bothering her so plan is to continue to monitor at this time per urology. Concern for possible sinus infection. Symptoms of sinus pressure behind eyes, sinus headaches, and intermittent L sided ear pain x 1.5-2 weeks. No cough or chest congestion, symptoms all staying in face/sinuses. No fever/chills. No other concerns or complaints. Past medical history, appointments, medications, allergies reviewed. Previous Medical History PAST MEDICAL HISTORY Diagnosis Date Dysmenorrhea Excessive or frequent menstruation Heavy periods Resolved Malaise and fatigue Mixed hyperlipidemia Parathyroid tumor 2015 benign, Dr. Hernandez [employer] Donnie Premenstrual tension syndromes Thyroid nodule 2014 Dr. Hernandez [employer] Unspecified essential hypertension 2007 Vitamin D [...] on File Prior to Visit Medication Sig fluticasone (FLONASE) 50 mcg/actuation nasal spray Use 2 Sprays in each nostril once daily. Rinse mouth after use. (Patient not taking: Reported on 12/01/2023) omega 7-rai-yrz-fish oil (FISH OIL) 100-160-1,000 mg cap Take by mouth. valsartan (DIOVAN) 160 mg tablet Take 1 tablet by mouth once daily. rosuvastatin (CRESTOR) 10 mg tablet Take 1 tablet by mouth once daily. SUMAtriptan (IMITREX) 100 mg tablet Take 1 tablet by mouth as needed for migraine headache (see administration instructions). levonorgestrel (MIRENA) 20 mcg/24 hours (5-6 yrs) 52 mg IUD 1 Each by INTRAUTERINE route as directed. ERGOCALCIFEROL, VITAMIN D2, (VITAMIN D ORAL) Take 2 capsules by mouth once daily. Current Facility-Administered Medications [...] REVIEW OF SYSTEMS See HPI. EXAM: BP 126/62 (BP Site: Left Arm, BP Position: Sitting, BP Cuff Size: Regular Adult) Pulse 64 Resp 14 Wt 80.6 kg (177 lb 9.6 oz) LMP 10/19/2023 (Approximate) BMI 35.10 kg/m General Appearance: Well appearing, alert, in no acute distress, well-hydrated, well nourished.. Skin: Skin color, texture, turgor normal, no suspicious rashes or lesions. Head: Normocephalic, no masses, lesions, tenderness or abnormalities, Facial tenderness. Eyes: Anicteric sclera. Pupils are equally round and reactive to light. Extraocular movements are intact. . Ears: External ears normal, canals clear, Negative findings: Left tympanic membrane normal, Right tympanic membrane normal. Nose/Sinuses: Nares normal, septum midline, mucosa normal, no drainage or sinus tenderness, Positive findings: clear rhinorrhea. Oropharynx: Lips, mucosa, and tongue normal, teeth and gums normal, oropharynx normal. Lungs: Lungs clear to auscultation. No wheezing, rhonchi, rales.. Heart: RRR without murmur, gallop, or rubs. No ectopy. Health Maintenance List Hepatitis C Screening Never done HIV Screening Never done Hepatitis B Vaccine(1 of 3 - 19+ 3-dose series) Never done Colorectal Cancer Screening Never done Influenza Vaccine(1) due on 04/09/2024 Depression Assessment due on 10/10/2024 DTaP,Tdap,Td Vaccine(1 - Tdap) due on 12/01/2024 Covid-19 Vaccine(3 - 2022- season) due on 12/01/2024 BP Controlled (<130/80) due on 03/01/2024 Mammogram Screening due on 05/14/2024 Annual PCP Team Chronic Disease Visit due on 12/01/2024 Pap Testing due on 01/08/2026 HPV Testing due on 01/08/2026 Diabetes Screening due on 03/01/2026 Lipid Screening due on 10/25/2026 ASSESSMENT/PLAN: 1. Hypertension, essential - ICD9: 401.9, ICD10: I10 (primary diagnosis) - Controlled - Continue current medications - Recommend home blood pressure monitoring, to bring results to next visit - Encouraged sodium restriction, DASH or Mediterranean diet - Recommend regular aerobic exercise - Follow up in 3 months for hypertension visit 2. Kidney stone - ICD9: 592.0, ICD10: N20.0 Continue with urologist and explosive operator recommendations. Continue to monitor for symptoms of R flank pain given known kidney stone from imagining. Agree with 24 hour urine testing reasoning. 3. Bacterial sinusitis - ICD9: 473.9, 041.9, ICD10: J32.9, B96.89 - Will begin treatment with as per antibiotic as written, see orders - The patient should also be given OTC decongestants prn, OTC cough and cold meds as needed, warm salt water gargles, throat lozenges and/or OTC throat spray as needed, and nasal saline gtts and suction prn for the first 5-7 days of treatment. - Supportive care with plenty of fluids, rest, and analgesia prn. - Follow up in 3-5 days if symptoms persist or worsen. - DOXYCYCLINE HYCLATE 100 MG TABLET RTO as scheduled in 2-3 months, sooner if needed. Prescription instructions reviewed with patient as applicable. Potential red flag symptoms discussed with the patient. Reviewed appropriate action plan to take if red flag symptoms occur. Patient agreeable to treatment plan. Toña Perdomo APRN.STEM MOUNTER [address] [place] [address] documented in this encounter [facility] 12-01-2023 History of Present illness Narrative Chief Complaint Patient presents with: er follow up: Was seen in urgent care and sent to er . [facility] found kidney stoe and surgery scheduled for [...] of 172/90. Pt was asymptomatic. ER at [facility] -- Was found to have kidney stone bilaterally on CT scan, L side obstructing 4 mm stone with hydronephrosis, R side was very small and nonobstructive. Saw urologist yesterday, scheduled for urethroscopy with stent placement on this Wednesday. Pt denies any current pain since ER discharge. Has not taken at [place] as prescribed by ER. BP -- BP elevated in ER, as high as 215/129. Minimally reduced with labetalol and then significant improved with clonidine. EKG in ER was normal. Complete cardiac work-up in ER (trop, d-dimer, CXR, CBC, CMP) was all normal. Pt concerned due to both parents having significant cardiac disease / [place] history. ECHO and stress test completed in [...] hyperlipidemia Parathyroid tumor 2015 benign, Dr. Hernandez [employer] Premenstrual tension syndromes Thyroid nodule 2014 Dr. [employer] [place] Unspecified essential hypertension 2007 Vitamin D deficiency [...] File Prior to Visit Medication Sig omega 3-mdb-psb-fish oil (FISH OIL) 100-160-1,000 mg cap Take [...] Vaccine(1 - Tdap) due on 12/01/2024 Covid-19 Vaccine(3 - season) due on 12/01/2024 Annual PCP Team [...] symptoms occur. Patient agreeable to treatment plan. Toña Perdomo APRN.CNP [address] [place] [address] documented in this encounter [facility] 11-26-2023 History of Present illness Narrative José [...] hyperlipidemia Parathyroid tumor 2014 benign, Dr. [facility] [employer] Donnie Premenstrual tension syndromes Thyroid nodule 2014 Dr. [employer]nie Unspecified essential hypertension 2007 Vitamin D deficiency secondary to parathyroidectomy PAST SURGICAL HISTORY Procedure Laterality Date DELIVERY ONLY X 2 PARATHYROID 01/2015 tumor removed ALLERGIES Augmentin [Amoxicillin-Pot Clavulanate] and Sulfa (Sulfonamide Antibiotics) MEDICATIONS fluticasone (FLONASE) 50 mcg/actuation nasal spray^Use 2 Sprays in each nostril once daily. Rinse mouth after use.^Disp: 11.1 mL^Rfl: 0 omega 6-nzn-syz-fish oil (FISH OIL) 100-160-1,000 mg cap^Take by [...] kidney stone with limited diagnostic capabilities of [facility] care. Since she does have hematuria [...] evaluation. MARK Chapa documented in this encounter [facility] 09-16-2023 History of Present illness Narrative This note was created using [employer]. Subjective Jose R Watt is a 48 year old female. HPI 48-year-old female presents for bilateral eye irritation and some crusting this morning. 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 She states that this morning she had a little bit of crusting/drainage from both eyes. She states that they are not pink, but do feel irritated and puffy. She denies any eye pain, vision changes, photophobia. She does wear glasses. No contacts. No cough, congestion or URI symptoms. PAST MEDICAL HISTORY Diagnosis Date Dysmenorrhea Excessive or frequent menstruation Heavy periods Resolved Malaise and fatigue Mixed hyperlipidemia Parathyroid tumor 2015 benign, Dr. [facility] [employer]nie Premenstrual tension syndromes Thyroid nodule 2014 Dr. [employer] Unspecified essential hypertension 2007 Vitamin D deficiency secondary to parathyroidectomy PAST SURGICAL HISTORY Procedure Laterality Date DELIVERY ONLY X 2 PARATHYROID 01/2015 tumor removed ALLERGIES Augmentin [Amoxicillin-Pot Clavulanate] and Sulfa (Sulfonamide Antibiotics) MEDICATIONS omega 6-wtb-nxe-fish oil (FISH OIL) 100-160-1,000 mg cap^Take by [...] the drops. -Follow-up with ophthalmology or her drill rig operator if symptoms do not improve. Diagnosis and treatment plan were discussed and questions were answered to the patient's satisfaction. Pt acknowledged understanding of concepts and follow up plan. Specific signs and symptoms that would indicate the need for higher level of care were discussed in detail warranting prompt ER evaluation. MARK Chapa documented in this encounter [facility] 05-14-2023 History of Present illness Narrative Radiology [...] 2023 10:11 AM documented in this encounter [facility] 05-14-2023 Miscellaneous Notes Patient notified via Lydiat documented in this encounter [facility] 05-11-2023 Instructions Ebony Harris MD - 05/11/2023 8:56 AM EDT Images [...] please call: Dr. Majano or Dr. Hernandez [phone] Zoila Ravi [phone] Dr. Gonzalez [phone] [facility] nurses [phone] documented in this encounter [facility] 05-11-2023 History of Present illness Narrative Assembler Adjuster offered: Patient declines. Resendiz is a 47 year old who presents for an annual gynecologic exam without complaints. Went to [facility] Menses: no menses - Mirena IUD. Occasional [...] L2 SAB0 IAB0 Ectopic0 Multiple0 Live Births0 Safety Scientist History LMP: 01/20/2021, IUD Age at Menarche: Age at First : Age at Menopause: Safety Scientist History Comments: Sexual Activity: Yes; Male; vasectomy Contraception: Surgical PAST MEDICAL HISTORY Diagnosis Date Dysmenorrhea Excessive or frequent menstruation Heavy periods Resolved Malaise and fatigue Mixed hyperlipidemia Parathyroid tumor 2015 benign, Dr. [facility] [employer] [place] Premenstrual tension syndromes Thyroid nodule 2015 Dr. [employer] [place] Unspecified essential hypertension 2007 Vitamin D deficiency [...] external genitalia normal, normal [place]'s glands, urethra, [place]'s glands, no vulvar lesions, no cervical lesions, [...] year or sooner as needed 5) colonoscopy Ebony Little MD documented in this encounter [facility] 03-15-2023 Miscellaneous Notes Pt calling was seen on the 01 of March and Valsartan was refilled. Pt states went to incorrect pharmacy. Needs to go to [facility] in [place]. [place]--03/01/23 Nov--nothing scheduled Last refill--03/01/23 but went to incorrect pharmacy. Last labs--03/01/23 documented in this encounter [facility] 12-25-2022 Miscellaneous Notes Received and reviewed, thank you. Ludivina Cantu APRN.JONO Labs placed in RS inbox Pepper Shozuyoseph Please obtain patient's most recent lab results from [facility] for my review. Specifically her lipid panel, but also any others that are available. Ludivina Cantu APRN.JONO documented in this encounter [facility] 12-25-2022 History of Present illness Narrative VIRTUAL VISIT PROGRESS NOTE This is a virtual visit using [employer] video visit. It required patient-provider interaction for the medical decision making as documented below. I have communicated my name and active licensure. The patient's identity and physical location were verified at the time of this visit. Either the patient or their legal customer field representative has been informed of the risks and benefits of -- and alternatives to -- treatment through a remote evaluation and consents to proceed with the evaluation remotely. Jose R Watt is a 47 year old female seen for medication follow up. Today: Would like to review her recent lab results that were completed at [facility]. Has strong family hx of elevated cholesterol and some heart problems. She was off her Crestor for about a month and has been very concerned about these levels. Also requesting refills on her valsartan and Imitrex. Does have in office appointment with Dr. Ronquillo in February for further follow up. HISTORY REVIEWED (electronic chart updated): PAST MEDICAL HISTORY Diagnosis Date Dysmenorrhea Excessive or frequent menstruation Heavy periods Resolved Malaise and fatigue Mixed hyperlipidemia Parathyroid tumor 2014 benign, Dr. Hernandez [employer] Donnie Premenstrual tension syndromes Thyroid nodule 2014 Dr. [employer] Donnie Unspecified essential hypertension 2007 Vitamin D [...] diagnosis) Will obtain recent lab results from [facility] to review, specifically lipid panel. Discussed with patient that will send her a [employer] message with more detail regarding her lipid levels. Refill of rosuvastatin sent. - ROSUVASTATIN 10 MG TABLET 2. Hypertension, essential - ICD9: 401.9, ICD10: I10 Refill given. Has in-office appointment scheduled with PCP Dr. Ronquillo in 2 months. Will evaluate BP at that time. Refill sent. - VALSARTAN 160 MG TABLET 3. Other migraine without status migrainosus, intractable - ICD9: 346.81, ICD10: G43.819 Works well for her migraines. Only takes if she absolutely needs. Refill sent. - SUMATRIPTAN 100 MG TABLET Ludivina Cantu APRN.CNP There are no Patient Instructions on file for this visit. Ludivina Cantu APRN.CNP documented in this encounter [facility] 12-23-2022 Miscellaneous Notes Spoke with pt gave information provided. Pt voices understanding. Please call patient and let her know that the lab work she had done at [facility] looks great! No abnormalities or concerns at all. These can be discussed in greater detail at upcoming appointment on Wednesday with Ludivina. Thank you, Toña Dhaliwal APRN.CNP documented in this encounter [facility] 12-15-2022 Miscellaneous Notes See Telephone encounter 12/15/22 Attempted to contact pt with no answer and no VM setup Pepper Cedeño Lab work placed to have done a few days prior to upcoming appt. Refilled crestor enough to get pt through to appointment date. Thank you, Toña Dhaliwal APRN.CNP The following approved medication requests have been transmitted electronically. Requested Prescriptions Signed Prescriptions Disp Refills rosuvastatin (CRESTOR) 10 mg tablet 30 tablet 0 Sig: Take 1 tablet by mouth once daily. Authorizing Provider: TOÑA DHALIWAL APRN.CNP Pt called to schedule her physical. She is scheduled on 12/25/22. She wonders about labs. States she is out of her cholesterol medication but thinks she is due for labs. Please let her know. documented in this encounter [facility] 07-29-2022 Miscellaneous Notes Agree with below. Letter sent via [employer]. Thank you, Toña Perdomo APRN.CNP Review pended letter. Please load letter needed for me to sign Shon Ronquillo DO Patient calling needs a letter to give to her insurance saying she was seen in office this year. Her insurance is through her . Her appt was with PCP on 10/22/2021 for her physical. The letter has to be made out to [facility], she would like letter sent to her my chart. Please advise documented in this encounter [facility] 07-02-2022 Miscellaneous Notes Pt called back and [...] Readings: Date: BP: 04/27/2022 136/78 Thank you. Emanuel Trevino LPN Received a call from Mary with [employer] [phone] to have prescription below sent to them. Pt has a current prescription with [facility]. Left a message for pt to call the office to verify she is switching pharmacy. Emanuel Trevino LPN documented in this encounter [facility] 02-12-2022 Miscellaneous Notes February 12, 2022 PID: [id number] Jose R Watt [address] [place] [id number] Dear Ms. Watt, We are pleased to [...] report will be kept on file at [facility] as part of your permanent medical record and are available for your continuing care. Thank you for allowing us to help in meeting your health care needs. Sincerely, Dr. Plata Interpreting Radiologist [facility] (Normal over 40) documented in this encounter [facility] 01-13-2022 Miscellaneous Notes Noted. Pepito Pelaez APRN.DARLEEN DE LA CRUZ Pt states she has had a migraine x 1 week. Pt has tried ibuprofen, tylenol, migraine medication, muscle relaxant, ice, cream and cream on neck. She saw her chiropractor for acupuncture and just not getting any relief. Pt requested to be seen today. Apt booked. Emanuel Trevino LPN documented in this encounter [facility] Evaluation note No assessment inform ation available [facility] Work Phone: Evaluation note Diagnosis Hypertension, essential Unspecified essential hypertension [facility] Diagnosis Hypertension, essential- Primary Unspecified essential hypertension Well adult exam Routine general medical examination at a health care facility Mixed hyperlipidemia Impaired fasting glucose [facility] Diagnosis Mixed hyperlipidemia- Primary Hypertension, essential Unspecified essential hypertension Other migraine without status migrainosus, intractable [facility] Diagnosis Hypertension, essential Unspecified essential hypertension [facility] Diagnosis Encounter for gynecological examination (general) (routine) without abnormal findings- Primary Encounter for screening mammogram for breast cancer Special screening for malignant neoplasms, colon [facility] Encounter for screening mammogram for breast cancer [facility] Diagnosis Eye irritation- Primary Other ill-defined disorder of eye [facility] Urination frequency- Primary Urinary frequency Hypertension, essential Unspecified essential hypertension Microscopic hematuria Flank pain Abdominal pain, unspecified site [facility] Diagnosis Hypertension, essential- Primary Unspecified essential hypertension Kidney stone Calculus of kidney [facility] Diagnosis Hypertension, essential- Primary Unspecified essential hypertension Kidney stone Calculus of kidney Bacterial sinusitis Unspecified sinusitis (chronic) [facility] Diagnosis Hypertension, essential Unspecified essential hypertension [facility] Diagnosis Hypertension, essential Unspecified essential hypertension [facility] Diagnosis Well adult exam- Primary Routine general medical examination at a health care facility Mixed hyperlipidemia Hypertension, essential Unspecified essential hypertension Encounter for screening mammogram for malignant neoplasm of breast Other screening mammogram Screening for colon cancer Special screening for malignant neoplasms, colon Plantar fasciitis Plantar fascial fibromatosis Acute non-recurrent maxillary sinusitis Impaired fasting glucose [facility] Diagnosis Encounter for gynecological examination (general) (routine) without abnormal findings- Primary Encounter for screening mammogram for breast cancer [facility] Diagnosis Encounter for screening mammogram for malignant neoplasm of breast Other screening mammogram [facility] Diagnosis Sore throat- Primary Acute pharyngitis Strep throat Streptococcal sore throat [facility] Diagnosis Sore throat- Primary Acute pharyngitis [facility] Diagnosis Pyelonephritis of right kidney- Primary Ureterolithiasis Calculus of ureter Status post laser lithotripsy of ureteral calculus Acute intractable headache, unspecified headache type [facility] Diagnosis Other migraine without status migrainosus, intractable [facility] Diagnosis Pyelonephritis of right kidney- Primary Ureterolithiasis Calculus of ureter Status post laser lithotripsy of ureteral calculus Bacterial sinusitis Unspecified sinusitis (chronic) Elevated liver enzymes Other nonspecific abnormal serum enzyme levels Elevated sed rate Elevated sedimentation rate documented in this encounter [facility] note* Diagnosis Ureterolithiasis- Primary Calculus of ureter Status post laser lithotripsy of ureteral calculus Pyelonephritis of right kidney Screening for genitourinary condition Screening for other and unspecified genitourinary condition documented in this encounter [facility] note* Diagnosis Dysuria- Primary documented in this encounter [facility] note* Diagnosis Ureterolithiasis- Primary Calculus of ureter documented in this encounter [facility] note* Diagnosis Kidney stone- Primary Calculus of kidney documented in this encounter [facility] note* Diagnosis Renal stones- Primary Calculus of kidney Pyelonephritis of right kidney Ureterolithiasis Calculus of ureter Essential hypertension Unspecified essential hypertension documented in this encounter [facility] note* Diagnosis Recurrent nephrolithiasis- Primary Calculus of kidney Left renal stone Hypercalciuria Unspecified disorders of calcium metabolism Hypernatriuria Hyperosmolality and/or hypernatremia Calcium oxalate stones Calculus of kidney Uric acid kidney stone Uric acid nephrolithiasis documented in this encounter [facility] note* Diagnosis Hypertension, essential Unspecified essential hypertension Other migraine without status migrainosus, intractable Mixed hyperlipidemia documented in this encounter [facility] note* Diagnosis Mixed hyperlipidemia Other migraine without status migrainosus, intractable documented in this encounter [facility] note* Diagnosis Recurrent nephrolithiasis Calculus of kidney documented in this encounter [facility] note* Diagnosis Recurrent nephrolithiasis- Primary Calculus of kidney Left renal stone Hypercalciuria Unspecified disorders of calcium metabolism Hypernatriuria Hyperosmolality and/or hypernatremia documented in this encounter [facility] for referral (narrative)* Outpatient Procedure (Routine) - Pending Review Specialty Diagnoses / Procedures Referred By Kumar bhat Referred To Contact [facility] [place] Diagnoses Special screening for malignant neoplasms, colon Procedures COLONOSCOPY SCREENING COLONOSCOPY FLX DX W/COLLJ SPEC WHEN PFRMD Ebony Harris MD [address] [place] [address] [facility] [place] [address] [place] [address] Referral ID Status Reason Start Date Expiration Date Visits Requested Visits Authorized [id number] Pending Review Auto-Generat ed Referral 05/11/2023 05/11/2024 1 1 * Diagnostic Procedure Only (Routine) - Pending Review Specialty Diagnoses / Procedures Referred By Contac t Referred To Contact [facility] Diagnoses Encounter for screening mammogram for breast cancer Procedures LISA SCREENING W SCOTT SCREENING DIGITAL BREAST TOMOSYNTHESIS BI SCREENING MAMMOGRAPHY BI 2-VIEW BREAST INC CAD Ebony Harris MD [address] [place] [address] [facility] [address] [place] [address] Referral ID Status Reason Start Date Expiration Date Visits Requested Visits Authorized [id number] Pending Review Auto-Generat ed Referral 05/11/2023 06/09/2024 1 1 [facility] for referral (narrative)* Diagnostic Procedure Only (Routine) - Closed Specialty Diagnoses / Procedures Referred By Kumar t Referred To Contact [facility] Diagnoses Encounter for screening mammogram for breast cancer Procedures LISA SCREENING W SCOTT SCREENING DIGITAL BREAST TOMOSYNTHESIS BI SCREENING MAMMOGRAPHY BI 2-VIEW BREAST INC CAD Shon Ronquillo DO [address] [place] [address] [facility] [address] [place] [address] Referral ID Status Reason Start Date Expiration Date V isits Requested Visits Authorized [id number] Closed Auto-Generate d Referral 04/28/2023 05/27/2024 1 1 [facility] for referral (narrative)* Diagnostic Procedure Only (Routine) - Pending Review Specialty Diagnoses / Procedures Referred By Contac t Referred To Contact [facility] Diagnoses Encounter for screening mammogram for malignant neoplasm of breast Procedures LISA SCREENING W SCOTT SCREENING DIGITAL BREAST TOMOSYNTHESIS BI SCREENING MAMMOGRAPHY BI 2-VIEW BREAST INC CAD Shon Ronquillo, DO [address] [place] [address] [facility] [address] [place] [address] Referral ID Status Reason Start Date Expiration Date Visits Requested Visits Authorized [id number] Pending Review Auto-Generat ed Referral 03/15/2024 04/14/2025 1 1 [facility] for referral (narrative)* Diagnostic Procedure Only (Routine) - New Request Specialty Diagnoses / Procedures Referred By Contac t Referred To Contact [facility] Diagnoses Encounter for screening mammogram for breast cancer Procedures LISA SCREENING W SCOTT SCREENING DIGITAL BREAST TOMOSYNTHESIS BI SCREENING MAMMOGRAPHY BI 2-VIEW BREAST INC CAD Ebony Harris MD [address] [place] [address] [facility] [address] [place] [address] Referral ID Status Reason Start Date Expiration Date Visits Requested Visits Authorized [id number] New Request Auto-Generat ed Referral 05/12/2024 06/11/2025 1 1 [facility] for referral (narrative)No reason for referral information [facility] Work Phone: reason for visit Narrative* Diagnostic Procedure Only (Routine) - Closed Specialty Diagnoses / Procedures Referred By Contac t Referred To Contact [facility] Diagnoses Encounter for screening mammogram for breast cancer Procedures LISA SCREENING W SCOTT SCREENING DIGITAL BREAST TOMOSYNTHESIS BI SCREENING MAMMOGRAPHY BI 2-VIEW BREAST INC CAD Shon Ronquillo, DO [address] [place] [address] [facility] [address] [place] [address] Referral ID Status Reason Start Date Expiration Date V isits Requested Visits Authorized [id number] Closed Auto-Generate d Referral 04/28/2023 05/27/2024 1 1 [facility] Diagnostic Procedure Only (Routine) - Closed Specialty Diagnoses / Procedures Referred By Kumar bhat Referred To Contact [facility] Diagnoses Encounter for screening mammogram for malignant neoplasm of breast Procedures LISA SCREENING W SCOTT SCREENING DIGITAL BREAST TOMOSYNTHESIS BI SCREENING MAMMOGRAPHY BI 2-VIEW BREAST INC CAD Shon Ronquillo L, DO [address] [place] [address] [facility] [address] [place] [address] Referral ID Status Reason Start Date Expiration Date V isits Requested Visits Authorized [id number] Closed Auto-Generate d Referral 03/15/2024 04/14/2025 1 1 [facility] Chief Complaint and Reason for Visit Chief Complaint GC Chief Complaint PHARYNGITIS Chief Complaint 24 HR URINE Chief Complaint HTN Chief Complaint Admit Date RIGHT FOOT FX February 12, 2025 7:49am Advance Directives No Advanced Directives Records Found Advance Directive Response Recorded Date/ Time Living Will No July 01, 2014 3:10pm Power of Pc Network Technician No June 3:10pm Advance Directive Response Recorded Date/ Time Living Will No November 26, 024 8:33pm Power of Pc Network Technician No November 26, 2023 8:33pm Advance Directive Response Recorded Date/ Time Living Will No November 26, 024 9:33pm Power of Pc Network Technician No November 26, 2023 9:33pm Reason for Referral Specialty Diagnoses / Procedures Referred By Kumar bhat Referred To Contact Nephrology Diagnoses Pyelonephritis of right kidney Ureterolithiasis Status post laser lithotripsy of ureteral calculus Procedures CONSULT TO NEPHROLOGY OFFICE/OUTPATIENT [facility] 60 MINUTES Shon Ronquillo L, DO [address] [place] [address] Referral ID Status Reason Start Date Expiration Date Visits Requested Visits Authorized [id number] Authorized PCP Requested Referral 4 09/05/2025 1 1 Specialty Diagnoses / Procedures Referred By Kumar bhat Referred To Contact Urology Diagnoses Pyelonephritis of right kidney Ureterolithiasis Status post laser lithotripsy of ureteral calculus Procedures CONSULT TO UROLOGY OFFICE/OUTPATIENT [facility] 60 MINUTES Toña Dhaliwal, WIRE BASKET [employer]KER.[employer] [address] [place] [address] Referral ID Status Reason Start Date Expiration Date Visits Requested Visits Authorized [id number] Authorized PCP Requested Referral 09/11/2024 09/11/2025 1 1 Specialty Diagnoses / Procedures Referred By Kumar bhat Referred To Contact Urology Diagnoses Ureterolithiasis Status post laser lithotripsy of ureteral calculus Procedures CONSULT TO UROLOGY OFFICE/OUTPATIENT [facility] 60 MINUTES Enmanuel Vargas PA-C [address] [place] [address] Referral ID Status Reason Start Date Expiration Date Visits Requested Visits Authorized [id number] Authorized PCP Requested Referral 10/24/2024 01/15/2025 1 1 Summary Purpose Family History No Family History Records FoundNo Family History Records FoundNo Family History Records Found Additional Source Comments Source Comments (unrecognize d section and content) In the event this informatio n is protected by the Federal Confidentiality of Alcohol and Drug Abuse Patient Records regulations: The Federal rules restrict any use of the information to criminally investigate or prosecute any alcohol or drug abuse patient.[facility] the event this information is protected by the Federal Confidentiality of Alcohol and Drug Abuse Patient Records regulations: The Federal rules restrict any use of the information to criminally investigate or prosecute any alcohol or drug abuse patient.[facility] the event this information is protected by the Federal Confidentiality of Alcohol and Drug Abuse Patient Records regulations: The Federal rules restrict any use of the information to criminally investigate or prosecute any alcohol or drug abuse patient.[facility] the event this information is protected by the Federal Confidentiality of Alcohol and Drug Abuse Patient Records regulations: The Federal rules restrict any use of the information to criminally investigate or prosecute any alcohol or drug abuse patient.[facility] the event this information is protected by the Federal Confidentiality of Alcohol and Drug Abuse Patient Records regulations: The Federal rules restrict any use of the information to criminally investigate or prosecute any alcohol or drug abuse patient.[facility] the event this information is protected by the Federal Confidentiality of Alcohol and Drug Abuse Patient Records regulations: The Federal rules restrict any use of the information to criminally investigate or prosecute any alcohol or drug abuse patient.[facility] the event this information is protected by the Federal Confidentiality of Alcohol and Drug Abuse Patient Records regulations: The Federal rules restrict any use of the information to criminally investigate or prosecute any alcohol or drug abuse patient.[facility] the event this information is protected by the Federal Confidentiality of Alcohol and Drug Abuse Patient Records regulations: The Federal rules restrict any use of the information to criminally investigate or prosecute any alcohol or drug abuse patient.[facility] the event this information is protected by the Federal Confidentiality of Alcohol and Drug Abuse Patient Records regulations: The Federal rules restrict any use of the information to criminally investigate or prosecute any alcohol or drug abuse patient.[facility] the event this information is protected by the Federal Confidentiality of Alcohol and Drug Abuse Patient Records regulations: The Federal rules restrict any use of the information to criminally investigate or prosecute any alcohol or drug abuse patient.[facility] the event this information is protected by the Federal Confidentiality of Alcohol and Drug Abuse Patient Records regulations: The Federal rules restrict any use of the information to criminally investigate or prosecute any alcohol or drug abuse patient.[facility] the event this information is protected by the Federal Confidentiality of Alcohol and Drug Abuse Patient Records regulations: The Federal rules restrict any use of the information to criminally investigate or prosecute any alcohol or drug abuse patient.[facility] Campus[facility] the event this information is protected by the Federal Confidentiality of Alcohol and Drug Abuse Patient Records regulations: The Federal rules restrict any use of the information to criminally investigate or prosecute any alcohol or drug abuse patient.[facility] the event this information is protected by the Federal Confidentiality of Alcohol and Drug Abuse Patient Records regulations: The Federal rules restrict any use of the information to criminally investigate or prosecute any alcohol or drug abuse patient.[facility] the event this information is protected by the Federal Confidentiality of Alcohol and Drug Abuse Patient Records regulations: The Federal rules restrict any use of the information to criminally investigate or prosecute any alcohol or drug abuse patient.[facility] the event this information is protected by the Federal Confidentiality of Alcohol and Drug Abuse Patient Records regulations: The Federal rules restrict any use of the information to criminally investigate or prosecute any alcohol or drug abuse patient.[facility] the event this information is protected by the Federal Confidentiality of Alcohol and Drug Abuse Patient Records regulations: The Federal rules restrict any use of the information to criminally investigate or prosecute any alcohol or drug abuse patient.[facility] the event this information is protected by the Federal Confidentiality of Alcohol and Drug Abuse Patient Records regulations: The Federal rules restrict any use of the information to criminally investigate or prosecute any alcohol or drug abuse patient.[facility] Campus[facility] the event this information is protected by the Federal Confidentiality of Alcohol and Drug Abuse Patient Records regulations: The Federal rules restrict any use of the information to criminally investigate or prosecute any alcohol or drug abuse patient.[facility] Campus[facility] the event this information is protected by the Federal Confidentiality of Alcohol and Drug Abuse Patient Records regulations: The Federal rules restrict any use of the information to criminally investigate or prosecute any alcohol or drug abuse patient.[facility] Campus[facility] the event this information is protected by the Federal Confidentiality of Alcohol and Drug Abuse Patient Records regulations: The Federal rules restrict any use of the information to criminally investigate or prosecute any alcohol or drug abuse patient.[facility] the event this information is protected by the Federal Confidentiality of Alcohol and Drug Abuse Patient Records regulations: The Federal rules restrict any use of the information to criminally investigate or prosecute any alcohol or drug abuse patient.[facility] the event this information is protected by the Federal Confidentiality of Alcohol and Drug Abuse Patient Records regulations: The Federal rules restrict any use of the information to criminally investigate or prosecute any alcohol or drug abuse patient.[facility] Campus[facility] the event this information is protected by the Federal Confidentiality of Alcohol and Drug Abuse Patient Records regulations: The Federal rules restrict any use of the information to criminally investigate or prosecute any alcohol or drug abuse patient.[facility] CampusIn the event this information is protected by the Federal Confidentiality of Alcohol and Drug Abuse Patient Records regulations: The Federal rules restrict any use of the information to criminally investigate or prosecute any alcohol or drug abuse patient.[facility] Campus[facility] the event this information is protected by the Federal Confidentiality of Alcohol and Drug Abuse Patient Records regulations: The Federal rules restrict any use of the information to criminally investigate or prosecute any alcohol or drug abuse patient.[facility] Campus[facility] the event this information is protected by the Federal Confidentiality of Alcohol and Drug Abuse Patient Records regulations: The Federal rules restrict any use of the information to criminally investigate or prosecute any alcohol or drug abuse patient.[facility] CampusIn the event this information is protected by the Federal Confidentiality of Alcohol and Drug Abuse Patient Records regulations: The Federal rules restrict any use of the information to criminally investigate or prosecute any alcohol or drug abuse patient.[facility] CampusIn the event this information is protected by the Federal Confidentiality of Alcohol and Drug Abuse Patient Records regulations: The Federal rules restrict any use of the information to criminally investigate or prosecute any alcohol or drug abuse patient.[facility] CampusIn the event this information is protected by the Federal Confidentiality of Alcohol and Drug Abuse Patient Records regulations: The Federal rules restrict any use of the information to criminally investigate or prosecute any alcohol or drug abuse patient.[facility] the event this information is protected by the Federal Confidentiality of Alcohol and Drug Abuse Patient Records regulations: The Federal rules restrict any use of the information to criminally investigate or prosecute any alcohol or drug abuse patient.[facility] the event this information is protected by the Federal Confidentiality of Alcohol and Drug Abuse Patient Records regulations: The Federal rules restrict any use of the information to criminally investigate or prosecute any alcohol or drug abuse patient.[facility] CampusIn the event this information is protected by the Federal Confidentiality of Alcohol and Drug Abuse Patient Records regulations: The Federal rules restrict any use of the information to criminally investigate or prosecute any alcohol or drug abuse patient.[facility] CampusIn the event this information is protected by the Federal Confidentiality of Alcohol and Drug Abuse Patient Records regulations: The Federal rules restrict any use of the information to criminally investigate or prosecute any alcohol or drug abuse patient.[facility] CampusIn the event this information is protected by the Federal Confidentiality of Alcohol and Drug Abuse Patient Records regulations: The Federal rules restrict any use of the information to criminally investigate or prosecute any alcohol or drug abuse patient.[facility] CampusIn the event this information is protected by the Federal Confidentiality of Alcohol and Drug Abuse Patient Records regulations: The Federal rules restrict any use of the information to criminally investigate or prosecute any alcohol or drug abuse patient.[facility] CampusIn the event this information is protected by the Federal Confidentiality of Alcohol and Drug Abuse Patient Records regulations: The Federal rules restrict any use of the information to criminally investigate or prosecute any alcohol or drug abuse patient.[facility] CampusIn the event this information is protected by the Federal Confidentiality of Alcohol and Drug Abuse Patient Records regulations: The Federal rules restrict any use of the information to criminally investigate or prosecute any alcohol or drug abuse patient.[facility] CampusIn the event this information is protected by the Federal Confidentiality of Alcohol and Drug Abuse Patient Records regulations: The Federal rules restrict any use of the information to criminally investigate or prosecute any alcohol or drug abuse patient.[facility] CampusIn the event this information is protected by the Federal Confidentiality of Alcohol and Drug Abuse Patient Records regulations: The Federal rules restrict any use of the information to criminally investigate or prosecute any alcohol or drug abuse patient.[facility] CampusIn the event this information is protected by the Federal Confidentiality of Alcohol and Drug Abuse Patient Records regulations: The Federal rules restrict any use of the information to criminally investigate or prosecute any alcohol or drug abuse patient.[facility] CampusIn the event this information is protected by the Federal Confidentiality of Alcohol and Drug Abuse Patient Records regulations: The Federal rules restrict any use of the information to criminally investigate or prosecute any alcohol or drug abuse patient.[facility] CampusIn the event this information is protected by the Federal Confidentiality of Alcohol and Drug Abuse Patient Records regulations: The Federal rules restrict any use of the information to criminally investigate or prosecute any alcohol or drug abuse patient.[facility] CampusIn the event this information is protected by the Federal Confidentiality of Alcohol and Drug Abuse Patient Records regulations: The Federal rules restrict any use of the information to criminally investigate or prosecute any alcohol or drug abuse patient.[facility] CampusIn the event this information is protected by the Federal Confidentiality of Alcohol and Drug Abuse Patient Records regulations: The Federal rules restrict any use of the information to criminally investigate or prosecute any alcohol or drug abuse patient.[facility] CampusIn the event this information is protected by the Federal Confidentiality of Alcohol and Drug Abuse Patient Records regulations: The Federal rules restrict any use of the information to criminally investigate or prosecute any alcohol or drug abuse patient.[facility] CampusIn the event this information is protected by the Federal Confidentiality of Alcohol and Drug Abuse Patient Records regulations: The Federal rules restrict any use of the information to criminally investigate or prosecute any alcohol or drug abuse patient.[facility] CampusIn the event this information is protected by the Federal Confidentiality of Alcohol and Drug Abuse Patient Records regulations: The Federal rules restrict any use of the information to criminally investigate or prosecute any alcohol or drug abuse patient.[facility] Reason for Visit (unrecogniz ed section and content) Reason Comments Headache Reason Onset Date Comments Refill Request 07/02/2022 [...] c are and sent to er . [facility] found kidney stoe and surgery scheduled for Wednesday morning. But b/p still up. Reason Comments 4 week f/up Also feels may have sinus infection, sinus pressure through eyes , had aches nasal drainage for about a week and a half now Reason Comments Refill Request Reason Onset Date Comments Refill Request 03/09/2024 Reason Comments Yearly Exam Reason Comments Ear Pain Right ear with sore throat x 1 day Reason Comments Sore Throat X 1 day Reason Comments Hospital F/U Sepsis Reason Onset Date Comments Refill Request 09/05/2024 Reason Comments Patient Question Reason Comments sinus pressure Eye feel full, gums sore Reason Comments Appointment Reason Comments New Patient Kidney Stones Specialty Diagnoses / Procedures Referred By [facility] Referred To Contact Urology Diagnoses Pyelonephritis of right kidney Ureterolithiasis Status post laser lithotripsy of ureteral calculus Procedures CONSULT TO UROLOGY OFFICE/OUTPATIENT NEW HIGH MDM 60 MINUTES Toña Dhaliwal APRN.STEM M[employer]TER [address] [place] [address] Referral ID Status Reason Start Date Expiration Date V isits Requested Visits Authorized [id number] Closed PCP Requested Referral 09/11/2024 09/11/2025 1 1 Reason Comments Results Orders Specialty Diagnoses / Procedures Referred By [facility] Referred To Contact Nephrology Diagnoses Pyelonephritis of right kidney Ureterolithiasis Status post laser lithotripsy of ureteral calculus Procedures CONSULT TO NEPHROLOGY OFFICE/OUTPATIENT NEW [facility] MDM 60 MINUTES Shon Ronquillo, DO [address] [place] [address] Referral ID Status Reason Start Date Expiration Date V isits Requested Visits Authorized [id number] Closed PCP Requested Referral 09/05/2024 09/05/2025 1 1 Reason Comments Kidney Stones Specialty Diagnoses / Procedures Referred By [facility] Referred To Contact Urology Diagnoses Ureterolithiasis Status post laser lithotripsy of ureteral calculus Procedures CONSULT TO UROLOGY OFFICE/OUTPATIENT [facility] 60 MINUTES Enmanuel Vargas PA-C [address] [place] [address] Phone: tel: fax: Referral ID Status Reason Start Date Expiration Date V isits Requested Visits Authorized [id number] Closed PCP Requested Referral 10/24/2024 01/15/2025 1 1 Reason Comments Results, Lab [facility] 01/13/25 Reason Onset Date Comments Refill Request 03/06/2025 Reason Comments Radiology US Specialty Diagnoses / Procedures Referred By Contac t Referred To Contact [facility] IMAGING Diagnoses Recurrent nephrolithiasis Procedures US KIDNEY/BLADDER US RETROPERITONEAL REAL TIME W/IMAGE COMPLETE Александр Oshea MD [address] [place] [address] Phone: tel: fax: [place] [phone] Referral ID Status Reason Start Date Expiration Date V isits Requested Visits Authorized [id number] Closed Auto-Generate d Referral 06/20/2025 01/17/2026 1 1 Reason Comments Follow Up Recurrent nephrolith iasis Care Teams (unrecognized sec tion and content) Computer Graphics Illustrator Relationship Specialty Start Date End Date Shon Ronquillo DO [address] [place] [address] PCP - General Family Practice 03/24/16 Computer Graphics Illustrator Relationship Specialty Start Date End Date Shon Ronquillo DO [address] [place] [address] PCP - General Family Practice 03/24/16 Computer Graphics Illustrator Relationship Specialty Start Date End Date Shon Ronquillo DO [address] [place] [address] PCP - General Family Medicine 03/24/16 Computer Graphics Illustrator Relationship Specialty Start Date End Date Shon Ronquillo DO [address] [place] [address] PCP - General Family Medicine 03/24/16 Computer Graphics Illustrator Relationship Specialty Start Date End Date Shon Ronquillo, DO [address] [facility] [place] [address] PCP - General Family Medicine 03/24/16 Computer Graphics Illustrator Relationship Specialty Start Date End Date Shon Ronquillo, DO [address] [facility] [place] [address] PCP - General Family Medicine 03/24/16 Computer Graphics Illustrator Relationship Specialty Start Date End Date Shon Ronquillo, DO [address] [facility] [place] [address] PCP - General Family Medicine 03/24/16 Team Status: Active Member Role Status Dates Dr. Shon Ronquillo , DO Family Provider Active Dr. Shon Ronquillo , DO Primary Care Provider Active Team Status: Inactive Member Role Status Dates Dr. Shon Ronquillo , DO Primary Care Provider Active Dr. Tyler Nam MD Attending Provider Activ e Team Status: Inactive Member Role Status Dates Dr. Shon Ronquillo , DO Primary Care Provider Active Dr. Rajendra Hernandez , Attending Provider, Referring Provider Active Team Status: Inactive Member Role Status Dates Dr. Shon Ronquillo , Primary Care Provider Active ZACHARIAH ZHANG Attending Provider, Referring Shi jimenez Active Computer Graphics Illustrator Relationship Specialty Start Date End Date Shon Ronquillo, DO [address] [facility] [place] [address] PCP - General Family Medicine 03/24/16 Computer Graphics Illustrator Relationship Specialty Start Date End Date Shon Ronquillo DO [address] [facility] [place] [address] PCP - General Family Medicine 03/24/16 Computer Graphics Illustrator Relationship Specialty Start Date End Date Shon Ronquillo DO [address] [facility] [place] [address] PCP - General Family Medicine 03/24/16 Computer Graphics Illustrator Relationship Specialty Start Date End Date Shon Ronquillo DO [address] [facility] [place] [address] PCP - General Family Medicine 03/24/16 Computer Graphics Illustrator Relationship Specialty Start Date End Date Shon Ronquillo DO [address] [facility] [place] [address] PCP - General Family Medicine 03/24/16 Team Status: Inactive Member Role Status Dates Dr. Shon Ronquillo , DO Primary Care Provider Active Dr. Lakhwinder Headley , DO Emergency Provider Active Computer Graphics Illustrator Relationship Specialty Start Date End Date Shon Ronquillo DO [address] [place] [address] PCP - General Family Medicine 03/24/16 Team Status: Inactive Member Role Status Dates Dr. Shon Ronquillo , DO Primary Care Provider Active Dr. Lakhwinder Headley , DO Attending Provider, Emergency P barbara Active Computer Graphics Illustrator Relationship Specialty Start Date End Date Shon Ronquillo DO [address] [place] [address] PCP - General Family Medicine 03/24/16 Team Status: Inactive Member Role Status Dates Dr. Shon Ronquillo DO Primary Care Provider Active AMERICA PATEL NP-C Attending Provider, Referring Pr ovider Active Team Status: Inactive Member Role Status Dates Dr. Shon Ronquillo DO Primary Care Provider Active AMERICA PATEL NP-Josiane Attending Provider Active Team Status: Inactive Member Role Status Dates Dr. Shon Ronquillo DO Primary Care Provider Active AMERICA PATEL NP-C Attending Provider, Referring Pr ovider Active Dr. Rajendra Hernandez , DO Other Provider Active Nathalie Robbins Other Provider Active Computer Graphics Illustrator Relationship Specialty Start Date End Date Shon Ronquillo DO [address] [place] [address] PCP - General Family Medicine 03/24/16 Computer Graphics Illustrator Relationship Specialty Start Date End Date Shon Ronquillo, [address] [place] [address] PCP - General Family Medicine 03/24/16 Computer Graphics Illustrator Relationship Specialty Start Date End Date Shon Ronquillo, [address] [place] [address] PCP - General Family Medicine 03/24/16 Computer Graphics Illustrator Relationship Specialty Start Date End Date Shon Ronquillo, [address] [place] [address] PCP - General Family Medicine 03/24/16 Computer Graphics Illustrator Relationship Specialty Start Date End Date Shon Ronquillo, [address] [place] [address] PCP - General Family Medicine 03/24/16 Computer Graphics Illustrator Relationship Specialty Start Date End Date Shon Ronquillo, [address] [place] [address] PCP - General Family Medicine 03/24/16 Computer Graphics Illustrator Relationship Specialty Start Date End Date Shon Ronquillo, [address] [place] [address] PCP - General Family Medicine 03/24/16 Computer Graphics Illustrator Relationship Specialty Start Date End Date Shon Ronquillo, [address] [place] [address] PCP - General Family Medicine 03/24/16 Computer Graphics Illustrator Relationship Specialty Start Date End Date Shon Ronquillo, [address] [place] [address] PCP - General Family Medicine 03/24/16 Computer Graphics Illustrator Relationship Specialty Start Date End Date Shon Ronquillo DO [address] [place] [address] PCP - General Family Medicine 03/24/16 Computer Graphics Illustrator Relationship Specialty Start Date End Date Shon Ronquillo DO [address] [place] [address] PCP - General Family Medicine 03/24/16 Computer Graphics Illustrator Relationship Specialty Start Date End Date Shon Ronquillo DO [address] [place] [address] PCP - General Family Medicine 03/24/16 Computer Graphics Illustrator Relationship Specialty Start Date End Date Shon Ronquillo DO [address] [place] [address] PCP - General Family Medicine 03/24/16 Toña Dhaliwal, WIRE BASKET MAKER.STEM MOUNTER [address] [place] [address] Cloth Washer Operator Family Medicine 09/17/24 Ludivina Cantu, WIRE BASKET MAKER.STEM MOUNTER [address] [place] [address] Cloth Washer Operator Family Medicine 09/17/24 Computer Graphics Illustrator Relationship Specialty Start Date End Date Shon Ronquillo DO [address] [place] [address] PCP - General Family Medicine 03/24/16 Toña Dhaliwal, WIRE BASKET MAKER.STEM MOUNTER [address] [place] [address] Cloth Washer OperatorSpanish [facility] 09/17/24 PepeLudivina, WIRE BASKET MAKER.STEM MOUNTER [address] [place] [address] [facility] 09/17/24 Computer Graphics Illustrator Relationship Specialty Start Date End Date Shon Ronquillo DO [address] [place] [address] PCP - General Family Medicine 03/24/16 Toña Dhaliwal, WIRE BASKET MAKER.STEM MOUNTER [address] [place] [address] [facility] 09/17/24 PepeLudivina, WIRE BASKET MAKER.STEM MOUNTER [address] [place] [address] [facility] 09/17/24 Computer Graphics Illustrator Relationship Specialty Start Date End Date Shon Ronquillo DO [address] [facility] [place] [address] PCP - General Family Medicine 03/24/16 Toña Dhaliwal, WIRE BASKET MAKER.STEM MOUNTER [address] [place] [address] [facility] 09/17/24 PepeLudivina, WIRE BASKET MAKER.STEM MOUNTER [address] [facility] [place] [address] [facility] 09/17/24 Computer Graphics Illustrator Relationship Specialty Start Date End Date Shon Ronquillo DO [address] [place] [address] PCP - General Family Medicine 03/24/16 Toña Dhaliwal, WIRE BASKET MAKER.STEM MOUNTER [address] [facility] [place] [address] Cloth Washer Operator [facility] 09/17/24 PepeLudivina, WIRE BASKET MAKER.STEM MOUNTER [address] [facility] [place] [address] Cloth Washer Operator [facility] 09/17/24 Computer Graphics Illustrator Relationship Specialty Start Date End Date Shon Ronquillo DO [address] [facility] [place] [address] PCP - General Family Medicine 03/24/16 Toña Dhaliwal, WIRE BASKET MAKER.STEM MOUNTER [address] [place] [address] Cloth Washer OperatorSpanish [facility] 09/17/24 PepeLudivina, WIRE BASKET MAKER.STEM MOUNTER [address] [facility] [place] [address] [facility] 09/17/24 Computer Graphics Illustrator Relationship Specialty Start Date End Date Shon Ronquillo DO [address] [place] [address] PCP - General Family Medicine 03/24/16 Toña Dhaliwal, WIRE BASKET MAKER.STEM MOUNTER [address] [facility] [place] [address] Cloth Washer OperatorSpanish [facility]aks [facility] 09/17/24 Ludivina Cantu, WIRE BASKET MAKER.STEM MOUNTER [address] [facility] [place] [address] Cloth Washer OperatorSpanish Peaks [facility] 09/17/24 Computer Graphics Illustrator Relationship Specialty Start Date End Date Shon Ronquillo DO [address] [place] [address] PCP - General Family Medicine 03/24/16 Toña Dhaliwal, WIRE BASKET MAKER.STEM MOUNTER [address] [place] [address] Cloth Washer Operator Family Medicine 09/17/24 Ludivina Cantu APRN.STEM MOUNTER [address] [facility] [place] [address] Cloth Washer Operator Family Medicine 09/17/24 Computer Graphics Illustrator Relationship Specialty Start Date End Date Shon Ronquillo DO [address] [place] [address] PCP - General Family Medicine 03/24/16 Toña Dhaliwal, WIRE BASKET MAKER.STEM MOUNTER [address] [facility] [place] [address] Cloth Washer Operator Family Medicine 09/17/24 Ludivina Cantu, WIRE BASKET MAKER.STEM MOUNTER [address] [place] [address] Cloth Washer Operator [facility] 09/17/24 Computer Graphics Illustrator Relationship Specialty Start Date End Date Shon Ronquillo DO [address] [facility] [place] [address] PCP - General Family Medicine 03/24/16 Toña Dhaliwal, WIRE BASKET MAKER.STEM MOUNTER [address] [place] [address] Cloth Washer Operator Family Medicine 09/17/24 Ludivina Cantu, WIRE BASKET MAKER.STEM MOUNTER [address] [facility] [place] [address] [facility] 09/17/24 Computer Graphics Illustrator Relationship Specialty Start Date End Date Shon Ronquillo DO [address] [place] [address] PCP - General Family Medicine 03/24/16 PepeLudivina, WIRE BASKET MAKER.STEM MOUNTER [address] [place] [address] [facility]ly [facility] 09/17/24 Team Status: Active Member Role Status Dates Dr. Shon Ronquillo DO Primary Care Provider Active Team Status: Inactive Member Role Status Dates Dr. Shon Ronquillo DO Primary Care Provider Active Start: February 12, 2025 End: February 12, 2025 Dr. Leon Magaña DPM Attending Provider Active Start: February 12, 2025 End: February 12, 2025 Dr. Leon Magaña DPM Referring Provider Active Start: February 12, 2025 End: February 12, 2025 Computer Graphics Illustrator Relationship Specialty Start Date End Date Shon Ronquillo DO [address] [place] [address] PCP - General Family Medicine 03/24/16 PepeLudivina, WIRE BASKET MAKER.STEM MOUNTER [address] [place] [address] [facility]ly [facility] 09/17/24 Computer Graphics Illustrator Relationship Specialty Start Date End Date Shon Ronquillo DO [address] [place] [address] PCP - General Family Medicine 03/24/16 PepeLudivina, WIRE BASKET MAKER.STEM MOUNTER [address] [place] [address] [facility] 09/17/24 Computer Graphics Illustrator Relationship Specialty Start Date End Date Shon Ronquillo DO [address] [facility] [place] [address] PCP - General Family Medicine 03/24/16 PepeLudivina, WIRE BASKET MAKER.STEM MOUNTER [address] [facility] [place] [address] Cloth Washer Operator [facility] 09/17/24 Cony Lopez, WIRE BASKET MAKER.STEM MOUNTER [address] [place] [address] [facility]ly [facility] 03/26/25 Computer Graphics Illustrator Relationship Specialty Start Date End Date Shon Ronquillo DO [address] [facility] [place] [address] PCP - General Family Medicine 03/24/16 [facility] CenterLudivina, WIRE BASKET MAKER.STEM MOUNTER [address] [facility] [place] [address] Cloth Washer OperatorSpanish Peaks Regional [facility] 09/17/24 Cony Lopez, WIRE BASKET MAKER.STEM MOUNTER [address] [place] [address] [facility] 03/26/25 Computer Graphics Illustrator Relationship Specialty Start Date End Date Shon Ronquillo DO [address] [facility] [place] [address] PCP - General Family Medicine 03/24/16 PepeLudivina, WIRE BASKET MAKER.STEM MOUNTER [address] [facility] [place] [address] Cloth Washer Operator Family Medicine 09/17/24 Cony Lopez, WIRE BASKET MAKER.[facility] [address] [place] [address] Cloth Washer Operator Family Medicine 03/26/25 Goals (unrecognized section and content) Goals may be documented in a n alternate sectionGoals may be documented in an alternate sectionGoals may be documented in an alternate sectionGoals may be documented in an alternate sectionGoals may be documented in an alternate sectionGoals may be documented in an alternate sectionGoals may be documented in an alternate sectionGoals may be documented in an alternate sectionGoals may be documented in an alternate sectionGoals may be documented in an alternate section INFORMATION SOURCE (unrecogn ized section and content) DATE CREATED AUTHOR 10/23/2024 [facility] DATE CREATED AUTHOR AUTHOR'S ORGANIZ ATION 02/18/2025 [facility] DATE CREATED AUTHOR AUTHOR'S ORGANIZ ATION 06/26/2025 [facility] FOR RECORDS PERTAINING TO PATIENTS WHO ARE [...] BE BASED ON THE PRIMARY CLINICAL RECORDS. [facility]. provides no warranty or guarantee of the accuracy or completeness of information in this document.
[2025-06-30 09:05] LABS: AST(SGOT) 22 U/L (<=31); Alanine Aminotransfer ALT/SGPT 23 U/L (<=34); Albumin, Serum 4.4 g/dL (3.5-5.0); Alkaline Phosphatase 71 U/L (35-104); Anion Gap 10 (5-15); BUN 16 mg/dL (4-19); BUN/Creat Ratio 24.7 RATIO (10-20); Calcium,Total 9.4 mg/dL (7.6-11.0); Carbon Dioxide 25.8 mmol/L (21.0-32.0); Chloride 104 mmol/L (98-108); Cholesterol 170 mg/dL (<=200); Globulin 3.1 g/dL (2.2-4.2); Glucose 109 mg/dL (70-99); Low Density Lipoprotein Calc. 99 mg/dL; Magnesium 2.1 mg/dL (1.5-2.2); Potassium 3.8 mmol/L (3.3-5.1); Triglycerides 139 mg/dL; Very Low Density Lipoprotein 28 mg/dL (5-40); Vitamin D,25 Hydroxy 48.2 ng/mL (30-100); cholesterol:hdl ratio screen 3.90
== END | disposition home or self-care (01) ==
LOC: LAB 07:28
PROVIDERS: PCP Student in an Organized Health Care Education/Training Program; Referring Provider Internal Medicine Endocrinology, Diabetes & Metabolism; Visit Provider Internal Medicine Endocrinology, Diabetes & Metabolism
DX: N20.0 Calculus of kidney (principal); E78.2 Mixed hyperlipidemia; E04.0 Nontoxic diffuse goiter; E55.9 Vitamin D deficiency, unspecified; E83.42 Hypomagnesemia
CPT/HCPCS: 36415; 80053; 80061; 82306; 83735; 84443